=== PATIENT | male | born 1960 | race Caucasian/White ===

== ENCOUNTER → 2017-04-11 | Outpatient (CLI) | payer SELFPAY ==
[2017-04-11 14:06] LABS: CH 33.8; CHCM 32.6; HCT 47.1 % (39.0-53.0); HDW 2.17; HGB 15.4 gm/dL (13.0-17.5); MCHC 32.8 g/dL (31.0-37.0); MCV 103.8 fL (80.0-100.0); Macrocytosis Slight; Mean Platelet Volume 7.3; RBC 4.54 m/uL (4.30-5.90); RDW 12.8 % (11.5-15.5)
[2017-04-11 14:16] LABS: ALT 136 U/L (21-72); AST 116 U/L (17-59); Alkaline Phosphatase 69 U/L (38-126); Anion Gap 10 mmol/L; Blood Urea Nitrogen 18 mg/dL (9-20); Carbon Dioxide 28 mmol/L (22-30); Chloride 103 mmol/L (98-107); Glucose 134 mg/dL (74-99); Non-African American GFR(MDRD) >60 (>60 ml/min/1.73 sqM); Sodium 141 mmol/L (137-145); Total Bilirubin 0.7 mg/dL (0.2-1.3); Total Protein 7.5 g/dL (6.3-8.2)
== END | disposition home or self-care (01) ==
LOC: LABWHC1 13:27
PROVIDERS: ATTEND Internal Medicine Interventional Cardiology
DX: I48.0 Paroxysmal atrial fibrillation (principal)
CPT/HCPCS: 36415; 80053; 84443; 85027

== ENCOUNTER 2019-06-20 14:04 | Inpatient (IN) | payer BC ==
[2019-06-20] MEDS ORDERED: SODIUM CHLORIDE 0.9% 500 ML 500 ML IV STA (14:24)
[2019-06-20] MEDS ORDERED: OSELTAMIVIR 75 MG CAP PO STA (14:25)
[2019-06-20] MEDS ORDERED: DILTIAZEM DRIP BOLUS FROM BAG 1 MG SOLN IV ONE ×2 (14:25→15:14)
[2019-06-20] MEDS ORDERED: IBUPROFEN 600 MG TAB PO STA (14:26)
[2019-06-20] MEDS ORDERED: ACETAMINOPHEN TAB 500 MG TAB PO STA (14:26)
--- NOTE | 2019-06-20 14:41 | ED ---
General Adult HPI - General Chief complaint: Arrhythmia/Palpitations Stated complaint: +FLU, AFIB, High BP Time Seen by Provider: 06/20/19 14:04 Source: patient, RN notes reviewed, old records reviewed Mode of arrival: ambulatory Limitations: no limitations - History of Present Illness Initial comments: This is a 59-year-old male who was just diagnosed with influenza b admitted urgent care. They noted his heart rate to be extremely elevated at about 180 beats a minute and his blood pressure to be systolic over 200 systolic emergency department immediately. Patient states he felt his heart racing last night about 3:00 it is been racing ever since. He didn't feel well he had a fever say went to the urgent care. Patient's fever was 101.7. Patient denies any abdominal pain patient denies any chest pain though he feels the palpitations patient denies any lightheadedness or dizziness. Patient does state he is slightly short of breath when his heart racing this fast. - Related Data Home Medications Medication Instructions Recorded Confirmed Aspirin [Adult Low Dose Aspirin EC] 81 mg PO DAILY 06/20/19 06/20/19 Flecainide Acetate 100 mg PO Q12H 06/20/19 06/20/19 Metoprolol Tartrate [Lopressor] 50 mg PO BID 06/20/19 06/20/19 Allergies Allergy/AdvReac Type Severity Reaction Status Date / Time No Known Allergies Allergy Verified 06/20/19 15:59 Review of Systems ROS Statement: Those systems with pertinent positive or pertinent negative responses have been documented in the HPI. ROS Other: All systems not noted in ROS Statement are negative. Past Medical History Past Medical History: Atrial Fibrillation, COPD, Hypertension History of Any Multi-Drug Resistant Organisms: None Reported Past Surgical History: Orthopedic Surgery Additional Past Surgical History / Comment(s): shoulder Past Psychological History: No Psychological Hx Reported Smoking Status: Current every day smoker Past Alcohol Use History: Occasional Past Drug Use History: None Reported General Exam - General Exam Comments Initial Comments: GENERAL: Patient is well-developed and well-nourished. Patient is nontoxic and well- hydrated and is in moderate distress. ENT: Neck is soft and supple. No significant lymphadenopathy is noted. Oropharynx is clear. Moist mucous membranes. Neck has full range of motion without eliciting any pain. EYES: The sclera were anicteric and conjunctiva were pink and moist. Extraocular movements were intact and pupils were equal round and reactive to light. Eyelids were unremarkable. PULMONARY: Unlabored respirations. Good breath sounds bilaterally. No audible rales rhonchi or wheezing was noted. CARDIOVASCULAR: Patient's heart rate is 20 beats a minute. ABDOMEN: Soft and nontender with normal bowel sounds. No palpable organomegaly was noted. There is no palpable pulsatile mass. SKIN: Skin is clear with no lesions or rashes and otherwise unremarkable. NEUROLOGIC: Patient is alert and oriented x3. Cranial nerves II through XII are grossly intact. Motor and sensory are also intact. Normal speech, volume and content. Symmetrical smile. MUSCULOSKELETAL: Normal extremities with adequate strength and full range of motion. No lower extremity swelling or edema. No calf tenderness. LYMPHATICS: No significant lymphadenopathy is noted PSYCHIATRIC: Normal psychiatric evaluation. Limitations: no limitations Course Vital Signs 06/20/19 06/20/19 06/20/19 14:18 14:20 14:27 Temperature 101.7 F H Pulse Rate 192 H Pulse Rate [ Lacing Presser ] Respiratory 22 Rate Blood Pressure 151/79 O2 Sat by Pulse 90 L 77 L 91 L Oximetry 06/20/19 06/20/19 06/20/19 14:30 14:40 14:50 Temperature Pulse Rate 192 H 168 H 168 H Pulse Rate [ Lacing Presser ] Respiratory 49 H 45 H Rate Blood Pressure 151/79 152/104 151/111 O2 Sat by Pulse 93 L 100 95 Oximetry 06/20/19 06/20/19 06/20/19 15:00 15:03 15:10 Temperature Pulse Rate 154 H 172 H Pulse Rate [ 172 H Lacing Presser ] Respiratory 18 28 H Rate Blood Pressure 135/119 135/119 O2 Sat by Pulse 94 L 96 Oximetry Medical Decision Making - Medical Decision Making EKG shows atrial fibrillation with rapid ventricular response at 191 bpm QRS is 88 QT interval is 224 QTC is 399. I spoke with Dr. Gross agreed to admit the patient admitted the patient wrote admitting orders. I placed the patient on Cardizem drip after given a bolus of 10 mg of Cardizem I didn't repeat 10 mg Cardizem after the first bolus on slowing down to 170. Patient currently isn't 119 beats a minute. Started the patient on heparin. I admitted the patient I consult cardiology. - Lab Data Result diagrams: 06/20/19 14:40 06/20/19 14:40 Lab Results 06/20/19 06/20/19 06/20/19 Range/Units 14:40 14:40 14:40 WBC 14.2 H (3.8-10.6) k/uL RBC 5.18 (4.30-5.90) m/uL Hgb 16.8 (13.0-17.5) gm/dL Hct 49.6 (39.0-53.0) % MCV 95.6 (80.0-100.0) fL MCH 32.3 (25.0-35.0) pg MCHC 33.8 (31.0-37.0) g/dL RDW 12.5 (11.5-15.5) % Plt Count 252 (150-450) k/uL Neutrophils % 92 % Lymphocytes % 3 % Monocytes % 2 % Eosinophils % 1 % Basophils % 1 % Neutrophils # 13.1 H (1.3-7.7) k/uL Lymphocytes # 0.4 L (1.0-4.8) k/uL Monocytes # 0.3 (0-1.0) k/uL Eosinophils # 0.2 (0-0.7) k/uL Basophils # 0.1 (0-0.2) k/uL PT 10.3 (9.0-12.0) sec INR 1.0 (<1.2) APTT 21.6 L (22.0-30.0) sec Sodium 137 (137-145) mmol/L Potassium 4.9 (3.5-5.1) mmol/L Chloride 105 (98-107) mmol/L Carbon Dioxide 23 (22-30) mmol/L Anion Gap 9 mmol/L BUN 21 H (9-20) mg/dL Creatinine 1.08 (0.66-1.25) mg/dL Est GFR (CKD-EPI)AfAm 86 (>60 ml/min/1.73 sqM) Est GFR (CKD-EPI)NonAf 75 (>60 ml/min/1.73 sqM) Glucose 106 H (74-99) mg/dL Calcium 9.6 (8.4-10.2) mg/dL Magnesium 1.7 (1.6-2.3) mg/dL Total Bilirubin 0.9 (0.2-1.3) mg/dL AST 22 (17-59) U/L ALT 23 (4-49) U/L Alkaline Phosphatase 103 (38-126) U/L Troponin I (0.000-0.034) ng/mL Total Protein 8.0 (6.3-8.2) g/dL Albumin 4.7 (3.5-5.0) g/dL 06/20/19 Range/Units 14:40 WBC (3.8-10.6) k/uL RBC (4.30-5.90) m/uL Hgb (13.0-17.5) gm/dL Hct (39.0-53.0) % MCV (80.0-100.0) fL MCH (25.0-35.0) pg MCHC (31.0-37.0) g/dL RDW (11.5-15.5) % Plt Count (150-450) k/uL Neutrophils % % Lymphocytes % % Monocytes % % Eosinophils % % Basophils % % Neutrophils # (1.3-7.7) k/uL Lymphocytes # (1.0-4.8) k/uL Monocytes # (0-1.0) k/uL Eosinophils # (0-0.7) k/uL Basophils # (0-0.2) k/uL PT (9.0-12.0) sec INR (<1.2) APTT (22.0-30.0) sec Sodium (137-145) mmol/L Potassium (3.5-5.1) mmol/L Chloride (98-107) mmol/L Carbon Dioxide (22-30) mmol/L Anion Gap mmol/L BUN (9-20) mg/dL Creatinine (0.66-1.25) mg/dL Est GFR (CKD-EPI)AfAm (>60 ml/min/1.73 sqM) Est GFR (CKD-EPI)NonAf (>60 ml/min/1.73 sqM) Glucose (74-99) mg/dL Calcium (8.4-10.2) mg/dL Magnesium (1.6-2.3) mg/dL Total Bilirubin (0.2-1.3) mg/dL AST (17-59) U/L ALT (4-49) U/L Alkaline Phosphatase (38-126) U/L Troponin I <0.012 (0.000-0.034) ng/mL Total Protein (6.3-8.2) g/dL Albumin (3.5-5.0) g/dL Critical Care Time Critical Care Time: Yes Total Critical Care Time: 35 Disposition Clinical Impression: Atrial fibrillation with rapid ventricular response Disposition: ADMITTED IP TO THIS HOSP Referrals: None,Stated [Primary Care Provider] - 1-2 days Time of Disposition: 17:05
[2019-06-20 14:48] LABS: Basophils # (A) 0.1 k/uL (0-0.2); Basophils % (A) 1 %; Eosinophils # (A) 0.2 k/uL (0-0.7); Eosinophils % (A) 1 %; HCT 49.6 % (39.0-53.0); HGB 16.8 gm/dL (13.0-17.5); Lymphocytes # (A) 0.4 k/uL (1.0-4.8); Lymphocytes % (A) 3 %; MCH 32.3 pg (25.0-35.0); MCHC 33.8 g/dL (31.0-37.0); MCV 95.6 fL (80.0-100.0); Mean Platelet Volume 7.1; Monocytes # (A) 0.3 k/uL (0-1.0); Monocytes % (A) 2 %; Neutrophils # (A) 13.1 k/uL (1.3-7.7); Neutrophils % (A) 92 %; Platelet Count 252 k/uL (150-450); RBC 5.18 m/uL (4.30-5.90); RDW 12.5 % (11.5-15.5); WBC 14.2 k/uL (3.8-10.6)
[2019-06-20] MEDS: DILTIAZEM 125 MG in SODIUM CHLORIDE 0.9% 100 ML IV SCH (14:48)
[2019-06-20 15:08] LABS: Albumin 4.7 g/dL (3.5-5.0); Calcium 9.6 mg/dL (8.4-10.2); Magnesium 1.7 mg/dL (1.6-2.3); Partial Thromboplastin Time 21.6 sec (22.0-30.0); Potassium 4.9 mmol/L (3.5-5.1); Prothrombin Time 10.3 sec (9.0-12.0); Total Bilirubin 0.9 mg/dL (0.2-1.3)
--- NOTE | 2019-06-20 16:35 | XR ---
EXAMINATION TYPE: XR chest 1V portable DATE OF EXAM: 06/20/2019 COMPARISON: Prior chest x-ray 11/04/2011 HISTORY: Chest pain TECHNIQUE: Single frontal view of the chest is obtained. FINDINGS: Findings are similar. Left hemidiaphragm appears elevated. Left heart border is obscured. There are overlying cardiac leads. There is no focal air space opacity, pleural effusion, or pneumoth orax seen. The cardiac silhouette size could be enlarged. The osseous structures are intact, old r ight clavicular fracture is healed. IMPRESSION: Elevated left hemidiaphragm. There are limitations the exam, PA and lateral chest x-ray may be of benefit. Difficult to exclude cardiomegaly.
[2019-06-20] MEDS ORDERED: HEPARIN SODIUM,PORCINE 5,000 UNIT/ML 1 ML VIAL IV ONE (17:00)
[2019-06-20] MEDS ORDERED: NITROGLYCERIN SL TABS 0.4 MG TAB SUBLINGUAL PRN (17:05)
[2019-06-20] MEDS: HEPARIN SOD,PORK IN 0.45% NACL 25,000 UNIT in 0.45% NACL 1 250ML.BAG IV SCH (18:37)
[2019-06-20] MEDS: ACETAMINOPHEN TAB 325 MG TAB PO PRN (21:07)
[2019-06-20] MEDS: OSELTAMIVIR 75 MG CAP PO SCH (21:07)
[2019-06-20] MEDS: guaiFENesin-DM 100-10MG/5ML 10 ML CUP PO PRN (21:30)
[2019-06-21 04:42] LABS: Cholesterol 146 mg/dL (<200); HDL Cholesterol 50 mg/dL (40-60); LDL Cholesterol,Calculated 87 mg/dL (0-99); Triglycerides 46 mg/dL (<150)
[2019-06-21] MEDS: guaiFENesin-DM 100-10MG/5ML 10 ML CUP PO PRN ×3 (06:42→20:28)
[2019-06-21] MEDS: ACETAMINOPHEN TAB 325 MG TAB PO PRN ×2 (08:29→18:39)
[2019-06-21] MEDS: OSELTAMIVIR 75 MG CAP PO SCH ×2 (08:31→20:28)
[2019-06-21] MEDS ORDERED: ASPIRIN 325 MG TAB PO SCH (09:00)
[2019-06-21 12:38] LABS: Basophils # (A) 0.1 k/uL (0-0.2); Basophils % (A) 2 %; Eosinophils % (A) 1 %; HCT 43.2 % (39.0-53.0); HGB 14.3 gm/dL (13.0-17.5); Lymphocytes # (A) 0.1 k/uL (1.0-4.8); Lymphocytes % (A) 2 %; MCH 32.2 pg (25.0-35.0); MCHC 33.1 g/dL (31.0-37.0); MCV 97.4 fL (80.0-100.0); Mean Platelet Volume 7.2; Monocytes # (A) 0.3 k/uL (0-1.0); Monocytes % (A) 7 %; Neutrophils # (A) 4.3 k/uL (1.3-7.7); Neutrophils % (A) 85 %; Platelet Count 172 k/uL (150-450); RBC 4.44 m/uL (4.30-5.90); RDW 12.7 % (11.5-15.5)
[2019-06-21] MEDS: HEPARIN SOD,PORK IN 0.45% NACL 25,000 UNIT in 0.45% NACL 1 250ML.BAG IV SCH (13:08)
[2019-06-21 13:25] LABS: Calcium 8.6 mg/dL (8.4-10.2)
[2019-06-21] MEDS: DILTIAZEM 125 MG in SODIUM CHLORIDE 0.9% 100 ML IV SCH (14:26)
[2019-06-21] MEDS: METOPROLOL TARTRATE 50 MG TAB PO SCH ×2 (14:26→20:28)
[2019-06-21] MEDS: FLECAINIDE 50 MG TAB PO SCH ×2 (14:26→20:28)
[2019-06-21] MEDS: MELATONIN 5 MG TABLET PO SCH (20:28)
[2019-06-22] MEDS: guaiFENesin-DM 100-10MG/5ML 10 ML CUP PO PRN ×3 (03:03→18:35)
[2019-06-22 06:42] LABS: HCT 47.1 % (39.0-53.0); HGB 15.4 gm/dL (13.0-17.5); MCHC 32.7 g/dL (31.0-37.0); MCV 97.7 fL (80.0-100.0); Mean Platelet Volume 7.3; Platelet Count 153 k/uL (150-450); RBC 4.82 m/uL (4.30-5.90); RDW 12.7 % (11.5-15.5); WBC 5.6 k/uL (3.8-10.6)
[2019-06-22 07:16] LABS: Calcium 8.6 mg/dL (8.4-10.2); Potassium 4.1 mmol/L (3.5-5.1)
[2019-06-22] MEDS: ASPIRIN 81 MG PO SCH (09:33)
[2019-06-22] MEDS: METOPROLOL TARTRATE 50 MG TAB PO SCH ×2 (09:33→20:33)
[2019-06-22] MEDS: ACETAMINOPHEN TAB 325 MG TAB PO PRN ×2 (09:33→20:33)
[2019-06-22] MEDS: OSELTAMIVIR 75 MG CAP PO SCH ×2 (09:33→20:34)
[2019-06-22] MEDS: FLECAINIDE 50 MG TAB PO SCH ×2 (09:33→20:34)
--- NOTE | 2019-06-22 10:21 | P.HPIM ---
History of Present Illness H&P Date: 06/21/19 Chief Complaint: Palpitations 59-year-old male who was just diagnosed with influenza b admitted urgent care. They noted his heart rate to be extremely elevated at about 180 beats a minute and his blood pressure to be systolic over 200 systolic emergency department immediately. Patient states he felt his heart racing last night about 3:00 it is been racing ever since. He didn't feel well he had a fever say went to the urgent care. Patient's fever was 101.7. Patient denies any abdominal pain patient denies any chest pain though he feels the palpitations patient denies any lightheadedness or dizziness. Patient does state he is slightly short of breath when his heart racing this fast. Workup in ED within EKG revealed atrial fibrillation with RVR at 191; patient wa s started on Cardizem bolus and infusion and IV heparin and is admitted for further treatment of influenza and cardiology evaluation Review of Systems REVIEW OF SYSTEMS: CONSTITUTIONAL: No fever, no malaise, no fatigue. HEENT: No recent visual problems or hearing problems. Denied any sore throat. CARDIOVASCULAR: Palpitations. PULMONARY: No shortness of breath, no cough, no hemoptysis. GASTROINTESTINAL: No diarrhea, no nausea, no vomiting, no abdominal pain. NEUROLOGICAL: No headaches, no weakness, no numbness. HEMATOLOGICAL: Denies any bleeding or petechiae. GENITOURINARY: Denies any burning micturition, frequency, or urgency. MUSCULOSKELETAL/RHEUMATOLOGICAL: Denies any joint pain, swelling, or any muscle pain. ENDOCRINE: Denies any polyuria or polydipsia. The rest of the 14-point review of systems is negative. Past Medical History Past Medical History: Atrial Fibrillation, COPD, Hypertension History of Any Multi-Drug Resistant Organisms: None Reported Past Surgical History: Orthopedic Surgery Additional Past Surgical History / Comment(s): shoulder Past Psychological History: No Psychological Hx Reported Smoking Status: Current every day smoker Past Alcohol Use History: Occasional Past Drug Use History: None Reported Medications and Allergies Home Medications Medication Instructions Recorded Confirmed Type Aspirin [Adult Low Dose Aspirin EC] 81 mg PO DAILY 06/20/19 06/20/19 History Flecainide Acetate 100 mg PO Q12H 06/20/19 06/20/19 History Metoprolol Tartrate [Lopressor] 50 mg PO BID 06/20/19 06/20/19 History Allergies Allergy/AdvReac Type Severity Reaction Status Date / Time No Known Allergies Allergy Verified 06/20/19 15:59 Physical Exam Vitals: Vital Signs Temp Pulse Pulse Pulse Resp BP BP 06/21/19 11:15 98.5 F 101 H 18 128/76 06/21/19 09:00 18 06/21/19 07:58 98.4 F 113 H 18 141/90 06/21/19 04:31 99.4 F 116 H 18 142/85 06/21/19 00:00 97.9 F 104 H 22 164/84 06/20/19 21:53 98.7 F 111 H 20 139/80 06/20/19 21:00 111 H 20 06/20/19 19:05 99.2 F 112 H 16 108/73 06/20/19 17:05 99.2 F 112 H 16 108/73 06/20/19 15:10 172 H 28 H 135/119 06/20/19 15:03 154 H 18 135/119 06/20/19 15:00 172 H 06/20/19 14:50 168 H 45 H 151/111 06/20/19 14:40 168 H 49 H 152/104 06/20/19 14:30 192 H 151/79 06/20/19 14:27 101.7 F H 192 H 22 151/79 06/20/19 14:20 06/20/19 14:18 Pulse Ox 06/21/19 11:15 91 L 06/21/19 09:00 06/21/19 07:58 93 L 06/21/19 04:31 93 L 06/21/19 00:00 93 L 06/20/19 21:53 93 L 06/20/19 21:00 06/20/19 19:05 98 06/20/19 17:05 98 06/20/19 15:10 96 06/20/19 15:03 94 L 06/20/19 15:00 06/20/19 14:50 95 06/20/19 14:40 100 06/20/19 14:30 93 L 06/20/19 14:27 91 L 06/20/19 14:20 77 L 06/20/19 14:18 90 L Intake and Output 06/20/19 06/21/19 06/21/19 22:59 06:59 14:59 Intake Total 79.333 Output Total 200 325 Balance -120.667 -325 Intake: Intake, IV Titration 79.333 Amount Heparin Sod,Pork in 0.45% 79.333 NaCl 25,000 unit In 0.45 % NaCl 1 250ml.bag @ 10. 113 UNITS/KG/HR 10 mls/hr IV .Q24H [facility] Rx#: [id number] Output: Urine 200 325 Other: # Voids 1 1 Weight 98.883 kg 96.8 kg GENERAL: The patient is alert and oriented x3, not in any acute distress. Well developed, well nourished. HEENT: Pupils are round and equally reacting to light. EOMI. No scleral icterus. No conjunctival pallor. Normocephalic, atraumatic. No pharyngeal erythema. No thyromegaly. CARDIOVASCULAR: Irregularly irregular; S1 and S2 present. . PULMONARY: Chest is clear to auscultation, no wheezing or crackles. ABDOMEN: Soft, nontender, nondistended, normoactive bowel sounds. No palpable organomegaly. MUSCULOSKELETAL: No joint swelling or deformity. EXTREMITIES: No cyanosis, clubbing, or pedal edema. NEUROLOGICAL: Gross neurological examination did not reveal any focal deficits. SKIN: No rashes. Results CBC & Chem 7: 06/22/19 06:11 06/22/19 06:11 Labs: Abnormal Lab Results - Last 24 Hours (Table) 06/20/19 06/20/19 06/20/19 Range/Units 14:40 14:40 14:40 WBC 14.2 H (3.8-10.6) k/uL Neutrophils # 13.1 H (1.3-7.7) k/uL Lymphocytes # 0.4 L (1.0-4.8) k/uL APTT 21.6 L (22.0-30.0) sec BUN 21 H (9-20) mg/dL Glucose 106 H (74-99) mg/dL 06/21/19 06/21/19 Range/Units 00:40 03:53 WBC (3.8-10.6) k/uL Neutrophils # (1.3-7.7) k/uL Lymphocytes # (1.0-4.8) k/uL APTT 39.6 H 50.5 H (22.0-30.0) sec BUN (9-20) mg/dL Glucose (74-99) mg/dL Thrombosis Risk Factor Assmnt - Choose All That Apply Each Factor Represents 1 point: Age 41-60 years Thrombosis Risk Factor Assessment Total Risk Factor Score: 1 Thrombosis Risk Factor Assessment Level: Low Risk Assessment and Plan Assessment: 1. Atrial fibrillation with RVR; patient is started on IV heparin per protocol and remains rate controlled on IV Cardizem; cardiology is consulted and recommendations are pending 2. Influenza B; patient is started on Tamiflu 75 mg every 12 hours; we will continue with supportive care with IV fluids and Robitussin-DM for cough 3. COPD; not in exacerbation; patient does not use any inhaler therapy at home 4. Hypertension; continue with home dose of Lopressor 50 mg every 12 hours DVT prophylaxis; systemic anticoagulation with heparin CODE STATUS; full code
[2019-06-22 11:48] LABS: Band Neutrophils % 4 %; Lymphocytes # (M) 0.62 k/uL (1.0-4.8); Monocytes # (M) 0.34 k/uL (0-1.0); Neutrophils % (M) 79 %; Nucleated Red Blood Cells 0 /100 WBC (0-0); Total Cells Counted 100
--- NOTE | 2019-06-22 12:17 | CONS ---
CONSULTATION CHIEF COMPLAINT: Atrial fibrillation. Gabriel is a 59-year-old gentleman with history of hypertension, paroxysmal atrial fibrillation, who was admitted to the hospital with flu and was found to be in atrial fibrillation with rapid ventricular rate. The patient had symptoms of fever, cough, not feeling well and also had sustained palpitations. His admission EKG showed A-Fib with RVR with heart rates in the 190s. Subsequently, the heart rates are better controlled. I saw the patient yesterday, that is on 06/21, but I could not dictate him, I am dictating it today. At the time of my evaluation, patient was chest pain-free and hemodynamically stable. PAST MEDICAL HISTORY: Significant for paroxysmal atrial fibrillation. MEDICATIONS: Medications include Lopressor 50 b.i.d., flecainide 100 b.i.d. and aspirin. ALLERGIES: There are no known drug allergies. FAMILY HISTORY: Negative for premature coronary artery disease. SOCIAL HISTORY: Negative for current smoking, EtOH abuse, or drug abuse. REVIEW OF SYSTEMS: HEENT is unremarkable. CARDIAC: As described above. RESPIRATORY: As described above. GI: Negative. GENITOURINARY: Negative. ALLERGY/IMMUNOLOGY: Negative. MUSCULOSKELETAL: Negative. ENDOCRINE: Negative. HEMATOLOGICAL: Negative. DERM: Negative. CONSTITUTIONAL: As described above. Rest of the system review is not relevant. PHYSICAL EXAMINATION: On exam, patient is afebrile. Heart rate is 90 beats per minute. Blood pressure is 138/88. Respiratory rate is 18. O2 sat is 92% on room air. There is no jugular venous distention. Carotid upstroke is normal. There is no bruit. Chest exam shows good air entry bilaterally. I do not hear any crackles or rhonchi. Heart exam reveals first and second heart sounds, irregular rhythm. There is no murmur, rub. Abdomen is soft, nontender. Exam of extremities did not reveal any edema. Peripheral pulses are felt. ASSESSMENT: 1. Persistent atrial fibrillation with rapid ventricular rate. 2. Flu. PLAN: I will continue the flecainide, metoprolol, intravenous heparin, obtain a 2D echo and decide on further course of action. MMODL / IJN: [id number] /
--- NOTE | 2019-06-22 16:30 | CT ---
EXAMINATION TYPE: CT brain wo con DATE OF EXAM: 06/22/2019 COMPARISON: None HISTORY: Left sided weakness. CT DLP: 1123.4 mGycm Automated exposure control for dose reduction was used. Multiple axial sections were obtained of the brain without contrast. Ventricles have normal size. There is no mass effect nor midline shift. There is no sign of intracran ial hemorrhage. Calvarium is intact. IMPRESSION: Negative unenhanced head CT scan. Mild ethmoid sinusitis noted.
[2019-06-22] MEDS: HEPARIN SOD,PORK IN 0.45% NACL 25,000 UNIT in 0.45% NACL 1 250ML.BAG IV SCH (17:25)
[2019-06-22] MEDS: MELATONIN 5 MG TABLET PO SCH (20:34)
--- NOTE | 2019-06-22 22:23 | PN ---
PROGRESS NOTE Gabriel is admitted to hospital with acute influenza and developed atrial fibrillation with rapid ventricular rate. This morning, he remains in atrial fibrillation with fairly controlled ventricular rate. Blood pressure is normal. Chest exam reveals good air entry bilaterally. Heart exam reveals first and second heart sounds. No gallop. Exam of extremities did not reveal any edema. He is currently on Tambocor 100 b.i.d., aspirin, intravenous heparin and Lopressor. If he is covered for Xarelto or Eliquis, he will be switched to one of them. ASSESSMENT: 1. Persistent atrial fibrillation with controlled ventricular rate. 2. Flu. PLAN: We will review the echocardiogram. Continue current medications. MMODL / IJN: [id number] /
[2019-06-23] MEDS: guaiFENesin-DM 100-10MG/5ML 10 ML CUP PO PRN (05:32)
[2019-06-23 07:03] LABS: Calcium 8.8 mg/dL (8.4-10.2); Potassium 4.2 mmol/L (3.5-5.1)
[2019-06-23 07:15] LABS: HCT 47.8 % (39.0-53.0); MCH 32.6 pg (25.0-35.0); MCHC 33.6 g/dL (31.0-37.0); MCV 97.1 fL (80.0-100.0); Mean Platelet Volume 8.6; Platelet Count 154 k/uL (150-450); RBC 4.92 m/uL (4.30-5.90); RDW 12.8 % (11.5-15.5); WBC 3.1 k/uL (3.8-10.6)
[2019-06-23] MEDS: METOPROLOL TARTRATE 50 MG TAB PO SCH ×2 (08:51→20:24)
[2019-06-23] MEDS: OSELTAMIVIR 75 MG CAP PO SCH ×2 (08:52→20:24)
[2019-06-23] MEDS: FLECAINIDE 50 MG TAB PO SCH ×2 (08:52→20:24)
[2019-06-23] MEDS: ASPIRIN 81 MG PO SCH (08:52)
[2019-06-23 09:01] LABS: Band Neutrophils % 2 %; Basophils # (M) 0.03 k/uL (0-0.2); Eosinophils # (M) 0.03 k/uL (0-0.7); Monocytes # (M) 0.47 k/uL (0-1.0); Neutrophils % (M) 65 %; Nucleated Red Blood Cells 0 /100 WBC (0-0); Total Cells Counted 100
[2019-06-23 09:02] LABS: Poikilocytosis (M) Present
--- NOTE | 2019-06-23 10:14 | P.PN ---
Subjective Progress Note Date: 06/22/19 Principal diagnosis: atrial fibrillation with RVR Influenza B 59-year-old male who was just diagnosed with influenza b admitted urgent care. They noted his heart rate to be extremely elevated at about 180 beats a minute and his blood pressure to be systolic over 200 systolic emergency department immediately. Patient states he felt his heart racing last night about 3:00 it is been racing ever since. He didn't feel well he had a fever say went to the urgent care. Patient's fever was 101.7. Patient denies any abdominal pain patient denies any chest pain though he feels the palpitations patient denies any lightheadedness or dizziness. Patient does state he is slightly short of breath when his heart racing this fast. Workup in ED within EKG revealed atrial fibrillation with RVR at 191; patient was started on Cardizem bolus and infusion and IV heparin and is admitted for further treatment of influenza and cardiology evaluation 06/22/2019 Patient is seen and evaluated in room at bedside; patient complaint some weakness and left upper extremity and reports inability to hold anything in left arm; denies any chest pain or shortness of breath; no vision or speech changes Vital signs are stable with a temperature of 98.5, pulse 105, blood pressure 145/88 and O2 saturation of 93% Patient does demonstrate used muscle strength in left upper extremity; we will order stat CT of head without contrast and stat consult with neurology cardiology is following for atrial fibrillation which remains under control with Tambocor 100 mg twice a day and Lopressor; patient is anticoagulated with IV heparin with plan to switch to oral anticoagulation therapy once stable Objective - Vital Signs Vital signs: Vital Signs Temp 98.2 F 06/22/19 08:00 Pulse 103 H 06/22/19 08:00 Resp 22 06/22/19 04:06 BP 138/88 06/22/19 08:00 Pulse Ox 92 L 06/22/19 08:00 Intake & Output 06/21/19 06/22/19 06/22/19 18:59 06:59 18:59 Intake Total 136.049 240 670 Output Total 650 250 300 Balance -513.951 -10 370 Weight 95.9 kg Intake: Intake, IV Titration 136.049 250 Amount Heparin Sod,Pork in 0.45% 136.049 250 NaCl 25,000 unit In 0.45 % NaCl 1 250ml.bag @ 10. 113 UNITS/KG/HR 10 mls/hr IV .Q24H [facility] Rx#: [id number] Oral 240 420 Output: Urine 650 250 300 Other: # Voids 2 - Exam GENERAL: The patient is alert and oriented x3, not in any acute distress. Well developed, well nourished. HEENT: Pupils are round and equally reacting to light. EOMI. No scleral icterus. No conjunctival pallor. Normocephalic, atraumatic. No pharyngeal erythema. No thyromegaly. CARDIOVASCULAR: Irregularly irregular; S1 and S2 present. . PULMONARY: Chest is clear to auscultation, no wheezing or crackles. ABDOMEN: Soft, nontender, nondistended, normoactive bowel sounds. No palpable organomegaly. MUSCULOSKELETAL: No joint swelling or deformity. EXTREMITIES: No cyanosis, clubbing, or pedal edema. NEUROLOGICAL: decreased muscle strength left upper extremity. - Labs CBC & Chem 7: 06/23/19 05:47 06/23/19 05:47 Labs: Abnormal Lab Results - Last 24 Hours (Table) 06/22/19 06/22/19 06/22/19 Range/Units 06:11 06:11 06:11 Lymphocytes # (Manual) 0.62 L (1.0-4.8) k/uL APTT 122.2 H* (22.0-30.0) sec Sodium 132 L (137-145) mmol/L Assessment and Plan Assessment: 1. Atrial fibrillation with RVR; patient is started on IV heparin per protocol and remains rate controlled on IV Cardizem; cardiology is consulted and recommendations are pending 2. Influenza B; patient is started on Tamiflu 75 mg every 12 hours; we will continue with supportive care with IV fluids and Robitussin-DM for cough 3. COPD; not in exacerbation; patient does not use any inhaler therapy at home 4. Hypertension; continue with home dose of Lopressor 50 mg every 12 hours DVT prophylaxis; systemic anticoagulation with heparin CODE STATUS; full code
[2019-06-23] MEDS: APIXABAN 5 MG TAB PO SCH ×2 (13:07→20:27)
--- NOTE | 2019-06-23 16:57 | P.PN ---
Subjective Progress Note Date: 06/23/19 Principal diagnosis: atrial fibrillation with RVR Influenza B 59-year-old male who was just diagnosed with influenza b admitted urgent care. They noted his heart rate to be extremely elevated at about 180 beats a minute and his blood pressure to be systolic over 200 systolic emergency department immediately. Patient states he felt his heart racing last night about 3:00 it is been racing ever since. He didn't feel well he had a fever say went to the urgent care. Patient's fever was 101.7. Patient denies any abdominal pain patient denies any chest pain though he feels the palpitations patient denies any lightheadedness or dizziness. Patient does state he is slightly short of breath when his heart racing this fast. Workup in ED within EKG revealed atrial fibrillation with RVR at 191; patient was started on Cardizem bolus and infusion and IV heparin and is admitted for further treatment of influenza and cardiology evaluation 06/22/2019 Patient is seen and evaluated in room at bedside; patient complaint some weakness and left upper extremity and reports inability to hold anything in left arm; denies any chest pain or shortness of breath; no vision or speech changes Vital signs are stable with a temperature of 98.5, pulse 105, blood pressure 145/88 and O2 saturation of 93% Patient does demonstrate used muscle strength in left upper extremity; we will order stat CT of head without contrast and stat consult with neurology cardiology is following for atrial fibrillation which remains under control with Tambocor 100 mg twice a day and Lopressor; patient is anticoagulated with IV heparin with plan to switch to oral anticoagulation therapy once stable 07/03/2019 Patient is seen and evaluated in room at bedside; patient reports marked improvement in arm weakness; neurology consult is pending CT of the head is reviewed and is negative for any acute abnormality; heart rate remains stable on Tambocor 100 mg every 12 hours and metoprolol 50 mg twice a day; IV heparin is discontinued and patient is started on Apixaban 5 mg twice a day; continue with Tamiflu 75 mg every 12 hours; await evaluation and re commendations by neurology service for further planning Objective - Vital Signs Vital signs: Vital Signs Temp 98.0 F 06/23/19 04:00 Pulse 88 06/23/19 04:00 Resp 18 06/23/19 04:00 BP 128/87 02/09/20 04:00 Pulse Ox 96 06/23/19 04:00 Intake & Output 06/22/19 06/23/19 06/23/19 18:59 06:59 18:59 Intake Total 970 120 Output Total 800 850 200 Balance 170 -850 -80 Weight 94.1 kg Intake: Intake, IV Titration 250 Amount Heparin Sod,Pork in 0.45% 250 NaCl 25,000 unit In 0.45 % NaCl 1 250ml.bag @ 10. 113 UNITS/KG/HR 10 mls/hr IV .Q24H [facility] Rx#: [id number] Oral 720 120 Output: Urine 800 850 200 Other: # Voids 1 - Exam GENERAL: The patient is alert and oriented x3, not in any acute distress. Well developed, well nourished. HEENT: Pupils are round and equally reacting to light. EOMI. No scleral icterus. No conjunctival pallor. Normocephalic, atraumatic. No pharyngeal erythema. No thyromegaly. CARDIOVASCULAR: Irregularly irregular; S1 and S2 present. . PULMONARY: Chest is clear to auscultation, no wheezing or crackles. ABDOMEN: Soft, nontender, nondistended, normoactive bowel sounds. No palpable organomegaly. MUSCULOSKELETAL: No joint swelling or deformity. EXTREMITIES: No cyanosis, clubbing, or pedal edema. NEUROLOGICAL: decreased muscle strength left upper extremity. - Labs CBC & Chem 7: 06/23/19 05:47 06/23/19 05:47 Labs: Abnormal Lab Results - Last 24 Hours (Table) 06/22/19 06/22/19 06/23/19 Range/Units 06:11 15:33 05:47 WBC 3.1 L (3.8-10.6) k/uL Lymphocytes # (Manual) 0.62 L 0.50 L (1.0-4.8) k/uL APTT 60.8 H (22.0-30.0) sec Sodium (137-145) mmol/L Glucose (74-99) mg/dL 06/23/19 06/23/19 Range/Units 05:47 05:47 WBC (3.8-10.6) k/uL Lymphocytes # (Manual) (1.0-4.8) k/uL APTT 59.0 H (22.0-30.0) sec Sodium 134 L (137-145) mmol/L Glucose 114 H (74-99) mg/dL Assessment and Plan Assessment: 1. Atrial fibrillation with RVR; patient is started on IV heparin per protocol and remains rate controlled on IV Cardizem; cardiology is consulted and recommendations are pending 2. Influenza B; patient is started on Tamiflu 75 mg every 12 hours; we will continue with supportive care with IV fluids and Robitussin-DM for cough 3. COPD; not in exacerbation; patient does not use any inhaler therapy at home 4. Hypertension; continue with home dose of Lopressor 50 mg every 12 hours DVT prophylaxis; systemic anticoagulation with heparin CODE STATUS; full code
[2019-06-23] MEDS: MELATONIN 5 MG TABLET PO SCH (20:24)
[2019-06-24 05:38] VITALS: RESP 18
[2019-06-24 06:41] LABS: HCT 51.1 % (39.0-53.0); HGB 16.8 gm/dL (13.0-17.5); MCH 31.9 pg (25.0-35.0); MCHC 32.8 g/dL (31.0-37.0); MCV 97.3 fL (80.0-100.0); Platelet Count 133 k/uL (150-450); RBC 5.25 m/uL (4.30-5.90); RDW 12.6 % (11.5-15.5); WBC 3.6 k/uL (3.8-10.6)
[2019-06-24 07:05] LABS: African American GFR (CKD) >90 (>60 ml/min/1.73 sqM); Anion Gap 9 mmol/L; Blood Urea Nitrogen 18 mg/dL (9-20); Carbon Dioxide 25 mmol/L (22-30); Chloride 102 mmol/L (98-107); Glucose 92 mg/dL (74-99); Non-African American GFR(CKD) 78 (>60 ml/min/1.73 sqM); Potassium 4.6 mmol/L (3.5-5.1); Sodium 136 mmol/L (137-145)
[2019-06-24 07:39] LABS: Band Neutrophils % 1 %; Eosinophils # (M) 0.07 k/uL (0-0.7); Lymphocytes # (M) 0.68 k/uL (1.0-4.8); Monocytes # (M) 1.04 k/uL (0-1.0); Neutrophils % (M) 49 %; Nucleated Red Blood Cells 0 /100 WBC (0-0); Total Cells Counted 100
[2019-06-24 08:17] VITALS: BP 125/87; PULSE 66
[2019-06-24] MEDS: FLECAINIDE 50 MG TAB PO SCH (08:21)
[2019-06-24] MEDS: METOPROLOL TARTRATE 50 MG TAB PO SCH (08:21)
[2019-06-24] MEDS: OSELTAMIVIR 75 MG CAP PO SCH (08:22)
[2019-06-24] MEDS: APIXABAN 5 MG TAB PO SCH (08:22)
[2019-06-24] MEDS: ASPIRIN 81 MG PO SCH (08:22)
[2019-06-24 11:55] VITALS: TEMP 98.1
--- NOTE | 2019-06-24 15:46 | P.PN ---
Subjective Progress Note Date: 06/24/19 This is a 59-year-old gentleman with history of hypertension, paroxysmal atrial fibrillation, admitted to the hospital with influenza, was found to be in atrial fibrillation with rapid ventricular response. The patient was seen in consultation by Dr. Sanchez, seen and evaluated today on the cardiac unit, blood pressure 125/80 with a heart rate in the 60s, 96% on room air. White blood cell count 3.6, hemoglobin 16.8, platelet count 133. Sodium 136, potassium 4.6, BUN 18, creatinine 1.0. Objective - Vital Signs Vital signs: Vital Signs Temp 98.1 F 06/24/19 11:53 Pulse 66 06/24/19 11:53 Resp 18 06/24/19 11:53 BP 125/87 06/24/19 11:53 Pulse Ox 93 L 06/24/19 11:53 Intake & Output 06/23/19 06/24/19 06/24/19 18:59 06:59 18:59 Intake Total 463 240 Output Total 626 Balance -163 240 Weight 93.3 kg Intake: Oral 463 240 Output: Urine 625 Stool 1 Other: Voiding Method Toilet Toilet # Voids 1 1 - Exam PHYSICAL EXAMINATION: GENERAL: 59-year-old gentleman in no acute distress at the time of my examination HEENT: Head is atraumatic, normocephalic. Pupils equal, round. Sclera anicteric. Conjunctiva are clear. Mucous membranes of the mouth are moist. Neck is supple. There is no elevated jugular venous pressure. No carotid bruit is heard. HEART EXAMINATION: Heart S1 and S2 irregularly irregular CHEST EXAMINATION: Lungs are clear to auscultation and precussion. No chest wall tenderness is noted on palpation or with deep breathing. ABDOMEN: Soft, nontender. Bowel sounds are heard. No organomegaly noted. EXTREMITIES: 2+ peripheral pulses with no evidence of peripheral edema and no calf tenderness noted. NEUROLOGIC patient is awake, alert and oriented 3 . - Labs CBC & Chem 7: 06/24/19 05:47 06/24/19 05:47 Labs: Abnormal Lab Results - Last 24 Hours (Table) 06/24/19 06/24/19 Range/Units 05:47 05:47 WBC 3.6 L (3.8-10.6) k/uL Plt Count 133 L (150-450) k/uL Lymphocytes # (Manual) 0.68 L (1.0-4.8) k/uL Monocytes # (Manual) 1.04 H (0-1.0) k/uL Sodium 136 L (137-145) mmol/L Assessment and Plan Plan: Assessment and plan #1 persistent atrial fibrillation #2 influenza Plan Patient will be discharged home today on anticoagulation, follow-up appointment will be made in the office post discharge. DNP note has been reviewed, I agree with a documented findings and plan of care. Patient was seen and examined.
--- NOTE | 2019-06-25 07:07 | DS ---
DISCHARGE SUMMARY FINAL DIAGNOSIS: 1. Atrial fibrillation with fast ventricular rate improved. 2. Influenza B,acute. 3. Chronic obstructive pulmonary disease with acute purulent tracheobronchitis. 4. Hypertension. DISCHARGE DISPOSITION: The patient will be discharged in stable condition with guarded prognosis. HISTORY OF PRESENT ILLNESS: This 59-year-old gentleman with a past medical history of multiple medical problems admitted with atrial fibrillation with a fast ventricular rate. Patient also had acute influenza B. The patient also had COPD not in exacerbation, purulent tracheobronchitis suspected. Patient improved, treated symptomatically. Cardiology saw the patient. The patient also had a CT scan of the brain showed negative unenhanced CT scan and the patient improved significantly. Patient will be discharged in stable condition with guarded prognosis. On exam, vitals are stable. CARDIOVASCULAR: S1, S2 muffled. ABDOMEN: Soft. NERVOUS SYSTEM: No focal deficits. DISCHARGE ADVICE AND MEDICATIONS: 1. Diet is cardiac. 2. Activity is limited until followup. 3. Follow up with Dr. Soy Baez in 2 to 3 days. 4. Follow up with Dr. Araujo as recommended. Medications are: 1. Ecotrin 81 mg p.o. daily. 2. Flecainide 100 mg p.o. b.i.d. 3. Lopressor 50 mg p.o. b.i.d. 4. Apixaban 5 mg p.o. b.i.d. 5. Tamiflu 75 mg p.o. b.i.d. for 3 more days. Once again, the patient will be discharged in stable condition with guarded prognosis. MMODL / IJN: [id number] /
== END 2019-06-24 12:50 | disposition home or self-care (01) | DRG 310 ==
LOC: EC 14:04 → 3SCARD 17:06
PROVIDERS: ADMIT Hospitalist; ATTEND Hospitalist
DX: I48.19 Other persistent atrial fibrillation (principal); F17.200 Nicotine dependence, unspecified, uncomplicated; I10 Essential (primary) hypertension; J44.9 Chronic obstructive pulmonary disease, unspecified; J10.1 Influenza due to other identified influenza virus with other respiratory manifestations; R53.1 Weakness; J20.9 Acute bronchitis, unspecified; Z79.82 Long term (current) use of aspirin; Z79.899 Other long term (current) drug therapy
CPT/HCPCS: 36415; 70450; 71045; 80048; 80053; 80061; 83735; 84484; 85025; 85610; 85730; 93306; 96361; 96365; 96366; 96376; 99291

== ENCOUNTER 2019-08-27 07:48 | Day surgery (SDC) | payer BC ==
[2019-08-26 11:36] VITALS: BMI 29.8
[2019-08-27] MEDS ORDERED: NITROGLYCERIN SL TABS 0.4 MG TAB SUBLINGUAL PRN (07:59)
[2019-08-27] MEDS ORDERED: ATORVASTATIN 80 MG TAB PO STA (07:59)
[2019-08-27] MEDS ORDERED: SODIUM CHLORIDE 0.9% 1,000 ML in EMPTY BAG 1 BAG IV ONE (07:59)
[2019-08-27] MEDS ORDERED: ALPRAZolam 0.5 MG TAB PO PRN (07:59)
[2019-08-27] MEDS ORDERED: ALPRAZolam 0.25 MG TAB PO PRN (07:59)
[2019-08-27] MEDS ORDERED: ASPIRIN 325 MG TAB PO STA (07:59)
[2019-08-27] MEDS ORDERED: SODIUM CHLORIDE 0.9% 1,000 ML IV ONE (08:43)
[2019-08-27 08:46] VITALS: RESP 16; TEMP 97.8
[2019-08-27] MEDS ORDERED: VERAPAMIL 2.5 MG/ML 2 ML AMP ONE (08:54)
[2019-08-27] MEDS ORDERED: fentaNYL (PF) 50 MCG/ML 2 ML AMP ONE (08:54)
[2019-08-27] MEDS ORDERED: LIDOCAINE 1% INJ 10MG/ML (20 ML MDV) ONE (08:54)
[2019-08-27] MEDS ORDERED: ASPIRIN 81 MG ONE (09:02)
[2019-08-27] MEDS ORDERED: ASPIRIN 325 MG TAB PO ONE (09:03)
[2019-08-27] MEDS ORDERED: fentaNYL (PF) 50 MCG/ML 2 ML AMP IVP ONE (09:10)
[2019-08-27] MEDS ORDERED: MIDAZOLAM 2 MG/2 ML VIAL IVP ONE (09:20)
[2019-08-27] MEDS ORDERED: LIDOCAINE 1% INJ 10MG/ML (20 ML MDV) SQ ONE (09:22)
[2019-08-27] MEDS ORDERED: VERAPAMIL SYRINGE (5 MG/10 ML) INTRAARTER ONE (09:24)
[2019-08-27] MEDS ORDERED: HEPARIN SODIUM 1,000 UN/ML (10ML VL) IV ONE (09:27)
[2019-08-27] MEDS ORDERED: IOPAMIDOL-370 125ML BTL INJ ONE (09:31)
[2019-08-27] MEDS ORDERED: RX INFO: IV CONTRAST WAS GIVEN 1 EACH MISC MISCELLANE PRN (09:43)
[2019-08-27] MEDS ORDERED: SODIUM CHLORIDE 0.9% 1,000 ML IV SCH (09:45)
--- NOTE | 2019-08-27 10:14 | CC ---
CARDIAC CATHETERIZATION REPORT Mr. Santoro is a 59-year-old male with known history of paroxysmal atrial fibrillation, prior history of smoking and hypertension who has been complaining of episode of chest discomfort and dyspnea. He underwent a myocardial perfusion imaging on the 25 of August where he had an episode of wide-complex tachycardia at peak exercise. In view of that, recommendation was made regarding cardiac catheterization. The procedure as well as the risks and the complications were discussed with the patient who is in full understanding and agreement. PROCEDURE: Patient was brought to the bottle labeler in a fasting state after receiving fentanyl and Benadryl and achieving moderate conscious sedated state. Using Xylocaine anesthesia in the Seldinger technique, a 6-Cypriot sheath was introduced in the right radial artery. Selective right and left coronary angiography performed using 5-Cypriot, 3.5 bend right and left Malika catheter. Multiple views in the coronary artery including hemiaxial views were obtained. Following that, the 5-Cypriot 3.5 bend left Malika was used to cross the aortic valve and pressures were calculated. Following that, catheter and sheath were removed. Hemostasis was obtained with deployment of a TR band. There was no immediate complication. Patient was returned to his room in stable condition. Of note, the patient received 5000 units of intravenous heparin as well as intra-arterial verapamil. FINDINGS: LEFT MAIN: This is a short size vessel, large in caliber, bifurcating in left circumflex, left anterior descending artery. Left main coronary artery has no evidence of high-grade stenosis. LEFT ANTERIOR DESCENDING ARTERY: This is a large-sized vessel reaching to the apex, tapers down distal third. The left anterior descending artery as well as branches have no evidence of obstructive coronary artery disease. LEFT CIRCUMFLEX: This is a large nondominant vessel giving rise to 2 obtuse marginal branches. The second one is large in caliber. The left circumflex as well as branches have no evidence of obstructive coronary artery disease. RIGHT CORONARY ARTERY: This is a moderately-sized dominant vessel bifurcating distally PDA and posterolateral segment and branches. The right coronary artery as well as branches have no evidence of obstructive coronary artery disease. LEFT VENTRICULOGRAM: Left ventriculogram was not performed. HEMODYNAMICS: There was no gradient across the aortic valve. The left ventricular end-diastolic pressure was 14 to 16 mmHg. CONCLUSION: 1. Normal coronary arteries. 2. Normal left ventricular end-diastolic pressure. RECOMMENDATION: In view of finding anatomy, I recommend continue medical therapy with further evaluation of his atrial fibrillation and resuming anticoagulation. Those findings and recommendation were discussed with the patient and he is full understanding and agreement. DURATION OF PROCEDURE: 14 minutes. JOE / CHEPE: [id number] /
[2019-08-27 14:25] VITALS: BP 125/80; PULSE 78
[2019-08-27] MEDS ORDERED: FLECAINIDE 50 MG TAB PO SCH (21:00)
[2019-08-27] MEDS ORDERED: METOPROLOL TARTRATE 50 MG TAB PO SCH (21:00)
== END 2019-08-27 15:01 | disposition home or self-care (01) ==
LOC: CATHCVL 07:48
PROVIDERS: ATTEND Internal Medicine Interventional Cardiology
DX: R07.89 Other chest pain (principal); R06.00 Dyspnea, unspecified; I48.0 Paroxysmal atrial fibrillation; I10 Essential (primary) hypertension; I48.92 Unspecified atrial flutter; J44.9 Chronic obstructive pulmonary disease, unspecified; Z87.891 Personal history of nicotine dependence; Z79.01 Long term (current) use of anticoagulants; Z79.899 Other long term (current) drug therapy
CPT/HCPCS: 93458; 80051; 82565; 84520; 85027; 36415; C1769; C1894; J2250; J2001; J3010; J1644; Q9967

== ENCOUNTER → 2019-08-27 | Outpatient (CLI) | payer BC ==
[2019-08-27 08:34] LABS: HCT 45.8 % (39.0-53.0); MCH 31.3 pg (25.0-35.0); MCHC 32.8 g/dL (31.0-37.0); MCV 95.3 fL (80.0-100.0); Mean Platelet Volume 6.5; RBC 4.81 m/uL (4.30-5.90); RDW 12.6 % (11.5-15.5); WBC 6.5 k/uL (3.8-10.6)
[2019-08-27 08:38] LABS: Platelet Count 284 k/uL (150-450)
[2019-08-27 08:51] LABS: Potassium 4.9 mmol/L (3.5-5.1)
== END | disposition home or self-care (01) ==
LOC: LABPAT 08:00
PROVIDERS: ATTEND Internal Medicine Interventional Cardiology
DX: Z01.818 Encounter for other preprocedural examination (principal); R07.9 Chest pain, unspecified
CPT/HCPCS: 36415; 80051; 82565; 84520; 85027

== ENCOUNTER 2019-09-18 18:29 | Inpatient (IN) | payer BC ==
--- NOTE | 2019-09-18 18:58 | ED ---
Chest Pain HPI - General Chief Complaint: Chest Pain Stated Complaint: Chest pain, Afib Time Seen by Provider: 09/18/19 18:40 Source: patient Mode of arrival: ambulatory Limitations: no limitations - History of Present Illness Initial Comments: The patient is a 59-year-old male with past medical history of A. fib who follows with Dr. Foy. He presents to the emergency department with reported weakness, palpitations and shortness of breath. He states that he had an ablation in [address] Foy however after 5 years he has had return of his A. fib. He states that his symptoms have been getting progressively worse. His medications haven't changed. He is currently on Lopressor 100 mg twice daily as well as Elquis. Denies missing any doses. The patient began having chest pain and followed up with his primary care office today. He had blood work performed as well as an EKG. They were concerned about his rapid ventricular rate and sentiment to the emergency room for evaluation. He is supposed to have another ablation however it has been cancelled because of the pandemic. The patient denies any fevers or chills. No cough or hemoptysis. There are no other alleviating, precipitating or modifying factors - Related Data Home Medications Medication Instructions Recorded Confirmed Omeprazole 20 mg PO DAILY 09/18/19 09/18/19 Tamsulosin [Flomax] 0.4 mg PO DAILY 09/18/19 09/18/19 Previous Rx's Medication Instructions Recorded Apixaban [Eliquis] 5 mg PO BID #60 tab 06/24/19 Metoprolol Tartrate [Lopressor] 50 mg PO BID #0 09/21/19 Sotalol [Betapace] 120 mg PO BID@0600,1800 #270 tab 09/21/19 Allergies Allergy/AdvReac Type Severity Reaction Status Date / Time No Known Allergies Allergy Verified 09/18/19 18:43 Review of Systems ROS Statement: Those systems with pertinent positive or pertinent negative responses have been documented in the HPI. ROS Other: All systems not noted in ROS Statement are negative. EKG Findings - EKG Comments: EKG Findings:: EKG demonstrates atrial fibrillation with a rate of 131. RI interval 0 QRS 86. QTC of 460. Peak T waves in V1 through V3. 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 - History of Any Multi-Drug Resistant Organisms: None Reported Past Surgical History: Cardiac Ablation, Orthopedic Surgery Additional Past Surgical History / Comment(s): rotator cuff left shoulder, Past Anesthesia/Blood Transfusion Reactions: No Reported Reaction Past Psychological History: No Psychological Hx Reported Smoking Status: Former smoker Past Alcohol Use History: None Reported Past Drug Use History: None Reported - Past Family History Mother Family Medical History: Cancer General Exam Limitations: no limitations General appearance: alert, in no apparent distress Head exam: Present: atraumatic, normocephalic, normal inspection Eye exam: Present: normal appearance, PERRL, EOMI. Absent: scleral icterus, conjunctival injection, periorbital swelling ENT exam: Present: normal exam, mucous membranes moist Neck exam: Present: normal inspection. Absent: tenderness, meningismus, lymphadenopathy Respiratory exam: Present: normal lung sounds bilaterally. Absent: respiratory distress, wheezes, rales, rhonchi, stridor Cardiovascular Exam: Present: tachycardia, irregular rhythm, normal heart sounds. Absent: systolic murmur, diastolic murmur, rubs, gallop, clicks GI/Abdominal exam: Present: soft, normal bowel sounds. Absent: distended, tenderness, guarding, rebound, rigid Extremities exam: Present: normal inspection, full ROM, normal capillary refill. Absent: tenderness, pedal edema, joint swelling, calf tenderness Back exam: Present: normal inspection Neurological exam: Present: alert, oriented X3, CN II-XII intact Psychiatric exam: Present: normal affect, normal mood Skin exam: Present: warm, dry, intact, normal color. Absent: rash Course Vital Signs 09/18/19 09/18/19 09/18/19 18:38 18:52 19:00 Temperature 98.3 F Pulse Rate 120 H 114 H Respiratory 18 16 Rate Blood Pressure 162/94 177/134 O2 Sat by Pulse 97 98 97 Oximetry 09/18/19 09/18/19 09/18/19 19:10 19:20 19:30 Temperature Pulse Rate 123 H 118 H 102 H Respiratory 17 22 23 Rate Blood Pressure 154/126 154/126 O2 Sat by Pulse 98 98 Oximetry 09/18/19 09/18/19 09/18/19 19:40 19:50 20:00 Temperature Pulse Rate 107 H 126 H 108 H Respiratory 13 17 19 Rate Blood Pressure 139/123 139/123 O2 Sat by Pulse 98 98 96 Oximetry 09/18/19 09/18/19 09/18/19 20:10 20:20 20:30 Temperature Pulse Rate 110 H 125 H 121 H Respiratory 13 18 20 Rate Blood Pressure 142/90 142/90 142/90 O2 Sat by Pulse 98 98 97 Oximetry 09/18/19 09/18/19 09/18/19 20:31 20:40 20:50 Temperature Pulse Rate 114 H 107 H 116 H Respiratory 15 13 14 Rate Blood Pressure 156/117 156/117 156/117 O2 Sat by Pulse 97 97 Oximetry 09/18/19 09/18/19 09/18/19 21:00 21:10 21:20 Temperature Pulse Rate 93 96 88 Respiratory 16 17 16 Rate Blood Pressure 156/117 149/110 155/114 O2 Sat by Pulse Oximetry Chest Pain MDM - MDM Upon arrival the patient is placed into room 4. A thorough history and physical exam was performed. The patient is noted to be in A. fib with RVR. Peripheral IV was established. Laboratory studies were conducted. Creatinine is 1.3 which is around the patient's baseline. First troponin is negative. Coronavirus is negative. Chest x-ray demonstrates no acute cardiopulmonary process. The patient is placed on a Cardizem drip. He does have improvement in his heart rate. I did recommend hospital admission for which the patient did agree. The patient will be admitted to Dr. ashley with cardiology to consult. The patient remained in stable condition was transported to floor Disposition Clinical Impression: Chest pain, Atrial fibrillation with rapid ventricular response Disposition: ADMITTED IP TO THIS HOSP Condition: Stable Is patient prescribed a controlled substance at d/c from ED?: No Decision to Admit Reason: Admit from EC Decision Date: 09/18/19 Decision Time: 20:34
[2019-09-18 19:20] LABS: INR 0.9 (<1.2); Partial Thromboplastin Time 24.3 sec (22.0-30.0); Prothrombin Time 9.6 sec (9.0-12.0)
[2019-09-18 19:22] LABS: Albumin 4.5 g/dL (3.5-5.0); Calcium 9.9 mg/dL (8.4-10.2); Potassium 4.4 mmol/L (3.5-5.1); Total Bilirubin 0.3 mg/dL (0.2-1.3); Total Protein 8.1 g/dL (6.3-8.2)
--- NOTE | 2019-09-18 19:24 | XR ---
EXAMINATION TYPE: XR chest 2V DATE OF EXAM: 09/18/2019 COMPARISON: Prior chest x-ray 06/20/2019 HISTORY: Chest pain TECHNIQUE: Frontal and lateral views of the chest are obtained. FINDINGS: There is no significant interval change, no focal air space opacity, pleural effusion, or pneumothorax seen. The cardiac silhouette size is within normal limits. The osseous structures are intact. Old right clavicular fracture is healed and shows a stable appearance. Elevation of left hem idiaphragm, eventration of right hemidiaphragm shows a stable appearance. Patient is rotated. IMPRESSION: No acute cardiopulmonary process.
[2019-09-18 19:31] LABS: HCT 44.3 % (39.0-53.0); HGB 15.4 gm/dL (13.0-17.5); MCHC 34.8 g/dL (31.0-37.0); MCV 94.7 fL (80.0-100.0); Mean Platelet Volume 6.5; Platelet Count 306 k/uL (150-450); RBC 4.68 m/uL (4.30-5.90); RDW 12.8 % (11.5-15.5); WBC 7.8 k/uL (3.8-10.6)
[2019-09-18 19:48] LABS: Basophils # (M) 0.08 k/uL (0-0.2); Eosinophils # (M) 0.39 k/uL (0-0.7); Lymphocytes # (M) 2.65 k/uL (1.0-4.8); Monocytes # (M) 0.78 k/uL (0-1.0); Neutrophils % (M) 50 %; Nucleated Red Blood Cells 0 /100 WBC (0-0); Total Cells Counted 100
[2019-09-18 19:50] LABS: Poikilocytosis (M) Present
[2019-09-18] MEDS ORDERED: DILTIAZEM DRIP BOLUS FROM BAG 1 MG SOLN IV ONE (20:31)
[2019-09-18] MEDS ORDERED: NALOXONE 0.4 MG/ML 1 ML VIAL IV PRN (20:32)
[2019-09-18] MEDS ORDERED: DILTIAZEM 125 MG in SODIUM CHLORIDE 0.9% 100 ML IV SCH (20:45)
[2019-09-18] MEDS: APIXABAN 5 MG TAB PO SCH (20:47)
[2019-09-18] MEDS ORDERED: hydrALAZINE HCL 20 MG/ML 1 ML VIAL IVP STA (21:33)
[2019-09-18] MEDS: ACETAMINOPHEN TAB 325 MG TAB PO PRN (22:50)
[2019-09-19] MEDS ORDERED: ACETAMINOPHEN TAB 325 MG TAB ONE (03:37)
[2019-09-19 07:54] LABS: Calcium 9.3 mg/dL (8.4-10.2); Potassium 4.3 mmol/L (3.5-5.1)
[2019-09-19 08:11] LABS: Basophils % (A) 0 %; Eosinophils # (A) 0.3 k/uL (0-0.7); Eosinophils % (A) 4 %; HCT 43.6 % (39.0-53.0); Lymphocytes # (A) 1.3 k/uL (1.0-4.8); Lymphocytes % (A) 20 %; MCHC 32.1 g/dL (31.0-37.0); MCV 96.5 fL (80.0-100.0); Mean Platelet Volume 6.7; Monocytes # (A) 0.5 k/uL (0-1.0); Monocytes % (A) 8 %; Neutrophils % (A) 63 %; Platelet Count 263 k/uL (150-450); RBC 4.51 m/uL (4.30-5.90); RDW 12.7 % (11.5-15.5); WBC 6.3 k/uL (3.8-10.6)
[2019-09-19] MEDS: APIXABAN 5 MG TAB PO SCH ×2 (08:23→19:46)
[2019-09-19] MEDS ORDERED: METOPROLOL TARTRATE 50 MG TAB PO SCH ×2 (09:00→21:00)
[2019-09-19] MEDS: PANTOPRAZOLE 40 MG TABLET PO SCH (10:03)
[2019-09-19] MEDS: ACETAMINOPHEN TAB 325 MG TAB PO PRN (10:04)
[2019-09-19] MEDS: TAMSULOSIN 0.4 MG CAP.ER.24H PO SCH (10:05)
--- NOTE | 2019-09-19 15:08 | P.CRDCN ---
History of Present Illness History of present illness: This is Barb Rees PA-C dictating a consult on this patient The patient was interviewed and examined by me as well as by Dr. Chaves Case discussed with Dr. Chaves and he agrees with the plan of care HPI Patient is a 59-year-old male with a history significant for atrial fibri llation, hypertension, and mild cardiomyopathy who presented with complaints of fatigue and palpitations. He follows with Dr. Araujo in the office. He recently underwent a coronary angiogram in August 2019 which showed normal coronary arteries. The last few weeks he has been having fatigue and is felt his heart racing. He gets short of breath and fatigued with minimal exertion such as completing his activities of daily living. He also complains of intermittent chest discomfort which she describes as a pressure. He has been a little dizzy as well, no syncope. He also complains of headaches and frequent nosebleeds. Denies any trauma or falls. He called his primary care office this past Monday and when in for an office visit this past Monday. An EKG was performed and he was noted to be in atrial fibrillation with RVR so he was sent into the hospital for further evaluation. EKG here again demonstrates atrial fibrillation with RVR, rate 131. Chest x-ray shows no acute process. Troponins were normal 3. TSH within normal limits. He was started on a Cardizem drip. His rates are currently in the 80s to 90s. He continues to feel fatigued when he gets up to use the bathroom. Denies any chest discomfort currently. His palpitations have improved. ROS: No fevers, chills or rigors, no cough, phlegm or expectoration, no nausea, vomiting or diarrhea, no hematuria, dysuria, no musculoskeletal complaints, no strokes or seizures, no skin lesions. EXAMINATION: Temperature 98.1F, pulse in the 80s to 90s, respirations 16, blood pressure 157/93, oxygen saturation 94% on room air Patient seen and examined resting comfortably in bed, in no acute distress Heart is irregular, no audible murmurs Lungs clear to auscultation bilaterally No elevated JVD No lower extremity edema REVIEW OF LABS, ECG & MEDICAL DATA WBC 6.3, hemoglobin 14, platelets 263, potassium 4.3, BUN 21, creatinine 1.2 Echocardiogram in June 2019 showed EF 45-50%, apical septal hypokinesis IMPRESSION / ASSESSMENT: #1 symptomatic atrial fibrillation with RVR, rate currently in the 80s to 90s, anticoagulated with eliquis #2 nonischemic cardiomyopathy, EF 45-50% by echocardiogram in June 2019 #3 hypertension #4 recent coronary angiogram showing normal coronary arteries #5 atrial flutter status post ablation PLAN: Discontinue Cardizem drip and start metoprolol 150 mg twice a day May consider starting sotalol Continue anticoagulation with eliquis If he continues to have recurrent nosebleeds and they are severe, consider ENT consult to consider cauterization Past Medical History Past Medical History: Atrial Fibrillation, Chest Pain / Angina, Heart Failure, COPD, Hypertension, Rheumatoid Arthritis (RA) Additional Past Medical History / Comment(s): migraines, influenza 06/2019, 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 - History of Any Multi-Drug Resistant Organisms: None Reported Past Surgical History: Cardiac Ablation, Orthopedic Surgery Additional Past Surgical History / Comment(s): rotator cuff left shoulder, Past Anesthesia/Blood Transfusion Reactions: No Reported Reaction Past Psychological History: No Psychological Hx Reported Smoking Status: Former smoker Past Alcohol Use History: None Reported Past Drug Use History: None Reported - Past Family History Mother Family Medical History: Cancer Medications and Allergies Home Medications Medication Instructions Recorded Confirmed Type Apixaban [Eliquis] 5 mg PO BID #60 tab 06/24/19 09/18/19 Rx Metoprolol Tartrate [Lopressor] 100 mg PO BID 09/18/19 09/18/19 History Omeprazole 20 mg PO DAILY 09/18/19 09/18/19 History Tamsulosin [Flomax] 0.4 mg PO DAILY 09/18/19 09/18/19 History Allergies Allergy/AdvReac Type Severity Reaction Status Date / Time No Known Allergies Allergy Verified 09/18/19 18:43 Physical Exam Vitals: Vital Signs Temp Pulse Pulse Resp BP BP Pulse Ox 09/19/19 07:55 95 16 157/93 94 L 09/19/19 04:00 98.1 F 99 16 145/94 95 09/18/19 22:21 97.9 F 108 H 18 143/86 96 09/18/19 21:20 88 16 155/114 09/18/19 21:10 96 17 149/110 09/18/19 21:00 93 16 156/117 09/18/19 20:50 116 H 14 156/117 09/18/19 20:40 107 H 13 156/117 97 09/18/19 20:31 114 H 15 156/117 97 09/18/19 20:30 121 H 20 142/90 97 09/18/19 20:20 125 H 18 142/90 98 09/18/19 20:10 110 H 13 142/90 98 09/18/19 20:00 108 H 19 139/123 96 09/18/19 19:50 126 H 17 98 09/18/19 19:40 107 H 13 139/123 98 09/18/19 19:30 102 H 23 154/126 98 09/18/19 19:20 118 H 22 98 09/18/19 19:10 123 H 17 154/126 09/18/19 19:00 114 H 16 177/134 97 09/18/19 18:52 98 09/18/19 18:38 98.3 F 120 H 18 162/94 97 Intake and Output 09/18/19 09/19/19 09/19/19 22:59 06:59 14:59 Intake Total 222 236 Balance 222 236 Intake: Oral 222 236 Other: # Voids 1 Weight 101.605 kg 100.9 kg Results 09/19/19 07:11 09/19/19 07:11 Cardiac Enzymes 09/18/19 09/18/19 09/19/19 Range/Units 18:55 18:55 00:48 AST 23 (17-59) U/L Troponin I <0.012 <0.012 (0.000-0.034) ng/mL 09/19/19 Range/Units 07:11 AST (17-59) U/L Troponin I 0.015 (0.000-0.034) ng/mL Coagulation 09/18/19 Range/Units 18:55 PT 9.6 (9.0-12.0) sec APTT 24.3 (22.0-30.0) sec CBC 09/18/19 09/19/19 Range/Units 18:55 07:11 WBC 7.8 6.3 (3.8-10.6) k/uL RBC 4.68 4.51 (4.30-5.90) m/uL Hgb 15.4 14.0 (13.0-17.5) gm/dL Hct 44.3 43.6 (39.0-53.0) % Plt Count 306 263 (150-450) k/uL Comprehensive Metabolic Panel 09/18/19 09/19/19 Range/Units 18:55 07:11 Sodium 140 137 (137-145) mmol/L Potassium 4.4 4.3 (3.5-5.1) mmol/L Chloride 104 107 (98-107) mmol/L Carbon Dioxide 24 24 (22-30) mmol/L BUN 24 H 21 H (9-20) mg/dL Creatinine 1.37 H 1.20 (0.66-1.25) mg/dL Glucose 89 98 (74-99) mg/dL Calcium 9.9 9.3 (8.4-10.2) mg/dL AST 23 (17-59) U/L ALT 27 (4-49) U/L Alkaline Phosphatase 96 (38-126) U/L Total Protein 8.1 (6.3-8.2) g/dL Albumin 4.5 (3.5-5.0) g/dL Current Medications Generic Name Dose Route Start Last Admin Trade Name Freq PRN Reason Stop Dose Admin Acetaminophen 650 mg 09/18/19 22:42 09/19/19 10:04 Tylenol Tab PO 650 mg Q4HR PRN Administration Fever and/ or Pain Apixaban 5 mg 09/18/19 21:00 09/19/19 08:23 Eliquis PO 5 mg BID INDRA Administration Diltiazem HCl 125 mg/ Sodium 125 mls @ 5 mls/hr 09/18/19 20:45 09/18/19 20:48 Chloride IV 5 mg/hr .Q24H INDRA 5 mls/hr Administration 5 MG/HR Metoprolol Tartrate 100 mg 09/19/19 09:00 09/19/19 10:03 Lopressor PO 100 mg BID INDRA Administration Naloxone HCl 0.2 mg 09/18/19 20:32 Narcan IV Q2M PRN Opioid Reversal Pantoprazole Sodium 40 mg 09/19/19 09:00 09/19/19 10:03 Protonix PO 40 mg AC-BRKFST INDRA Administration Tamsulosin HCl 0.4 mg 09/19/19 09:00 09/19/19 10:05 Flomax PO 0.4 mg DAILY INDRA Administration Intake and Output 09/18/19 09/19/19 09/19/19 22:59 06:59 14:59 Intake Total 222 236 Balance 222 236 Intake: Oral 222 236 Other: # Voids 1 Weight 101.605 kg 100.9 kg 09/19/19 07:11 09/19/19 07:11
[2019-09-19] MEDS: SOTALOL 80 MG TAB PO SCH (17:30)
[2019-09-19] MEDS: MAGNESIUM OXIDE 400 MG TAB PO SCH (17:32)
--- NOTE | 2019-09-19 19:33 | P.HPIM ---
History of Present Illness H&P Date: 09/19/19 Chief Complaint: Tired dizzy History of presenting complaint. This is a very pleasant [address] Baez. Patient also follows with director public Dr. Lloyd. Long-standing history of atrial fibrillation. Patient has had ablation in the past. Also follows with roading engineer Dr. Araujo. For 2 days patient has been feeling rather tired and rundown. Dizzy. Has noticed palpitations laying down. His ablation was done in 2012. He has been on Lopressor. Patient was due for another ablation but because of COVID 19 pandemic this has been postponed. ER found to be in atrial fibrillation with a rapid ventricular rate. Started on a Cardizem drip. Review of systems: GEN.: Tired EYES: None HEENT: None NECK: None RESPIRATORY: None CARDIOVASCULAR: As above] GASTROINTESTINAL: None GENITOURINARY: None MUSCULOSKELETAL: None LYMPHATICS: None HEMATOLOGICAL: None PSYCHIATRY: Slightly anxious NEUROLOGICAL: None Past medical history to include: Atrophic fibrillation, COPD, hypertension, rheumatoid arthritis, migraine rotator cuff injury left shoulder Social history: Lives alone. 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 Smoked a pack a day for 30 years stopped 4 months ago. Did do increase alcohol many years ago. Physical examination: VITAL SIGNS: 98.3, 120, 18, 162/94, 97% on room air GENERAL: BMI 30.2, sitting up, comfortable. EYES: Pupils equal. Conjunctiva normal. HEENT: External appearance of nose and ears normal, oral cavity grossly normal. NECK: JVD not raised; masses not palpable. HEART: Heart shows a regular; no edema. LUNGS: Respiratory rate normal; decreased breath sounds. ABDOMEN: Soft, nontender, liver spleen not palpable, no masses palpable. PSYCH: Alert and oriented x3; mood and affect normal. NEUROLOGICAL: Cranial nerves grossly intact; no facial asymmetry, power and sensation grossly intact. LYMPHATICS: No lymph nodes palpable in the axilla and neck INVESTIGATIONS, reviewed in the clinical context: White count 7.8 hemoglobin 15.4 platelets 306 potassium 4.4 Bun 24 creatinine 1.37 Troponin I 3 negative proBNP 545 COVID-19 PCR-not detected TSH 4.1 EKG tracing personally reviewed by me-atrial fibrillation with a rapid ventricular rate up to 1:30 Chest x-ray film personally reviewed by me-some elevation left diaphragm. Otherwise present. To be clear Assessment: -Persistent atrial fibrillation in a patient had a prior ablation. Now presents with atrial fibrillation with a rapid ventricular rate symptomatic. Started on IV Cardizem drip in the ER. -Obesity BMI 30.2 -BPH Plan: Patient started and IV Cardizem drip in the ER. Home medications resumed. Dr. Marino was consulted. Care was discussed with the patient. Questions were answered. Patient is on eliquis for anticoagulation. 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 - History of Any Multi-Drug Resistant Organisms: None Reported Past Surgical History: Cardiac Ablation, Orthopedic Surgery Additional Past Surgical History / Comment(s): rotator cuff left shoulder, Past Anesthesia/Blood Transfusion Reactions: No Reported Reaction Past Psychological History: No Psychological Hx Reported Smoking Status: Former smoker Past Alcohol Use History: None Reported Past Drug Use History: None Reported - Past Family History Mother Family Medical History: Cancer Medications and Allergies Home Medications Medication Instructions Recorded Confirmed Type Apixaban [Eliquis] 5 mg PO BID #60 tab 06/24/19 09/18/19 Rx Metoprolol Tartrate [Lopressor] 100 mg PO BID 09/18/19 09/18/19 History Omeprazole 20 mg PO DAILY 09/18/19 09/18/19 History Tamsulosin [Flomax] 0.4 mg PO DAILY 09/18/19 09/18/19 History Allergies Allergy/AdvReac Type Severity Reaction Status Date / Time No Known Allergies Allergy Verified 09/18/19 18:43 Physical Exam Vitals: Vital Signs Temp Pulse Pulse Resp BP BP Pulse Ox 09/19/19 07:55 95 16 157/93 94 L 09/19/19 04:00 98.1 F 99 16 145/94 95 09/18/19 22:21 97.9 F 108 H 18 143/86 96 09/18/19 21:20 88 16 155/114 09/18/19 21:10 96 17 149/110 09/18/19 21:00 93 16 156/117 09/18/19 20:50 116 H 14 156/117 09/18/19 20:40 107 H 13 156/117 97 09/18/19 20:31 114 H 15 156/117 97 09/18/19 20:30 121 H 20 142/90 97 09/18/19 20:20 125 H 18 142/90 98 09/18/19 20:10 110 H 13 142/90 98 09/18/19 20:00 108 H 19 139/123 96 09/18/19 19:50 126 H 17 98 09/18/19 19:40 107 H 13 139/123 98 09/18/19 19:30 102 H 23 154/126 98 09/18/19 19:20 118 H 22 98 09/18/19 19:10 123 H 17 154/126 09/18/19 19:00 114 H 16 177/134 97 09/18/19 18:52 98 09/18/19 18:38 98.3 F 120 H 18 162/94 97 Intake and Output 09/18/19 09/19/19 09/19/19 22:59 06:59 14:59 Intake Total 222 236 Balance 222 236 Intake: Oral 222 236 Other: # Voids 1 Weight 101.605 kg 100.9 kg Results CBC & Chem 7: 09/19/19 07:11 09/19/19 07:11 Labs: Abnormal Lab Results - Last 24 Hours (Table) 09/18/19 09/19/19 Range/Units 18:55 07:11 BUN 24 H 21 H (9-20) mg/dL Creatinine 1.37 H (0.66-1.25) mg/dL Thrombosis Risk Factor Assmnt - Choose All That Apply Any of the Below Risk Factors Present?: Yes Each Factor Represents 1 point: Age 41-60 years, Obesity (BMI >25) Thrombosis Risk Factor Assessment Total Risk Factor Score: 2 Thrombosis Risk Factor Assessment Level: Low Risk
[2019-09-19] MEDS: METOPROLOL TARTRATE 50 MG TAB PO SCH (19:46)
[2019-09-19] MEDS: ZOLPIDEM 5 MG TAB PO SCH (21:57)
[2019-09-20] MEDS: SOTALOL 80 MG TAB PO SCH ×2 (05:47→17:46)
[2019-09-20] MEDS: PANTOPRAZOLE 40 MG TABLET PO SCH (05:47)
[2019-09-20] MEDS: APIXABAN 5 MG TAB PO SCH ×2 (08:51→20:30)
[2019-09-20] MEDS: METOPROLOL TARTRATE 50 MG TAB PO SCH ×2 (08:51→20:30)
[2019-09-20] MEDS: TAMSULOSIN 0.4 MG CAP.ER.24H PO SCH (08:51)
[2019-09-20] MEDS: MAGNESIUM OXIDE 400 MG TAB PO SCH (08:52)
--- NOTE | 2019-09-20 12:56 | P.PN ---
Subjective This is Barb Rees PA-C scribing on behalf of Dr. Chaves The patient was interviewed and examined by Dr. Chaves HPI/interval history Patient is a 59-year-old male with a history significant for atrial fibrillation, hypertension, and mild cardiomyopathy who presented with complaints of fatigue and palpitations. He was sent to the emergency department after his primary care doctor for treatment of atrial fibrillation with RVR. He was started on a Cardizem drip. Yesterday we discontinued the Cardizem drip and started him on oral metoprolol and sotalol 80 mg twice a day. He remains in atrial fibrillation with rates in the 80s to 90s. EKG this morning shows atrial fibrillation, absolute QT 360 ms. EXAMINATION Patient is afebrile, pulse in the 90s, respirations 18, blood pressure 126/92, oxygen saturation 95% on room air Patient was seen and examined by Dr. Chaves Heart is irregularly irregular Lungs are clear to auscultation bilaterally No JVD Extremities warm no edema REVIEW OF LABS, ECG WBC 6.3, hemoglobin 14.0, platelets 263, potassium 4.3, BUN 21, creatinine 1.2 TSH within normal limits IMPRESSION / ASSESSMENT: #1 symptomatic atrial fibrillation with RVR, rate currently in the 80s to 90s, anticoagulated with eliquis #2 nonischemic cardiomyopathy, EF 45-50% by echocardiogram in June 2019 #3 hypertension #4 recent coronary angiogram showing normal coronary arteries #5 atrial flutter status post ablation PLAN: Increase sotalol to 120 mg twice a day Continue metoprolol 50 mg twice daily Serial EKGs to monitor QT interval on sotalol Monitor BMP and magnesium if he does not convert to sinus rhythm, consider electrical cardioversion Continue anticoagulation with eliquis Objective - Vital Signs Vital signs: Vital Signs Temp 97.6 F 09/20/19 11:09 Pulse 92 09/20/19 11:09 Resp 18 09/20/19 11:09 BP 126/92 09/20/19 11:09 Pulse Ox 95 09/20/19 11:09 Intake & Output 09/19/19 09/20/19 09/20/19 18:59 06:59 18:59 Intake Total 716 240 Output Total 800 Balance 716 -800 240 Weight 102.2 kg Intake: Oral 716 240 Output: Urine 800 Other: # Voids 1 1 - Labs CBC & Chem 7: 09/19/19 07:11 09/19/19 07:11
[2019-09-20] MEDS ORDERED: SODIUM CHLORIDE 0.9% 1,000 ML IV SCH (13:00)
--- NOTE | 2019-09-20 15:38 | P.PN ---
Progress Note - Text Progress Note Date: 09/20/19 Chief Complaint: Tired dizzy History of presenting complaint. This is a very pleasant [address] Baez. Patient also follows with senior technical project manager Dr. Lloyd. Long-standing history of atrial fibrillation. Patient has had ablation in the past. Also follows with wirer street light Dr. Araujo. For 2 days patient has been feeling rather tired and rundown. Dizzy. Has noticed palpitations laying down. His ablation was done in 2012. He has been on Lopressor. Patient was due for another ablation but because of COVID 19 pandemic this has been postponed. ER found to be in atrial fibrillation with a rapid ventricular rate. Started on a Cardizem drip. admitted with-uncontrolled atrial fibrillation. Was started on a Cardizem drip. Today-slightly better. Heart rate has been anywhere from 80s to 120s. Patient started on sotalol. After Cardizem drip. Also on Lopressor. No chest pain Review of systems: Was done for constitutional, cardiovascular, GI, pulmonary. relevant finding as above Active Medications Acetaminophen (Tylenol Tab) 650 mg PO Q4HR PRN PRN Reason: Fever and/ or Pain Last Admin: 09/19/19 10:04 Dose: 650 mg Documented by: Apixaban (Eliquis) 5 mg PO BID [facility] Last Admin: 09/20/19 08:51 Dose: 5 mg Documented by: Sodium Chloride (Saline 0.9%) 1,000 mls @ 20 mls/hr IV .Q24H [facility] Magnesium Oxide (Mag-Ox) 400 mg PO DAILY [facility] Last Admin: 09/20/19 08:52 Dose: 400 mg Documented by: Metoprolol Tartrate (Lopressor) 50 mg PO BID [facility] Last Admin: 09/20/19 08:51 Dose: 50 mg Documented by: Naloxone HCl (Narcan) 0.2 mg IV Q2M PRN PRN Reason: Opioid Reversal Pantoprazole Sodium (Protonix) 40 mg PO -BRKFST [facility] Last Admin: 09/20/19 05:47 Dose: 40 mg Documented by: Sotalol HCl (Betapace) 120 mg PO BID@0600,1800 [facility] Tamsulosin HCl (Flomax) 0.4 mg PO DAILY [facility] Last Admin: 09/20/19 08:51 Dose: 0.4 mg Documented by: Zolpidem Tartrate (Ambien) 5 mg PO [facility] Last Admin: 09/19/19 21:57 Dose: 5 mg Documented by: Physical examination: VITAL SIGNS: 97.9, 104, 18, 140/89, 95% room air GENERAL: sitting up, comfortable EYES: Pupils equal. Conjunctiva normal. HEENT: External appearance of nose and ears normal, oral cavity grossly normal. NECK: JVD not raised; masses not palpable. HEART: heart sounds irregular; no edema. LUNGS: Respiratory rate normal; decreased breath sounds. ABDOMEN: Soft, nontender, liver spleen not palpable, no masses palpable. PSYCH: Alert and oriented x3; mood and affect normal. NEUROLOGICAL: Cranial nerves grossly intact; no facial asymmetry, power and sensation grossly intact. INVESTIGATIONS, reviewed in the clinical context: White count 6.3 hemoglobin 14 progression 4.3 Previous testing White count 7.8 hemoglobin 15.4 platelets 306 potassium 4.4 Bun 24 creatinine 1.37 Troponin I 3 negative proBNP 545 COVID-19 PCR-not detected TSH 4.1 EKG tracing personally reviewed by me-atrial fibrillation with a rapid ventricular rate up to 1:30 Chest x-ray film personally reviewed by me-some elevation left diaphragm. Other munoz present. To be clear Assessment: -Persistent atrial fibrillation in a patient had a prior ablation. Now presents with atrial fibrillation with a rapid ventricular rate symptomatic. remains un controlled -Obesity BMI 30.2 -BPH Plan: patient does of sotalol increased by cardiology 220 mg twice day. The planning for a DC cardioversion tomorrow. Other medications to continue.
[2019-09-20] MEDS: ZOLPIDEM 5 MG TAB PO SCH (22:24)
[2019-09-20] MEDS: ACETAMINOPHEN TAB 325 MG TAB PO PRN (22:26)
[2019-09-21] MEDS: SOTALOL 80 MG TAB PO SCH (05:28)
[2019-09-21] MEDS: PANTOPRAZOLE 40 MG TABLET PO SCH (05:29)
[2019-09-21 07:20] LABS: Calcium 9.9 mg/dL (8.4-10.2); Magnesium 2.1 mg/dL (1.6-2.3); Potassium 4.8 mmol/L (3.5-5.1)
[2019-09-21] MEDS ORDERED: LACTATED RINGERS 1,000 ML IV ONE (07:22)
[2019-09-21] MEDS ORDERED: PROPOFOL 10 MG/ML 20 ML VIAL IV ONE (07:28)
[2019-09-21] MEDS ORDERED: LIDOCAINE 1% INJ 10MG/ML (20 ML MDV) ONE (07:28)
--- NOTE | 2019-09-21 07:56 | CE ---
CARDIAC ELECTROPHYSIOLOGY REPORT CARDIOVERSION PROCEDURE NOTE: INDICATION: Atrial fibrillation. PROCEDURE DESCRIPTION: After explaining the procedure to the patient, the risks and the complications, his blood pressure, heart rate, O2 saturation was monitored. After obtaining sedated state by the anesthesia department, a synchronized biphasic cardioversion using 200, 250 and subsequently 360 joules was successful in restoring normal sinus rhythm. There was no immediate complication. JOE / THORN: [id number] /
--- NOTE | 2019-09-21 07:56 | PN ---
PROGRESS NOTE Mr. Santoro is a 59-year-old male with known history of paroxysmal atrial fibrillation who was admitted with symptoms of progressive dyspnea and dizziness and evidence of atrial fibrillation with rapid ventricular response. He was loaded with sotalol but continued to have atrial fibrillation. The plan is to proceed with cardioversion today. He denies any chest pain. His breathing has been stable. He feels dizzy and somewhat fatigued when he is active. He denies any syncope. Continued to be on Eliquis 5 mg twice a day, metoprolol tartrate 550 mg twice a day, and Sotalol 120 mg twice a day in addition to Flomax 0.4 mg daily and Protonix 40 mg daily. PHYSICAL EXAMINATION: Blood pressure 133/70 with a heart rate in the 90s. LUNGS: Clear. HEART irregularly irregular, S1, S2. No S3. No rub. ABDOMEN: Soft nontender. EXTREMITIES: No edema. IMPRESSION: Recurrent atrial fibrillation with rapid ventricular response. Under better control at this time. RECOMMENDATION: We will proceed with cardioversion today. If sinus mechanism is restored ,the patient may be able to be discharged home to be followed as an outpatient. MMODL / IJN: [id number] /
[2019-09-21 07:58] VITALS: RESP 18
[2019-09-21] MEDS: MAGNESIUM OXIDE 400 MG TAB PO SCH (08:53)
[2019-09-21] MEDS: TAMSULOSIN 0.4 MG CAP.ER.24H PO SCH (08:53)
[2019-09-21] MEDS: APIXABAN 5 MG TAB PO SCH (08:53)
[2019-09-21] MEDS: METOPROLOL TARTRATE 50 MG TAB PO SCH (08:53)
[2019-09-21 09:46] VITALS: PULSE 57
[2019-09-21 09:49] VITALS: BP 127/83; TEMP 97.7
== END 2019-09-21 14:52 | disposition home or self-care (01) | DRG 310 ==
LOC: EC 18:29 → 3SCARD 20:33
PROVIDERS: ADMIT Hospitalist; ATTEND Hospitalist
PROC: 5A2204Z Restoration of Cardiac Rhythm, Single (ICD-10-PCS; principal; 2019-09-21 07:30)
DX: I48.19 Other persistent atrial fibrillation (principal); I42.8 Other cardiomyopathies; I11.0 Hypertensive heart disease with heart failure; I50.9 Heart failure, unspecified; J44.9 Chronic obstructive pulmonary disease, unspecified; E66.9 Obesity, unspecified; M06.9 Rheumatoid arthritis, unspecified; N40.0 Benign prostatic hyperplasia without lower urinary tract symptoms; G43.909 Migraine, unspecified, not intractable, without status migrainosus; R07.89 Other chest pain; Z68.30 Body mass index [BMI] 30.0-30.9, adult; Z11.59 Encounter for screening for other viral diseases; Z79.01 Long term (current) use of anticoagulants; Z79.899 Other long term (current) drug therapy; Z87.891 Personal history of nicotine dependence; Z80.9 Family history of malignant neoplasm, unspecified
CPT/HCPCS: 36415; 71046; 80048; 80053; 82550; 83735; 83880; 84443; 84484; 85025; 85610; 85730; 87635; 92960; 93005; 96365; 96375; 96376; 99285

== ENCOUNTER 2019-09-28 18:04 | Emergency (ER) | payer BC ==
--- NOTE | 2019-09-28 18:18 | ED ---
Male Urogenital HPI <Matheus Tenorio - Last Filed: 09/28/19 22:04> - General Source: patient Mode of arrival: ambulatory Limitations: no limitations <Juan Diaz - Last Filed: 09/28/19 22:08> - General Chief complaint: Urogenital Stated complaint: Blood in urine Time Seen by Provider: 09/28/19 18:18 - History of Present Illness Initial comments: Patient is a 59-year-old male presenting to the emergency department with chief complaint of blood in the urine. Patient reports about 1.5 months ago he was started on SECONDARY to A. fib. Patient reports no significant issues aside from occasional epistaxis. Patient reports that he was working around the house when he urinated large amounts of blood. Patient does report some diffuse abdominal pain when he woke up which gradually resolved. Denies any nausea vomiting or diarrhea. Denies any penile discharge, testicular swelling or tenderness. Denies previous history of kidney stones. Denies hematochezia or melena. (Juan Diaz) - Related Data Home Medications Medication Instructions Recorded Confirmed Omeprazole 20 mg PO DAILY 09/18/19 09/28/19 Tamsulosin [Flomax] 0.4 mg PO BID 09/18/19 09/28/19 Albuterol Sulfate [Ventolin HFA] 2 puff INHALATION RT-BID PRN 09/28/19 09/28/19 Fluticasone Propion/Salmeterol 1 puff INHALATION RT-BID PRN 09/28/19 09/28/19 [Wixela 250-50 Inhub] Metoprolol Tartrate [Lopressor] 50 mg PO TID 09/28/19 09/28/19 Previous Rx's Medication Instructions Recorded Apixaban [Eliquis] 5 mg PO BID #60 tab 06/24/19 Allergies Allergy/AdvReac Type Severity Reaction Status Date / Time No Known Allergies Allergy Verified 09/28/19 18:44 Review of Systems ROS Other: All systems not noted in ROS Statement are negative. <Matheus Tenorio - Last Filed: 09/28/19 22:04> ROS Other: All systems not noted in ROS Statement are negative. <Juan Diaz - Last Filed: 09/28/19 22:08> ROS Statement: Those systems with pertinent positive or pertinent negative responses have been documented in the HPI. Past Medical History Past Medical History: Atrial Fibrillation, Chest Pain / Angina, Heart Failure, COPD, Hypertension, Rheumatoid Arthritis (RA) Additional Past Medical History / Comment(s): migraines History of Any Multi-Drug Resistant Organisms: None Reported Past Surgical History: Cardiac Ablation, Orthopedic Surgery Additional Past Surgical History / Comment(s): rotator cuff left shoulder, Past Anesthesia/Blood Transfusion Reactions: No Reported Reaction Past Psychological History: No Psychological Hx Reported Smoking Status: Former smoker Past Alcohol Use History: None Reported Past Drug Use History: None Reported - Past Family History Mother Family Medical History: Cancer <Juan Diaz - Last Filed: 09/28/19 22:08> General Exam Limitations: no limitations General appearance: alert, in no apparent distress, obese Head exam: Present: atraumatic, normocephalic, normal inspection Eye exam: Present: normal appearance, PERRL, EOMI Pupils: Present: normal accommodation ENT exam: Present: normal exam Neck exam: Present: normal inspection, full ROM Respiratory exam: Present: normal lung sounds bilaterally Cardiovascular Exam: Present: regular rate, normal rhythm, normal heart sounds GI/Abdominal exam: Present: soft. Absent: distended, tenderness, guarding, rebound exam: Present: normal inspection. Absent: testicular tenderness, urethral discharge, scrotal swelling, vertical testicular lie, circumcision Extremities exam: Present: normal inspection, full ROM Back exam: Present: normal inspection, full ROM, CVA tenderness (R) Neurological exam: Present: alert, oriented X3 Psychiatric exam: Present: normal affect, normal mood Skin exam: Present: warm, dry, intact, normal color <Juan Diaz - Last Filed: 09/28/19 22:08> Course <Matheus Tenorio - Last Filed: 09/28/19 22:04> Vital Signs 09/28/19 09/28/19 18:12 21:00 Temperature 98.2 F Pulse Rate 108 H 18 L Respiratory 18 97 H Rate Blood Pressure 149/85 158/111 O2 Sat by Pulse 95 97 Oximetry - Reevaluation(s) Reevaluation #1: 09/28/19 22:04 PA supervision: I proceeded [id number] evaluation the patient did present with complaints of hematuria due to concern is for kidney stone patient is on L Aquinas patient had a CAT scan done in addition to evidence of a 9 cm mass in the left kidney. I did discuss this with the patient has as well as with Dr. Allen. Patient is hemodynamically stable awake alert oriented 3at this time he will be discharged and he is in agreement with this and follow-up in 2 days with urology. He is return if is any problems. (Matheus Tenorio) Medical Decision Making - Lab Data Result diagrams: 09/28/19 19:01 09/28/19 19: <Matheus Tenorio - Last Filed: 09/28/19 22:04> - Lab Data Result diagrams: 09/28/19 19:01 09/28/19 19: <Juan Diaz - Last Filed: 09/28/19 22:08> - Medical Decision Making Patient is a 59-year-old male presenting to emergency Department with a chief complaint of blood in the urine. Patient has painless hematuria that started earlier today. Patient does not have any abdominal pain but does feel slightly "queasy". On exam she does have very mild left CVA tenderness. CBC is unremarkable. CMP does show decreased renal function although he appears to be at his baseline. UA shows moderate amounts of blood but only [address] of abdomen and pelvis without contrast reveals a 9 cm mass with bilateral hydronephrosis in the left kidney. The case was discussed with who advised the patient be discharged and will follow-up in the office on Monday. Dr. Tenorio also examine the patient and is in agreement with the treatment plan. (Juan Diaz) - Lab Data Lab Results 09/28/19 09/28/19 09/28/19 Range/Units 19:01 19: 19: WBC 7.5 (3.8-10.6) k/uL RBC 4.39 (4.30-5.90) m/uL Hgb 14.0 (13.0-17.5) gm/dL Hct 42.6 (39.0-53.0) % MCV 97.0 (80.0-100.0) fL MCH 31.8 (25.0-35.0) pg MCHC 32.8 (31.0-37.0) g/dL RDW 12.7 (11.5-15.5) % Plt Count 273 (150-450) k/uL Neutrophils % 55 % Lymphocytes % 24 % Monocytes % 11 % Eosinophils % 5 % Basophils % 1 % Neutrophils # 4.1 (1.3-7.7) k/uL Lymphocytes # 1.8 (1.0-4.8) k/uL Monocytes # 0.8 (0-1.0) k/uL Eosinophils # 0.4 (0-0.7) k/uL Basophils # 0.0 (0-0.2) k/uL PT 9.6 (9.0-12.0) sec INR 0.9 (<1.2) APTT 24.5 (22.0-30.0) sec Sodium (137-145) mmol/L Potassium (3.5-5.1) mmol/L Chloride (98-107) mmol/L Carbon Dioxide (22-30) mmol/L Anion Gap mmol/L BUN (9-20) mg/dL Creatinine (0.66-1.25) mg/dL Est GFR (CKD-EPI)AfAm (>60 ml/min/1.73 sqM) Est GFR (CKD-EPI)NonAf (>60 ml/min/1.73 sqM) Glucose (74-99) mg/dL Calcium (8.4-10.2) mg/dL Total Bilirubin (0.2-1.3) mg/dL AST (17-59) U/L ALT (4-49) U/L Alkaline Phosphatase (38-126) U/L Creatine Kinase (55-170) U/L Total Protein (6.3-8.2) g/dL Albumin (3.5-5.0) g/dL Urine Color Yellow Urine Appearance Cloudy (Clear) Urine pH 5.0 (5.0-8.0) Ur Specific [place] 1.011 (1.001-1.035) Urine Protein Trace H (Negative) Urine Glucose (UA) Negative (Negative) Urine Ketones Negative (Negative) Urine Blood Moderate H (Negative) Urine Nitrite Negative (Negative) Urine Bilirubin Negative (Negative) Urine Urobilinogen <2.0 (<2.0) mg/dL Ur Leukocyte Esterase Negative (Negative) Urine RBC 6 H (0-5) /hpf Urine WBC 1 (0-5) /hpf Amorphous Sediment Rare H (None) /hpf Urine Bacteria Occasional H (None) /hpf Urine Mucus Rare H (None) /hpf Stool Occult Blood (Negative) 09/28/19 09/28/19 09/28/19 Range/Units 19:01 19:01 20:56 WBC (3.8-10.6) k/uL RBC (4.30-5.90) m/uL Hgb (13.0-17.5) gm/dL Hct (39.0-53.0) % MCV (80.0-100.0) fL MCH (25.0-35.0) pg MCHC (31.0-37.0) g/dL RDW (11.5-15.5) % Plt Count (150-450) k/uL Neutrophils % % Lymphocytes % % Monocytes % % Eosinophils % % Basophils % % Neutrophils # (1.3-7.7) k/uL Lymphocytes # (1.0-4.8) k/uL Monocytes # (0-1.0) k/uL Eosinophils # (0-0.7) k/uL Basophils # (0-0.2) k/uL PT (9.0-12.0) sec INR (<1.2) APTT (22.0-30.0) sec Sodium 139 (137-145) mmol/L Potassium 4.2 (3.5-5.1) mmol/L Chloride 106 (98-107) mmol/L Carbon Dioxide 22 (22-30) mmol/L Anion Gap 11 mmol/L BUN 28 H (9-20) mg/dL Creatinine 1.35 H (0.66-1.25) mg/dL Est GFR (CKD-EPI)AfAm 66 (>60 ml/min/1.73 sqM) Est GFR (CKD-EPI)NonAf 57 (>60 ml/min/1.73 sqM) Glucose 119 H (74-99) mg/dL Calcium 9.5 (8.4-10.2) mg/dL Total Bilirubin 0.3 (0.2-1.3) mg/dL AST 33 (17-59) U/L ALT 21 (4-49) U/L Alkaline Phosphatase 91 (38-126) U/L Creatine Kinase 108 (55-170) U/L Total Protein 7.7 (6.3-8.2) g/dL Albumin 4.3 (3.5-5.0) g/dL Urine Color Urine Appearance (Clear) Urine pH (5.0-8.0) Ur Specific [place] (1.001-1.035) Urine Protein (Negative) Urine Glucose (UA) (Negative) Urine Ketones (Negative) Urine Blood (Negative) Urine Nitrite (Negative) Urine Bilirubin (Negative) Urine Urobilinogen (<2.0) mg/dL Ur Leukocyte Esterase (Negative) Urine RBC (0-5) /hpf Urine WBC (0-5) /hpf Amorphous Sediment (None) /hpf Urine Bacteria (None) /hpf Urine Mucus (None) /hpf Stool Occult Blood Negative (Negative) Disposition <Matheus Tenorio - Last Filed: 09/28/19 22:04> Is patient prescribed a controlled substance at d/c from ED?: No Time of Disposition: 22:08 <Juan Diaz - Last Filed: 09/28/19 22:08> Clinical Impression: Painless hematuria, Left renal mass, Gross hematuria Disposition: HOME SELF-CARE Condition: Good Instructions (If sedation given, give patient instructions): Renal Cancer (DC) Additional Instructions: Please follow up with a urologist. Return to emergency department if symptoms worsen. Referrals: Soy Baez MD [Primary Care Provider] - 1-2 days Jef Allen MD [STAFF PHYSICIAN] - 1-2 days
[2019-09-28] MEDS ORDERED: SODIUM CHLORIDE 0.9% 1,000 ML IV STA (18:34)
[2019-09-28 19:11] LABS: Basophils % (A) 1 %; Eosinophils # (A) 0.4 k/uL (0-0.7); Eosinophils % (A) 5 %; HCT 42.6 % (39.0-53.0); Lymphocytes # (A) 1.8 k/uL (1.0-4.8); Lymphocytes % (A) 24 %; MCH 31.8 pg (25.0-35.0); MCHC 32.8 g/dL (31.0-37.0); Mean Platelet Volume 6.9; Monocytes # (A) 0.8 k/uL (0-1.0); Monocytes % (A) 11 %; Neutrophils # (A) 4.1 k/uL (1.3-7.7); Neutrophils % (A) 55 %; Platelet Count 273 k/uL (150-450); RBC 4.39 m/uL (4.30-5.90); RDW 12.7 % (11.5-15.5); WBC 7.5 k/uL (3.8-10.6)
[2019-09-28 19:22] LABS: Albumin 4.3 g/dL (3.5-5.0); Calcium 9.5 mg/dL (8.4-10.2); Potassium 4.2 mmol/L (3.5-5.1); Total Bilirubin 0.3 mg/dL (0.2-1.3); Total Protein 7.7 g/dL (6.3-8.2)
[2019-09-28 19:24] LABS: Amorphous Sediment,Urine Rare /hpf; Appearance,Urine Cloudy (Clear); Bacteria,Urine Occasional /hpf; Bilirubin,Urine Negative (Negative); Blood,Urine Moderate (Negative); Color,Urine Yellow; Glucose,Urine (UA) Negative (Negative); Ketones,Urine Negative (Negative); Leukocyte Esterase,Urine Negative (Negative); Mucus,Urine Rare /hpf; Nitrite,Urine Negative (Negative); Protein,Urine Trace (Negative); RBC,Urine 6 /hpf (0-5); Specific Gravity,Urine 1.011 (1.001-1.035); Urobilinogen,Urine <2.0 mg/dL (<2.0); WBC,Urine 1 /hpf (0-5)
[2019-09-28 19:34] LABS: INR 0.9 (<1.2); Partial Thromboplastin Time 24.5 sec (22.0-30.0); Prothrombin Time 9.6 sec (9.0-12.0)
--- NOTE | 2019-09-28 21:34 | CT ---
EXAMINATION TYPE: CT abdomen pelvis wo con DATE OF EXAM: 09/28/2019 COMPARISON: None HISTORY: Hematuria and recent start on blood thinner. CT DLP: 952.5 mGycm Automated exposure control for dose reduction was used. There is minimal linear density at the left lung base consistent with scarring or subsegmental atelec tasis. There is no pleural effusion. There is dense calcification at the posterior aspect of the mitr al valve. There is no pericardial effusion. Liver shows no focal defect. The bile ducts are not dilated. Gallbladder appears normal. Spleen is in tact. There is no evidence of pancreatic mass. Stomach is intact. There is no adrenal mass. There is heterogeneous enlargement of the left kidney involving the upper p ole. There is a 9 cm masslike area upper pole left kidney. There is mild fat stranding around the lef t kidney. There is mild left-sided hydronephrosis. Right kidney has normal size and contour. There is no retroperitoneal adenopathy. Bladder distends sm oothly. There is no inguinal hernia. There is no free fluid in the pelvis. There is no mesenteric edema. There is no ascites or free air. There is no sign of a bowel obstructio n. The appendix appears normal. There is hypertrophic degenerative disc changes in the lumbar spine. There is L5 spondylolysis with first-degree L5-S1 spondylolisthesis. There is no compression fracture . Bony pelvis is intact. IMPRESSION: Large mixed density mass upper pole left kidney. This is most likely related to primary tumor.Inflamm atory mass or acute hemorrhage is possible but thought less likely. Contrast exam would be helpful fo r further evaluation if clinically indicated. There is a mild relative hydronephrosis on the left oksana e without evidence of obstructing calculus or mass.
[2019-09-28 22:37] VITALS: BP 159/104; PULSE 95; RESP 16; TEMP 98.3
== END 2019-09-28 22:37 | disposition home or self-care (01) ==
LOC: EC 18:04
DX: N13.30 Unspecified hydronephrosis (principal); N28.89 Other specified disorders of kidney and ureter; R31.0 Gross hematuria; I11.0 Hypertensive heart disease with heart failure; I48.91 Unspecified atrial fibrillation; I25.2 Old myocardial infarction; J44.9 Chronic obstructive pulmonary disease, unspecified; Z79.899 Other long term (current) drug therapy; Z79.51 Long term (current) use of inhaled steroids; Z87.891 Personal history of nicotine dependence
CPT/HCPCS: 36415; 74176; 80053; 81001; 82272; 82550; 85025; 85610; 85730; 96360; 99284

== ENCOUNTER → 2019-10-02 | Outpatient (CLI) | payer BC ==
--- NOTE | 2019-10-02 16:23 | CT ---
EXAMINATION TYPE: CT chest wo con DATE OF EXAM: 10/02/2019 COMPARISON: Chest x-ray 2 weeks ago and older chest x-ray 2012. HISTORY: SOB, hx of renal ca CT DLP: 565.4 mGycm. Automated Exposure Control for Dose Reduction was Utilized. TECHNIQUE: CT scan of the thorax is performed without IV contrast. FINDINGS: LUNGS: Persistent elevated left hemidiaphragm. Mild left basilar linear scarring with compressive ate lectasis just above the diaphragm. Right lung clear. No suspicious nodules or masses. No suspicious f ocal consolidation. No pleural effusion or pneumothorax. MEDIASTINUM: Lack of IV contrast is noted to limit evaluation for mediastinal and especially hilar ad enopathy. There are no definitive greater than 1 cm hilar or mediastinal lymph nodes. No cardiomega ly or pericardial effusion is seen. Calcific density along the posterior aspect of the mitral valve a xial image 37 of uncertain etiology. Trace coronary artery calcification which is noted marked underl jose coronary artery disease. OTHER: Tiny degree of subareolar gynecomastia bilaterally. There is large partially exophytic heterog eneous left renal mass occupying majority of upper to mid pole level left kidney measuring approximat fide 11 x 10 x 9 cm axial image 61 and coronal image 66. Moderate multilevel spurring and disc space n arrowing lower thoracic and upper lumbar spine with multilevel vacuum disc phenomenon. No definitive suspicious focal lytic or sclerotic osseous lesion. IMPRESSION: Large left upper to mid renal mass or neoplasm. No metastatic disease evident on noncontr ast CT. Chronically elevated left hemidiaphragm with mild left basilar linear scarring and compressiv e atelectasis. No suspicious acute pulmonary process.
== END | disposition home or self-care (01) ==
LOC: RADCTMAIN 15:56
PROVIDERS: ATTEND Urology
DX: J98.11 Atelectasis (principal); R93.41 Abnormal radiologic findings on diagnostic imaging of renal pelvis, ureter, or bladder; D41.02 Neoplasm of uncertain behavior of left kidney
CPT/HCPCS: 71250

== ENCOUNTER 2019-10-09 07:48 | Emergency (ER) | payer BC ==
[2019-10-09 07:56] VITALS: RESP 18; TEMP 98.1
--- NOTE | 2019-10-09 08:10 | ED ---
General Adult HPI - General Chief complaint: Urogenital Stated complaint: catheter issues Time Seen by Provider: 10/09/19 07:57 Source: patient, RN notes reviewed, old records reviewed Mode of arrival: ambulatory Limitations: no limitations - History of Present Illness Initial comments: 59-year-old male presenting for evaluation of hematuria. Patient was recently diagnosed with mass on the left kidney. 2 days prior he developed gross hematuria and was seen at an outside emergency department approximately 24 hours ago. Monsivais catheter was placed and the patient states he's had minimal urine output. He has had some leaking of bloody urine around the outside of the catheter. He reports a lower abdominal fullness and mild pain. He is currently on Eliquis with history of atrial fibrillation. He denies fever. Denies dyspnea or lightheadedness. Patient has an appointment with his urologist at 11 AM today. - Related Data Home Medications Medication Instructions Recorded Confirmed Omeprazole 20 mg PO DAILY 09/18/19 09/28/19 Tamsulosin [Flomax] 0.4 mg PO BID 09/18/19 09/28/19 Albuterol Sulfate [Ventolin HFA] 2 puff INHALATION RT-BID PRN 09/28/19 09/28/19 Fluticasone Propion/Salmeterol 1 puff INHALATION RT-BID PRN 09/28/19 09/28/19 [Wixela 250-50 Inhub] Metoprolol Tartrate [Lopressor] 50 mg PO TID 09/28/19 09/28/19 Previous Rx's Medication Instructions Recorded Apixaban [Eliquis] 5 mg PO BID #60 tab 06/24/19 Allergies Allergy/AdvReac Type Severity Reaction Status Date / Time No Known Allergies Allergy Verified 10/09/19 07:56 Review of Systems ROS Statement: Those systems with pertinent positive or pertinent negative responses have been documented in the HPI. ROS Other: All systems not noted in ROS Statement are negative. Past Medical History Past Medical History: Atrial Fibrillation, Chest Pain / Angina, Heart Failure, COPD, Hypertension, Rheumatoid Arthritis (RA) Additional Past Medical History / Comment(s): migraines, renal tumor History of Any Multi-Drug Resistant Organisms: None Reported Past Surgical History: Cardiac Ablation, Orthopedic Surgery Additional Past Surgical History / Comment(s): rotator cuff left shoulder, Past Anesthesia/Blood Transfusion Reactions: No Reported Reaction Past Psychological History: No Psychological Hx Reported Smoking Status: Former smoker Past Alcohol Use History: None Reported Past Drug Use History: None Reported - Past Family History Mother Family Medical History: Cancer General Exam Limitations: no limitations General appearance: alert, in no apparent distress Head exam: Present: atraumatic, normocephalic Eye exam: Present: normal appearance, PERRL ENT exam: Present: normal exam Neck exam: Present: normal inspection. Absent: tenderness, meningismus Respiratory exam: Present: normal lung sounds bilaterally. Absent: respiratory distress, wheezes Cardiovascular Exam: Present: regular rate, normal rhythm GI/Abdominal exam: Present: soft, distended. Absent: tenderness, guarding, rebound, rigid Extremities exam: Present: normal inspection, normal capillary refill. Absent: pedal edema Neurological exam: Present: alert, oriented X3, CN II-XII intact. Absent: motor sensory deficit Psychiatric exam: Present: normal affect, normal mood Skin exam: Present: warm, dry, intact. Absent: cyanosis, diaphoretic Course Vital Signs 10/09/19 07:53 Temperature 98.1 F Pulse Rate 93 Respiratory 18 Rate Blood Pressure 163/95 O2 Sat by Pulse 100 Oximetry Medical Decision Making - Medical Decision Making 16-Somali Monsivais catheter removed with distal clot. 20-Somali Monsivais catheter is placed with return of blood tinged urine. Patient merely feels better. His hemoglobin is 12.4, normal electrolytes, creatinine 1.36 which is stable. Patient has an appointment with his urologist at 11 AM today. He will maintain this appointment and return with any new or worsening issues. - Lab Data Result diagrams: 10/09/19 08:10 Lab Results 10/09/19 Range/Units 08:10 WBC 8.0 (3.8-10.6) k/uL RBC 3.75 L (4.30-5.90) m/uL Hgb 12.4 L (13.0-17.5) gm/dL Hct 36.1 L (39.0-53.0) % MCV 96.3 (80.0-100.0) fL MCH 33.0 (25.0-35.0) pg MCHC 34.3 (31.0-37.0) g/dL RDW 12.9 (11.5-15.5) % Plt Count 239 (150-450) k/uL Neutrophils % 73 % Lymphocytes % 12 % Monocytes % 9 % Eosinophils % 4 % Basophils % 0 % Neutrophils # 5.8 (1.3-7.7) k/uL Lymphocytes # 1.0 (1.0-4.8) k/uL Monocytes # 0.7 (0-1.0) k/uL Eosinophils # 0.3 (0-0.7) k/uL Basophils # 0.0 (0-0.2) k/uL Disposition Clinical Impression: Left renal mass, Gross hematuria, Obstructed Monsivais catheter Disposition: HOME SELF-CARE Condition: Fair Instructions (If sedation given, give patient instructions): Monsivais Catheter Placement and Care (ED) Additional Instructions: Please follow up with Dr. Allen at 11 AM today. Is patient prescribed a controlled substance at d/c from ED?: No Referrals: Soy Baez MD [Primary Care Provider] - 1-2 days Jef Allen MD [STAFF PHYSICIAN] - 1-2 days Time of Disposition: 08:36
[2019-10-09 08:31] LABS: Basophils % (A) 0 %; Eosinophils # (A) 0.3 k/uL (0-0.7); Eosinophils % (A) 4 %; HCT 36.1 % (39.0-53.0); HGB 12.4 gm/dL (13.0-17.5); Lymphocytes % (A) 12 %; MCHC 34.3 g/dL (31.0-37.0); MCV 96.3 fL (80.0-100.0); Monocytes # (A) 0.7 k/uL (0-1.0); Monocytes % (A) 9 %; Neutrophils # (A) 5.8 k/uL (1.3-7.7); Neutrophils % (A) 73 %; Platelet Count 239 k/uL (150-450); RBC 3.75 m/uL (4.30-5.90); RDW 12.9 % (11.5-15.5)
[2019-10-09 08:39] LABS: Albumin 4.1 g/dL (3.5-5.0); Calcium 8.9 mg/dL (8.4-10.2); Potassium 4.1 mmol/L (3.5-5.1); Total Bilirubin 0.8 mg/dL (0.2-1.3); Total Protein 7.4 g/dL (6.3-8.2)
[2019-10-09 08:55] LABS: Prothrombin Time 10.3 sec (9.0-12.0)
[2019-10-09 09:13] VITALS: BP 143/94; PULSE 73
== END 2019-10-09 09:12 | disposition home or self-care (01) ==
LOC: EC 07:48
DX: T83.098A Other mechanical complication of other urinary catheter, initial encounter (principal); N28.9 Disorder of kidney and ureter, unspecified; R31.0 Gross hematuria; I48.91 Unspecified atrial fibrillation; I11.0 Hypertensive heart disease with heart failure; I50.9 Heart failure, unspecified; J44.9 Chronic obstructive pulmonary disease, unspecified; Z98.890 Other specified postprocedural states; Z87.891 Personal history of nicotine dependence; Z79.51 Long term (current) use of inhaled steroids; Z79.899 Other long term (current) drug therapy
CPT/HCPCS: 36415; 51702; 80053; 85025; 85610; 85730; 99284

== ENCOUNTER 2019-10-10 02:13 | Emergency (ER) | payer BC ==
[2019-10-10 02:19] VITALS: BP 153/104; PULSE 62; RESP 18; TEMP 98.4
[2019-10-10] MEDS ORDERED: HYDROcodone/APAP 10-325MG 1 EACH TAB PO ONE (03:33)
--- NOTE | 2019-10-10 03:41 | ED ---
Male Urogenital HPI - General Chief complaint: Urogenital Stated complaint: Catheter issues Time Seen by Provider: 10/10/19 02:41 Source: patient Mode of arrival: ambulatory Limitations: no limitations - History of Present Illness Initial comments: This patient is a 59-year-old man who presents because his Monsivais catheter has stopped draining. Patient relates that he had the catheter placed 2 days ago due to urinary retention. Patient was told that he was having a kidney tumor which was causing hematuria resulting in clotting that was obstructing urine outflow. This evening the catheter stopped draining and they were not able to flush it at home. He denies other symptoms Complaint: other (Hematuria and Monsivais catheter obstruction) -: hour(s) Location: abdomen Radiation: none Severity: moderate Quality: dull Consistency: constant Improves with: none Worsens with: none Reports: urinary retention, blood in urine - Related Data Home Medications Medication Instructions Recorded Confirmed Omeprazole 20 mg PO DAILY 09/18/19 09/28/19 Tamsulosin [Flomax] 0.4 mg PO BID 09/18/19 09/28/19 Albuterol Sulfate [Ventolin HFA] 2 puff INHALATION RT-BID PRN 09/28/19 09/28/19 Fluticasone Propion/Salmeterol 1 puff INHALATION RT-BID PRN 09/28/19 09/28/19 [Wixela 250-50 Inhub] Metoprolol Tartrate [Lopressor] 50 mg PO TID 09/28/19 09/28/19 Previous Rx's Medication Instructions Recorded Apixaban [Eliquis] 5 mg PO BID #60 tab 06/24/19 HYDROcodone/APAP 10-325MG [[place] 1 tab PO Q6HR PRN 3 Days #12 tab 10/10/19 10-325] Allergies Allergy/AdvReac Type Severity Reaction Status Date / Time No Known Allergies Allergy Verified 10/10/19 02:19 Review of Systems ROS Statement: Those systems with pertinent positive or pertinent negative responses have been documented in the HPI. ROS Other: All systems not noted in ROS Statement are negative. Constitutional: Denies: fever, chills Respiratory: Denies: cough, dyspnea Cardiovascular: Denies: chest pain, palpitations, edema Gastrointestinal: Reports: as per HPI, abdominal pain. Denies: nausea, vomiting, diarrhea, constipation Genitourinary: Reports: hematuria. Denies: dysuria, frequency, testicular pain, testicular mass Musculoskeletal: Denies: back pain Skin: Denies: rash Neurological: Denies: headache Past Medical History Past Medical History: Atrial Fibrillation, Chest Pain / Angina, Heart Failure, COPD, Hypertension, Rheumatoid Arthritis (RA) Additional Past Medical History / Comment(s): migraines, renal tumor History of Any Multi-Drug Resistant Organisms: None Reported Past Surgical History: Cardiac Ablation, Orthopedic Surgery Additional Past Surgical History / Comment(s): rotator cuff left shoulder, Past Anesthesia/Blood Transfusion Reactions: No Reported Reaction Past Psychological History: No Psychological Hx Reported Smoking Status: Former smoker Past Alcohol Use History: None Reported Past Drug Use History: None Reported - Past Family History Mother Family Medical History: Cancer General Exam Limitations: no limitations General appearance: alert, in no apparent distress Head exam: Present: atraumatic, normocephalic Eye exam: Present: normal appearance. Absent: scleral icterus, conjunctival injection Respiratory exam: Present: normal lung sounds bilaterally. Absent: respiratory distress, wheezes, rales, rhonchi, stridor Cardiovascular Exam: Present: regular rate, normal rhythm, normal heart sounds. Absent: systolic murmur, diastolic murmur, rubs, gallop GI/Abdominal exam: Present: soft, tenderness (There is mild tenderness and fullness consistent with bladder), normal bowel sounds. Absent: distended, guarding, rebound, rigid, mass, pulsatile mass, hernia Extremities exam: Present: normal inspection, normal capillary refill. Absent: pedal edema, calf tenderness Back exam: Absent: CVA tenderness (R), CVA tenderness (L) Neurological exam: Present: alert Skin exam: Present: warm, dry, intact, normal color. Absent: rash Course Vital Signs 10/10/19 02:14 Temperature 98.4 F Pulse Rate 62 Respiratory 18 Rate Blood Pressure 153/104 O2 Sat by Pulse 96 Oximetry Disposition Clinical Impression: Obstructed Monsivais catheter, Gross hematuria Disposition: HOME SELF-CARE Condition: Good Instructions (If sedation given, give patient instructions): Urinary Retention in Men (ED), Hematuria (ED) Prescriptions: HYDROcodone/APAP 10-325MG [[place] 10-325] 1 tab PO Q6HR PRN 3 Days #12 tab PRN Reason: Pain Is patient prescribed a controlled substance at d/c from ED?: Yes When asked, does pt state using other controlled substances?: No If prescribed controlled substance>3 days was MAPS reviewed?: Prescribed <3 Days If opioid is for acute pain is fill amount 7 days or less?: Yes If Rx opioid, was Start Talking consent form obtained?: Yes Referrals: Soy Baez MD [Primary Care Provider] - 1-2 days Guicho Bagley MD [STAFF PHYSICIAN] - 1-2 days
== END 2019-10-10 04:15 | disposition home or self-care (01) ==
LOC: EC 02:13
DX: T83.091A Other mechanical complication of indwelling urethral catheter, initial encounter (principal); R31.0 Gross hematuria; I48.91 Unspecified atrial fibrillation; I11.0 Hypertensive heart disease with heart failure; I50.9 Heart failure, unspecified; J44.9 Chronic obstructive pulmonary disease, unspecified; Z79.51 Long term (current) use of inhaled steroids; Z79.899 Other long term (current) drug therapy; Z87.891 Personal history of nicotine dependence; Z98.890 Other specified postprocedural states
CPT/HCPCS: 51702; 51798; 99283

== ENCOUNTER → 2019-10-11 | Outpatient (CLI) | payer BC ==
[2019-10-11 11:30] LABS: Basophils % (A) 0 %; Eosinophils # (A) 0.5 k/uL (0-0.7); Eosinophils % (A) 5 %; HCT 40.5 % (39.0-53.0); HGB 13.2 gm/dL (13.0-17.5); Lymphocytes # (A) 1.5 k/uL (1.0-4.8); Lymphocytes % (A) 15 %; MCH 31.8 pg (25.0-35.0); MCHC 32.7 g/dL (31.0-37.0); MCV 97.4 fL (80.0-100.0); Monocytes # (A) 0.8 k/uL (0-1.0); Monocytes % (A) 8 %; Neutrophils # (A) 6.7 k/uL (1.3-7.7); Neutrophils % (A) 69 %; Platelet Count 296 k/uL (150-450); RBC 4.16 m/uL (4.30-5.90); RDW 12.9 % (11.5-15.5); WBC 9.8 k/uL (3.8-10.6)
[2019-10-11 11:55] LABS: Calcium 9.6 mg/dL (8.4-10.2); Potassium 4.5 mmol/L (3.5-5.1)
== END | disposition home or self-care (01) ==
LOC: LABPAT 10:03
PROVIDERS: ATTEND Urology
DX: Z01.818 Encounter for other preprocedural examination (principal); N28.89 Other specified disorders of kidney and ureter; R31.0 Gross hematuria
CPT/HCPCS: 80048; 85025; 36415; U0003

== ENCOUNTER 2019-10-12 06:59 | Inpatient (IN) | payer BC ==
--- NOTE | 2019-10-12 07:51 | ED ---
General Adult HPI <Matheus Tenorio - Last Filed: 10/12/19 10:50> - General Source: patient, RN notes reviewed, old records reviewed Mode of arrival: wheelchair Limitations: no limitations <Mykel Maguire - Last Filed: 10/12/19 12:52> - General Chief complaint: Urogenital Stated complaint: catheter issue Time Seen by Provider: 10/12/19 07:19 - History of Present Illness Initial comments: 59-year-old male patient past history atrial fibrillation and greater than L Boucher, COPD, hypertension, renal cell carcinoma planned for nephrectomy on Monday presents ED for chief complaint of catheter complaints. Patient reports that he has been having some swelling to his glands and weakness of blood around the catheter insertion site starting yesterday. Patient wishes to have catheter removed to see if he can spontaneously urinate. Denies any other complaints. (Mykel Maguire) - Related Data Home Medications Medication Instructions Recorded Confirmed Omeprazole 20 mg PO DAILY 09/18/19 10/11/19 Tamsulosin [Flomax] 0.4 mg PO BID 09/18/19 10/11/19 Albuterol Sulfate [Ventolin HFA] 2 puff INHALATION RT-BID PRN 09/28/19 10/11/19 Fluticasone Propion/Salmeterol 1 puff INHALATION RT-BID PRN 09/28/19 10/11/19 [Wixela 250-50 Inhub] Metoprolol Tartrate [Lopressor] 50 mg PO TID 09/28/19 10/11/19 Previous Rx's Medication Instructions Recorded Apixaban [Eliquis] 5 mg PO BID #60 tab 06/24/19 HYDROcodone/APAP 10-325MG [[place] 1 tab PO Q6HR PRN 3 Days #12 tab 10/10/19 10-325] Allergies Allergy/AdvReac Type Severity Reaction Status Date / Time No Known Allergies Allergy Verified 10/12/19 07:09 Review of Systems ROS Other: All systems not noted in ROS Statement are negative. <JonaMatheus - Last Filed: 10/12/19 10:50> ROS Other: All systems not noted in ROS Statement are negative. <Mykel Maguire - Last Filed: 10/12/19 12:52> ROS Statement: Those systems with pertinent positive or pertinent negative responses have been documented in the HPI. Past Medical History Past Medical History: Atrial Fibrillation, Chest Pain / Angina, Heart Failure, COPD, Hypertension, Rheumatoid Arthritis (RA) Additional Past Medical History / Comment(s): migraines, renal tumor History of Any Multi-Drug Resistant Organisms: None Reported Past Surgical History: Cardiac Ablation, Orthopedic Surgery Additional Past Surgical History / Comment(s): rotator cuff left shoulder, Past Anesthesia/Blood Transfusion Reactions: No Reported Reaction Past Psychological History: No Psychological Hx Reported Smoking Status: Never smoker Past Alcohol Use History: Occasional Past Drug Use History: None Reported - Past Family History Mother Family Medical History: Cancer <Mykel Maguire - Last Filed: 10/12/19 12:52> General Exam Limitations: no limitations <Mykel Maguire - Last Filed: 10/12/19 12:52> - General Exam Comments Initial Comments: Constitutional: NAD, AOX3, Pt has pleasant affect. HEENT: NC/AT, trachea midline, neck supple, no lymphadenopathy. External ears appear normal, without discharge. Mucous membranes moist. Eyes PERRLA, EOM intact. There is no scleral icterus. No pallor noted. Cardiopulmonary: RRR, no murmurs, rubs or gallops, no JVD noted. Lungs CTAB in anterior and posterior campbell. No peripheral edema. Abdominal exam: Abdomen soft and non-distended. Abdomen non-tender to palpation in all 4 quadrants. Bowel sounds active in LLQ. No hepatosplenomegaly. No e cchymosis Neuro: CN II-XII grossly intact. No nuchal rigidity. No raccon eyes, no syed sign, no hemotympanum. No cervical spinal tenderness. MSK: No posterior calf tenderness bilaterally, homans sign negative bilaterally. ' : No scrotal tenderness, no masses. Mild amount of tenderness to glands region. Mild amount of edema to this region. No skin changes are noted. No purulent drainage. (Mykel Maguire) Course <Matheus Tenorio - Last Filed: 10/12/19 10:50> Vital Signs 10/12/19 10/12/19 10/12/19 07:06 09:24 10:28 Temperature 98.2 F Pulse Rate 107 H 94 111 H Respiratory 18 16 18 Rate Blood Pressure 156/101 145/114 138/96 O2 Sat by Pulse 96 97 96 Oximetry - Reevaluation(s) Reevaluation #1: 10/12/19 10:50 PA supervision: I personally evaluate the patient patient does present with recurrent complaints of blood in his urinary catheter with penile pain he is scheduled for a nephrectomy for renal cell carcinoma in 2 days. The case was discussed with Dr. Bagley. Patient will be admitted for IV fluids and evaluation. The catheter was removed in the emergency department at the patient's request and he was unable to urinate. (Matheus Tenorio) Medical Decision Making - Lab Data Result diagrams: 10/12/19 10:49 10/12/19 10:49 <Mykel Maguire - Last Filed: 10/12/19 12:52> - Medical Decision Making 36-year-old male patient presents to ED for chief complaint of pain or onset of catheter insertion. Patient does have renal mass and is planned for nephrectomy on Monday. Patient also stable, afebrile. Physical exam displayed mild tenderness to glands. Catheter was removed there is found be a large clot in there. Patient had previous issues with clotting his catheter secondary to gross hematuria from renal mass. Patient will be admitted to hospital for continuous irrigation. Case discussed with Dr. Hadley who is in agreement. Case also discussed with Dr. Tenorio (Mykel Maguire) - Lab Data Lab Results 10/12/19 10/12/19 10/12/19 Range/Units 10:49 10:49 12:03 WBC 8.7 (3.8-10.6) k/uL RBC 3.89 L (4.30-5.90) m/uL Hgb 12.3 L (13.0-17.5) gm/dL Hct 37.4 L (39.0-53.0) % MCV 96.2 (80.0-100.0) fL MCH 31.7 (25.0-35.0) pg MCHC 32.9 (31.0-37.0) g/dL RDW 12.8 (11.5-15.5) % Plt Count 319 (150-450) k/uL Neutrophils % 69 % Lymphocytes % 14 % Monocytes % 8 % Eosinophils % 5 % Basophils % 0 % Neutrophils # 6.0 (1.3-7.7) k/uL Lymphocytes # 1.2 (1.0-4.8) k/uL Monocytes # 0.7 (0-1.0) k/uL Eosinophils # 0.4 (0-0.7) k/uL Basophils # 0.0 (0-0.2) k/uL Sodium 137 (137-145) mmol/L Potassium 5.7 H (3.5-5.1) mmol/L Chloride 103 (98-107) mmol/L Carbon Dioxide 21 L (22-30) mmol/L Anion Gap 13 mmol/L BUN 22 H (9-20) mg/dL Creatinine 1.22 (0.66-1.25) mg/dL Est GFR (CKD-EPI)AfAm 75 (>60 ml/min/1.73 sqM) Est GFR (CKD-EPI)NonAf 65 (>60 ml/min/1.73 sqM) Glucose 105 H (74-99) mg/dL Calcium 9.2 (8.4-10.2) mg/dL Total Bilirubin 0.7 (0.2-1.3) mg/dL AST 23 (17-59) U/L ALT 17 (4-49) U/L Alkaline Phosphatase 67 (38-126) U/L Total Protein 7.5 (6.3-8.2) g/dL Albumin 4.0 (3.5-5.0) g/dL Urine Color Dark Red Urine Appearance Turbid (Clear) Urine pH 6.0 (5.0-8.0) Ur Specific [place] 1.019 (1.001-1.035) Urine Protein 2+ H (Negative) Urine Glucose (UA) Negative (Negative) Urine Ketones Negative (Negative) Urine Blood Large H (Negative) Urine Nitrite Negative (Negative) Urine Bilirubin Negative (Negative) Urine Urobilinogen <2.0 (<2.0) mg/dL Ur Leukocyte Esterase Moderate H (Negative) Urine RBC >182 H (0-5) /hpf Urine Bacteria Few H (None) /hpf Urine Yeast (Budding) Many H (None) /hpf Disposition <Matheus Tenorio - Last Filed: 10/12/19 10:50> <Mykel Maguire - Last Filed: 10/12/19 12:52> Clinical Impression: Hematuria Disposition: ADMITTED IP TO THIS [facility] Condition: Fair Referrals: Soy Baez MD [Primary Care Provider] - 1-2 days
[2019-10-12 11:02] LABS: Basophils % (A) 0 %; Eosinophils # (A) 0.4 k/uL (0-0.7); Eosinophils % (A) 5 %; HCT 37.4 % (39.0-53.0); HGB 12.3 gm/dL (13.0-17.5); Lymphocytes # (A) 1.2 k/uL (1.0-4.8); Lymphocytes % (A) 14 %; MCH 31.7 pg (25.0-35.0); MCHC 32.9 g/dL (31.0-37.0); MCV 96.2 fL (80.0-100.0); Mean Platelet Volume 6.9; Monocytes # (A) 0.7 k/uL (0-1.0); Monocytes % (A) 8 %; Neutrophils % (A) 69 %; Platelet Count 319 k/uL (150-450); RBC 3.89 m/uL (4.30-5.90); RDW 12.8 % (11.5-15.5); WBC 8.7 k/uL (3.8-10.6)
[2019-10-12] MEDS: DEXTROSE 5%-0.45% NACL 1,000 ML IV ONE ×2 (11:05→23:36)
[2019-10-12] MEDS ORDERED: LIDOCAINE URO-JET JELLY 2% 5 ML KIT URETHRAL ONE (11:07)
[2019-10-12 11:20] LABS: Calcium 9.2 mg/dL (8.4-10.2); Total Bilirubin 0.7 mg/dL (0.2-1.3); Total Protein 7.5 g/dL (6.3-8.2)
[2019-10-12 11:23] LABS: Potassium 5.7 mmol/L (3.5-5.1)
[2019-10-12] MEDS ORDERED: MORPHINE SULFATE 4 MG/ML SYRINGE IV STA (12:08)
[2019-10-12 12:21] LABS: Appearance,Urine Turbid (Clear); Bacteria,Urine Few /hpf; Bilirubin,Urine Negative (Negative); Blood,Urine Large (Negative); Budding Yeast,Urine Many /hpf; Color,Urine Dark Red; Glucose,Urine (UA) Negative (Negative); Ketones,Urine Negative (Negative); Leukocyte Esterase,Urine Moderate (Negative); Nitrite,Urine Negative (Negative); Protein,Urine 2+ (Negative); RBC,Urine >182 /hpf (0-5); Specific Gravity,Urine 1.019 (1.001-1.035); Urobilinogen,Urine <2.0 mg/dL (<2.0)
--- NOTE | 2019-10-12 12:43 | P.GSHP ---
History of Present Illness H&P Date: 10/12/19 This is a pleasant 59-year-old gentleman known to our office recently because of gross hematuria and a new diagnosis of a left renal mass by . The patient is scheduled for a left radical nephrectomy on 10/14/2019. The patient has had gross hematuria and clot retention intermittently now for the last several days. He has been in and out of the office a couple of times for catheter irrigation. He presented to the emergency room in clot urinary retention. The catheter had to be changed and irrigated. I was consult by the emergency room doctors. We have elected to admit him to the hospital for IV hydration periodic irrigation and pain control. I felt it necessary to control this problem before his major surgery on Monday. Patient does have a history of atrial fibrillation. And has been on Eliquis - Constitutional Constitutional: Denies chills, Denies fever - EENT Eyes: denies blurred vision, denies pain Ears, nose, mouth and throat: Denies headache, Denies sore throat - Cardiovascular Cardiovascular: Denies chest pain, Denies shortness of breath - Respiratory Respiratory: Denies cough, Denies 7 - Gastrointestinal Gastrointestinal: Denies abdominal pain, Denies diarrhea, Denies nausea, Denies vomiting - Genitourinary (Female) Genitourinary: Denies dysuria, Denies hematuria - Genitourinary (Male) Genitourinary: Denies dysuria, Denies hematuria - Musculoskeletal Musculoskeletal: Denies myalgias - Integumentary Integumentary: Denies pruritus, Denies rash - Neurological Neurological: Denies numbness, Denies weakness - Psychiatric Psychiatric: Denies anxiety, Denies depression - Endocrine Endocrine: Denies fatigue, Denies weight change Past Medical History Past Medical History: Atrial Fibrillation, Chest Pain / Angina, Heart Failure, COPD, Hypertension, Rheumatoid Arthritis (RA) Additional Past Medical History / Comment(s): migraines, renal tumor History of Any Multi-Drug Resistant Organisms: None Reported Past Surgical History: Cardiac Ablation, Orthopedic Surgery Additional Past Surgical History / Comment(s): rotator cuff left shoulder, Past Anesthesia/Blood Transfusion Reactions: No Reported Reaction Past Psychological History: No Psychological Hx Reported Smoking Status: Never smoker Past Alcohol Use History: Occasional Past Drug Use History: None Reported - Past Family History Mother Family Medical History: Cancer Medications and Allergies Home Medications Medication Instructions Recorded Confirmed Type Apixaban [Eliquis] 5 mg PO BID #60 tab 06/24/19 10/11/19 Rx Omeprazole 20 mg PO DAILY 09/18/19 10/11/19 History Tamsulosin [Flomax] 0.4 mg PO BID 09/18/19 10/11/19 History Albuterol Sulfate [Ventolin HFA] 2 puff INHALATION RT-BID PRN 09/28/19 10/11/19 History Fluticasone Propion/Salmeterol 1 puff INHALATION RT-BID PRN 09/28/19 10/11/19 History [Wixela 250-50 Inhub] Metoprolol Tartrate [Lopressor] 50 mg PO TID 09/28/19 10/11/19 History HYDROcodone/APAP 10-325MG [[place] 1 tab PO Q6HR PRN 3 Days #12 tab 10/10/19 10/11/19 Rx 10-325] Allergies Allergy/AdvReac Type Severity Reaction Status Date / Time No Known Allergies Allergy Verified 10/12/19 07:09 Surgical - Exam Vital Signs Temp Pulse Resp BP Pulse Ox 98.2 F 107 H 18 156/101 96 10/12/19 07:06 10/12/19 07:06 10/12/19 07:06 10/12/19 07:06 10/12/19 07:06 - General well developed, well nourished, moderate distress - Eyes PERRL - ENT no hearing loss - Neck no masses - Respiratory normal expansion, normal respiratory effort - Cardiovascular Rhythm: irregularly irregular - Abdomen Abdomen: soft, tender - Genitourinary Indwelling catheter with pink urine and some clots normal penis with no external lesions, testicles present - Integumentary no rash, no growths - Neurologic normal coordination, normal sensation - Musculoskeletal normal posture - Psychiatric oriented to time, oriented to person, oriented to place, speech is normal, memory intact Results - Labs 10/12/19 10:49 10/12/19 10:49 Abnormal Lab Results - Last 24 Hours (Table) 10/12/19 10/12/19 10/12/19 Range/Units 10:49 10:49 12:03 RBC 3.89 L (4.30-5.90) m/uL Hgb 12.3 L (13.0-17.5) gm/dL Hct 37.4 L (39.0-53.0) % Potassium 5.7 H (3.5-5.1) mmol/L Carbon Dioxide 21 L (22-30) mmol/L BUN 22 H (9-20) mg/dL Glucose 105 H (74-99) mg/dL Urine Protein 2+ H (Negative) Urine Blood Large H (Negative) Ur Leukocyte Esterase Moderate H (Negative) Urine RBC >182 H (0-5) /hpf Urine Bacteria Few H (None) /hpf Urine Yeast (Budding) Many H (None) /hpf Diabetes panel 10/12/19 Range/Units 10:49 Sodium 137 (137-145) mmol/L Potassium 5.7 H (3.5-5.1) mmol/L Chloride 103 (98-107) mmol/L Carbon Dioxide 21 L (22-30) mmol/L BUN 22 H (9-20) mg/dL Creatinine 1.22 (0.66-1.25) mg/dL Glucose 105 H (74-99) mg/dL Calcium 9.2 (8.4-10.2) mg/dL AST 23 (17-59) U/L ALT 17 (4-49) U/L Alkaline Phosphatase 67 (38-126) U/L Total Protein 7.5 (6.3-8.2) g/dL Albumin 4.0 (3.5-5.0) g/dL Calcium panel 10/12/19 Range/Units 10:49 Calcium 9.2 (8.4-10.2) mg/dL Albumin 4.0 (3.5-5.0) g/dL Pituitary panel 10/12/19 Range/Units 10:49 Sodium 137 (137-145) mmol/L Potassium 5.7 H (3.5-5.1) mmol/L Chloride 103 (98-107) mmol/L Carbon Dioxide 21 L (22-30) mmol/L BUN 22 H (9-20) mg/dL Creatinine 1.22 (0.66-1.25) mg/dL Glucose 105 H (74-99) mg/dL Calcium 9.2 (8.4-10.2) mg/dL Adrenal panel 10/12/19 Range/Units 10:49 Sodium 137 (137-145) mmol/L Potassium 5.7 H (3.5-5.1) mmol/L Chloride 103 (98-107) mmol/L Carbon Dioxide 21 L (22-30) mmol/L BUN 22 H (9-20) mg/dL Creatinine 1.22 (0.66-1.25) mg/dL Glucose 105 H (74-99) mg/dL Calcium 9.2 (8.4-10.2) mg/dL Total Bilirubin 0.7 (0.2-1.3) mg/dL AST 23 (17-59) U/L ALT 17 (4-49) U/L Alkaline Phosphatase 67 (38-126) U/L Total Protein 7.5 (6.3-8.2) g/dL Albumin 4.0 (3.5-5.0) g/dL - Imaging CT scan - abdomen: report reviewed, image reviewed CT scan - pelvis: report reviewed, image reviewed Assessment and Plan Assessment: Impression: This patient has a renal mass, probable renal cell carcinoma causing recurring bleeding. He has clot retention secondary to this. He has been to the emergency room and our office several times requiring irrigation. He thus w ill be admitted for further irrigation and observation. He has a history of atrial fibrillation COPD rheumatoid arthritis. Recommendations: The patient will be observed closely in the hospital. He underwent IV fluid. We'll monitor his hemoglobin. He is set up for surgery on Monday by
[2019-10-12] MEDS ORDERED: NALOXONE 0.4 MG/ML 1 ML VIAL IV PRN (12:51)
[2019-10-12] MEDS ORDERED: LORazepam 2 MG/ML INJ IV STA (15:34)
[2019-10-12] MEDS ORDERED: METOPROLOL TARTRATE 50 MG TAB PO STA (15:35)
[2019-10-12] MEDS: MORPHINE SULFATE 4 MG/ML SYRINGE IVP PRN ×3 (15:41→23:36)
[2019-10-13] MEDS: MORPHINE SULFATE 4 MG/ML SYRINGE IVP PRN (06:21)
[2019-10-13 08:42] LABS: HCT 37.2 % (39.0-53.0); HGB 12.1 gm/dL (13.0-17.5); MCH 31.6 pg (25.0-35.0); MCHC 32.5 g/dL (31.0-37.0); MCV 97.1 fL (80.0-100.0); Mean Platelet Volume 6.9; Platelet Count 317 k/uL (150-450); RBC 3.84 m/uL (4.30-5.90); RDW 12.7 % (11.5-15.5); WBC 7.7 k/uL (3.8-10.6)
[2019-10-13] MEDS: METOPROLOL TARTRATE 50 MG TAB PO SCH ×3 (10:16→21:39)
[2019-10-13] MEDS: SOTALOL 120 MG TAB PO SCH ×2 (10:16→10:19)
[2019-10-13] MEDS: HYDROcodone/APAP 10-325MG 1 EACH TAB PO PRN ×3 (10:46→22:55)
--- NOTE | 2019-10-13 12:14 | P.PN ---
Subjective Progress Note Date: 10/13/19 The patient is in the hospital with clot urinary retention flank pain from his left renal mass. He is to have a left radical nephrectomy tomorrow by . The urine has finally cleared and he is feeling better. I answered several questions about his procedure and perioperative care. I will keep him in the hospital in preparation for his nephrectomy tomorrow. Objective - Vital Signs Vital signs: Vital Signs Temp 97.9 F 10/13/19 11:49 Pulse 100 10/13/19 11:49 Resp 17 10/13/19 11:49 BP 139/90 10/13/19 11:49 Pulse Ox 95 10/13/19 11:49 Intake & Output 10/12/19 10/13/19 10/13/19 18:59 06:59 18:59 Intake Total 1760 Output Total 160 1400 1000 Balance -160 360 -1000 Weight 103.419 kg Intake: Intake, IV Titration 450 Amount Dextrose 5%-0.45% NaCl 1, 450 000 ml @ 75 mls/hr IV . [id number] ONE Rx#:[id number] Oral 1310 Output: Urine 160 1400 1000 Other: Voiding Method Indwelling Catheter Indwelling Catheter Indwelling Catheter - Labs CBC & Chem 7: 10/13/19 08:20 10/12/19 10:49 Labs: Abnormal Lab Results - Last 24 Hours (Table) 10/12/19 10/13/19 Range/Units 12:03 08:20 RBC 3.84 L (4.30-5.90) m/uL Hgb 12.1 L (13.0-17.5) gm/dL Hct 37.2 L (39.0-53.0) % Urine Protein 2+ H (Negative) Urine Blood Large H (Negative) Ur Leukocyte Esterase Moderate H (Negative) Urine RBC >182 H (0-5) /hpf Urine Bacteria Few H (None) /hpf Urine Yeast (Budding) Many H (None) /hpf Microbiology - Last 24 Hours (Table) 10/12/19 12:03 Urine Culture - Preliminary Urine,Catheterized
[2019-10-14] MEDS: METOPROLOL TARTRATE 50 MG TAB PO SCH ×3 (08:01→21:36)
[2019-10-14] MEDS: HYDROcodone/APAP 10-325MG 1 EACH TAB PO PRN ×2 (08:01→21:37)
[2019-10-14] MEDS: SYMBICORT 80-4.5 MCG INHALER INHALATION PRN ×2 (11:44→20:09)
[2019-10-14] MEDS ORDERED: LACTATED RINGERS 1,000 ML IV ONE ×4 (12:16→16:04)
[2019-10-14] MEDS ORDERED: HEPARIN SODIUM,PORCINE 5,000 UNIT/ML 1 ML VIAL SQ STA (12:33)
[2019-10-14] MEDS ORDERED: METOPROLOL TARTRATE 50 MG TAB PO STA (13:09)
[2019-10-14] MEDS ORDERED: METOPROLOL TARTRATE 5 MG/5 ML VIAL IVP PRN (13:17)
[2019-10-14] MEDS ORDERED: NALOXONE 0.4 MG/ML 1 ML VIAL ONE (13:21)
[2019-10-14] MEDS ORDERED: MIDAZOLAM 2 MG/2 ML VIAL ONE (13:21)
[2019-10-14] MEDS ORDERED: NEOSTIGMINE 1 MG/ML 10 ML VIAL ONE (13:21)
[2019-10-14] MEDS ORDERED: fentaNYL (PF) 50 MCG/ML 2 ML AMP ONE (13:21)
[2019-10-14] MEDS ORDERED: LIDOCAINE 1% INJ 10MG/ML (20 ML MDV) ONE (13:21)
[2019-10-14] MEDS ORDERED: ROCURONIUM BROMIDE 10 MG/ML 5 ML VIAL IV ONE (13:21)
[2019-10-14] MEDS ORDERED: SUCCINYLCHOLINE CHLORIDE VIAL 200 MG/10 ML VIAL IV ONE (13:21)
[2019-10-14] MEDS ORDERED: GLYCOPYRROLATE 0.2 MG/ML 2 ML VIAL ONE (13:21)
[2019-10-14] MEDS ORDERED: PROPOFOL 10 MG/ML 20 ML VIAL IV ONE (13:21)
[2019-10-14] MEDS ORDERED: HYDROmorphone (PF) 1 MG/ML ONE (13:21)
[2019-10-14] MEDS ORDERED: SODIUM CHLORIDE 0.9% 50 ML with ceFAZolin 2,000 MG IV ONE ×2 (13:30)
--- NOTE | 2019-10-14 14:23 | P.CRDCN ---
History of Present Illness History of present illness: HISTORY OF PRESENTING ILLNESS This is a pleasant 59-year-old male past medical history significant for paroxysmal atrial fibrillation on long-term anticoagulation, hypertension, COPD and renal mass. He follows in the office with Dr. Araujo and Dr. Chaves. We have been asked to see in consultation for atrial fibrillation with rapid ventricular rates. He presented to the hospital October 11 with symptoms of gross hematuria. He had previously been scheduled for nephrectomy today as an outpatient. He was in the preoperative area getting ready to go into the OR when campus monitor was applied revealing atrial fibrillation with heart rates between 110 and 140. He is seen and examined sitting up on the cart in no acute distress. He denies symptoms of chest pain, shortness of breath, dizziness or palpitations. He states earlier this morning he did have area of heaviness in the midsternal region however it subsided on its own after about 10 minutes. He recently underwent cardiac catheterization August 26 revealing normal coronary arteries. He underwent cardioversion 09/21/19. Sotalol was also attempted however he had breakthrough a-fib. No EKG obtained on this admission. Laboratory data reviewed, WBC 7.7, hgb 12.1, plt 317, sodium 137, potassium 5.7, creatinine 1.22. Most recent echocardiogram obtained 06/2019 revealed mildly impaired LV systolic function with EF 45-50%, apical septal wall motion hypokinesia, mild MR, mild TR. Currently maintained on lopressor 50 mg TID and eliquis 5 mg BID. REVIEW OF SYSTEMS At the time of my exam: CONSTITUTIONAL: Denies fever or chills. CARDIOVASCULAR: Denies chest pain, shortness of breath, orthopnea, PND or palpitations. RESPIRATORY: Denies cough. GASTROINTESTINAL: Denies abdominal pain, diarrhea, constipation, nausea or vomiting. MUSCULOSKELETAL: Denies myalgias. NEUROLOGIC: Denies numbness, tingling or weakness. ENDOCRINE: Denies fatigue, weight change, polydipsia or polyurina. GENITOURINARY: Denies burning, hematuria or urgency with micturation. HEMATOLOGIC: Denies history of anemia or bleeding. PHYSICAL EXAMINATION Blood pressure 139/99 heart rate 117 afebrile and maintaining oxygen saturation on room air. CONSTITUTIONAL: No apparent distress. HEENT: Head is normocephalic. Pupils are equal, round. Sclerae anicteric. Mucous membranes of the mouth are moist. No JVD. No carotid bruit. CHEST EXAMINATION: Lungs are clear to auscultation. No chest wall tenderness is noted on palpation or with deep breathing. HEART EXAMINATION: Irregular rate and rhythm. S1, S2 heard. No murmurs, gallops or rub. ABDOMEN: Soft, nontender. Positive bowel sounds. EXTREMITIES: 2+ peripheral pulses, no lower extremity edema and no calf tenderness. NEUROLOGIC EXAMINATION: Patient is awake, alert and oriented x3. ASSESSMENT Paroxysmal atrial fibrillation with rapid ventricular rates Hyperkalemia Hematuria Left renal mass COPD Hypertension PLAN Give scheduled afternoon dose of lopressor 50 mg and additional dose of 50 mg PO now for a total of 100. Can also given 5 mg IV as need if rates remain elevated. Check TSH Repeat BMP in the morning. Will require telemetry monitoring post-operatively. Thank you kindly for this consultation. Nurse Practitioner note has been reviewed, I agree with a documented findings and plan of care. Patient was seen and examined. Past Medical History Past Medical History: Atrial Fibrillation, Chest Pain / Angina, Heart Failure, COPD, Hypertension, Rheumatoid Arthritis (RA) Additional Past Medical History / Comment(s): migraines, renal tumor History of Any Multi-Drug Resistant Organisms: None Reported Past Surgical History: Cardiac Ablation, Orthopedic Surgery Additional Past Surgical History / Comment(s): rotator cuff left shoulder, Past Anesthesia/Blood Transfusion Reactions: No Reported Reaction Past Psychological History: No Psychological Hx Reported Smoking Status: Former smoker Past Alcohol Use History: Occasional Additional Past Alcohol Use History / Comment(s): quit smoking May 2019, smoked for 30 yrs, 1 PPD Past Drug Use History: None Reported - Past Family History Mother Family Medical History: Cancer Medications and Allergies Home Medications Medication Instructions Recorded Confirmed Type Apixaban [Eliquis] 5 mg PO BID #60 tab 06/24/19 10/12/19 Rx Fluticasone Propion/Salmeterol 1 puff INHALATION RT-BID PRN 09/28/19 10/12/19 History [Wixela 250-50 Inhub] Metoprolol Tartrate [Lopressor] 50 mg PO TID 09/28/19 10/12/19 History HYDROcodone/APAP 10-325MG [[place] 1 tab PO Q6HR PRN 3 Days #12 tab 10/10/19 10/12/19 Rx 10-325] Ergocalciferol [Vitamin D2] 50,000 unit PO Q7D 10/12/19 10/12/19 History Sotalol [Betapace] 120 mg PO BID 10/12/19 10/12/19 History Allergies Allergy/AdvReac Type Severity Reaction Status Date / Time No Known Allergies Allergy Verified 10/12/19 13:19 Physical Exam Vitals: Vital Signs Temp Pulse Resp BP BP Pulse Ox 10/14/19 12:19 97.8 F 117 H 139/99 97 10/14/19 04:21 97.7 F 108 H 18 151/103 95 10/14/19 00:05 16 10/13/19 22:08 98.0 F 99 16 155/99 97 Intake and Output 10/13/19 10/14/19 10/14/19 22:59 06:59 14:59 Intake Total 700 Output Total 1815 600 220 Balance -1815 -600 480 Intake: IV 700 Output: Urine 1815 600 220 Uretheral (Monsivais) 100 300 20 Other: Voiding Method Indwelling Catheter Indwelling Catheter Results 10/13/19 08:20 10/12/19 10:49 Current Medications Generic Name Dose Route Start Last Admin Trade Name Freq PRN Reason Stop Dose Admin Hydrocodone Bitart/Acetaminophen 1 each 10/13/19 09:38 10/14/19 08:01 [place] 10 PO 1 each Q6HR PRN Administration Pain Budesonide/Formoterol Fumarate 2 puff 10/13/19 09:38 10/14/19 11:44 Symbicort 80-4.5 Mcg Inhaler INHALATION 2 puff RT-BID PRN Administration Shortness Of Breath Ergocalciferol 50,000 unit 10/18/19 09:45 Vitamin D2 PO Q7D INDRA Metoprolol Tartrate 50 mg 10/13/19 09:45 10/14/19 13:09 Lopressor PO 50 mg TID INDRA Administration Metoprolol Tartrate 5 mg 10/14/19 13:17 Lopressor IVP 10/14/19 15:00 Q5M PRN Heart Rate - HIGH Morphine Sulfate 4 mg 10/12/19 15:30 10/13/19 06:21 Morphine Sulfate (Inj) IVP 4 mg Q4HR PRN Administration Pain Naloxone HCl 0.2 mg 10/12/19 12:51 Narcan IV Q2M PRN Opioid Reversal Intake and Output 10/13/19 10/14/19 10/14/19 22:59 06:59 14:59 Intake Total 700 Output Total 1815 600 220 Balance -1815 -600 480 Intake: IV 700 Output: Urine 1815 600 220 Uretheral (Monsivais) 100 300 20 Other: Voiding Method Indwelling Catheter Indwelling Catheter 10/13/19 08:20 10/12/19 10:49
[2019-10-14] MEDS ORDERED: BUPIVACAINE (PF) 0.25% 30 ML VIAL SQ ONE (16:08)
--- NOTE | 2019-10-14 16:37 | P.OP ---
Date of Procedure: 10/14/19 Preoperative Diagnosis: Left renal mass, gross hematuria Postoperative Diagnosis: Same Procedure(s) Performed: Left radical nephrectomy Anesthesia: SHY Surgeon: Jef Allen Material Engineer #1: Yosef Castaneda Estimated Blood Loss (ml): 1,000 IV fluids (ml): 2,400 Pathology: other (Left kidney and adrenal gland) Condition: stable Disposition: PACU Indications for Procedure: The patient is a 59-year-old white male who has experienced intermittent gross hematuria since 09/28/2019. A computed tomography scan showed a 9 cm left upper pole renal mass, suspicious for renal cell carcinoma. His metastatic evaluation was negative. He was admitted on October 11 for urinary clot retention and now comes for a left radical nephrectomy. Operative Findings: Large left upper pole renal mass. Description of Procedure: The patient was taken to the operating room and placed in the supine position. After being given general anesthesia, the abdomen was prepped and draped sterilely. A left sided chevron incision was made using the scalpel. The Bovie electrocautery was used to incise the subcutaneous tissues and muscular layers of the abdominal wall down to the peritoneum. The peritoneum was then carefully entered, and opened the full length of the incision. The abdomen was examined, and no abnormalities were noted other than the renal mass. Specifically, there was no evidence of malignancy elsewhere within the abdomen. The Bookwalter retractor was used for exposure. The peritoneum was incised at the line of Toldt, allowing the left hemicolon to be mobilized medially off of Gerota's fascia. This was done until the aorta was exposed anteriorly. The left renal vein was identified at this time. Next, the tissue within the left renal hilum was clipped and divided immediately alongside the lateral aspect of the aorta. There was no evidence of adenopathy, though the hilar tissues were somewhat indurated. The adrenal vein and gonadal vein were isolated, ligated, and divided as they inserted into the left renal vein. The left renal vein was then likewise ligated twice proximally and distally. A suture ligature was placed through the proximal aspect of the vein prior to dividing it. A single left renal artery was then identified. This was ligated twice proximally and distally prior to dividing it. The remaining hilar tissues were clipped and divided at this time. Once the hilar dissection had been completed, the inferior aspect of the dissection was performed. The tail of Gerota's fascia was isolated, and both the ureter and gonadal veins were identified. The ureter was clipped, the gonadal vein was ligated, and both were divided. Blunt dissection was then performed to dissect the kidney off of the posterior abdominal wall. Superiorly, the thick perinephric fat was thinned out above the upper pole of the kidney. Once thinned, these superior attachments were clipped and divided, allowing removal of the left adrenal gland along with the kidney. Once all attachments were divided, the specimen was removed. The surgical field was examined for hemostasis, which was very good. The renal bed was irrigated with warm sterile water. The Bookwalter retractor was removed. The abdominal contents were allowed to return to their normal location. Each individual muscle layer of the anterior abdominal wall was closed using #1 Vicryl suture in a running fashion. Hemostasis within the subcutaneous tissues was excellent. The skin was closed using ez. A sterile gauze dressing was applied over the incision. All sponge and needle counts were correct. The Monsivais catheter was irrigated using a piston syringe. Several small clots were removed, one of which was initially obstructing the calculus. Following catheter irrigation, the catheter drained well and the irrigant was clear. The patient was successfully extubated, but was breathing inadequately and was thus reintubated. He was taken to the recovery room in stable condition.
[2019-10-14] MEDS ORDERED: HYDROmorphone 1 MG/ML 1 ML SYRINGE IVP ONE ×2 (17:45→18:48)
[2019-10-14] MEDS: HYDROmorphone 1 MG/ML 1 ML SYRINGE IVP ONE ×3 (18:00→18:30)
[2019-10-14] MEDS: MORPHINE SULFATE 4 MG/ML SYRINGE IVP PRN (19:57)
[2019-10-14] MEDS: HEPARIN SODIUM,PORCINE 5,000 UNIT/ML 1 ML VIAL SQ SCH (21:37)
[2019-10-14] MEDS ORDERED: MORPHINE SULFATE 4 MG/ML SYRINGE IVP PRN (22:49)
[2019-10-15] MEDS: MORPHINE SULFATE 4 MG/ML SYRINGE IVP PRN ×8 (01:40→23:52)
[2019-10-15 07:53] LABS: HCT 32.1 % (39.0-53.0); HGB 10.1 gm/dL (13.0-17.5); MCH 30.7 pg (25.0-35.0); MCHC 31.3 g/dL (31.0-37.0); MCV 97.9 fL (80.0-100.0); Mean Platelet Volume 6.9; Platelet Count 274 k/uL (150-450); RBC 3.28 m/uL (4.30-5.90); RDW 12.6 % (11.5-15.5)
[2019-10-15 07:59] LABS: Calcium 8.5 mg/dL (8.4-10.2); Potassium 4.8 mmol/L (3.5-5.1)
[2019-10-15] MEDS: SYMBICORT 80-4.5 MCG INHALER INHALATION PRN ×2 (08:12→20:06)
[2019-10-15] MEDS: METOPROLOL TARTRATE 50 MG TAB PO SCH ×2 (08:19→23:46)
[2019-10-15] MEDS: HEPARIN SODIUM,PORCINE 5,000 UNIT/ML 1 ML VIAL SQ SCH ×2 (08:19→19:39)
--- NOTE | 2019-10-15 09:01 | P.PN ---
Subjective Progress Note Date: 10/15/19 Principal diagnosis: POD #1, s/p left radical nephrectomy. The patient reports incisional pain. He denies chest pain and dyspnea. The Monsivais catheter is draining clear yellow urine. Objective - Vital Signs Vital signs: Vital Signs Temp 98.8 F 10/15/19 01:25 Pulse 65 10/15/19 01:25 Resp 20 10/15/19 01:25 BP 156/81 10/15/19 01:25 Pulse Ox 97 10/15/19 01:25 Intake & Output 10/14/19 10/15/19 10/15/19 18:59 06:59 18:59 Intake Total 3950 150 Output Total 1520 700 Balance 2430 -550 Weight 102 kg Intake: IV 3950 Oral 150 Output: Urine 520 700 Uretheral (Monsivais) 20 500 Estimated Blood Loss 1000 Other: Voiding Method Indwelling Catheter - Constitutional General appearance: Present: average body habitus, cooperative, no acute distress - Gastrointestinal Gastrointestinal Comment(s): Soft, non-distended. Dressing dry and intact. - Psychiatric Psychiatric: Present: A&O x's 3, appropriate affect, intact judgment & insight - Labs CBC & Chem 7: 10/15/19 06:19 10/15/19 06:19 Assessment and Plan (1) Left renal mass Current Visit: No Status: Acute Code(s): N28.89 - OTHER SPECIFIED DISORDERS OF KIDNEY AND URETER SNOMED Code(s): 687565593 Plan: D/C Monsivais catheter. Ambulate. The need for pulmonary toilet was stressed. Begin clear liquid diet. Anticipate resumption of Eliquis tomorrow.
--- NOTE | 2019-10-15 13:07 | P.PN ---
Subjective HISTORY OF PRESENTING ILLNESS This is a pleasant 59-year-old male past medical history significant for paroxysmal atrial fibrillation on long-term anticoagulation, hypertension, COPD and renal mass. He follows in the office with Dr. Araujo and Dr. Chaves. He is status post left radical nephrectomy. He is seen and examined sitting up in the chair in no acute distress. He has converted to sinus mechanism. He has no symptoms of chest pain, shortness of breath, dizziness or palpitations. Blood pressure 95/61 heart rate 64 afebrile maintaining oxygen saturation on room air. Laboratory data reviewed, WBC 8, hemoglobin 10.1, platelets 274, sodium 136, potassium 4.8, creatinine 1.47 and TSH 2.91. PHYSICAL EXAMINATION CONSTITUTIONAL: No apparent distress. HEENT: Head is normocephalic. Pupils are equal, round. Sclerae anicteric. Mucous membranes of the mouth are moist. No JVD. No carotid bruit. CHEST EXAMINATION: Lungs are clear to auscultation. No chest wall tenderness is noted on palpation or with deep breathing. HEART EXAMINATION: Regular rate and rhythm. S1, S2 heard. No murmurs, gallops or rub. EXTREMITIES: 2+ peripheral pulses, no lower extremity edema and no calf tenderness. ASSESSMENT Paroxysmal atrial fibrillation with rapid ventricular rates Hyperkalemia Hematuria Left renal mass COPD Hypertension PLAN Decrease metoprolol to 100 mg twice a day. Continue post-surgical management. Nurse Practitioner note has been reviewed, I agree with a documented findings and plan of care. Patient was seen and examined. Objective - Vital Signs Vital signs: Vital Signs Temp 98.8 F 10/15/19 01:25 Pulse 77 10/15/19 05:00 Resp 18 10/15/19 05:00 BP 130/80 10/15/19 05:00 Pulse Ox 97 10/15/19 01:25 Intake & Output 10/14/19 10/15/19 10/15/19 18:59 06:59 18:59 Intake Total 3950 150 Output Total 1520 700 Balance 2430 -550 Weight 102 kg Intake: IV 3950 Oral 150 Output: Urine 520 700 Uretheral (Monsivais) 20 500 Estimated Blood Loss 1000 Other: Voiding Method Indwelling Catheter Indwelling Catheter - Labs CBC & Chem 7: 10/15/19 06:19 10/15/19 06:19 Labs: Abnormal Lab Results - Last 24 Hours (Table) 10/15/19 10/15/19 Range/Units 06:19 06:19 RBC 3.28 L (4.30-5.90) m/uL Hgb 10.1 L (13.0-17.5) gm/dL Hct 32.1 L (39.0-53.0) % Sodium 136 L (137-145) mmol/L BUN 24 H (9-20) mg/dL Creatinine 1.47 H (0.66-1.25) mg/dL Glucose 100 H (74-99) mg/dL
[2019-10-15] MEDS ORDERED: METOPROLOL TARTRATE 50 MG TAB PO SCH (21:00)
[2019-10-16 07:23] LABS: HCT 34.1 % (39.0-53.0); HGB 10.8 gm/dL (13.0-17.5); MCH 31.6 pg (25.0-35.0); MCHC 31.7 g/dL (31.0-37.0); MCV 99.7 fL (80.0-100.0); Mean Platelet Volume 6.8; Platelet Count 292 k/uL (150-450); RBC 3.42 m/uL (4.30-5.90); RDW 12.7 % (11.5-15.5); WBC 8.6 k/uL (3.8-10.6)
[2019-10-16] MEDS: METOPROLOL TARTRATE 50 MG TAB PO SCH ×3 (07:40→21:03)
[2019-10-16] MEDS: HEPARIN SODIUM,PORCINE 5,000 UNIT/ML 1 ML VIAL SQ SCH (07:40)
[2019-10-16] MEDS: SYMBICORT 80-4.5 MCG INHALER INHALATION PRN ×2 (08:49→18:52)
[2019-10-16] MEDS: MORPHINE SULFATE 4 MG/ML SYRINGE IVP PRN ×2 (09:04→12:07)
--- NOTE | 2019-10-16 10:02 | P.PN ---
Subjective HISTORY OF PRESENTING ILLNESS This is a pleasant 59-year-old male past medical history significant for paroxysmal atrial fibrillation on long-term anticoagulation, hypertension, COPD and renal mass. He follows in the office with Dr. Araujo and Dr. Chaves. He is status post left radical nephrectomy. He is seen and examined sitting up in the chair in no acute distress. He is feeling surgical site pain on the left flank region. Last night he went back into atrial fibrillation with rapid ventricular rate. He also had an 11-beat run of mono-morphic wide complex ventricular tachycardia around 2029. He does recall feeling dizzy last night. No chest pain, shortness of breath or palpitations. Blood pressure 147/91 heart rate 91 afebrile and maintaining oxygen saturation on nasal cannula. Laboratory data reviewed, WBC 8.6, hgb 10.8, plt 292. Currently maintained on lopressor 100 mg BID. PHYSICAL EXAMINATION CONSTITUTIONAL: No apparent distress. HEENT: Head is normocephalic. Pupils are equal, round. Sclerae anicteric. Mucous membranes of the mouth are moist. No JVD. No carotid bruit. CHEST EXAMINATION: Lungs are clear to auscultation. No chest wall tenderness is noted on palpation or with deep breathing. HEART EXAMINATION: Irregular rate and rhythm. S1, S2 heard. No murmurs, gallops or rub. EXTREMITIES: 2+ peripheral pulses, no lower extremity edema and no calf tenderness. ASSESSMENT Paroxysmal atrial fibrillation with rapid ventricular rates Non-sustained mono-morphic ventricular tachycardia Hyperkalemia Hematuria Left renal mass COPD Hypertension PLAN Increase lopressor back to 100 mg TID. Resume eliquis when appropriate per urology. Nurse Practitioner note has been reviewed, I agree with a documented findings and plan of care. Patient was seen and examined. Objective - Vital Signs Vital signs: Vital Signs Temp 98.2 F 10/16/19 04:25 Pulse 91 10/16/19 04:25 Resp 12 10/16/19 04:25 BP 147/91 10/16/19 04:25 Pulse Ox 94 L 10/16/19 04:25 Intake & Output 10/15/19 10/16/19 10/16/19 18:59 06:59 18:59 Intake Total 750 400 Output Total 350 500 Balance 400 -100 Weight 97 kg Intake: Oral 750 400 Output: Urine 350 500 Other: Voiding Method Indwelling Catheter Urinal # Voids 5 - Labs CBC & Chem 7: 10/16/19 06:40 10/15/19 06:19 Labs: Abnormal Lab Results - Last 24 Hours (Table) 10/16/19 Range/Units 06:40 RBC 3.42 L (4.30-5.90) m/uL Hgb 10.8 L (13.0-17.5) gm/dL Hct 34.1 L (39.0-53.0) %
[2019-10-16] MEDS: DILTIAZEM ORAL 60 MG TAB PO SCH ×2 (13:46→21:04)
--- NOTE | 2019-10-16 18:44 | P.PN ---
Subjective Progress Note Date: 10/16/19 Principal diagnosis: POD #2, s/p left radical nephrectomy. The patient reports incisional pain. This tolerating full liquid diet. He denies nausea and vomiting. He is passing flatus but has not had a bowel movement. He is voiding without difficulty. The urine is clear. He reports mild dyspnea when he awakens after dosing off. His oxygen saturation levels of inadequate. Objective - Vital Signs Vital signs: Vital Signs Temp 97.9 F 10/16/19 11:20 Pulse 101 H 10/16/19 16:00 Resp 14 10/16/19 16:00 BP 136/87 10/16/19 11:20 Pulse Ox 94 L 10/16/19 11:20 Intake & Output 10/15/19 10/16/19 10/16/19 18:59 06:59 18:59 Intake Total 750 400 240 Output Total 350 500 26 Balance 400 -100 214 Weight 97 kg Intake: Oral 750 400 240 Output: Urine 350 500 Post Void Residual 26 Other: Voiding Method Indwelling Catheter Urinal Urinal # Voids 5 4 - Constitutional General appearance: Present: average body habitus, cooperative, no acute distress - Gastrointestinal Gastrointestinal Comment(s): Soft, non-distended. Incision clean, dry, and intact. - Psychiatric Psychiatric: Present: A&O x's 3, appropriate affect, intact judgment & insight - Labs CBC & Chem 7: 10/16/19 06:40 10/15/19 06:19 Labs: Abnormal Lab Results - Last 24 Hours (Table) 10/16/19 Range/Units 06:40 RBC 3.42 L (4.30-5.90) m/uL Hgb 10.8 L (13.0-17.5) gm/dL Hct 34.1 L (39.0-53.0) % Assessment and Plan (1) Left renal mass Current Visit: No Status: Acute Code(s): N28.89 - OTHER SPECIFIED DISORDERS OF KIDNEY AND URETER SNOMED Code(s): 462751917 Plan: The patient has rhonchi, likely due to early atelectasis. The need to cough and deep breathe was stressed. Ambulation was again encouraged. Diet will continue to be advanced as tolerated. I have resumed Eliquis.
[2019-10-16] MEDS: APIXABAN 5 MG TAB PO SCH (21:03)
[2019-10-16] MEDS: HYDROcodone/APAP 10-325MG 1 EACH TAB PO PRN (21:43)
[2019-10-17] MEDS: SYMBICORT 80-4.5 MCG INHALER INHALATION PRN ×2 (07:26→19:19)
[2019-10-17] MEDS: DILTIAZEM ORAL 60 MG TAB PO SCH ×3 (08:40→21:33)
[2019-10-17] MEDS: APIXABAN 5 MG TAB PO SCH ×2 (08:40→21:32)
[2019-10-17] MEDS: METOPROLOL TARTRATE 50 MG TAB PO SCH ×3 (08:40→21:32)
[2019-10-17] MEDS: MORPHINE SULFATE 4 MG/ML SYRINGE IVP PRN (09:59)
--- NOTE | 2019-10-17 10:16 | P.PN ---
Progress Note - Text Progress Note Date: 10/17/19 The patient is afebrile. He began a regular diet this morning. He says that he was able to ambulate only a small amount over the last 24 hours but thinks that he can do more today. He has no shortness of breath or chest pain. He continues to have moderate incisional pain but this may be controllable with oral analgesics. His incision appears to be healing well. He has no abdominal distention and is passing gas. If he is able to ambulate and eat well today he may be able to be discharged either later today or tomorrow morning.
--- NOTE | 2019-10-17 12:10 | P.PN ---
Subjective HISTORY OF PRESENTING ILLNESS This is a pleasant 59-year-old male past medical history significant for paroxysmal atrial fibrillation on long-term anticoagulation, hypertension, COPD and renal mass. He follows in the office with Dr. Araujo and Dr. Chaves. He is status post left radical nephrectomy. He is seen and examined sitting up in the chair in no acute distress. His heart rates continue to be uncontrolled. Cardizem PO was added yesterday afternoon. He is tolerating this well until this morning when his rates went high while he was up having a bowel movement. This occurred before he was given his PO medications. Blood pressure 126/85 heart rate now controlled at 71 afebrile and maintaining oxygen saturation on nasal cannula. He has no chest pain, shortness of breath, dizziness or palpitations. He continues to have incisional discomfort on the left flank region. PHYSICAL EXAMINATION CONSTITUTIONAL: No apparent distress. HEENT: Head is normocephalic. Pupils are equal, round. Sclerae anicteric. Mucous membranes of the mouth are moist. No JVD. No carotid bruit. CHEST EXAMINATION: Lungs are clear to auscultation. No chest wall tenderness is noted on palpation or with deep breathing. HEART EXAMINATION: Irregular rate and rhythm. S1, S2 heard. No murmurs, gallops or rub. EXTREMITIES: 2+ peripheral pulses, no lower extremity edema and no calf tenderness. ASSESSMENT Paroxysmal atrial fibrillation with rapid ventricular rates Non-sustained mono-morphic ventricular tachycardia Hyperkalemia Hematuria Left renal mass COPD Hypertension PLAN Continue lopressor 100 mg TID along with cardizem 60 mg TID for rate control. Stable for discharge on current regimen. long-term anti-coagulation has been resumed per urology. Follow up in the office with Dr. Araujo in 1 week. Further ablations will take place in 4-[address] Chaves. Nurse Practitioner note has been reviewed, I agree with a documented findings and plan of care. Patient was seen and examined. Objective - Vital Signs Vital signs: Vital Signs Temp 97.8 F 10/17/19 05:00 Pulse 71 10/17/19 08:00 Resp 20 10/17/19 08:00 BP 126/85 10/17/19 05:00 Pulse Ox 98 10/17/19 05:00 Intake & Output 10/16/19 10/17/19 10/17/19 18:59 06:59 18:59 Intake Total 240 360 Output Total 26 800 Balance 214 -440 Weight 96 kg Intake: Oral 240 360 Output: Urine 800 Post Void Residual 26 Other: Voiding Method Urinal Urinal Urinal # Voids 4 2 # Bowel Movements 1 - Labs CBC & Chem 7: 10/16/19 06:40 10/15/19 06:19
[2019-10-17 15:20] VITALS: RESP 18
[2019-10-17] MEDS: HYDROcodone/APAP 10-325MG 1 EACH TAB PO PRN ×2 (16:08→22:09)
[2019-10-17 22:39] VITALS: TEMP 97.6
[2019-10-18 05:51] VITALS: BP 112/72; PULSE 90
[2019-10-18] MEDS: DILTIAZEM ORAL 60 MG TAB PO SCH (08:03)
[2019-10-18] MEDS: APIXABAN 5 MG TAB PO SCH (08:03)
[2019-10-18] MEDS: METOPROLOL TARTRATE 50 MG TAB PO SCH (08:03)
[2019-10-18] MEDS: HYDROcodone/APAP 10-325MG 1 EACH TAB PO PRN (08:04)
[2019-10-18] MEDS: SYMBICORT 80-4.5 MCG INHALER INHALATION PRN (09:12)
[2019-10-18] MEDS ORDERED: ERGOCALCIFEROL 50,000 UNIT CAP PO SCH (09:45)
[2019-10-18 10:24] VITALS: BMI 28.4
--- NOTE | 2019-10-18 11:25 | P.DS ---
Providers Date of admission: 10/13/19 14:49 Expected date of discharge: 10/18/19 Attending physician: Guicho Bagley Consults: 10/14/19 12:38 Consult Physician Stat Consulting Provider: Sascha Chaves Consult Reason/Comments: UNCONTROLLED A FIB, PT KNOWN TO GROUP Do you want consulting provider notified?: Already Contacted Primary care physician: [facility] Course: The patient is a 59-year-old male with a history of recurrent episodes of gross hematuria. He was discovered to have a large left upper pole renal mass on computed tomography scan. He had been scheduled to undergo left radical nephrectomy on 10/13 was admitted on 10/11 due to recurrent gross hematuria with clot urinary retention. Hemoglobin at that time was 12.1. He underwent left radical nephrectomy on 10/13. His hematuria resolved following the procedure. Hemoglobin was 10.8 on 10/14. The BUN/creatinine were 24/1.47. Patient was discharged on the fourth day postop at which time he was afebrile, fully ambulatory and tolerating a regular diet. His abdominal incision was uninflamed and appeared to be healing well. He did have episodes of tachycardia related to paroxysmal atrial fibrillation. He was seen by cardiology and placed on Lopressor and Cardizem to control his heart rate. Patient's pathology report was pending at the time of discharge. Procedures: left radical nephrectomy 10/14/2019 Patient Condition at Discharge: Good Plan - Discharge Summary Discharge Rx Participant: No New Discharge Prescriptions: New Diltiazem Oral [Cardizem*] 60 mg PO TID #90 tab Metoprolol Tartrate [Lopressor] 100 mg PO TID tab Discontinued Metoprolol Tartrate [Lopressor] 50 mg PO TID Sotalol [Betapace] 120 mg PO BID No Action Apixaban [Eliquis] 5 mg PO BID #60 tab Fluticasone Propion/Salmeterol [[place]ixela 250-50 Inhub] 1 puff INHALATION RT-BID PRN PRN Reason: Shortness Of Breath HYDROcodone/APAP 10-325MG [[place] 10-325] 1 tab PO Q6HR PRN 3 Days #12 tab PRN Reason: Pain Ergocalciferol [Vitamin D2] 50,000 unit PO Q7D Discharge Medication List Apixaban [Eliquis] 5 mg PO BID #60 tab 06/24/19 [Rx] Fluticasone Propion/Salmeterol [[place]ela 250-50 Inhub] 1 puff INHALATION RT-BID PRN 09/28/19 [History] HYDROcodone/APAP 10-325MG [[place] 10-325] 1 tab PO Q6HR PRN 3 Days #12 tab 10/10/19 [Rx] Ergocalciferol [Vitamin D2] 50,000 unit PO Q7D 10/12/19 [History] Diltiazem Oral [Cardizem*] 60 mg PO TID #90 tab 10/17/19 [Rx] Metoprolol Tartrate [Lopressor] 100 mg PO TID tab 10/17/19 [Rx] Follow up Appointment(s)/Referral(s): Gerald Araujo MD [STAFF PHYSICIAN] - 10/29/19 3:30 pm (You will be seeing [facility].) Jef Allen MD [STAFF PHYSICIAN] - 10/25/19 9:40 am Soy Baez MD [Primary Care Provider] - 10/21/19 1:30 pm Patient Instructions/Handouts: Diltiazem (By mouth), Hydrocodone/Acetaminophen (By mouth), A-fib (Atrial Fibrillation) (DC), Nephrectomy (DC) Pending Studies Pending Results: pathology report
--- NOTE | 2019-10-20 06:55 | CDI ---
Documentation Clarification Form Date: 10/20/19 From: Deepa Chavarria Phone: If you have a question about this query, please contact Carolina Grant, [place] at [phone] between 8am and 5pm. Admit Date: 10/13/19 Discharge Date: 10/18/19 Patient Name: NAVARRO HOOPER Visit Number: [id number] ATTENTION: The Clinical Documentation Specialists (CDI) and [facility] Coding Staff appreciate your assistance in clarifying documentation. Please respond to the clarification below the line at the bottom and electronically sign. The CDI & [facility] Coding staff will review the response and follow-up if needed. Please note: Queries are made part of the Legal Health Record. If you have any questions, please contact the author of this message via ITS. Dear Dr. Guicho Bagley, The final diagnosis of the pathology report states: Clear cell renal cell carcinoma (G4), invading renal sinus fat. Resection margins negative. One perinephric lymph node positive for metastatic clear cell carcinoma.Benign adrenal gland. Documentation states: Left renal mass, gross hematuria Patient history/risk factors: HTN w heart failue, PAF, RA, COPD Treatment: Left radical nephrectomy In your professional opinion, do you agree with the pathology report specifying clear cell renal carcinoma w metastic disease to one perinephric lymph node? Yes No Other (please specify) Unable to determine yes MTDD
== END 2019-10-18 11:40 | disposition home or self-care (01) | DRG 657 ==
LOC: EC 06:59 → 5NMEDONC 12:58 → OBSVTOIN 10-13 14:49
PROVIDERS: ADMIT Urology; ATTEND Urology
PROC: 0GT20ZZ Resection of Left Adrenal Gland, Open Approach (ICD-10-PCS; 2019-10-14)
PROC: 07BC0ZX Excision of Pelvis Lymphatic, Open Approach, Diagnostic (ICD-10-PCS; 2019-10-14)
PROC: 0TT10ZZ Resection of Left Kidney, Open Approach (ICD-10-PCS; principal; 2019-10-14 13:00)
DX: C64.2 Malignant neoplasm of left kidney, except renal pelvis (principal); I47.2 Ventricular tachycardia; C77.5 Secondary and unspecified malignant neoplasm of intrapelvic lymph nodes; J98.11 Atelectasis; I11.0 Hypertensive heart disease with heart failure; I50.9 Heart failure, unspecified; I48.0 Paroxysmal atrial fibrillation; M06.9 Rheumatoid arthritis, unspecified; J44.9 Chronic obstructive pulmonary disease, unspecified; T83.098A Other mechanical complication of other urinary catheter, initial encounter; I08.1 Rheumatic disorders of both mitral and tricuspid valves; E87.5 Hyperkalemia; R33.9 Retention of urine, unspecified; R31.0 Gross hematuria; Z79.01 Long term (current) use of anticoagulants; Z79.51 Long term (current) use of inhaled steroids; Z79.899 Other long term (current) drug therapy; Z87.891 Personal history of nicotine dependence; Z86.69 Personal history of other diseases of the nervous system and sense organs; Z98.890 Other specified postprocedural states; Y84.6 Urinary catheterization as the cause of abnormal reaction of the patient, or of later complication, without mention of misadventure at the time of the procedure; Z80.9 Family history of malignant neoplasm, unspecified
CPT/HCPCS: 36415; 51702; 80048; 80053; 81001; 84132; 84443; 85025; 85027; 86850; 86900; 86901; 87086; 88305; 88307; 93005; 94640; 96374; 96375; 96376; 99285

== ENCOUNTER → 2020-01-13 | Outpatient (CLI) | payer BC ==
--- NOTE | 2020-01-13 15:45 | XR ---
Lumbosacral spine HISTORY: Chronic pain 5 views of lumbosacral spine, correlation CT scan 09/28/2019 There is a mild dextroscoliosis centered at L3. Vacuum phenomenon is present at the intervertebral le vels L1-2, L2-3, L4-5, L5-S1 with associated loss of disc height. There is multilevel spondylosis. Molly mbar vertebral bodies show preserved height and bone mineralization. Surgical clips are present in th e left paraspinal location. Anterolisthesis grade 1 L5-S1, there is bilateral spondylolysis at L5. Sc lerosis present in the posterior elements of the lower lumbar spine. IMPRESSION: Degenerative disc disease, facet arthropathy, spondylolysis and spondylolisthesis, postop changes.
--- NOTE | 2020-01-13 15:49 | XR ---
Thoracic spine HISTORY: Chronic pain 3 views of the thoracic spine There is multilevel thoracic spondylosis. Thoracic vertebral bodies show preserved height, alignment, and bone mineralization. Old right clavicular fracture is healed. Left hemidiaphragm is elevated. Ma rgical clips present in left paraspinal location. Loss of disc height present at intervertebral level s of the lower thoracic spine. Degenerative disc changes are also present in the lower cervical spine . IMPRESSION: Degenerative disc disease. Postop changes. Elevated left hemidiaphragm.
== END | disposition home or self-care (01) ==
LOC: RADXRMAIN 11:05
PROVIDERS: ATTEND Pediatrics
DX: M43.17 Spondylolisthesis, lumbosacral region (principal); M47.817 Spondylosis without myelopathy or radiculopathy, lumbosacral region; M51.34 Other intervertebral disc degeneration, thoracic region; M51.37 Other intervertebral disc degeneration, lumbosacral region; Z98.890 Other specified postprocedural states
CPT/HCPCS: 72070; 72110

== ENCOUNTER → 2020-02-24 | Outpatient (CLI) | payer BC ==
--- NOTE | 2020-02-24 14:03 | CT ---
EXAMINATION TYPE: CT ChestAbdPelvis wo con DATE OF EXAM: 02/24/2020 COMPARISON: 10/02/2019, 09/28/2019 HISTORY: Renal cancer CT DLP: 1691.8 mGycm. Automated Exposure Control for Dose Reduction was Utilized. TECHNIQUE: CT scan of the thorax, abdomen and pelvis is performed without IV contrast. FINDINGS: Lack of contrast limits the exam. LUNGS: Persistent elevation of the left hemidiaphragm. There is a 2 mm nodule along the lateral grayson n of the left lower lobe axial image 42 which is to severe to characterize but likely present on the prior exam. No pleural effusion, no pneumothorax, no evidence of consolidative pneumonia.. MEDIASTINUM: Calcification along the posterior margin of the heart may be related to the mitral valve or annulus. There is coronary artery calcification and cardiomegaly with no sizable pericardial effu vignesh.. OTHER: No additional significant abnormality is seen. LIVER/GB: No significant abnormality is appreciated. PANCREAS: No significant abnormality is seen. SPLEEN: No significant abnormality is seen. ADRENALS: No significant abnormality is seen. Left adrenal gland not seen with certainty. KIDNEYS: Left nephrectomy noted. No evidence of residual or recurrent mass.. BOWEL: No significant abnormality is seen. LYMPH NODES: No greater than 1cm abdominal or pelvic lymph nodes are appreciated. OSSEOUS STRUCTURES: Hypertrophic and degenerative change of the spine. Bilateral spondylolysis L5. Gr valentin 1 anterolisthesis. Tiny sclerotic densities involving the proximal femur bilaterally are too smal l to characterize but likely benign. OTHER: No significant additional abnormality is seen. IMPRESSION: 1. Post left nephrectomy with no evidence of recurrent mass or pathologic adenopathy. 2. A small nodule in the lateral segment of the left lower lobe on axial image 42 measuring 2 mm whic h is retrospectively stable from the prior exam and too small to characterize. [place] to be most likely benign. Short-term follow-up however recommended.
== END | disposition home or self-care (01) ==
LOC: RADCTMAIN 11:33
PROVIDERS: ATTEND Internal Medicine Hematology & Oncology
DX: R91.1 Solitary pulmonary nodule (principal); C64.2 Malignant neoplasm of left kidney, except renal pelvis; Z90.5 Acquired absence of kidney
CPT/HCPCS: 71250; 74176

== ENCOUNTER → 2020-03-26 | Outpatient (CLI) | payer BC ==
--- NOTE | 2020-03-26 18:10 | CONS ---
CONSULTATION DATE OF SERVICE: 03/26/2020 60-year-old gentleman has been evaluated in the sleep center for possible obstructive sleep apnea-hypopnea syndrome. HISTORY OF PRESENT ILLNESS SLEEP WAKE EVALUATION: SLEEP SCHEDULE: The patient's usual sleep schedule from 10 a.m. until 5:30/6 am on weekdays and from 11 or 12 until 7:30/8 am on weekends. FALLING ASLEEP: No problems with falling asleep for more than 60 minutes. He has TV set in bedroom. DURING SLEEP: He sleeps on the side position. He snores and wakes up from sleep with the episodes of gasping for air. He was told about the possible episodes of stopped breathing during sleep. Positive history of dry mouth and sweating during the sleep time. He wakes up from sleep with nocturia 4 times. Positive history of cramping feet. No history of hypnagogic hallucinations, sleep paralysis or cataplexy. DURING THE DAY/SLEEP WAKE EVALUATION: In the morning, patient wakes up tired, has difficulties paying attention, has problems with memory and concentration. [place] Sleepiness Scale increased to 14. He drinks 2 caffeinated beverages in the morning, usually does not take naps. PAST MEDICAL HISTORY: Hypertension, history of atrial fibrillation, headaches, history of COPD. PAST SURGICAL HISTORY: Left nephrectomy for cancer in October of 2019. MEDICATIONS: Metoprolol 100 mg twice a day. Omeprazole 20 mg once a day, Eliquis 5 mg twice a day, albuterol, ipratropium bromide. SOCIAL HISTORY: Positive for smoking for about 30 pack years, quit in June of 2018. Alcohol consumption: Occasional. FAMILY HISTORY: Hypertension, heart problems, cancer, lung problems, acid reflux. REVIEW OF SYSTEMS: Multiple awakenings from sleep, sleepiness during the day, snoring. PHYSICAL EXAM: 60 -year-old male without distress. BP 150/95, HR 94, RR 16. Height 5 feet 10 inches, weight 244, BMI 35, temperature 97.5, oxygen saturation on room air 96%. HEENT: Oropharynx low position of soft palate, Mallampati 3. NECK: Wide neck, 18.5 Inches in circumference. LUNGS: Few wheezes in the lungs. HEART: S1, S2 regular. No murmurs, gallops, or rubs. ABDOMEN: Soft and nontender. Bowel sounds are present. No organomegaly appreciated. EXTREMITIES: No clubbing or cyanosis. GROUP CHIEF OPERATOR: Awake, alert, and oriented X3. Cranial nerves 2 to 7 intact. There is no fasciculation or atrophy. noted. No focal deficits observed. IMPRESSION: 1. Snoring, multiple awakenings from sleep with nocturia and episodes of gasping for air. Low position of soft palate, wide neck, sleepiness. Obstructive sleep apnea- hypopnea syndrome. 2. History of atrial fibrillation. 3. Hypertension. 4. History of chronic obstructive pulmonary disease. 5. Headaches. 6. Status post left nephrectomy for cancer. 7. Restless leg symptoms. 8. Cramps of the feet, possibly periodic limb movements. PLAN: 1. Home sleep apnea test for evaluation of patient breathing during sleep. 2. CPAP/BiPAP titration if sleep study confirms obstructive sleep apnea-hypopnea syndrome. 3. Preferable position during sleep on the side. 4. No driving if patient feels any sleepiness. 5. I will see patient for follow up visit to explain results of testing and following plan. Thank you very much for referring this patient for consultation. Sincerely, Vasquez Otero MD, PhD, FAASM Diplomat of [place] [employer] [place] [employer] Senior Pharmacy Technician of [facility] MMODL / IJN: [id number] /
== END | disposition home or self-care (01) ==
LOC: SLEEP 14:39
PROVIDERS: ATTEND Internal Medicine
DX: G47.33 Obstructive sleep apnea (adult) (pediatric) (principal); G47.69 Other sleep related movement disorders; G47.62 Sleep related leg cramps; I10 Essential (primary) hypertension; R51.9 Headache, unspecified; R35.1 Nocturia; Z90.5 Acquired absence of kidney; Z79.899 Other long term (current) drug therapy; Z79.01 Long term (current) use of anticoagulants; Z87.09 Personal history of other diseases of the respiratory system; Z86.79 Personal history of other diseases of the circulatory system
CPT/HCPCS: 99211

== ENCOUNTER → 2020-07-23 | Outpatient (CLI) | payer BC ==
--- NOTE | 2020-07-23 13:49 | XR ---
EXAMINATION TYPE: XR chest 2V DATE OF EXAM: 07/23/2020 COMPARISON: Prior chest x-ray 09/18/2019 HISTORY: Shortness of breath TECHNIQUE: Frontal and lateral views of the chest are obtained. FINDINGS: Lung volumes are low. Left hemidiaphragm is elevated. Cardiac mediastinal silhouette shows possible cardiac enlargement. No evident pneumothorax or pleural effusion. Patchy bibasilar density is noted. IMPRESSION: Expiratory exam, there may be basilar atelectasis, correlate for pneumonia, difficult to exclude cardiac enlargement
== END ==
LOC: RADXRMAIN 13:06
PROVIDERS: ATTEND Pediatrics
DX: R06.02 Shortness of breath (principal)
CPT/HCPCS: 71046

== ENCOUNTER → 2020-09-11 | Outpatient (CLI) | payer BC ==
[2020-09-12 02:22] LABS: African American GFR (CKD) 43.4 (60.0-200.0); Albumin 4.7 g/dL (3.80-4.90); Albumin/Globulin Ratio 1.52 (1.60-3.17); Anion Gap 11.8 mmol/L (4.00-12.00); BUN/Creat Ratio 12.63 Ratio (12.00-20.00); Calcium 9.9 mg/dL (8.7-10.3); Carbon Dioxide 25.2 mmol/L (21.6-31.8); Globulin 3.1 g/dL (1.6-3.3); Non-African American GFR(CKD) 37.5 (60.0-200.0); Potassium 4.2 mmol/L (3.5-5.5); Total Bilirubin 0.7 mg/dL (0.3-1.2); Total Protein 7.8 g/dL (6.2-8.2)
== END | disposition home or self-care (01) ==
LOC: LABWHC1 13:49
PROVIDERS: ATTEND Internal Medicine Interventional Cardiology
DX: R06.00 Dyspnea, unspecified (principal)
CPT/HCPCS: 36415; 80053; 83880

== ENCOUNTER → 2021-09-23 | Outpatient (CLI) | payer OTHER ==
--- NOTE | 2021-09-23 12:19 | XR ---
EXAMINATION TYPE: XR chest 2V DATE OF EXAM: 09/23/2021 COMPARISON: 07/23/2020 TECHNIQUE: PA and lateral views submitted. HISTORY: Cough FINDINGS: Heart size normal. There is a left-sided subsegmental infiltrate and tiny effusion. No overt failure or pneumothorax. Chronic deformity of the right clavicle. Hypertrophic and degenerative changes spine . No overt failure. Hyperinflation suggests COPD. Nodular densities overlying the lower lobes most li lolly in the basis of nipple shadows. IMPRESSION: 1. COPD with left lower lobe infiltrate. 2. Nodular densities overlying both lower lung campbell may be related to nipple shadows. Repeat fronta l view with nipple markers recommended.
== END | disposition home or self-care (01) ==
LOC: RADXRMAIN 10:37
PROVIDERS: ATTEND Nurse Practitioner Adult Health
DX: C64.2 Malignant neoplasm of left kidney, except renal pelvis (principal); I48.91 Unspecified atrial fibrillation; J44.9 Chronic obstructive pulmonary disease, unspecified; Z71.3 Dietary counseling and surveillance
CPT/HCPCS: 71046

== ENCOUNTER → 2021-09-28 | Outpatient (CLI) | payer OTHER ==
--- NOTE | 2021-09-28 10:34 | MR ---
EXAMINATION TYPE: MR brain wo/w con DATE OF EXAM: 09/28/2021 COMPARISON: None HISTORY: Renal cell cancer TECHNIQUE: Multiplanar, multisequence images of the brain and brainstem is performed without and with IV contras t, utilizing 11 mL intravenous Gadavist . FINDINGS: Diffusion weighted images demonstrate no evidence of a recent infarct or other diffusion ab normality. There is mild generalized degenerative change. Scattered areas of abnormal signal are see n in the white matter bilaterally with more localized area in the left parietal cortex compatible wit h remote ischemia. Tiny focal areas of abnormal signal the harish too small to characterize but likely in the basis of tiny areas of remote Midline structures demonstrate normal morphology. The craniocervical junction appears within normal limits. Post contrast images demonstrate no abnormal enhancement. The dural venous sinuses appear pa tent. Changes of chronic sinusitis. Orbits are symmetric. Nasal septal deviation. IMPRESSION: 1. No evidence of metastases. 2. Degenerative and remote ischemic change. No acute ischemia. 3. Chronic sinusitis.
== END | disposition home or self-care (01) ==
LOC: RADMRIMAIN 09:13
PROVIDERS: ATTEND Internal Medicine Hematology & Oncology
DX: C64.2 Malignant neoplasm of left kidney, except renal pelvis (principal)
CPT/HCPCS: 70553; A9585

== ENCOUNTER → 2021-11-16 | Outpatient (CLI) | payer OTHER ==
--- NOTE | 2021-11-16 10:10 | CT ---
EXAMINATION TYPE: CT chest wo con DATE OF EXAM: 11/16/2021 COMPARISON: 02/24/2020 HISTORY: Renal Cancer CT DLP: 627.[address] of the chest was performed with lung and mediastinal window settings submitted. The la ck of contrast limits evaluation of the vascular, mediastinal and parenchymal structures including th e upper abdomen. LUNGS: The lungs are clear and free of infiltrate. No atelectasis. No pulmonary nodule or mass is de tected. No pleural effusion. No CT evidence of interstitial lung disease. MEDIASTINUM/TIM: Thoracic aorta is of normal caliber with limited evaluation given lack of contrast . The heart is not enlarged. No evidence for mediastinal mass. No lymph nodes greater than 1cm. UPPER ABDOMEN: Left-sided nephrectomy changes seen. OTHER: There is a destructive soft tissue mass involving left rib #10 with soft tissue component tiffanie uring 6.1 x 4.5 cm. There is a subtle lesion involving anterior left rib #6. IMPRESSION: 1. Destructive soft tissue mass involving posterior left rib #10 as well as a more subtle smaller le vignesh involving anterior left rib 6. 2. No evidence for pulmonary nodule or mass.
== END | disposition home or self-care (01) ==
LOC: RADCTMAIN 09:17
PROVIDERS: ATTEND Internal Medicine Hematology & Oncology
DX: C64.2 Malignant neoplasm of left kidney, except renal pelvis (principal)
CPT/HCPCS: 71250

== ENCOUNTER → 2022-01-25 | Outpatient (CLI) | payer OTHER ==
--- NOTE | 2022-01-25 14:37 | CT ---
EXAMINATION TYPE: CT ChestAbdPelvis wo con DATE OF EXAM: 01/25/2022 COMPARISON: Prior CT report February 24, 2020. Prior chest CT November 16, 2021 HISTORY: Renal Cell CA CT DLP: 1664 mGycm. Automated Exposure Control for Dose Reduction was Utilized. TECHNIQUE: CT scan of the thorax, abdomen and pelvis is performed without oral but without IV contrast. IV contr ast could not be given due to diminished renal function. FINDINGS: LUNGS: Elevated left hemidiaphragm redemonstrated. Mild left basilar linear scarring again seen. No s uspicious new greater than 5 mm pulmonary nodules or masses. No pleural effusion or pneumothorax seen bilaterally. MEDIASTINUM: There are no greater than 1 cm hilar or mediastinal lymph nodes. No cardiomegaly or pe ricardial effusion is seen. Prominent density or calcification along the posterior aspect of the juan ral valve is redemonstrated and unchanged from most recent CT. LIVER/GB: No significant abnormality is appreciated. PANCREAS: No significant abnormality is seen. SPLEEN: No significant abnormality is seen. ADRENALS: No significant abnormality is seen. KIDNEYS: Left kidney surgically absent. No right-sided renal calculi or hydronephrosis. BOWEL: Oral contrast only reaches mid jejunal loops in the left abdomen. No suspicious small or large bowel dilatation. GENITAL ORGANS: No gross abnormality seen. LYMPH NODES: No greater than 1cm abdominal or pelvic lymph nodes are appreciated. OSSEOUS STRUCTURES: Metallic hardware from left hip arthroplasty causes streak artifact limiting eval uation of pelvic structures. Stable expansile destructive soft tissue mass destroying posterior 10th rib measuring 6.4 x 3.5 cm ax ial image 52 versus most recent prior chest CT. Smaller lytic lesion anterior left sixth rib axial im age 34 grossly stable from most recent CT at 1.5 x 1.1 cm. No definitive new focal osseous lesions. OTHER: Small fat-containing right inguinal hernia. 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 No obvious new mass or valentin nopathy to suggest neoplastic progression.
--- NOTE | 2022-01-26 09:18 | NM ---
EXAMINATION TYPE: NM bone scan whole body DATE OF EXAM: 01/25/2022 COMPARISON: 01/25/2022 HISTORY: Renal cancer Delayed whole-body scanning was performed following the injection of 22.7 mCi Tc 99m MDP. Images acq uired 3 hours post injection. FINDINGS: There is intense abnormal uptake involving the sternum and anterior mid left rib cage extending poste riorly. Abnormal uptake involving the maxilla likely related to periodontal disease. Abnormal uptake involving the knees and shoulders likely post arthritic. Abnormal uptake involving the left hip and femur likely in the basis of previous surgery. IMPRESSION: 1. Abnormal uptake involving the mid and lower left rib cage is concordant with CT abnormality destru ctive metastatic bone lesions. 2. Abnormal uptake involving the sternum also suspicious for metastases and concordant with lytic CT lesion. 3. Abnormal uptake vertebral canal most typical degenerative change with the exception of L4 and conc ordant with metastatic CT lesion.
== END | disposition home or self-care (01) ==
LOC: RADNMMAIN 11:01
PROVIDERS: ATTEND Internal Medicine Hematology & Oncology
DX: Z03.89 Encounter for observation for other suspected diseases and conditions ruled out (principal); C64.2 Malignant neoplasm of left kidney, except renal pelvis
CPT/HCPCS: 82565; 84520; 71250; 74176; 36415; 78306; A9503; Q9967

== ENCOUNTER → 2022-05-03 | Outpatient (CLI) | payer MEDICARE, OTHER ==
--- NOTE | 2022-05-03 12:43 | CT ---
EXAMINATION TYPE: CT ChestAbdPelvis w con DATE OF EXAM: 05/03/2022 COMPARISON: 01/25/2022 HISTORY: renal ca CT DLP: 2591.6 mGycm CONTRAST: CT scan of the chest, abdomen and pelvis is performed with Oral Contrast and with IV Contrast, patien t injected with 70 mL of Isovue 300. CT Chest: LUNGS: 12 pulmonary nodules seen scattered throughout the right lung the largest measures 7.2 mm. The re are a couple of small nodules seen previously however they had increased in number and size in the interval. 5 pulmonary nodules seen within the left lung measuring up to 6 mm. Chronic elevation left hemidiaphragm. MEDIASTINUM: Thoracic aorta is of normal caliber. The heart is not enlarged. No evidence for media stinal mass or adenopathy. HILAR STRUCTURES: No evidence for mass. No hilar adenopathy is appreciated. OTHER: Stable chest wall mass measures 6.4 x 3.5 cm with destruction of left rib 10. CONTRAST CT ABDOMEN AND PELVIS FINDINGS: LIVER/GB: Hepatic steatosis noted. No calcified gallstones. No space occupying hepatic lesion. Kris iary tree is of normal caliber. PANCREAS: No inflammation. No distinct mass. SPLEEN: No splenic enlargement. No lesion seen. ADRENALS: No nodule. No thickening. KIDNEYS/BLADDER: Left-sided nephrectomy change. No evidence for recurrent mass. No hydronephrosis. No nephrolithiasis. No distinct renal mass. BOWEL: Normal appendix. Normal bowel caliber. No inflammation. GENITAL ORGANS: No gross abnormality. LYMPH NODES: No greater than 1cm abdominal or pelvic lymph nodes are appreciated. AORTA: No significant abnormality. OSSEOUS STRUCTURES: No significant abnormality is seen. OTHER: No significant additional abnormality is seen. IMPRESSION: 1. Multiple bilateral pulmonary nodules have increased in size and overall number. 2. Left-sided chest wall mass is stable.
--- NOTE | 2022-05-03 14:42 | NM ---
EXAMINATION TYPE: NM bone scan whole body DATE OF EXAM: 05/03/2022 COMPARISON: 01/25/2022 HISTORY: Renal cancer Delayed whole-body scanning was performed following the injection of 22.8 mCi Tc 99m MDP. Images acq uired 3 hours post injection. FINDINGS: There is intense abnormal uptake involving the sternum and anterior mid left rib cage extending poste riorly. Abnormal uptake involving the maxilla likely related to periodontal disease. Abnormal uptake involving the knees and shoulders likely post arthritic. Abnormal uptake involving the left hip and femur likely in the basis of previous surgery. Mild faint increased uptake involving the right clavicle and cord CT findings prior fracture. There is a lytic lesion on CT scan L4 which demonstrates only faint uptake by bone scan. IMPRESSION: 1. Abnormal uptake involving the mid and lower left rib cage is concordant with CT abnormality destru ctive metastatic bone lesions. Rib cage lesions appear stable. 2. Abnormal uptake involving the sternum also suspicious for metastases and concordant with lytic CT lesion. There is mild progression of the amount of uptake with regard to the sternum relative to the prior exam. 3. Abnormal uptake vertebral canal most typical degenerative change with the exception of L4 and conc ordant with metastatic CT lesion. 4. Suspicious area of reduced bone scan uptake L4 for the CT finding of lytic destructive lesion.
== END | disposition home or self-care (01) ==
LOC: RADNMMAIN 09:52
PROVIDERS: ATTEND Internal Medicine Hematology & Oncology
DX: C64.2 Malignant neoplasm of left kidney, except renal pelvis (principal); C79.51 Secondary malignant neoplasm of bone; R91.8 Other nonspecific abnormal finding of lung field
CPT/HCPCS: 82565; 84520; 71260; 74177; 36415; 78306; A9503; Q9967

== ENCOUNTER → 2022-12-20 | Outpatient (CLI) | payer MEDICARE, OTHER ==
[2022-12-20 09:50] LABS: African American GFR (CKD) 64 (>60 ml/min/1.73 sqM); Blood Urea Nitrogen 25 mg/dL (9-20); Non-African American GFR(CKD) 55 (>60 ml/min/1.73 sqM)
[2022-12-20 10:36] LABS: ALT 52 U/L (4-49); AST 50 U/L (17-59); African American GFR (CKD) 58 (>60 ml/min/1.73 sqM); Albumin 4.5 g/dL (3.5-5.0); Albumin/Globulin Ratio 1.2; Alkaline Phosphatase 97 U/L (38-126); Anion Gap 9 mmol/L; Blood Urea Nitrogen 25 mg/dL (9-20); Calcium 9.3 mg/dL (8.4-10.2); Carbon Dioxide 26 mmol/L (22-30); Chloride 103 mmol/L (98-107); Globulin 3.8 g/dL; Glucose 122 mg/dL (74-99); Magnesium 2.2 mg/dL (1.6-2.3); Non-African American GFR(CKD) 50 (>60 ml/min/1.73 sqM); Potassium 5.3 mmol/L (3.5-5.1); Sodium 138 mmol/L (137-145); Total Bilirubin 0.7 mg/dL (0.2-1.3); Total Protein 8.3 g/dL (6.3-8.2)
--- NOTE | 2022-12-20 12:02 | CT ---
EXAMINATION TYPE: CT ChestAbdPelvis w con CT DLP: 2606.7 mGycm, Automated exposure control for dose reduction was used. DATE OF EXAM: 12/20/2022 11:14 AM COMPARISON: None. CLINICAL INDICATION:Male, 62 years old with history of C64.2 MALIGNANT NEOPLASM OF LEFT KIDNEY,; PHH, Left sided kidney cancer. Technique: Multiple axial images of the chest, abdomen, and pelvis were obtained. Two-dimensional cor onal and sagittal reconstructions were obtained. Contrast used:80ml mL of Isovue 300 with IV Contrast, Oral contrast used: with Oral Contrast Findings: CHEST: LUNGS/ PLEURA: Previous left lower lung 6 mm pulmonary nodule is no longer visualized., Left upper va ng pulmonary nodule appears smaller in size now within the irregular morphology measuring up to 3 mm. Left lung apex pulmonary nodule is no longer visualized. AIRWAY: Patent and unremarkable. HEART: The heart is mildly enlarged for size. MEDIASTINUM: No gross evidence of adenopathy. VASCULATURE: No aortic aneurysm. MUSCULOSKELETAL: Interval decrease in size in left 10th rib lesion measuring 7.7 x 3.9 cm, previously 8.5 x 4.8 cm. Similar sclerosis within the sternum with additional lucent area present not significa ntly changed from prior. Decrease in size of left rib 6 lesion with decreased soft tissue. SOFT TISSUES/LYMPH NODES: Unremarkable. LOWER NECK: No significant findings. ABDOMEN: ABDOMEN LIVER: Unremarkable GALLBLADDER AND BILE DUCTS: Unremarkable. PANCREAS: Unremarkable. SPLEEN: Unremarkable. ADRENAL GLANDS: Unremarkable. KIDNEYS AND URETERS: The left kidney surgically absent. No abnormal soft tissue in the surgical bed. The right kidney is without hydronephrosis. PELVIS BLADDER: Unremarkable REPRODUCTIVE: Unremarkable. ABDOMEN & PELVIS STOMACH AND BOWEL: No evidence of bowel obstruction. PERITONEUM: No evidence of pneumoperitoneum or free fluid. VASCULATURE: No evidence of aortic aneurysm. MUSCULOSKELETAL: No acute osseous abnormalities, multilevel degeneration changes of the hips with lef t hip arthroplasty changes hardware appears intact. Stable lucent/lytic lesion in the L4 vertebral body. LYMPH NODES: No gross evidence for lymphadenopathy. SOFT TISSUE/ABDOMINAL WALL: Unremarkable IMPRESSION: 1. Positive response to therapy with decrease in left 10th and 6th rib lesions as well as stable betty earance of the sternum and L4 vertebral body lesions. Scattered pulmonary nodules have decreased in s ize or resolved from prior. 2. Left nephrectomy with no evidence for recurrence in the surgical bed.
--- NOTE | 2022-12-20 14:35 | NM ---
EXAMINATION TYPE: NM bone scan whole body DATE OF EXAM: 12/20/2022 COMPARISON: 09/16/2022 CLINICAL INDICATION: Male, 62 years old with history of C64.2 MALIGNANT NEOPLASM OF LEFT KIDNEY,; Delayed whole-body scanning was performed following the injection of 22.4 mCi Tc 99m MDP. Images acq uired 4 hours post injection. FINDINGS: Stable abnormal increased uptake: Sternum, left sixth rib, left 10th rib, left ischium and small focal left intertrochanteric area of i ncreased uptake. Improved areas of increased uptake: None Progressive areas of increased uptake: There appears to be increased uptake at the level of the L4 vertebral segment. New areas of increased uptake: None Degenerative uptake is stable at the bilateral shoulders, sternoclavicular joints and knees. Surgical prosthesis left hip. IMPRESSION: Overall stable examination although there may be mild increased uptake noted at the L4 vertebral segm ent since the prior examination.
[2022-12-20 16:11] LABS: Chol/HDL Ratio 4.04 Ratio; LDL Cholesterol,Calculated 66.8 mg/dL (0.0-131.0)
== END | disposition home or self-care (01) ==
LOC: RADCTMAIN 08:15
PROVIDERS: ATTEND Internal Medicine Hematology & Oncology
DX: C64.2 Malignant neoplasm of left kidney, except renal pelvis (principal); R91.1 Solitary pulmonary nodule; G89.3 Neoplasm related pain (acute) (chronic); G47.00 Insomnia, unspecified; R91.8 Other nonspecific abnormal finding of lung field; Z90.5 Acquired absence of kidney
CPT/HCPCS: 84153; 80061; 80053; 84443; 82565; 83735; 84520; 82043; 82570; 83036; 71260; 74177; 36415; 78306; 93005; A9503; Q9967

== ENCOUNTER → 2023-03-24 | Outpatient (CLI) | payer MEDICARE, OTHER ==
--- NOTE | 2023-03-24 13:45 | US ---
EXAMINATION TYPE: US kidneys/renal and bladder DATE OF EXAM: 03/24/2023 COMPARISON: CT chest abdomen pelvis 12/20/2022 CLINICAL INDICATION: Male, 63 years old with history of N18.31 CHRONIC KIDNEY DISEASE, STAGE 3A; CKD. Left nephrectomy 2020 EXAM MEASUREMENTS: Right Kidney: 12.1 x 5.1 x 5.7 cm Left Kidney: Surgically absent Right Kidney: lobulated contour Left Kidney: Surgically absent Bladder: wnl, not fully distended Bilateral Jets seen: no There is no evidence for hydronephrosis at this point in time. No nephrolithiasis is seen. No shirin s are identified. Lobulated contour to the right kidney. Left kidney is surgically absent. No suspici ous soft tissue within the nephrectomy bed. The urinary bladder is anechoic and underdistended. Bila teral ureteral jets are not seen. Increased echogenicity of the visualized liver. IMPRESSION: 1. Postsurgical changes from left nephrectomy without suspicious soft tissue within the nephrectomy b ed. 2. No hydronephrosis or nephrolithiasis. 3. Hepatic steatosis.
== END | disposition home or self-care (01) ==
LOC: RADUSWWP 13:07
PROVIDERS: ATTEND Internal Medicine Nephrology
DX: N18.31 Chronic kidney disease, stage 3a (principal); K76.0 Fatty (change of) liver, not elsewhere classified; Z90.5 Acquired absence of kidney
CPT/HCPCS: 76770

== ENCOUNTER → 2023-03-31 | Outpatient (CLI) | payer MEDICARE, OTHER ==
[2023-03-31 13:05] LABS: Appearance,Urine Clear (Clear); Bilirubin,Urine Negative (Negative); Blood,Urine Negative (Negative); Color,Urine Yellow; Glucose,Urine (UA) Negative (Negative); Ketones,Urine Negative (Negative); Leukocyte Esterase,Urine Small (Negative); Mucus,Urine Rare /hpf; Nitrite,Urine Negative (Negative); PH, Urine 5.5 (5.0-8.0); Protein,Urine Trace (Negative); RBC,Urine 1 /hpf (0-5); Squamous Epithelial Cell,Urine 1 /hpf (0-4); Urobilinogen,Urine <2.0 mg/dL (<2.0); WBC,Urine 9 /hpf (0-5)
[2023-03-31 15:43] LABS: Basophils # (A) 0.06 X 10*3/uL (0.00-0.10); Eosinophils % (A) 6.6 %; HCT 46.5 % (39.6-50.0); HGB 15.2 g/dL (13.0-17.0); Lymphocytes # (A) 1.27 X 10*3/uL (0.90-5.00); MCH 29.7 pg (27.0-32.0); MCHC 32.7 g/dL (32.0-37.0); Mean Platelet Volume 9.2 FL (9.5-12.2); Monocytes # (A) 0.81 X 10*3/uL (0.20-1.00); Monocytes % (A) 13.4 %; NRBC Per 100 WBC 0 X 10*3/uL (0.00-0.01); Neutrophils # (A) 3.49 X 10*3/uL (1.80-7.70); Neutrophils % (A) 57.5 %; Platelet Count 265 X 10*3/uL (140-440); RBC 5.11 X 10*6/uL (4.40-5.60); WBC 6.06 X 10*3/uL (4.50-10.00)
[2023-03-31 16:07] LABS: % Iron Saturation 31.03 (15.00-50.00); BUN/Creat Ratio 18.79 Ratio (12.00-20.00); Blood Urea Nitrogen 26.3 mg/dL (9.0-27.0); Chloride 106 mmol/L (96-109); Glucose 112 mg/dL (70-110); Iron 126 UG/DL (65-175); Magnesium 1.9 mg/dL (1.5-2.4); Phosphorus 3.4 mg/dL (2.4-5.1); Potassium 4.9 mmol/L (3.5-5.5); Sodium 139 mmol/L (135-145); Total Iron Binding Capacity 406 UG/DL (228-460); Uric Acid 6.9 mg/dL (3.7-8.7)
[2023-03-31 16:08] LABS: ALT 42 U/L (10-49); AST 34 U/L (14-35); Albumin 4.2 g/dL (3.8-4.9); Albumin/Globulin Ratio 1.35 Ratio (1.60-3.17); Alkaline Phosphatase 96 U/L (41-126); Calcium 9.9 mg/dL (8.7-10.3); Carbon Dioxide 21.7 mmol/L (21.6-31.8); Globulin 3.1 g/dL (1.6-3.3); Total Bilirubin 0.4 mg/dL (0.3-1.2); Total Protein 7.3 g/dL (6.2-8.2)
== END | disposition home or self-care (01) ==
LOC: LABWHC1 10:59
PROVIDERS: ATTEND Internal Medicine Nephrology
DX: E55.9 Vitamin D deficiency, unspecified (principal); N25.81 Secondary hyperparathyroidism of renal origin; M10.9 Gout, unspecified; N39.0 Urinary tract infection, site not specified; D63.1 Anemia in chronic kidney disease; N18.31 Chronic kidney disease, stage 3a; R80.9 Proteinuria, unspecified
CPT/HCPCS: 36415; 80053; 81001; 82043; 82306; 82570; 83540; 83550; 83735; 83970; 84100; 84550; 85025; 86334; 86335

== ENCOUNTER → 2023-04-27 | Outpatient (CLI) | payer MEDICARE, OTHER ==
--- NOTE | 2023-04-27 09:14 | CT ---
EXAMINATION TYPE: CT ChestAbdPelvis wo con CT DLP: 1681.90 mGycm, Automated exposure control for dose reduction was used. DATE OF EXAM: 04/27/2023 8:55 AM COMPARISON: 12/20/2022. CLINICAL INDICATION:Male, 63 years old with history of C64.2 renal ca; PHH, Hx renal ca Technique: CT ChestAbdPelvis wo con; Multiple axial images were obtained. Two-dimensional coronal and sagittal reconstructions were obtained. Contrast used: None Oral contrast used: without Oral Contrast Findings: CHEST: LUNGS/ PLEURA: No new or enlarging pulmonary nodules. Intrafissural lymph node series 4 image 26. AIRWAY: Patent and unremarkable. HEART: The heart is mildly enlarged for size. MEDIASTINUM: No gross evidence of adenopathy. VASCULATURE: No aortic aneurysm. MUSCULOSKELETAL: Interval decrease in size in left 10th rib lesion measuring 6.4 x 2.6 cm on today's exam, previously 7.7 x 3.9 cm, and 8.5 x 4.8 cm. Increasing density with sclerosis throughout the natalya rnum which has increased from prior. Continued healing changes of left rib 6 anteriorly. There is mild expansion of the site of prior frac ture. T9 vertebral body sclerotic area is not significantly changed measuring approximately 11 x 14 mm. SOFT TISSUES/LYMPH NODES: Unremarkable. LOWER NECK: No significant findings. ABDOMEN: ABDOMEN LIVER: Unremarkable GALLBLADDER AND BILE DUCTS: Unremarkable. PANCREAS: Unremarkable. SPLEEN: Unremarkable. ADRENAL GLANDS: Unremarkable. KIDNEYS AND URETERS: The left kidney is surgically absent. No abnormal soft tissue in the surgical be d. The right kidney is without hydronephrosis. No right renal calculi. PELVIS BLADDER: Unremarkable REPRODUCTIVE: Unremarkable. ABDOMEN & PELVIS STOMACH AND BOWEL: No evidence of bowel obstruction. PERITONEUM: No evidence of pneumoperitoneum or free fluid. VASCULATURE: No evidence of aortic aneurysm. MUSCULOSKELETAL: No acute osseous abnormalities, multilevel degeneration changes of the hips with lef t hip arthroplasty changes hardware appears intact. Stable lucent/lytic lesion in the L4 vertebral body. LYMPH NODES: No gross evidence for lymphadenopathy. SOFT TISSUE/ABDOMINAL WALL: Unremarkable IMPRESSION: 1. Continued positive response to therapy with decrease in left 10th lesion and continued bony remod eling within the left 6th rib possibly secondary to underlying fracture seen on prior. There is incre ased sclerosis within the sternum and L4 vertebral body lesions which could be due to posttreatment c hange/healing. No new or enlarging pulmonary nodules identified. 2. Left nephrectomy with no evidence for recurrence in the surgical bed.
--- NOTE | 2023-04-27 13:14 | NM ---
EXAMINATION TYPE: NM bone scan whole body DATE OF EXAM: 04/27/2023 COMPARISON: 12/21/1999 CLINICAL INDICATION: Male, 63 years old with history of C64.2 renal ca; Delayed whole-body scanning was performed following the injection of 24.0 mCi Tc 99m MDP. Images acq uired 4 hours post injection. FINDINGS: Abnormal uptake involving the left rib cage and sternum are stable. Mild intensity uptake thoracic and lumbar spine likely degenerative. More focal intense uptake involving the lower thoracic spine, upper and mid lumbar spine stable Bilateral knee uptake greater on the left compatible post arthritic changes. There is a photopenic defect involving the left hip with increasing abnormal uptake femoral component . IMPRESSION: 1. Stable abnormal uptake involving the sternum and left rib cage compatible with metastases. 2. Abnormal uptake focally within the lower thoracic and upper lumbar spine stable and suggestive of metastases. 3. Increasing abnormal uptake proximal left femur recommend x-ray correlation.
== END | disposition home or self-care (01) ==
LOC: RADNMMAIN 07:35
PROVIDERS: ATTEND Internal Medicine Hematology & Oncology
DX: C64.2 Malignant neoplasm of left kidney, except renal pelvis (principal); G89.3 Neoplasm related pain (acute) (chronic); G47.00 Insomnia, unspecified; R91.1 Solitary pulmonary nodule; Z90.5 Acquired absence of kidney
CPT/HCPCS: 71250; 74176; 78306; A9503

== ENCOUNTER → 2023-05-19 | Outpatient (CLI) | payer MEDICARE, OTHER | END | disposition home or self-care (01) | LOC: LABWHC1 09:46 | PROVIDERS: ATTEND Internal Medicine Interventional Cardiology | DX: R06.02 Shortness of breath (principal) | CPT/HCPCS: 36415; 83880 ==

== ENCOUNTER → 2023-07-11 | Outpatient (CLI) | payer MEDICARE, OTHER ==
--- NOTE | 2023-07-11 18:13 | XR ---
EXAMINATION TYPE: XR lumbosacral spine min 4V DATE OF EXAM: 07/11/2023 5:07 PM CLINICAL INDICATION:Male, 63 years old with history of M79.602 PAIN IN LEFT ARM M79.605 PAIN IN LEFT LEG; COMPARISON: None TECHNIQUE: XR lumbosacral spine min 4V - Frontal, lateral , bilateral oblique and coned in L5-S1 late ral views of the spine. FINDINGS: No evidence of any acute osseous pathology. No evidence of loss of vertebral body height i s seen. There is grade 1 anterolisthesis of L5 on S1 alignment of the lumbar vertebral bodies. Scatte red disc space narrowing. Multilevel marginal osteophyte formation throughout the visualized spine. T here is facet joint arthropathy throughout the spine. Scattered at least moderate to severe neural fo raminal stenosis. IMPRESSION: 1. No acute fracture. 2. Severe multilevel disc degeneration. Consider further evaluation with MRI.
--- NOTE | 2023-07-11 18:14 | XR ---
EXAMINATION TYPE: XR Hip Complete LT DATE OF EXAM: 07/11/2023 5:07 PM CLINICAL INDICATION:Male, 63 years old with history of M79.602 PAIN IN LEFT ARM M79.605 PAIN IN LEFT LEG; PHH COMPARISON: None. TECHNIQUE: XR Hip Complete LT; hip was examined in the frontal and lateral projections and a AP pelvi s. FINDINGS: Post arthroplasty changes, hardware is intact, alignment is appropriate. No evidence of fra cture. No evidence of any acute osseous pathology or joint dislocation. IMPRESSION: Hip arthroplasty with hardware intact and in appropriate alignment. No acute fracture.
--- NOTE | 2023-07-11 18:16 | XR ---
EXAMINATION TYPE: XR shoulder complete LT, XR humerus LT DATE OF EXAM: 07/11/2023 5:07 PM CLINICAL INDICATION:Male, 63 years old with history of M79.602 PAIN IN LEFT ARM M79.605 PAIN IN LEFT LEG; PHH COMPARISON: None TECHNIQUE: XR shoulder complete LT, XR humerus LT; examined in AP, internally rotated and scapular Y projections. The humerus was evaluated in frontal and lateral views FINDINGS: There is a lucent lesion measuring up to 15 mm in the diaphysis of the proximal left humerus. There i s mild degeneration changes of the left shoulder joint. No evidence of fracture. Soft tissues are grossly unremarkable. IMPRESSION: Lucent lesion within the left mid humerus measuring up to 15 mm. Correlate with history of malignancy .
--- NOTE | 2023-07-11 18:55 | XR ---
EXAMINATION TYPE: XR femur LT, XR tibia fibula LT DATE OF EXAM: 07/11/2023 5:07 PM CLINICAL INDICATION:Male, 63 years old with history of M79.602 PAIN IN LEFT ARM M79.605 PAIN IN LEFT LEG; COMPARISON: 07/11/2023 TECHNIQUE: XR femur LT, XR tibia fibula LT examined in Frontal and lateral projections. FINDINGS: Post left hip arthroplasty. Hardware appears intact. Severe degeneration changes of the le ft knee knee with joint space narrowing worse in the medial aspect. The femur and tibia and fibula as well as the remainder of the bones do not demonstrate any suspicious lesions. IMPRESSION: 1. Total left hip arthroplasty with revision changes. Hardware appears intact. 2. Severe degeneration changes of the left knee. 3. No suspicious osseous lesions. 4. No evidence of fracture.
--- NOTE | 2023-07-11 18:57 | XR ---
EXAMINATION TYPE: XR cervical spine comp DATE OF EXAM: 07/11/2023 5:07 PM CLINICAL INDICATION:Male, 63 years old with history of M79.602 PAIN IN LEFT ARM M79.605 PAIN IN LEFT LEG; PHH COMPARISON: None TECHNIQUE: The cervical spine was imaged in frontal, lateral, odontoid and bilateral oblique. FINDINGS: The osseous structures show normal alignment without evidence of an acute fracture. There are osteoph ytes noted throughout the cervical spine on the anterior and lateral aspects of the vertebral bodies. The intervertebral disk spaces are narrowed at multiple levels. Pedicles are intact. Soft tissues a re within normal limits. The odontoid appears intact. IMPRESSION: 1. No fracture or dislocation. 2. Mild degenerative disc disease changes of the cervical spine.
== END | disposition home or self-care (01) ==
LOC: RADXRMAIN 15:37
PROVIDERS: ATTEND Physician Assistant
DX: M51.36 Other intervertebral disc degeneration, lumbar region (principal); M50.30 Other cervical disc degeneration, unspecified cervical region; M17.12 Unilateral primary osteoarthritis, left knee; M75.92 Shoulder lesion, unspecified, left shoulder; M79.602 Pain in left arm; M79.605 Pain in left leg; Z96.642 Presence of left artificial hip joint
CPT/HCPCS: 72050; 72110; 73502

== ENCOUNTER → 2023-07-11 | Outpatient (CLI) | payer MEDICARE, OTHER ==
[2023-07-11 18:09] LABS: Creatinine,Urine Random 78.2 mg/dL; Protein/Creatinine Ratio,Urine 0.077
[2023-07-12 03:34] LABS: % Iron Saturation 31.03 (15.00-50.00); ALT 32 U/L (10-49); AST 21 U/L (14-35); Albumin 4.6 g/dL (3.8-4.9); Albumin/Globulin Ratio 1.44 Ratio (1.60-3.17); Alkaline Phosphatase 110 U/L (41-126); BUN/Creat Ratio 15.29 Ratio (12.00-20.00); Calcium 10.3 mg/dL (8.7-10.3); Carbon Dioxide 25.9 mmol/L (21.6-31.8); Chloride 100 mmol/L (96-109); Ferritin 80.7 ng/mL (22.0-322.0); Globulin 3.2 g/dL (1.6-3.3); Glucose 90 mg/dL (70-110); Iron 135 UG/DL (65-175); Phosphorus 4.2 mg/dL (2.4-5.1); Potassium 4.6 mmol/L (3.5-5.5); Sodium 139 mmol/L (135-145); Total Bilirubin 0.5 mg/dL (0.3-1.2); Total Iron Binding Capacity 435 UG/DL (228-460); Total Protein 7.8 g/dL (6.2-8.2)
[2023-07-12 04:22] LABS: Appearance,Urine Clear (Clear); Bilirubin,Urine Negative (Negative); Blood,Urine Negative (Negative); Color,Urine Yellow (Yellow); Ketones,Urine Negative (Negative); Nitrite,Urine Negative (Negative); PH, Urine 5.5; Specific Gravity,Urine 1.015 (1.001-1.030); Urobilinogen,Urine 0.2 E.U./DL
[2023-07-12 04:35] LABS: Bacteria,Urine None Seen (None Seen)
[2023-07-12 04:49] LABS: Basophils # (A) 0.06 X 10*3/uL (0.00-0.10); Basophils % (A) 0.9 %; Eosinophils # (A) 0.36 X 10*3/uL (0.04-0.35); Eosinophils % (A) 5.4 %; HCT 47.7 % (39.6-50.0); HGB 15.5 g/dL (13.0-17.0); Lymphocytes # (A) 1.39 X 10*3/uL (0.90-5.00); Lymphocytes % (A) 20.9 %; MCH 30.2 pg (27.0-32.0); MCHC 32.5 g/dL (32.0-37.0); MCV 92.8 FL (80.0-97.0); Mean Platelet Volume 9.5 FL (9.5-12.2); Monocytes # (A) 0.97 X 10*3/uL (0.20-1.00); Monocytes % (A) 14.6 %; NRBC Per 100 WBC 0 X 10*3/uL (0.00-0.01); Neutrophils # (A) 3.84 X 10*3/uL (1.80-7.70); Neutrophils % (A) 57.7 %; Platelet Count 279 X 10*3/uL (140-440); RBC 5.14 X 10*6/uL (4.40-5.60); RDW 13.3 % (11.5-14.5); WBC 6.65 X 10*3/uL (4.50-10.00)
[2023-07-12 06:14] LABS: DNA Double-Stranded Negative (Negative)
[2023-07-12 06:28] LABS: Microalbumin Creatinine Ratio <14 mg/g Cr (0-30); Urine Creatinine 83.2 mg/dL (39.0-259.0)
[2023-07-12 13:16] LABS: C-ANCA <1:20 Titer (<1:20)
== END | disposition home or self-care (01) ==
LOC: LABWHC1 15:04
PROVIDERS: ATTEND Internal Medicine Nephrology
DX: N18.31 Chronic kidney disease, stage 3a (principal); I48.21 Permanent atrial fibrillation; N39.0 Urinary tract infection, site not specified; E55.9 Vitamin D deficiency, unspecified; N25.81 Secondary hyperparathyroidism of renal origin; M10.9 Gout, unspecified; D63.1 Anemia in chronic kidney disease; R80.9 Proteinuria, unspecified
CPT/HCPCS: 36415; 80053; 81001; 82043; 82306; 82570; 82728; 83516; 83540; 83550; 83735; 83970; 84100; 84156; 84550; 85025; 86038; 86160; 86162; 86225; 86255

== ENCOUNTER → 2023-07-20 | Outpatient (CLI) | payer MEDICARE, OTHER ==
--- NOTE | 2023-07-21 16:44 | MR ---
EXAMINATION TYPE: MR humerus LT wo/w con DATE OF EXAM: 07/20/2023 COMPARISON: Radiograph 07/14/2023 HISTORY: 63-year-old male C64.2, xray on synapse, pain limited motion, 2-3 weeks, history of renal ce ll CA TECHNIQUE: Multiplanar, multisequence images of the left humerus were obtained before and after admin istration of 11 mL intravenous Gadavist gadolinium contrast. FINDINGS: There is a 5.5 x 2.4 cm focal, avidly enhancing soft tissue lesion involving the intramedullary space of the proximal third humeral shaft causing endosteal scalloping at the site of lytic lucency on rad iographs. However, there has been the interval development of a pathologic transverse fracture through this are a with lateral and anterior apex angulation and slight 6 mm lateral displacement and 7 mm anterior di splacement. Prominent associated surrounding soft tissue swelling and edema. Incidental malignancy or the anterior to mid supraspinatus tendon measuring 1.8 cm AP and 2.5 cm long . IMPRESSION: 1. 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 As compared to radiograph of 07/14/2023, there has been the interval development of a p athologic transverse fracture through the replaced bone with anterior and lateral apex angulation and slight 7 mm of displacement. 2. Incidental full-thickness tear of the anterior to mid supraspinatus tendon (2.5 cm long and 1.8 cm AP).
== END | disposition home or self-care (01) ==
LOC: RADMRIMAIN 11:18
PROVIDERS: ATTEND Internal Medicine Hematology & Oncology
DX: C64.2 Malignant neoplasm of left kidney, except renal pelvis (principal); C79.51 Secondary malignant neoplasm of bone
CPT/HCPCS: 73220; A9585

== ENCOUNTER → 2023-08-04 | Outpatient (CLI) | payer MEDICARE ==
--- NOTE | 2023-08-04 11:48 | XR ---
EXAMINATION TYPE: XR chest 2V DATE OF EXAM: 08/04/2023 11:09 AM CLINICAL INDICATION:Male, 63 years old with history of R07.9 Chest pain; COMPARISON: Chest radiographs from 09/23/2021 TECHNIQUE: XR chest 2V Frontal and lateral views of the chest. FINDINGS: Lungs/Pleura: Blunting of left costophrenic angle. There is no evidence of right pleural effusion, fo judson consolidation, or pneumothorax. Pulmonary vascularity: Unremarkable. Heart/mediastinum: Cardiomediastinal silhouette is unremarkable. Musculoskeletal: No acute osseous pathology. Left fixation camilla in the humerus. Surgical clips present . IMPRESSION: Small left pleural effusion.
== END | disposition home or self-care (01) ==
LOC: RADXRMAIN 10:49
PROVIDERS: ATTEND Pediatrics
DX: J90 Pleural effusion, not elsewhere classified (principal)
CPT/HCPCS: 71046

== ENCOUNTER → 2023-10-04 | Outpatient (CLI) | payer MEDICARE ==
[2023-10-04 18:35] LABS: Basophils # (A) 0.03 X 10*3/uL (0.00-0.10); Basophils % (A) 0.5 %; Eosinophils # (A) 0.04 X 10*3/uL (0.04-0.35); Eosinophils % (A) 0.7 %; HGB 14.3 g/dL (13.0-17.0); Lymphocytes # (A) 0.48 X 10*3/uL (0.90-5.00); Lymphocytes % (A) 8.2 %; MCH 28.8 pg (27.0-32.0); MCHC 32.5 g/dL (32.0-37.0); MCV 88.5 FL (80.0-97.0); Mean Platelet Volume 9.2 FL (9.5-12.2); Monocytes # (A) 0.21 X 10*3/uL (0.20-1.00); Monocytes % (A) 3.6 %; NRBC Per 100 WBC 0 X 10*3/uL (0.00-0.01); Neutrophils # (A) 5.01 X 10*3/uL (1.80-7.70); Platelet Count 316 X 10*3/uL (140-440); RBC 4.97 X 10*6/uL (4.40-5.60); RDW 16.8 % (11.5-14.5); WBC 5.83 X 10*3/uL (4.50-10.00)
[2023-10-04 19:42] LABS: Appearance,Urine Clear (Clear); Bilirubin,Urine Small (Negative); Blood,Urine Negative (Negative); Color,Urine Dark Yellow (Yellow); Ketones,Urine Trace (Negative); Nitrite,Urine Negative (Negative); PH, Urine 5.5; Specific Gravity,Urine 1.028 (1.001-1.030)
[2023-10-04 19:47] LABS: Bacteria,Urine None Seen (None Seen)
[2023-10-04 20:55] LABS: % Iron Saturation 15.66 (15.00-50.00); BUN/Creat Ratio 10.42 Ratio (12.00-20.00); Blood Urea Nitrogen 12.5 mg/dL (9.0-27.0); Calcium 9.1 mg/dL (8.7-10.3); Carbon Dioxide 22.4 mmol/L (21.6-31.8); Chloride 103 mmol/L (96-109); Glucose 103 mg/dL (70-110); Iron 44 UG/DL (65-175); Magnesium 1.8 mg/dL (1.5-2.4); Phosphorus 2.1 mg/dL (2.4-5.1); Potassium 4.8 mmol/L (3.5-5.5); Sodium 139 mmol/L (135-145); Total Iron Binding Capacity 281 UG/DL (228-460); Uric Acid 5.1 mg/dL (3.7-8.7)
== END | disposition home or self-care (01) ==
LOC: LABWHC1 12:45
PROVIDERS: ATTEND Internal Medicine Nephrology
DX: N25.81 Secondary hyperparathyroidism of renal origin (principal); N18.31 Chronic kidney disease, stage 3a; D63.1 Anemia in chronic kidney disease; E55.9 Vitamin D deficiency, unspecified; N39.0 Urinary tract infection, site not specified; M10.9 Gout, unspecified
CPT/HCPCS: 36415; 80048; 81001; 82043; 82306; 82570; 82728; 83540; 83550; 83735; 83970; 84100; 84550; 85025

== ENCOUNTER → 2024-01-29 | Outpatient (CLI) | payer MEDICARE ==
[2024-01-29 20:46] LABS: Appearance,Urine Clear (Clear); Bilirubin,Urine Negative (Negative); Blood,Urine Negative (Negative); Color,Urine Yellow (Yellow); Ketones,Urine Negative (Negative); Nitrite,Urine Negative (Negative); PH, Urine 6.5; Specific Gravity,Urine 1.023 (1.001-1.030)
[2024-01-29 20:53] LABS: Bacteria,Urine None Seen (None Seen)
[2024-01-29 22:12] LABS: % Iron Saturation 49.51 (15.00-50.00); Magnesium 1.9 mg/dL (1.5-2.4); Uric Acid 6.6 mg/dL (3.7-8.7)
== END ==
LOC: LABWHC1 14:03
PROVIDERS: ATTEND Internal Medicine Nephrology
DX: N18.31 Chronic kidney disease, stage 3a (principal)
CPT/HCPCS: 36415; 81001; 82043; 82306; 82570; 82728; 83540; 83550; 83735; 83970; 84100; 84550

== ENCOUNTER → 2024-02-22 | Outpatient (CLI) | payer MEDICARE ==
--- NOTE | 2024-02-22 14:36 | MR ---
EXAMINATION TYPE: MR brain wo/w con DATE OF EXAM: 02/22/2024 2:20 PM COMPARISON: NONE HISTORY: Headaches, malignant neoplasm of left kidney. CONTRAST: Patient received 11 mL intravenous Gadavist gadolinium contrast. Multiplanar and multispin-echo imaging of the brain was performed . Pre and post contrast enhanced i mages are obtained. The ventricles, basal cisterns and sulci overlying the cerebral convexities are mildly enlarged. There is evidence of mild periventricular white matter ischemic demyelination. Remote deep white matter insults are also noted. No acute edema is seen on diffusion weighted imaging. There is no evidence for midline shift or mass effect. Acute intracranial hemorrhage or extra-axial collection is not evident. No enhancing lesions are seen. The mastoid air cells are well-aerated. Mild chronic sinusitis changes. IMPRESSION: Age-related atrophic and chronic small vessel ischemic change. No acute intracranial process at this time. No enhancing lesions are seen. [facility], , 02/22/2024 2:34 PM
== END | disposition home or self-care (01) ==
LOC: RADMRIMAIN 13:29
PROVIDERS: ATTEND Internal Medicine Hematology & Oncology
DX: C64.2 Malignant neoplasm of left kidney, except renal pelvis
CPT/HCPCS: 70553

== ENCOUNTER → 2024-04-23 | Outpatient (CLI) | payer MEDICARE ==
[2024-04-23 14:07] LABS: Appearance,Urine Turbid (Clear); Bilirubin,Urine Negative (Negative); Blood,Urine Negative (Negative); Color,Urine Light Yellow; Glucose,Urine (UA) Negative (Negative); Ketones,Urine Negative (Negative); Leukocyte Esterase,Urine Small (Negative); Mucus,Urine Rare /hpf; Nitrite,Urine Negative (Negative); Protein,Urine Negative (Negative); RBC,Urine <1 /hpf (0-5); Specific Gravity,Urine 1.021 (1.001-1.035); Squamous Epithelial Cell,Urine 1 /hpf (0-4); Urobilinogen,Urine <2.0 mg/dL (<2.0); WBC,Urine 11 /hpf (0-5)
[2024-04-23 19:28] LABS: Basophils # (A) 0.03 X 10*3/uL (0.00-0.10); Basophils % (A) 0.4 %; Eosinophils # (A) 0.25 X 10*3/uL (0.04-0.35); Eosinophils % (A) 3.6 %; HCT 36.1 % (39.6-50.0); HGB 11.3 g/dL (13.0-17.0); Lymphocytes # (A) 0.81 X 10*3/uL (0.90-5.00); Lymphocytes % (A) 11.6 %; MCH 30.4 pg (27.0-32.0); MCHC 31.3 g/dL (32.0-37.0); Mean Platelet Volume 8.9 FL (9.5-12.2); Monocytes # (A) 1.13 X 10*3/uL (0.20-1.00); Monocytes % (A) 16.2 %; NRBC Per 100 WBC 0 X 10*3/uL (0.00-0.01); Neutrophils # (A) 4.73 X 10*3/uL (1.80-7.70); Neutrophils % (A) 67.9 %; Platelet Count 368 X 10*3/uL (140-440); RBC 3.72 X 10*6/uL (4.40-5.60); RDW 14.6 % (11.5-14.5); WBC 6.97 X 10*3/uL (4.50-10.00)
[2024-04-23 22:50] LABS: % Iron Saturation 16.67 (15.00-50.00); BUN/Creat Ratio 15.46 Ratio (12.00-20.00); Blood Urea Nitrogen 20.1 mg/dL (9.0-27.0); Carbon Dioxide 22.2 mmol/L (21.6-31.8); Chloride 104 mmol/L (96-109); Glucose 90 mg/dL (70-110); Iron 66 UG/DL (65-175); Phosphorus 3.4 mg/dL (2.4-5.1); Potassium 4.9 mmol/L (3.5-5.5); Sodium 138 mmol/L (135-145); Total Iron Binding Capacity 396 UG/DL (228-460); Uric Acid 6.7 mg/dL (3.7-8.7)
== END | disposition home or self-care (01) ==
LOC: LABWHC1 12:35
PROVIDERS: ATTEND Internal Medicine Nephrology
DX: N18.31 Chronic kidney disease, stage 3a (principal)
CPT/HCPCS: 36415; 80048; 81001; 82043; 82306; 82570; 82728; 83540; 83550; 83735; 83970; 84100; 84550; 85025

== ENCOUNTER → 2024-09-06 | Outpatient (CLI) | payer MEDICARE | END | disposition home or self-care (01) | LOC: RADPETMAIN 12:17 | PROVIDERS: ATTEND Internal Medicine Critical Care Medicine | DX: Z53.9 Procedure and treatment not carried out, unspecified reason (principal) ==

== ENCOUNTER → 2024-09-12 | Outpatient (CLI) | payer MEDICARE, OTHER ==
--- NOTE | 2024-09-14 12:37 | PE ---
EXAMINATION TYPE: PET CT fusion skull to thigh DATE OF EXAM: 09/12/2024 CLINICAL INDICATION:Male, 64 years old with history of C64.2 KIDNEY CANCER; left renal carcinoma. TECHNIQUE: Following the intravenous administration of 9.08 mCi of F-18 FDG, whole body images are performed from the skull base to the Mid thigh. Images are reviewed on the computer in the coronal, axial, and sagittal planes. Reconstructed rotating images are created on independent workstation and reviewed on the computer. A non-contrast CT is performed in conjunction with the PET scan. Glucose level 111 mg/dL CT DLP: 1836 mGycm, Automated exposure control for dose reduction was used. COMPARISON: CT 04/27/2023, PET/CT None, MRI: None FINDINGS: Mediastinal SUV mean is 2.8. Hepatic parenchyma SUV mean is 2.3. SKULL BASE AND NECK: No suspicious radiotracer activity. CHEST, MEDIASTINUM, AND HILAR REGION: Nodular changes in the right lung base laterally max SUV 2.0 multiple grouped nodules present measuri ng up to 6 mm ABDOMEN AND PELVIS: No suspicious radiotracer activity. MUSCULOSKELETAL STRUCTURES: * Uptake within left proximal humerus with fixation hardware with more inferiorly there is a soft ti ssue mass with cortical breakthrough around the stem measuring at least 6.0 x 4.1 cm. * There is soft tissue mass effect in this sternum max SUV 8.8 measuring 2.4 * Expansile bony destructive changes with soft tissue component which is larger on today's exam invo lving the left 10th rib measuring 71 x 38 mm previously 64 x 26 mm. The soft tissue component is incr eased in size on today's exam. Max SUV 6.7. * T1 vertebral body lesion max SUV 7.1. * T6 vertebral body lesion extending into the posterior elements on the left series 4 image 142 max SUV 10.6. * Posterior endplates of L5 and S1 SUV 11.2 which is suspicious for additional sites of metastatic d isease. * Expansile mass medial to the left acetabulum posteriorly max SUV 10.[address]: The left kidney is surgically absent. Multiple surgical clips present. No evidence for hydr onephrosis or right renal mass. Scattered colonic diverticula present. Fat-containing hernias right g reater left. Scattered colonic diverticula. Mild atherosclerosis of the arterial vasculature. Mitral valve annular calcifications. Mild gynecomastia changes. IMPRESSION: Progression of disease with: * New from 2022 soft tissue mass within the sternum with cortical breakthrough concerning for progre ssion of disease. * Progression of metastatic disease at the left 10th rib. Enlarging soft tissue component now presen t. * Enlarging soft tissue mass around the stem of the left proximal humerus fixation hardware. Finding s concerning for impending pathologic fracture * New Soft tissue mass around the posterior left acetabulum concerning for impending fracture. * T1 and T6 vertebral body metastatic lesions. * No abnormal uptake within the left nephrectomy bed. * New grouped nodules in the right lower lung with mild uptake. Attention on follow-up imaging metas tatic disease not excluded here. [facility], , 09/14/2024 12:35 PM
== END | disposition home or self-care (01) ==
LOC: RADPETMAIN 08:43
PROVIDERS: ATTEND Radiology Radiation Oncology
DX: C79.51 Secondary malignant neoplasm of bone (principal); C64.2 Malignant neoplasm of left kidney, except renal pelvis; C77.2 Secondary and unspecified malignant neoplasm of intra-abdominal lymph nodes; R91.8 Other nonspecific abnormal finding of lung field
CPT/HCPCS: 78815; A9552

== ENCOUNTER → 2024-09-17 | Outpatient (CLI) | payer MEDICARE ==
--- NOTE | 2024-09-17 13:53 | XR ---
EXAMINATION TYPE: XR shoulder complete 3 views LT, XR humerus 2 views LT DATE OF EXAM: 09/17/2024 1:34 PM COMPARISON: Radiograph 07/14/2023 CLINICAL INDICATION: Male, 64 years old with history of G89.3 Neoplasm related pain; PHH, pain, histo ry of renal cell carcinoma FINDINGS: Left shoulder: AC joint appears congruent and intact. Subacromial space is preserved. The shoulder itself shows no a cute fracture, subluxation, dislocation. Left humerus: Antegrade intramedullary nail with 2 proximal interlocking screws and a distal interlocking screw acr oss the patient's known osseous lesion of the proximal third humeral shaft. There is increased degree of lytic destruction with essential complete cortical loss laterally and posteriorly and some cortic al expansion medially. Possible 4.2 cm fragment of bone graft material interposed at the site of lyti c destruction. A subtle pathologic fracture may be present. IMPRESSION (left shoulder and left humerus): Previous prophylactic nailing of the left humerus across the patient's known proximal third humeral s haft metastatic lesion. There is increased lytic destruction with complete cortical loss posteriorly and laterally. Unable to exclude subtle nondisplaced pathologic fracture given the degree of bone earnestine truction. A 4 cm sclerotic fragment of bone within the area of destruction may correspond to bone gra ft material. Clinically correlate. [facility], , 09/17/2024 1:51 PM
--- NOTE | 2024-09-17 14:41 | US ---
EXAMINATION TYPE: US venous doppler duplex UE LT DATE OF EXAM: 09/17/2024 COMPARISON: NONE CLINICAL INDICATION: Male, 64 years old with history of R22.32 MASS SWELL LUMP LUE C64.2 KIDNEY CANCE R; Edema/lump left lateral upper arm/shoulder. Patient on blood thinner TECHNIQUE: Grayscale, color Doppler and spectral Doppler imaging of the upper extremity. SIDE PERFORMED: left VESSELS IMAGED: IJV Subclavian Vein Axilla Vein Brachial Vein(s) Radial Paired Veins Ulnar Paired Veins Cephalic Vein* Basilic Vein* (*superficial vessels) FINDINGS: Left Arm: No evidence of DVT. Soft tissue mass-like area left lateral upper arm/shoulder within area of concern = 7.3 x 3.9 x 5.4cm. On the provided images, this corresponds to the lateral soft tissue c omponent extending into the adjacent soft tissues extending down to the metal camilla. There is complete cortical break for a length of at least 5 cm. Grayscale, color doppler, spectral doppler imaging performed of the deep veins of the upper extremiti es. IMPRESSION: No evidence for DVT within the left upper extremity. Known destructive soft tissue lesion along the p roximal humeral shaft. There is extraosseous extension with complete cortical destruction for a span of 5 cm. The mass measures up to 7.3 cm [facility], , 09/17/2024 2:38 PM
== END | disposition home or self-care (01) ==
LOC: RADUSWWP 12:52
PROVIDERS: ATTEND Internal Medicine Hematology & Oncology
DX: C64.2 Malignant neoplasm of left kidney, except renal pelvis (principal); R22.32 Localized swelling, mass and lump, left upper limb; R09.02 Hypoxemia; G89.3 Neoplasm related pain (acute) (chronic); G47.00 Insomnia, unspecified

== ENCOUNTER 2024-10-03 09:47 | Inpatient (IN) | payer MEDICARE ==
--- NOTE | 2024-10-03 10:09 | ED ---
General Adult HPI - General Chief complaint: Chest Pain Stated complaint: chest pain Time Seen by Provider: 10/03/24 09:58 Source: patient, RN notes reviewed, old records reviewed Mode of arrival: ambulatory Limitations: no limitations - History of Present Illness Initial comments: 64-year-old male presenting for evaluation of central chest pain. Pain began yesterday evening. Patient has a history of atrial fibrillation and metastatic cancer which is in his bone. He is currently on oral chemo. He does have history of atrial fibrillation and is on Eliquis. No fever. No vomiting. No dyspnea. - Related Data Home Medications Medication Instructions Recorded Confirmed Fluticasone Propion/Salmeterol 1 puff INHALATION RT-BID PRN 09/28/19 08/02/21 [Wixela 250-50 Inhub] Amoxic-Pot Clav 875-125Mg 1 tab PO Q12HR 08/02/21 08/02/21 [Augmentin 875-125] Previous Rx's Medication Instructions Recorded Apixaban [Eliquis] 5 mg PO BID #60 tab 06/24/19 Diltiazem Oral [Cardizem*] 60 mg PO TID #90 tab 10/17/19 Metoprolol Tartrate [Lopressor] 100 mg PO TID tab 10/17/19 Allergies Allergy/AdvReac Type Severity Reaction Status Date / Time No Known Allergies Allergy Verified 10/03/24 09:52 Review of Systems ROS Statement: Those systems with pertinent positive or pertinent negative responses have been documented in the HPI. ROS Other: All systems not noted in ROS Statement are negative. Past Medical History Past Medical History: Atrial Fibrillation, Chest Pain / Angina, Heart Failure, COPD, Hypertension, Rheumatoid Arthritis (RA) Additional Past Medical History / Comment(s): migraines, renal tumor History of Any Multi-Drug Resistant Organisms: None Reported Past Surgical History: Cardiac Ablation, Orthopedic Surgery Additional Past Surgical History / Comment(s): rotator cuff left shoulder, Past Anesthesia/Blood Transfusion Reactions: No Reported Reaction Past Psychological History: No Psychological Hx Reported Smoking Status: Never smoker Past Alcohol Use History: Occasional Past Drug Use History: None Reported - Past Family History Mother Family Medical History: Cancer General Exam Limitations: no limitations General appearance: alert, in no apparent distress Head exam: Present: atraumatic, normocephalic Eye exam: Present: normal appearance, PERRL ENT exam: Present: mucous membranes dry Neck exam: Present: normal inspection. Absent: tenderness, meningismus Respiratory exam: Present: normal lung sounds bilaterally. Absent: respiratory distress, wheezes Cardiovascular Exam: Present: tachycardia, irregular rhythm GI/Abdominal exam: Present: soft. Absent: distended, tenderness, guarding Extremities exam: Present: normal inspection, normal capillary refill. Absent: calf tenderness Neurological exam: Present: alert, oriented X3, CN II-XII intact. Absent: motor sensory deficit Psychiatric exam: Present: normal affect, normal mood Skin exam: Present: warm, dry, intact, normal color Course Vital Signs 10/03/24 10/03/24 10/03/24 09:48 10:04 10:49 Temperature 97.7 F Pulse Rate 68 106 H Pulse Rate [ 172 H Youth Nutritional Monitor ] Respiratory 18 18 Rate Blood Pressure 130/107 147/100 O2 Sat by Pulse 94 L 97 Oximetry Medical Decision Making - Medical Decision Making Was pt. sent in by a medical professional or institution (, PA, APPEALS SPECIALIST, urgent care, hospital, or fpc...) When possible be specific @ -No Did you speak to anyone other than the patient for history (EMS, parent, family, police, friend...)? What history was obtained from this source @ -No Did you review nursing and triage notes (agree or disagree)? Why? @ -I reviewed and agree with nursing and triage notes Were old charts reviewed (outside hosp., previous admission, EMS record, old EKG, old radiological studies, urgent care reports/EKG's, fpc records)? Report findings @ -No old charts were reviewed Differential Chest Pain: Stable Angina, Unstable Angina, STEMI, NSTEMI Aortic Dissection, Pneumothorax, Musculoskeletal, Esophageal Spasm GERD, Cholecystitis, Pancreatitis, Zoster, this is not meant to be an all-inclusive list. EKG interpreted by me (3pts min.). @Atrial fibrillation with RVR, right bundle branch block, rate of 156, QRS du ration 136, QTc 385 X-rays interpreted by me (1pt min.). @Chest x-ray negative for acute cardiopulmonary disease CT interpreted by me (1pt min.). @ -None done U/S interpreted by me (1pt. min.). @ -None done What testing was considered but not performed or refused? (CT, X-rays, U/S, labs)? Why? @ -None What meds were considered but not given or refused? Why? @ -None Did you discuss the management of the patient with other professionals (professionals i.e. , PA, APPEALS SPECIALIST, lab, RT, psych nurse, social media specialist, sports lawyer, teacher, protective services officer, case management assistant)? Give summary @ -EMH Was smoking cessation discussed for >3mins.? @ -No Was critical care preformed (if so, how long)? @ -No Were there social determinants of health that impacted care today? How? (Homelessness, low income, unemployed, alcoholism, drug addiction, transportation, low edu. Level, literacy, decrease access to med. care, care home, rehab)? @ -No Was there de-escalation of care discussed even if they declined (Discuss DNR or withdrawal of care, Hospice)? DNR status @ -No What co-morbidities impacted this encounter? (DM, HTN, Smoking, COPD, CAD, Cancer, CVA, ARF, Chemo, Hep., AIDS, mental health diagnosis, sleep apnea, mo rbid obesity)? @ -64-year-old male history of A-fib history of metastatic cancer presenting with chest pain, palpitation. Patient is in a rapid A-fib rate around 170. He started on Cardizem in the emergency department with improved rate. Laboratory testing is unremarkable. Chest x-ray is clear. Patient will be observed for continued rate control, cardiology consultation. Was patient admitted / discharged? Hospital course, mention meds given and route, prescriptions, significant lab abnormalities, going to OR and other pertinent info. @ -Hospital course Undiagnosed new problem with uncertain prognosis? @ -No Drug Therapy requiring intensive monitoring for toxicity (Heparin, Nitro, Ins ulin, Cardizem)? @ -No Were any procedures done? @ -No Diagnosis/symptom? @ -[Atrial fibrillation with RVR Acute, or Chronic, or Acute on Chronic? @Acute Uncomplicated (without systemic symptoms) or Complicated (systemic symptoms)? @ -Default Side effects of treatment? @ -No Exacerbation, Progression, or Severe Exacerbation? @ -No Poses a threat to life or bodily function? How? (Chest pain, [place], [place], pneumonia, PE, COPD, DKA, ARF, appy, cholecystitis, CVA, Diverticulitis, Homicidal, Suicidal, threat to staff... and all critical care pts) @ -[Yes, arrhythmia, ACS - Lab Data Result diagrams: 10/03/24 10:06 10/03/24 10:06 Lab Results 10/03/24 10/03/24 10/03/24 Range/Units 10:06 10:06 10:06 WBC 7.93 (4.50-10.00) 10*3/uL RBC 6.03 H (4.40-5.60) 10*6/uL Hgb 16.7 (13.0-17.0) g/dL Hct 50.9 H (39.6-50.0) % MCV 84.4 (80.0-97.0) fL MCH 27.7 (27.0-32.0) pg MCHC 32.8 (32.0-37.0) g/dL Plt Count 218 (140-440) 10*3/uL MPV 9.1 L (9.5-12.2) fL Immature Gran % (Auto) 1.0 % Neutrophils % 78.3 % Lymphocytes % 10.5 % Monocytes % 8.1 % Eosinophils % 1.8 % Basophils % 0.3 % Immature Gran # 0.08 H (0.00-0.04) 10*3/uL Neutrophils # 6.22 (1.80-7.70) 10*3/uL Lymphocytes # 0.83 L (0.90-5.00) 10*3/uL Monocytes # 0.64 (0.20-1.00) 10*3/uL Eosinophils # 0.14 (0.04-0.35) 10*3/uL Basophils # 0.02 (0.00-0.10) 10*3/uL PT 11.7 (10.0-12.5) sec INR 1.1 (<1.2) APTT 24.7 (22.0-30.0) sec Sodium 136 L (137-145) mmol/L Potassium 5.0 (3.5-5.1) mmol/L Chloride 100 (98-107) mmol/L Carbon Dioxide 26 (22-30) mmol/L Anion Gap 10 mmol/L BUN 27 H (9-20) mg/dL Creatinine 1.08 (0.66-1.25) mg/dL Est GFR (CKD-EPI)AfAm 83 (>60 ml/min/1.73 sqM) Est GFR (CKD-EPI)NonAf 72 (>60 ml/min/1.73 sqM) Glucose 135 H (74-99) mg/dL Calcium 10.0 (8.4-10.2) mg/dL Magnesium 1.9 (1.6-2.3) mg/dL Total Bilirubin 2.0 H (0.2-1.3) mg/dL AST 26 (17-59) U/L ALT 31 (4-49) U/L Alkaline Phosphatase 150 H (38-126) U/L Troponin I (0.000-0.034) ng/mL Total Protein 6.8 (6.3-8.2) g/dL Albumin 3.8 (3.5-5.0) g/dL Lipase 59 (23-300) U/L / Range/Units 10:06 WBC (4.50-10.00) 10*3/uL RBC (4.40-5.60) 10*6/uL Hgb (13.0-17.0) g/dL Hct (39.6-50.0) % MCV (80.0-97.0) fL MCH (27.0-32.0) pg MCHC (32.0-37.0) g/dL Plt Count (140-440) 10*3/uL MPV (9.5-12.2) fL Immature Gran % (Auto) % Neutrophils % % Lymphocytes % % Monocytes % % Eosinophils % % Basophils % % Immature Gran # (0.00-0.04) 10*3/uL Neutrophils # (1.80-7.70) 10*3/uL Lymphocytes # (0.90-5.00) 10*3/uL Monocytes # (0.20-1.00) 10*3/uL Eosinophils # (0.04-0.35) 10*3/uL Basophils # (0.00-0.10) 10*3/uL PT (10.0-12.5) sec INR (<1.2) APTT (22.0-30.0) sec Sodium (137-145) mmol/L Potassium (3.5-5.1) mmol/L Chloride (98-107) mmol/L Carbon Dioxide (22-30) mmol/L Anion Gap mmol/L BUN (9-20) mg/dL Creatinine (0.66-1.25) mg/dL Est GFR (CKD-EPI)AfAm (>60 ml/min/1.73 sqM) Est GFR (CKD-EPI)NonAf (>60 ml/min/1.73 sqM) Glucose (74-99) mg/dL Calcium (8.4-10.2) mg/dL Magnesium (1.6-2.3) mg/dL Total Bilirubin (0.2-1.3) mg/dL AST (17-59) U/L ALT (4-49) U/L Alkaline Phosphatase (38-126) U/L Troponin I 0.018 (0.000-0.034) ng/mL Total Protein (6.3-8.2) g/dL Albumin (3.5-5.0) g/dL Lipase (23-300) U/L Disposition Clinical Impression: Atrial fibrillation with rapid ventricular response, Chest pain Disposition: ADMITTED IP TO THIS HOSP Condition: Stable Is patient prescribed a controlled substance at d/c from ED?: No Referrals: Soy Baez MD [Primary Care Provider] - 1-2 days Time of Disposition: 11:05
[2024-10-03] MEDS: SODIUM CHLORIDE 0.9% 500 ML 500 ML IV STA (10:17)
[2024-10-03 10:18] LABS: Basophils # (A) 0.02 10*3/uL (0.00-0.10); Basophils % (A) 0.3 %; Eosinophils # (A) 0.14 10*3/uL (0.04-0.35); Eosinophils % (A) 1.8 %; HCT 50.9 % (39.6-50.0); HGB 16.7 g/dL (13.0-17.0); Lymphocytes # (A) 0.83 10*3/uL (0.90-5.00); Lymphocytes % (A) 10.5 %; MCH 27.7 pg (27.0-32.0); MCHC 32.8 g/dL (32.0-37.0); MCV 84.4 fL (80.0-97.0); Mean Platelet Volume 9.1 fL (9.5-12.2); Monocytes # (A) 0.64 10*3/uL (0.20-1.00); Monocytes % (A) 8.1 %; Neutrophils # (A) 6.22 10*3/uL (1.80-7.70); Neutrophils % (A) 78.3 %; Platelet Count 218 10*3/uL (140-440); RBC 6.03 10*6/uL (4.40-5.60); RDW 20.7 % (11.5-14.5); WBC 7.93 10*3/uL (4.50-10.00)
[2024-10-03] MEDS: DILTIAZEM 125 MG in DEXTROSE 5% IN WATER 100 ML IV SCH (10:18)
[2024-10-03] MEDS: DILTIAZEM 5 MG/ML 5 ML VIAL IVP STA (10:24)
[2024-10-03 10:27] LABS: INR 1.1 (<1.2); Partial Thromboplastin Time 24.7 sec (22.0-30.0); Prothrombin Time 11.7 sec (10.0-12.5)
[2024-10-03 10:29] LABS: ALT 31 U/L (4-49); AST 26 U/L (17-59); African American GFR (CKD) 83 (>60 ml/min/1.73 sqM); Albumin 3.8 g/dL (3.5-5.0); Alkaline Phosphatase 150 U/L (38-126); Anion Gap 10 mmol/L; Blood Urea Nitrogen 27 mg/dL (9-20); Carbon Dioxide 26 mmol/L (22-30); Chloride 100 mmol/L (98-107); Glucose 135 mg/dL (74-99); Lipase 59 U/L (23-300); Magnesium 1.9 mg/dL (1.6-2.3); Non-African American GFR(CKD) 72 (>60 ml/min/1.73 sqM); Sodium 136 mmol/L (137-145); Total Protein 6.8 g/dL (6.3-8.2)
--- NOTE | 2024-10-03 10:44 | XR ---
EXAMINATION TYPE: XR chest 2V DATE OF EXAM: 10/03/2024 10:40 AM COMPARISON: 08/04/2023 CLINICAL INDICATION: Male, 64 years old with history of Chest Pain, , TECHNIQUE: AP and lateral views FINDINGS: Heart borderline to mildly enlarged. A PE exam further limited by large patient body habitus. No gwendolyn k consolidation or pleural effusion. IMPRESSION: Borderline to mild cardiomegaly. No definite acute process. [facility], Workstation: [id number], 10/03/2024 10:42 AM
[2024-10-03] MEDS ORDERED: MORPHINE SULFATE 4 MG/ML SYRINGE IV PRN (10:53)
[2024-10-03] MEDS ORDERED: NALOXONE 0.4 MG/ML 1 ML VIAL IV PRN (10:53)
[2024-10-03] MEDS: CLOTRIMAZOLE 1% CREAM 30 GM TUBE TOPICAL SCH (12:02)
[2024-10-03] MEDS ORDERED: HYDROcodone/APAP 5-325MG 1 EACH TAB PO PRN (13:47)
[2024-10-03] MEDS: HYDROmorphone 0.5 MG/0.5 ML SYRINGE IVP PRN (14:06)
[2024-10-03 19:52] LABS: Appearance,Urine Clear (Clear); Bilirubin,Urine Negative (Negative); Blood,Urine Negative (Negative); Color,Urine Yellow; Glucose,Urine (UA) Negative (Negative); Ketones,Urine Negative (Negative); Leukocyte Esterase,Urine Moderate (Negative); Mucus,Urine Rare /hpf; Nitrite,Urine Negative (Negative); PH, Urine 6.5 (5.0-8.0); Protein,Urine Trace (Negative); RBC,Urine 2 /hpf (0-5); Specific Gravity,Urine 1.028 (1.001-1.035); Squamous Epithelial Cell,Urine <1 /hpf (0-4); WBC,Urine 30 /hpf (0-5)
[2024-10-03] MEDS: HYDROcodone/APAP 5-325MG 1 EACH TAB PO PRN (20:18)
[2024-10-03] MEDS: APIXABAN 5 MG TAB PO SCH (20:18)
--- NOTE | 2024-10-03 21:12 | HP ---
HISTORY AND PHYSICAL CHIEF COMPLAINT: Chest pain. HISTORY OF PRESENT ILLNESS: This is a 64-year-old gentleman with a past medical history of multiple medical problems including renal cancer with mets, is complaining of chest pain, which felt in the anterior part of chest. The patient had multiple mets in the ribs and also left humerus, also which is small for radiation therapy at this time. The patient had a history of atrial fibrillation, on Eliquis. Multiple consultants are following the patient closely. There is no history of fever, rigors, or chills at this time. PAST MEDICAL HISTORY: Renal cancer with mass, atrial fibrillation, COPD, CHF, hypertension, rheumatoid arthritis. Rest of history and chart is also reviewed. HOME MEDICATIONS: Reviewed include Eliquis. Dose and rest of medications noted. ALLERGIES: None. FAMILY HISTORY: History of cancer in the family. SOCIAL HISTORY: Occasional alcohol intake. REVIEW OF SYSTEMS: 14-point review of systems is negative, except as mentioned in history of present illness. PHYSICAL EXAMINATION: VITAL SIGNS: Pulse is 160, regular, blood pressure 147/100, respirations 18. HEENT: Conjunctivae normal. NECK: No jugular venous distention CARDIAC: S1 and S2, muffled RESPIRATORY: Breath sounds diminished at the base. Scattered rhonchi. ABDOMEN: Soft, nontender. NERVOUS SYSTEM: No focal deficit. LABORATORY DATA: At this time shows WBC 7.9, hemoglobin 16.7. ASSESSMENT: 1. Chest pain for evaluation, possibly musculoskeletal or from the multiple mets. 2. Atrial fibrillation, fast ventricular rate. 3. Renal cancer with mets. 4. Left humerus lesion for radiation therapy. 5. History of chronic obstructive pulmonary disease. 6. History of congestive heart failure. 7. History of atrial fibrillation. 8. Hypertension. 9. History of rheumatoid arthritis. 10.Multiple complex medical issues. 11.Full code. RECOMMENDATIONS: This 64-year-old gentleman presented with multiple medical issues. At this time, I would recommend continue the current symptomatic treatment. Otherwise, we will initiate Cardizem to control the heart rate. Cardiology consultation. Pain management. Resume home medications once they are confirmed. Discussed with the patient's family. Further recommendations to follow. I would also recommend Radiation Therapy consult also. MMODL / IJN: [id number] /
[2024-10-03] MEDS: SYMBICORT 80-4.5 MCG INHALER INHALATION PRN (21:50)
[2024-10-04] MEDS: PANTOPRAZOLE 40 MG TABLET PO SCH (06:16)
[2024-10-04 07:50] LABS: Basophils # (A) 0.02 10*3/uL (0.00-0.10); Basophils % (A) 0.4 %; Eosinophils # (A) 0.16 10*3/uL (0.04-0.35); Eosinophils % (A) 3.1 %; HCT 47.3 % (39.6-50.0); HGB 14.9 g/dL (13.0-17.0); Lymphocytes # (A) 0.71 10*3/uL (0.90-5.00); Lymphocytes % (A) 13.5 %; MCH 27.1 pg (27.0-32.0); MCHC 31.5 g/dL (32.0-37.0); Mean Platelet Volume 8.9 fL (9.5-12.2); Monocytes % (A) 7.6 %; Neutrophils % (A) 74.4 %; Platelet Count 200 10*3/uL (140-440); RDW 21.2 % (11.5-14.5); WBC 5.24 10*3/uL (4.50-10.00)
[2024-10-04 08:00] LABS: ALT 24 U/L (4-49); AST 21 U/L (17-59); African American GFR (CKD) 79 (>60 ml/min/1.73 sqM); Albumin 3.3 g/dL (3.5-5.0); Alkaline Phosphatase 123 U/L (38-126); Anion Gap 7 mmol/L; Blood Urea Nitrogen 24 mg/dL (9-20); Calcium 9.3 mg/dL (8.4-10.2); Carbon Dioxide 30 mmol/L (22-30); Chloride 98 mmol/L (98-107); Glucose 120 mg/dL (74-99); Non-African American GFR(CKD) 69 (>60 ml/min/1.73 sqM); Potassium 4.1 mmol/L (3.5-5.1); Sodium 135 mmol/L (137-145); Total Bilirubin 1.6 mg/dL (0.2-1.3); Total Protein 6.1 g/dL (6.3-8.2)
[2024-10-04] MEDS: ATORVASTATIN 10 MG TAB PO SCH (08:32)
[2024-10-04] MEDS: FUROSEMIDE 40 MG TAB PO SCH (08:32)
[2024-10-04] MEDS: METOPROLOL TARTRATE 50 MG TAB PO SCH (08:32)
[2024-10-04] MEDS ORDERED: NON FORMULARY DRUG (Metoprolol Tartrate [Lopressor] 100 MG Tablet) PO SCH (09:00)
--- NOTE | 2024-10-04 11:35 | P.CRDCN ---
History of Present Illness Consult date: 10/04/24 Consult reason: atrial fibrillation (WITH rvr) History of present illness: This is a 64-year-old male patient of Dr. Araujo with past medical history of permanent atrial fibrillation, dyspnea on exertion, hyperlipidemia, diabetes mellitus type 2, remote history of tobacco use and dependence, chronic kidney disease, history of renal cell cancer 3 years ago status postchemotherapy and follows with Dr. Davies. We have been asked to evaluate the patient for A-fib with RVR. Patient states that he woke up Monday evening with his heart "going nuts." Patient gives history that he was recently taken off his oral chemotherapy due to plan for tooth extraction which was scheduled for today. In general he has been feeling okay but he does not feel his mind is functioning well because of the cancer. He states he has good and bad days. He complains of shortness of breath with heart racing. He has been started on Cardizem drip currently at 10 mg/h and heart rate is controlled. He does state that he is feeling better now. He states he has been taking all of his medications at home. He feels he is comfortable at rest but concerned that he would have shortness of breath and heart racing if he moved. Heart rate 106, blood pressure 128/83, pulse ox 96% on room air. -EKG: Atrial fibrillation at 156 bpm. -Chest x-ray: Borderline to mild cardiomegaly. No definite acute process. -Laboratory studies: WBC 5.2, hemoglobin 14.9, sodium 135, potassium 4.1, BUN 24 and creatinine 1.13. Troponin negative x 3. Magnesium 1.9. Urinalysis mo derate leukoesterase. -Home cardiac medications: Eliquis 5 mg twice daily, atorvastatin 10 mg daily, Lasix 40 mg daily, Lopressor 100 mg twice daily. -Lexiscan Cardiolite stress test performed in the office on 06/22/2023 revealed nondiagnostic electrocardiographic stress testing. Normal myocardial perfusion imaging with normal gated SPECT images. No evidence of stress-induced ischemia. -Event monitor 06/14 - 06/15/2023 revealed A-fib with controlled ventricular rate. -Echocardiogram performed in the office on 05/23/2023 revealed EF 55 to 60%. Mild LVH. Mild mitral regurgitation, mild tricuspid regurgitation. PASP 24 mmHg. Review Of Systems: At the time of my exam: CONSTITUTIONAL: Denies fever or chills. HEENT: Denies blurred vision, vision changes, or eye pain. Denies hemoptysis CARDIOVASCULAR: Denies chest pain. Denies orthopnea. Denies PND. Denies palpitations RESPIRATORY: Denies shortness of breath. GASTROINTESTINAL: Denies abdominal pain. Denies nausea or vomiting. HEMATOLOGIC: Denies bleeding disorders. GENITOURINARY: Denies any blood in urine. SKIN: Denies puritis. Denies rash. Physical examination: Gen: This is 64-year-old male in no acute distress VS: reviewed HEENT: Head is atraumatic, normocephalic. Pupils equal, round. Sclerae is anicteric. NECK: Supple. No JVD. LUNGS: Clear to auscultation. No wheezes or rhonchi. No intercostal retractions. HEART: Irregular rate and rhythm. No murmur. ABDOMEN: Soft No tenderness. EXTREMITIES: No pedal edema. No calf tenderness. NEUROLOGICAL: Patient is awake, alert and oriented x3. Assessment: Permanent atrial fibrillation with RVR, currently rate controlled Chronic dyspnea on exertion Hyperlipidemia Diabetes mellitus type 2 Remote history of tobacco use and dependence Chronic kidney disease History of renal cell cancer 3 years ago status post chemotherapy and surgery follows with Dr. Davies Plan: Resume patient's home cardiac medications with the following changes: Increase metoprolol tartrate to 150 mg twice daily and wean patient off Cardizem drip Obtain 2-D echocardiogram and Doppler study to assess cardiac structure and function If heart rate is controlled this afternoon, patient is cleared for discharge from a cardiology perspective and may follow-up in the office with Dr. Araujo in 1 week. Thank you kindly for this consultation. Nurse practitioner note has been reviewed, I agree with documented findings and plan of care. Patient was seen and examined. Past Medical History Past Medical History: Atrial Fibrillation, Chest Pain / Angina, Heart Failure, COPD, Hypertension, Rheumatoid Arthritis (RA) Additional Past Medical History / Comment(s): migraines, renal tumor bone mets History of Any Multi-Drug Resistant Organisms: None Reported Past Surgical History: Cardiac Ablation, Orthopedic Surgery Additional Past Surgical History / Comment(s): rotator cuff left shoulder, Past Anesthesia/Blood Transfusion Reactions: No Reported Reaction Past Psychological History: No Psychological Hx Reported Smoking Status: Never smoker Past Alcohol Use History: Occasional Additional Past Alcohol Use History / Comment(s): quit smoking May 2019, smoked for 30 yrs, 1 PPD Past Drug Use History: None Reported - Past Family History Mother Family Medical History: Cancer Medications and Allergies Home Medications Medication Instructions Recorded Confirmed Type Apixaban [Eliquis] 5 mg PO BID #60 tab 06/24/19 10/03/24 Rx Atorvastatin [Lipitor] 10 mg PO DAILY 10/03/24 10/03/24 History Fluticasone Propion/Salmeterol 1 inhalation PO RT-BID 10/03/24 10/03/24 History [Wixela 500-50 Inhub] Furosemide [Lasix] 40 mg PO DAILY 10/03/24 10/03/24 History Gabapentin [Neurontin] 300 mg PO TID PRN 10/03/24 10/03/24 History HYDROcodone/APAP 10-325MG [[place] 1 - 2 tab PO Q4HR PRN 10/03/24 10/03/24 History 10-325] Ipratropium-Albuterol Nebulize 3 ml INHALATION RT-Q6H PRN 10/03/24 10/03/24 History [Duoneb 0.5 mg-3 mg/3 ml Soln] Metoprolol Tartrate [Lopressor] 100 mg PO BID 10/03/24 10/03/24 History OLANZapine [ZyPREXA] 2.5 mg PO HS 10/03/24 10/03/24 History Omeprazole [PriLOSEC] 40 mg PO DAILY 10/03/24 10/03/24 History Tamsulosin HCl [Flomax] 0.4 mg PO DAILY 10/03/24 10/03/24 History Tivozanib HCl [Fotivda] 1.34 mg PO DIRECTED 10/03/24 10/03/24 History metFORMIN HCL 500 mg PO BID 10/03/24 10/03/24 History Allergies Allergy/AdvReac Type Severity Reaction Status Date / Time No Known Allergies Allergy Verified 10/03/24 13:59 Physical Exam Vitals: Vital Signs Temp Pulse Pulse Resp BP BP Pulse Ox 10/04/24 03:40 98.3 F 89 18 125/76 96 10/04/24 00:00 92 18 117/76 94 L 10/03/24 17:44 98.2 F 90 18 147/89 98 10/03/24 16:31 97.4 F L 99 20 126/79 96 10/03/24 13:33 121 H 18 135/88 97 10/03/24 11:37 116 H 10/03/24 10:49 106 H 18 147/100 97 10/03/24 10:04 172 H 10/03/24 09:48 97.7 F 68 18 130/107 94 L Intake and Output 10/03/24 10/04/24 10/04/24 22:59 06:59 14:59 Intake Total 189 540 Balance 189 540 Intake: Intake, IV Titration 71 Amount Diltiazem 125 mg In 71 Dextrose 5% in Water 100 ml @ 5 MG/HR 5 mls/hr IV .Q24H [facility] Rx#:[id number] Oral 118 540 Other: # Voids 1 2 Weight 104.326 kg 106.3 kg Results 10/04/24 05:51 10/04/24 05:51 Cardiac Enzymes 10/03/24 10/03/24 10/03/24 Range/Units 10:06 10:06 12:45 AST 26 (17-59) U/L Troponin I 0.018 0.018 (0.000-0.034) ng/mL 10/03/24 10/04/24 Range/Units 16:40 05:51 AST 21 (17-59) U/L Troponin I 0.018 (0.000-0.034) ng/mL Coagulation 10/03/24 Range/Units 10:06 PT 11.7 (10.0-12.5) sec APTT 24.7 (22.0-30.0) sec CBC 10/03/24 10/04/24 Range/Units 10:06 05:51 WBC 7.93 5.24 (4.50-10.00) 10*3/uL RBC 6.03 H 5.50 (4.40-5.60) 10*6/uL Hgb 16.7 14.9 (13.0-17.0) g/dL Hct 50.9 H 47.3 (39.6-50.0) % Plt Count 218 200 (140-440) 10*3/uL Comprehensive Metabolic Panel 10/03/24 10/04/24 Range/Units 10:06 05:51 Sodium 136 L 135 L (137-145) mmol/L Potassium 5.0 4.1 (3.5-5.1) mmol/L Chloride 100 98 (98-107) mmol/L Carbon Dioxide 26 30 (22-30) mmol/L BUN 27 H 24 H (9-20) mg/dL Creatinine 1.08 1.13 (0.66-1.25) mg/dL Glucose 135 H 120 H (74-99) mg/dL Calcium 10.0 9.3 (8.4-10.2) mg/dL AST 26 21 (17-59) U/L ALT 31 24 (4-49) U/L Alkaline Phosphatase 150 H 123 (38-126) U/L Total Protein 6.8 6.1 L (6.3-8.2) g/dL Albumin 3.8 3.3 L (3.5-5.0) g/dL Current Medications Generic Name Dose Route Start Last Admin Trade Name Freq PRN Reason Stop Dose Admin Hydrocodone Bitart/Acetaminophen 1 each 10/03/24 13:33 10/03/24 20:18 Hydrocodone/Apap 5-325mg 1 Each Tab PO 1 each Q6HR PRN Administration Pain 1-6 Apixaban 5 mg 10/03/24 21:00 10/03/24 20:18 Apixaban 5 Mg Tab PO 5 mg BID [facility] Administration Protocol Budesonide/Formoterol Fumarate 2 puff 10/03/24 13:42 10/03/24 21:50 Symbicort 80-4.5 Mcg Inhaler INHALATION 2 puff RT-BID PRN Administration Shortness Of Breath Clotrimazole 1 applic 10/03/24 11:45 10/03/24 20:18 Clotrimazole 1% Cream 30 Gm Tube TOPICAL 1 applic BID [facility] Administration Protocol Hydromorphone HCl 0.5 mg 10/03/24 13:33 10/04/24 06:15 Hydromorphone 0.5 Mg/0.5 Ml Syringe IVP 0.5 mg Q3HR PRN Administration Severe Pain (Scale 7 to 10) Diltiazem HCl 125 mg/ Dextrose 125 mls @ 5 mls/hr 10/03/24 10:15 10/03/24 20:18 /Water IV 10 mg/hr .Q24H INDRA 10 mls/hr Administration Protocol 5 MG/HR Naloxone HCl 0.2 mg 10/03/24 10:53 Naloxone 0.4 Mg/Ml 1 Ml Vial IV Q2M PRN Opioid Reversal Pantoprazole Sodium 40 mg 10/04/24 07:30 10/04/24 06:16 Pantoprazole 40 Mg Tablet PO 40 mg [id number] INDRA Administration Intake and Output 10/03/24 10/04/24 10/04/24 22:59 06:59 14:59 Intake Total 189 540 Balance 189 540 Intake: Intake, IV Titration 71 Amount Diltiazem 125 mg In 71 Dextrose 5% in Water 100 ml @ 5 MG/HR 5 mls/hr IV .Q24H [facility] Rx#:[id number] Oral 118 540 Other: # Voids 1 2 Weight 104.326 kg 106.3 kg 10/04/24 05:51 10/04/24 05:51
--- NOTE | 2024-10-04 12:11 | P.CONS ---
History of Present Illness - Reason for Consult Consult date: 10/04/24 RCC, on treatment Requesting physician: Mariama Garcia - Chief Complaint chest pain - History of Present Illness Mr. Santoro is a 64-year-old male patient of Dr. Davies with a history of renal cell carcinoma, diagnosed September 2019. He presented with gross hematuria, imaging revealed a 9 cm left kidney mass, no metastatic disease at that time. 10/14/2019 he had a left radical nephrectomy, pathology for clear-cell carcinoma, grade 4, invading renal sinus fat, tumor size 10 cm, 1 perinephric node was positive, positive for lymphovascular invasion, negative margins. He did well until July 2021, presented with a left pathological femur fracture. He had proximal femur repair at [facility], path positive for metastatic clear-cell carcinoma of the kidney. CT CAP revealed 10th rib soft tissue mass, left femur lytic lesion, ill-defined lung nodules. He recovered from his orthopedic surgery, palliative radiation to the rib, started dual immunotherapy with rank ligand inhibitor, completed his 4 cycles then continued on single agent immunotherapy. Patient did well, he did have some stereo tactic radiation to a bone lesion. In July 2023 he developed disease progression, new pathological fracture of the left arm, status post surgical repair. CT CAP showing new lytic lesions in the spine, destructive lesion in the left acetabulum. He had some palliative radiation. He was started on cabometyx at the end of July. He had intolerable nausea and diarrhea, did have multiple dose reductions, ultimately needed to be discontinued. CT CAP in November showed new lung nodules. He was started on Welireg in January 2024, required dose reduction for side effects. In March he had a stable CT. He did well until August 2024, treatment follow-up imaging showed progression of bone lesions. He was started on Fotivda 09/11. The medication is a VEGF inhibitor so it was held sometime in the last week as the patient has plans for oral surgery. Patient is currently admitted with complaints of chest pain, lasted overnight, did not improve on its own, he denied that the pain radiated, he was positive for diaphoresis and shortness of breath. Patient denied any fevers, nausea or vomiting, abdominal pain, acute changes in bowel or bladder habits, swelling in the legs. On admission he was found to be in atrial fibrillation with RVR. He was started on Cardizem drip. He states that he is feeling much better today. He has been evaluated by cardiology. Review of Systems 10 point ROS is neg except as stated in HPI Past Medical History Past Medical History: Atrial Fibrillation, Cancer, Chest Pain / Angina, Heart Failure, COPD, Hypertension, Rheumatoid Arthritis (RA) Additional Past Medical History / Comment(s): migraines, renal tumor bone mets History of Any Multi-Drug Resistant Organisms: None Reported Past Surgical History: Cardiac Ablation, Orthopedic Surgery Additional Past Surgical History / Comment(s): rotator cuff left shoulder, Past Anesthesia/Blood Transfusion Reactions: No Reported Reaction Past Psychological History: No Psychological Hx Reported Smoking Status: Never smoker Past Alcohol Use History: Occasional Additional Past Alcohol Use History / Comment(s): quit smoking May 2019, smoked for 30 yrs, 1 PPD Past Drug Use History: None Reported - Past Family History Mother Family Medical History: Cancer Medications and Allergies Home Medications Medication Instructions Recorded Confirmed Type Apixaban [Eliquis] 5 mg PO BID #60 tab 06/24/19 10/03/24 Rx Atorvastatin [Lipitor] 10 mg PO DAILY 10/03/24 10/03/24 History Fluticasone Propion/Salmeterol 1 inhalation PO RT-BID 10/03/24 10/03/24 History [Wixela 500-50 Inhub] Furosemide [Lasix] 40 mg PO DAILY 10/03/24 10/03/24 History Gabapentin [Neurontin] 300 mg PO TID PRN 10/03/24 10/03/24 History HYDROcodone/APAP 10-325MG [[place] 1 - 2 tab PO Q4HR PRN 10/03/24 10/03/24 History 10-325] Ipratropium-Albuterol Nebulize 3 ml INHALATION RT-Q6H PRN 10/03/24 10/03/24 History [Duoneb 0.5 mg-3 mg/3 ml Soln] Metoprolol Tartrate [Lopressor] 100 mg PO BID 10/03/24 10/03/24 History OLANZapine [ZyPREXA] 2.5 mg PO HS 10/03/24 10/03/24 History Omeprazole [PriLOSEC] 40 mg PO DAILY 10/03/24 10/03/24 History Tamsulosin HCl [Flomax] 0.4 mg PO DAILY 10/03/24 10/03/24 History Tivozanib HCl [Fotivda] 1.34 mg PO DIRECTED 10/03/24 10/03/24 History metFORMIN HCL 500 mg PO BID 10/03/24 10/03/24 History Allergies Allergy/AdvReac Type Severity Reaction Status Date / Time No Known Allergies Allergy Verified 10/03/24 13:59 Physical Exam Vitals: Vital Signs Temp Pulse Pulse Resp BP BP Pulse Ox 10/04/24 08:31 98.0 F 106 H 20 128/83 96 10/04/24 03:40 98.3 F 89 18 125/76 96 10/04/24 00:00 92 18 117/76 94 L 10/03/24 17:44 98.2 F 90 18 147/89 98 10/03/24 16:31 97.4 F L 99 20 126/79 96 10/03/24 13:33 121 H 18 135/88 97 10/03/24 11:37 116 H 10/03/24 10:49 106 H 18 147/100 97 Intake and Output 10/03/24 10/04/24 10/04/24 22:59 06:59 14:59 Intake Total 189 540 Balance 189 540 Intake: Intake, IV Titration 71 Amount Diltiazem 125 mg In 71 Dextrose 5% in Water 100 ml @ 5 MG/HR 5 mls/hr IV .Q24H [facility] Rx#:[id number] Oral 118 540 Other: # Voids 1 2 Weight 104.326 kg 106.3 kg - Constitutional General appearance: average body habitus, cooperative, no acute distress - EENT Eyes: anicteric sclerae, EOMI, poor dentition ENT: hearing grossly normal, normal oropharynx - Neck Neck: no lymphadenopathy - Respiratory Respiratory: bilateral: CTA - Cardiovascular Rhythm: regular Heart sounds: normal: S1, S2 Abnormal Heart Sounds: no systolic murmur, no diastolic murmur, no rub, no S3 Gallop, no S4 Gallop, no click, no other leg Peripheral Edema: bilateral: None - Gastrointestinal General gastrointestinal: no absent bowel sounds, no decreased bowel sounds, no distended, no hepatomegaly, no hyperactive bowel sounds, normal bowel sounds, no organomegaly, no rigid, no scaphoid, soft, no splenomegaly, no tenderness, no umbilical hernia, no ventral hernia - Integumentary Integumentary: normal - Neurologic Neurologic: CNII-XII intact - Musculoskeletal Musculoskeletal: strength equal bilaterally - Psychiatric Psychiatric: A&O x's 3 Results CBC & Chem 7: 10/04/24 05:51 10/04/24 05:51 Labs: Abnormal Lab Results - Last 24 Hours (Table) 10/03/24 10/04/24 10/04/24 Range/Units 19:32 05:51 05:51 MCHC 31.5 L (32.0-37.0) g/dL MPV 8.9 L (9.5-12.2) fL Immature Gran # 0.05 H (0.00-0.04) 10*3/uL Lymphocytes # 0.71 L (0.90-5.00) 10*3/uL Sodium 135 L (137-145) mmol/L BUN 24 H (9-20) mg/dL Glucose 120 H (74-99) mg/dL Total Bilirubin 1.6 H (0.2-1.3) mg/dL Total Protein 6.1 L (6.3-8.2) g/dL Albumin 3.3 L (3.5-5.0) g/dL Urine Protein Trace H (Negative) Ur Leukocyte Esterase Moderate H (Negative) Urine WBC 30 H (0-5) /hpf Urine Mucus Rare H (None) /hpf Assessment and Plan (1) Atrial fibrillation with rapid ventricular response Current Visit: Yes Status: Acute Priority: High Code(s): I48.91 - UNSPECIFIED ATRIAL FIBRILLATION SNOMED Code(s): 404083461436249 (2) Renal cell carcinoma Current Visit: Yes Status: Chronic Priority: High Code(s): C64.9 - MALIGNANT NEOPLASM OF UNSP KIDNEY, EXCEPT RENAL PELVIS SNOMED Code(s): 815100993 Plan: A-fib with RVR acute on chronic -Patient has been seen by cardiology, medications have been adjusted, echo pending Metastatic RCC on oral Fotivda - Diagnosis and treatment as described in HPI - Patient most recently had evidence of disease progression in August, he was started on fotivda 09/11/2024. Patient discontinued Fotivda sometime over this last week-he is not sure what day he stopped-because there are plans for oral surgery. - VEGF inhibitors do have cardiac side effects including heart failure, cardiac ischemia and thromboembolism. Pending Cardiology workup, findings and and recommendations - Patient will continue to hold Fotivda until after he is had oral surgery and been reevaluated by Medical Oncology.
[2024-10-04 12:56] VITALS: BMI 32.6
--- NOTE | 2024-10-04 12:59 | CA ---
Transthoracic Echo Report Name: Gabriel Santoro Age: 64 Gender: M : 1960 Exam Date: 10/04/2024 10:29 Exam Location: [facility] Ht (in): 71 Wt (lb): 234 Ordering Physician: Brandee Jimenez Attending/Referring Phys: [id number], Tony Freight Receiver China Mendoza, DOV Procedure CPT: Indications: afib rvr Cardiac Hx: Technical Quality: Technically difficult study Contrast 1: Definity Total Dose (mL): 2 Contrast 2: Total Dose (mL): MEASUREMENTS (Male / Female) Normal Values 2D ECHO LV Diastolic Diameter PLAX 5.2 cm 4.2 - 5.9 / 3.9 - 5.3 cm LV Systolic Diameter PLAX 3.4 cm IVS Diastolic Thickness 1.1 cm 0.6 - 1.0 / 0.6 - 0.9 cm LVPW Diastolic Thickness 1.1 cm 0.6 - 1.0 / 0.6 - 0.9 cm LV Relative Wall Thickness 0.4 LVOT Diameter 2.0 cm LA Systolic Diameter LX 3.7 cm 3.0 - 4.0 / 2.7 - 3.8 cm LV Diastolic Volume MOD 4C 77.8 cm??? LV Systolic Volume MOD 4C 33.5 cm??? LV Ejection Fraction MOD 4C 56.9 % LV Diastolic Length 4C 7.9 cm LV Systolic Length 4C 7.6 cm LA Volume 59.4 cm??? 18 - 58 / 22 - 52 cm??? LA Volume Index 25.4 cm???/m??? 16 - 28 cm???/m??? Aorta at Sinotubular Diameter 3.7 cm DOPPLER MV Deceleration Time 203.2 ms TR Peak Velocity 212.9 cm/s TR Peak Gradient 18.1 mmHg FINDINGS Left Ventricle Left ventricular ejection fraction is estimated at 45%. Normal left ventricular systolic function with no obvious regional wall motion abnormalities. Left ventricular cavity size normal. Mild concentric left ventricular hypertrophy. Right Ventricle Normal right ventricular size and function. Right ventricular systolic pressure within normal limits. Right Atrium Normal right atrial size. Left Atrium Mildly increased left atrial volume. Mitral Valve Echogenic mass on posterior mitral valve leaflet. No mitral stenosis. No mitral regurgitation. Aortic Valve Trileaflet aortic valve. No aortic valve stenosis or regurgitation. Tricuspid Valve Structurally normal tricuspid valve. No tricuspid stenosis. Trace to mild tricuspid regurgitation. Pulmonic Valve Pulmonic valve not well visualized. No pulmonic stenosis. Trace pulmonic regurgitation. Pericardium No pleural effusion. No pericardial effusion. Aorta Aortic annulus normal. CONCLUSIONS Reason for echo: Atrial fibrillation with RVR Reduced LV systolic function ejection fraction of about 45-50 % RV enlargement Echogenic mass in the mitral annulus, likely mitral annular calcification Previewed by: Dr. Sascha Chaves MD (Electronically Signed) Final Date: 04 Oct 2024 12:58
--- NOTE | 2024-10-04 14:21 | PN ---
PROGRESS NOTE DATE OF SERVICE: 10/04/2024 SUBJECTIVE: This is a 64-year-old gentleman with a past medical history of multiple problems including renal cell cancer with mets. He was also getting radiation therapy. The patient admitted with chest pain as well as atrial fibrillation. Cardiology is following the patient closely. Also, a 2D echo with Doppler showed ejection fraction of 45% to 50% and echogenic mass in the mitral anulus, possibly mitral annular calcification suspected. The patient is being closely monitored. PAST MEDICAL HISTORY: Reviewed. REVIEW OF SYSTEMS: A 14-point review of systems negative except as mentioned earlier. CURRENT MEDICATIONS: Reviewed. PHYSICAL EXAMINATION: VITAL SIGNS: Pulse 106, blood pressure 110/80, and respirations 20. HEENT: Conjunctivae normal. NECK: No jugular venous distention. CARDIOVASCULAR: S1, S2. RESPIRATION: Breath sounds diminished at the bases. ABDOMEN: Soft, nontender. NERVOUS SYSTEM: No focal deficit. LABORATORY DATA: Reviewed. ASSESSMENT: 1. Chest pain for evaluation, mostly musculoskeletal for multiple mets. 2. Atrial fibrillation with fast ventricular rate. 3. Renal cancer with mets. 4. Left humerus lesion with radiation therapy. 5. History of chronic obstructive pulmonary disease. 6. History of congestive heart failure. 7. History of atrial fibrillation. 8. Hypertension. 9. History of rheumatoid arthritis. 10.Multiple complex medical issues. 11.FULL CODE. RECOMMENDATIONS: Recommend to continue current management and symptomatic treatment. Otherwise, closely follow with multiple consultants. Repeat labs. UA shows some abnormality. I would recommend the urine culture before starting any antibiotics. Further recommendations to follow. MMODL / IJN: [id number] /
--- NOTE | 2024-10-05 06:55 | CONS ---
CONSULTATION REASON FOR CONSULTATION: Metastatic kidney cancer with bone metastasis. HISTORY OF PRESENT ILLNESS: Gabriel Santoro is a 64-year-old male with history of metastatic kidney cancer. He has been undergoing palliative radiation treatment for multiple bony lesions. The patient was admitted to the hospital. He has worsening pain. The patient is undergoing evaluation with Oncology. PAST MEDICAL HISTORY: 1. Atrial fibrillation. 2. Kidney cancer . 3. Heart disease. 4. Hypercholesterolemia. 5. Hypertension. 6. COPD. 7. History of left hip surgery. 8. Nephrectomy 2020. 9. Shoulder surgery. SOCIAL HISTORY: The patient has a history of smoking one pack of cigarettes per day for 29 years. He quit many years ago. He lives in his own home. He has a history of chronic pain. ALLERGIES: NKDA. MEDICATIONS: Albuterol, dexamethasone, diltiazem, Eliquis, hydrocodone, omeprazole, Ondansetron, vitamin D, Lopressor, Lasix. REVIEW OF SYSTEMS: A 14-point review of systems was reviewed and informed to the patient. This is contributory for reduced overall energy level, nocturia 1-2 times each night, intermittent slow urinary flow. Recent imaging studies were reviewed with the patient today. PHYSICAL EXAMINATION: GENERAL: The patient is an elderly male, appearing his stated age. He appears to be in no acute distress. VITAL SIGNS: Blood pressure 138/82, pulse 78, respirations 18. He is afebrile. HEAD: Atraumatic, normocephalic. EYES: PERRLA, EOMI. NECK: No palpable cervical or supraclavicular lymphadenopathy. LUNGS: Clear to auscultation and percussion. HEART: Normal heart sounds. ABDOMEN: Benign with no palpable masses or organomegaly. EXTREMITIES: Full range of motion. No cyanosis, clubbing, or edema detected. NEUROLOGIC: The patient reveals cranial nerves II through XII intact. Strength and sensation intact. Deep tendon reflexes intact. Plantar reflexes downgoing. SKIN/INTEGUMENTARY: No lesions. PSYCHIATRIC: No mood disorders. 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 Otherwise, additional problems includin. Pain of malignancy. 2. Hypertension. 3. Gastroesophageal reflux disease. 4. Vitamin D deficiency. 5. Type 2 diabetes. 6. Hypercholesterolemia. PAIN SCALE EVALUATION: 06/24. PAIN CONTROL: [place] 5/325 approximately 3 to 4 tablets per day. PERFORMANCE STATUS: One. DURATION OF THE INPATIENT EVALUATION: Approximately 20 minutes. SMOKING CESSATION/SMOKING HISTORY: The patient is nonsmoker. Does not require smoking cessation classes or counseling. PLAN: The patient will be scheduled for palliative radiation therapy beginning the week of October 07, 2024. Thank you for allowing me to participate in the care of Gabriel Santoro. MMODL / IJN: [id number] /
[2024-10-05 06:57] LABS: Basophils # (A) 0.04 10*3/uL (0.00-0.10); Basophils % (A) 0.8 %; Eosinophils # (A) 0.18 10*3/uL (0.04-0.35); Eosinophils % (A) 3.5 %; HCT 46.7 % (39.6-50.0); HGB 14.9 g/dL (13.0-17.0); Lymphocytes % (A) 15.6 %; MCHC 31.9 g/dL (32.0-37.0); MCV 84.8 fL (80.0-97.0); Mean Platelet Volume 9.4 fL (9.5-12.2); Monocytes # (A) 0.65 10*3/uL (0.20-1.00); Monocytes % (A) 12.7 %; Neutrophils % (A) 66.4 %; Platelet Count 217 10*3/uL (140-440); RBC 5.51 10*6/uL (4.40-5.60); RDW 20.4 % (11.5-14.5); WBC 5.12 10*3/uL (4.50-10.00)
[2024-10-05 07:20] LABS: African American GFR (CKD) >90 (>60 ml/min/1.73 sqM); Anion Gap 9 mmol/L; Blood Urea Nitrogen 23 mg/dL (9-20); Calcium 9.6 mg/dL (8.4-10.2); Carbon Dioxide 27 mmol/L (22-30); Chloride 95 mmol/L (98-107); Glucose 102 mg/dL (74-99); Non-African American GFR(CKD) 78 (>60 ml/min/1.73 sqM); Potassium 4.1 mmol/L (3.5-5.1); Sodium 131 mmol/L (137-145)
[2024-10-05] MEDS: METOPROLOL TARTRATE 50 MG TAB PO STA (09:45)
--- NOTE | 2024-10-05 10:03 | P.PN ---
Subjective This is a pleasant 64 years old male with past medical history of multiple medical problems including renal cell carcinoma with metastatic disease on chemotherapy pills and status post radiotherapy. Presents initially because of chest pain found to have A-fib and RVR being followed closely by cardiology team Cardizem drip was stopped and his metoprolol dose increased today 150 up to 200 mg twice daily. Heart rate in this morning was 110-115. No significant dyspnea Is also complaining from some dysuria, urinalysis on admission was slightly abnormal. No suprapubic pain or flank pain or tenderness. No change in frequency or urgency Going to check urine analysis again if his abdominal we will start ceftriaxone and urine culture check bladder scan discussed with staff Review of systems CONSTITUTIONAL: No fever, no malaise, no fatigue. PULMONARY: No shortness of breath, no cough, no hemoptysis. GASTROINTESTINAL: No diarrhea, no nausea, no vomiting, no abdominal pain. Normoactive bowel sounds. NEUROLOGICAL: No headaches, no weakness, no numbness. HEMATOLOGICAL: Denies any bleeding or petechiae. MUSCULOSKELETAL/RHEUMATOLOGICAL: Denies any joint pain, swelling, or any muscle pain. ENDOCRINE: Denies any polyuria or polydipsia. Active Medications Generic Name Dose Route Start Last Admin Trade Name Freq PRN Reason Stop Dose Admin Hydrocodone Bitart/Acetaminophen 1 each 10/05/24 09:33 Hydrocodone/Apap 10-325mg 1 Each Tab PO Q6HR PRN Pain Apixaban 5 mg 10/03/24 21:00 10/05/24 08:23 Apixaban 5 Mg Tab PO 5 mg BID INDRA Administration Protocol Atorvastatin Calcium 10 mg 10/04/24 09:00 10/05/24 08:23 Atorvastatin 10 Mg Tab PO 10 mg DAILY INDRA Administration Budesonide/Formoterol Fumarate 2 puff 10/03/24 13:42 10/05/24 08:28 Symbicort 80-4.5 Mcg Inhaler INHALATION 2 puff RT-BID PRN Administration Shortness Of Breath Clotrimazole 1 applic 10/03/24 11:45 10/05/24 08:24 Clotrimazole 1% Cream 30 Gm Tube TOPICAL 1 applic BID INDRA Administration Protocol Furosemide 40 mg 10/04/24 09:00 10/05/24 08:23 Furosemide 40 Mg Tab PO 40 mg DAILY INDRA Administration Hydromorphone HCl 0.5 mg 10/03/24 13:33 10/05/24 08:53 Hydromorphone 0.5 Mg/0.5 Ml Syringe IVP 0.5 mg Q3HR PRN Administration Severe Pain (Scale 7 to 10) Metoprolol Tartrate 200 mg 10/05/24 21:00 Metoprolol Tartrate 50 Mg Tab PO BID INDRA Naloxone HCl 0.2 mg 10/03/24 10:53 Naloxone 0.4 Mg/Ml 1 Ml Vial IV Q2M PRN Opioid Reversal Pantoprazole Sodium 40 mg 10/04/24 07:30 10/05/24 05:24 Pantoprazole 40 Mg Tablet PO 40 mg [id number] INDRA Administration Objective - Vital Signs Vital signs: Vital Signs Temp 97.4 F L 10/05/24 08:21 Pulse 115 H 10/05/24 08:21 Resp 16 10/05/24 08:21 BP 139/90 10/05/24 08:21 Pulse Ox 96 10/05/24 08:21 FiO2 Intake & Output 10/04/24 10/05/24 10/05/24 18:59 06:59 18:59 Intake Total 240 Output Total 600 Balance -600 240 Weight 106.3 kg 124.738 kg Intake: Oral 240 Output: Urine 600 Other: Voiding Method Toilet - Exam GENERAL: The patient is alert and oriented x3, not in any acute distress. Well developed, well nourished. HEENT: Pupils are round and equally reacting to light. EOMI. No scleral icterus. No conjunctival pallor. Normocephalic, atraumatic. No pharyngeal erythema. No thyromegaly. CARDIOVASCULAR: S1 and S2 present. No murmurs, rubs, or gallops. PULMONARY: Chest is clear to auscultation, no wheezing , no crackles. ABDOMEN: Soft, nontender, nondistended, normoactive bowel sounds. No palpable organomegaly. MUSCULOSKELETAL: No joint swelling or deformity. EXTREMITIES: No cyanosis, clubbing, or pedal edema. NEUROLOGICAL: Gross neurological examination did not reveal any focal deficits. SKIN: No rashes. no petechiae. - Labs CBC & Chem 7: 10/05/24 05:36 10/05/24 05:36 Labs: Abnormal Lab Results - Last 24 Hours (Table) 05/24/25 05/24/25 Range/Units 05:36 05:36 MCHC 31.9 L (32.0-37.0) g/dL MPV 9.4 L (9.5-12.2) fL Immature Gran # 0.05 H (0.00-0.04) 10*3/uL Lymphocytes # 0.80 L (0.90-5.00) 10*3/uL Sodium 131 L (137-145) mmol/L Chloride 95 L (98-107) mmol/L BUN 23 H (9-20) mg/dL Glucose 102 H (74-99) mg/dL Assessment and Plan Assessment: A-fib and RVR present on admission Dysuria, rule out UTI Renal cell carcinoma metastatic disease status post radiotherapy on chemotherapy Chronic exertional dyspnea Hypertension Hyperlipidemia Diabetes mellitus Chronic kidney disease stage II Plan: Continue with Eliquis Continue with metoprolol, dose increased per composing room supervisor Continue with oral Lasix Cardiology team following closely Check urine analysis and bladder scan Labs and medication were reviewed.. Continue same treatment. Continue with symptomatic treatment. Resume home medication. Monitor labs and vitals. DVT and GI prophylaxis. Further recommendations as per clinical course of the patient DVT prophylaxis: on Eliquis GI Prophylaxis: Ppi PT/OT: Pending Prognosis is guarded
[2024-10-05 10:43] LABS: Appearance,Urine Cloudy (Clear); Bacteria,Urine Occasional /hpf; Bilirubin,Urine Negative (Negative); Blood,Urine Negative (Negative); Budding Yeast,Urine Occasional /hpf; Color,Urine Yellow; Glucose,Urine (UA) Negative (Negative); Ketones,Urine Negative (Negative); Leukocyte Esterase,Urine Large (Negative); Mucus,Urine Rare /hpf; Nitrite,Urine Negative (Negative); PH, Urine 5.5 (5.0-8.0); Protein,Urine Negative (Negative); RBC,Urine 2 /hpf (0-5); Specific Gravity,Urine 1.022 (1.001-1.035); Squamous Epithelial Cell,Urine <1 /hpf (0-4); WBC,Urine 61 /hpf (0-5)
--- NOTE | 2024-10-05 11:11 | P.PN ---
Subjective Progress Note Date: 10/05/24 This is Jaciel Cardenas NP, I'm dictating on behalf of Dr. Chaves's H&P and A&P. Patient was interviewed and examined. Patient is a pleasant 64-year-old male who presented to the hospital with rapid heart rate and was found to be in A-fib with RVR. Patient reports that he is doing okay today. He is still noted to have elevated heart rates with ambulation. He denies chest pain and shortness of breath today. GENERAL: Well-appearing, well-nourished and in no acute distress. NECK: Supple without JVD or thyromegaly. LUNGS: Breath sounds clear to auscultation bilaterally. Respiration equal and unlabored. No wheezes, rales or rhonchi. HEART: Regular rate and rhythm without murmurs, rubs or gallops. S1 and S2 heard. EXTREMITIES: Normal range of motion, no edema. No clubbing or cyanosis. Peripheral pulses intact and strong. VITALS: Temp 97.4, pulse 115, respirations 16, blood pressure 139/90, O2 saturation 96% on room air TELEMETRY: Atrial fibrillation with rapid ventricular response LABS: White count 5.1, hemoglobin 14.9, platelets 217, sodium 131, potassium 4.1, chloride 95, BUN 23, creatinine 1.01, calcium 9.6 IMPRESSION: 1. Atrial fibrillation with rapid ventricular response 2. Chronic dyspnea on exertion 3. Hyperlipidemia 4. Diabetes mellitus type 2 5. Remote history of tobacco use and dependence 6. Chronic kidney disease 7. History of renal cell cancer 3 years ago status post chemo and surgery PLAN: Patient is still having heart rate elevations during ambulation. Increase metoprolol to 200 mg twice daily. Given extra 50 mg this morning. Continue to monitor heart rate. Further recommendations based on patient's clinical course. Objective - Vital Signs Vital signs: Vital Signs Temp 97.4 F L 10/05/24 08:21 Pulse 115 H 10/05/24 08:21 Resp 16 10/05/24 08:21 BP 139/90 10/05/24 08:21 Pulse Ox 96 10/05/24 08:21 FiO2 Intake & Output 10/04/24 10/05/24 10/05/24 18:59 06:59 18:59 Intake Total 240 Output Total 600 Balance -600 240 Weight 106.3 kg 124.738 kg Intake: Oral 240 Output: Urine 600 Other: Voiding Method Toilet - Labs CBC & Chem 7: 10/05/24 05:36 10/05/24 05:36 Labs: Abnormal Lab Results - Last 24 Hours (Table) 10/05/24 10/05/24 Range/Units 05:36 05:36 MCHC 31.9 L (32.0-37.0) g/dL MPV 9.4 L (9.5-12.2) fL Immature Gran # 0.05 H (0.00-0.04) 10*3/uL Lymphocytes # 0.80 L (0.90-5.00) 10*3/uL Sodium 131 L (137-145) mmol/L Chloride 95 L (98-107) mmol/L BUN 23 H (9-20) mg/dL Glucose 102 H (74-99) mg/dL
[2024-10-05] MEDS: HYDROcodone/APAP 10-325MG 1 EACH TAB PO PRN (15:13)
[2024-10-05] MEDS: METOPROLOL TARTRATE 50 MG TAB PO SCH (19:47)
--- NOTE | 2024-10-06 08:49 | P.PN ---
Subjective Progress Note Date: 10/06/24 This is Jaciel Cardenas NP, I'm dictating on behalf of Dr. Chaves's H&P and A&P. Patient was interviewed and examined. Patient is a pleasant 64-year-old male who presented to the hospital with rapid heart rate and was found to be in A-fib with RVR. Patient reports that he is feeling okay today. Unfortunately he continues to have accelerated heart rates, especially with ambulation, with nursing reporting the patient's heart rate is getting up into the 130 range with ambulation. He denies any chest pain or shortness of breath. GENERAL: Well-appearing, well-nourished and in no acute distress. NECK: Supple without JVD or thyromegaly. LUNGS: Breath sounds clear to auscultation bilaterally. Respiration equal and unlabored. No wheezes, rales or rhonchi. HEART: Irregular rate and rhythm without murmurs, rubs or gallops. S1 and S2 heard. EXTREMITIES: Normal range of motion, no edema. No clubbing or cyanosis. Peripheral pulses intact and strong. VITALS: Temp 98.1, pulse 116, respirations 17, blood pressure 108/58, O2 saturation 95% on room air TELEMETRY: A-fib with RVR LABS: No new labs since 10/05/2024 IMPRESSION: 1. Atrial fibrillation with rapid ventricular response 2. Chronic dyspnea on exertion 3. Hyperlipidemia 4. Diabetes mellitus type 2 5. Remote history of tobacco use and dependence 6. Chronic kidney disease 7. History of renal cell cancer 3 years ago status post chemo and surgery PLAN: Start digoxin 0.25 mg daily. Continue metoprolol 200 mg twice daily. Further recommendations based on patient's clinical course. Objective - Vital Signs Vital signs: Vital Signs Temp 98.1 F 10/06/24 08:21 Pulse 116 H 10/06/24 08:24 Resp 17 10/06/24 08:21 BP 108/58 10/06/24 08:21 Pulse Ox 95 10/06/24 08:21 FiO2 Intake & Output 10/05/24 10/06/24 10/06/24 18:59 06:59 18:59 Intake Total 240 Output Total 43 Balance 197 Weight 106.1 kg Intake: Oral 240 Output: Post Void Residual 43 Other: Voiding Method Toilet Toilet Toilet # Voids 2 2 - Labs CBC & Chem 7: 10/05/24 05:36 10/05/24 05:36 Labs: Abnormal Lab Results - Last 24 Hours (Table) 10/05/24 Range/Units 10:13 Ur Leukocyte Esterase Large H (Negative) Urine WBC 61 H (0-5) /hpf Urine Bacteria Occasional H (None) /hpf Urine Mucus Rare H (None) /hpf Urine Yeast (Budding) Occasional H (None) /hpf Microbiology - Last 24 Hours (Table) 10/03/24 19:32 Urine Culture - Preliminary Urine,Voided
[2024-10-06] MEDS: DIGOXIN 250 MCG TAB PO SCH (09:49)
--- NOTE | 2024-10-06 10:45 | P.PN ---
Subjective This is a pleasant 64 years old male with past medical history of multiple medical problems including renal cell carcinoma with metastatic disease on chemotherapy pills and status post radiotherapy. Presents initially because of chest pain found to have A-fib and RVR being followed closely by cardiology team Cardizem drip was stopped and his metoprolol dose increased today 150 up to 200 mg twice daily. Heart rate in this morning was 110-115. No significant dyspnea Is also complaining from some dysuria, urinalysis on admission was slightly abnormal. No suprapubic pain or flank pain or tenderness. No change in frequency or urgency Going to check urine analysis again if his abdominal we will start ceftriaxone and urine culture check bladder scan discussed with staff 10/06 Patient feels heavy today No chest pain or dyspnea No dysuria which was little yesterday and improved now He is metoprolol increased yesterday 150 up to 200 twice daily, today digoxin was added by pan devulcanizer because heart rate still 115 Patient started on Rocephin yesterday, urine culture growing gram-negative bacilli Review of systems GASTROINTESTINAL: No diarrhea, no nausea, no vomiting, no abdominal pain. Normoactive bowel sounds. NEUROLOGICAL: No headaches, no weakness, no numbness. HEMATOLOGICAL: Denies any bleeding or petechiae. GENITOURINARY: Denies any burning micturition, frequency, or urgency. MUSCULOSKELETAL/RHEUMATOLOGICAL: Denies any joint pain, swelling, or any muscle pain. ENDOCRINE: Denies any polyuria or polydipsia. Active Medications Generic Name Dose Route Start Last Admin Trade Name Freq PRN Reason Stop Dose Admin Hydrocodone Bitart/Acetaminophen 1 each 10/05/24 09:33 10/06/24 09:10 Hydrocodone/Apap 10-325mg 1 Each Tab PO 1 each Q6HR PRN Administration Pain Apixaban 5 mg 10/03/24 21:00 10/06/24 08:17 Apixaban 5 Mg Tab PO 5 mg BID INDRA Administration Protocol Atorvastatin Calcium 10 mg 10/04/24 09:00 10/06/24 08:17 Atorvastatin 10 Mg Tab PO 10 mg DAILY INDRA Administration Budesonide/Formoterol Fumarate 2 puff 10/03/24 13:42 10/05/24 08:28 Symbicort 80-4.5 Mcg Inhaler INHALATION 2 puff RT-BID PRN Administration Shortness Of Breath Clotrimazole 1 applic 10/03/24 11:45 10/06/24 08:20 Clotrimazole 1% Cream 30 Gm Tube TOPICAL 1 applic BID INDRA Administration Protocol Digoxin 250 mcg 10/06/24 09:00 10/06/24 09:49 Digoxin 250 Mcg Tab PO 250 mcg DAILY INDRA Administration Furosemide 40 mg 10/04/24 09:00 10/06/24 08:18 Furosemide 40 Mg Tab PO 40 mg DAILY INDRA Administration Hydromorphone HCl 0.5 mg 10/03/24 13:33 10/06/24 06:26 Hydromorphone 0.5 Mg/0.5 Ml Syringe IVP 0.5 mg Q3HR PRN Administration Severe Pain (Scale 7 to 10) Ceftriaxone Sodium 1 gm/ 50 mls @ 100 mls/hr 10/05/24 10:45 10/06/24 08:18 Sodium Chloride IVPB 100 mls/hr Q24HR INDRA Administration Protocol Metoprolol Tartrate 200 mg 10/05/24 21:00 10/06/24 08:17 Metoprolol Tartrate 50 Mg Tab PO 200 mg BID INDRA Administration Naloxone HCl 0.2 mg 10/03/24 10:53 Naloxone 0.4 Mg/Ml 1 Ml Vial IV Q2M PRN Opioid Reversal Pantoprazole Sodium 40 mg 10/04/24 07:30 10/06/24 06:26 Pantoprazole 40 Mg Tablet PO 40 mg [id number] INDRA Administration Objective - Vital Signs Vital signs: Vital Signs Temp 98.1 F 10/06/24 08:21 Pulse 114 H 10/06/24 09:46 Resp 17 10/06/24 08:21 BP 108/58 10/06/24 08:21 Pulse Ox 95 10/06/24 08:21 FiO2 Intake & Output 10/05/24 10/06/24 10/06/24 18:59 06:59 18:59 Intake Total 240 Output Total 43 Balance 197 Weight 106.1 kg Intake: Oral 240 Output: Post Void Residual 43 Other: Voiding Method Toilet Toilet Toilet # Voids 2 2 - Exam GENERAL: The patient is alert and oriented x3, not in any acute distress. Well developed, well nourished. HEENT: Pupils are round and equally reacting to light. EOMI. No scleral icterus. No conjunctival pallor. Normocephalic, atraumatic. No pharyngeal erythema. No thyromegaly. CARDIOVASCULAR: S1 and S2 present. No murmurs, rubs, or gallops. PULMONARY: Chest is clear to auscultation, no wheezing , no crackles. ABDOMEN: Soft, nontender, nondistended, normoactive bowel sounds. No palpable organomegaly. MUSCULOSKELETAL: No joint swelling or deformity. EXTREMITIES: No cyanosis, clubbing, or pedal edema. NEUROLOGICAL: Gross neurological examination did not reveal any focal deficits. SKIN: No rashes. no petechiae. - Labs CBC & Chem 7: 10/05/24 05:36 10/05/24 05:36 Labs: Abnormal Lab Results - Last 24 Hours (Table) 10/05/24 Range/Units 10:13 Ur Leukocyte Esterase Large H (Negative) Urine WBC 61 H (0-5) /hpf Urine Bacteria Occasional H (None) /hpf Urine Mucus Rare H (None) /hpf Urine Yeast (Budding) Occasional H (None) /hpf Microbiology - Last 24 Hours (Table) 10/03/24 19:32 Urine Culture - Preliminary Urine,Voided Gram Neg Bacilli Assessment and Plan Assessment: A-fib and RVR present on admission Dysuria, secondary to acute urinary tract infection with culture growing gram- negative bacilli Renal cell carcinoma metastatic disease status post radiotherapy on chemotherapy Chronic exertional dyspnea Hypertension Hyperlipidemia Diabetes mellitus Chronic kidney disease stage II Plan: Continue with Eliquis Continue with metoprolol, dose increased per pan devulcanizer Digoxin added by pan devulcanizer Continue with oral Lasix Cardiology team following closely C continue ceftriaxone and follow-up urine culture Labs and medication were reviewed.. Continue same treatment. Continue with symptomatic treatment. Resume home medication. Monitor labs and vitals. DVT and GI prophylaxis. Further recommendations as per clinical course of the patient DVT prophylaxis: on Eliquis GI Prophylaxis: Ppi PT/OT: Pending Prognosis is guarded
[2024-10-07 08:13] LABS: African American GFR (CKD) 77 (>60 ml/min/1.73 sqM); Anion Gap 9 mmol/L; Blood Urea Nitrogen 23 mg/dL (9-20); Calcium 9.6 mg/dL (8.4-10.2); Carbon Dioxide 30 mmol/L (22-30); Chloride 98 mmol/L (98-107); Glucose 110 mg/dL (74-99); Magnesium 1.9 mg/dL (1.6-2.3); Non-African American GFR(CKD) 67 (>60 ml/min/1.73 sqM); Sodium 137 mmol/L (137-145)
--- NOTE | 2024-10-07 08:33 | P.PN ---
Subjective This is a pleasant 64 years old male with past medical history of multiple medical problems including renal cell carcinoma with metastatic disease on chemotherapy pills and status post radiotherapy. Presents initially because of chest pain found to have A-fib and RVR being followed closely by cardiology team Cardizem drip was stopped and his metoprolol dose increased today 150 up to 200 mg twice daily. Heart rate in this morning was 110-115. No significant dyspnea Is also complaining from some dysuria, urinalysis on admission was slightly abnormal. No suprapubic pain or flank pain or tenderness. No change in frequency or urgency Going to check urine analysis again if his abdominal we will start ceftriaxone and urine culture check bladder scan discussed with staff 10/06 Patient feels heavy today No chest pain or dyspnea No dysuria which was little yesterday and improved now He is metoprolol increased yesterday 150 up to 200 twice daily, today digoxin was added by cow washer because heart rate still 115 Patient started on Rocephin yesterday, urine culture growing gram-negative bacilli 10/07 No chest pain no dyspnea Heart rate still 100-123 No dysuria urine culture growing gram-negative bacilli but not final yet Patient remains on ceftriaxone Cardiology still following for A-fib with RVR, not completely controlled yet Objective - Vital Signs Vital signs: Vital Signs Temp 97.5 F L 10/07/24 07:54 Pulse 123 H 10/07/24 07:54 Resp 17 10/07/24 07:54 BP 134/89 10/07/24 07:54 Pulse Ox 94 L 10/07/24 07:54 FiO2 Intake & Output 10/06/24 10/07/24 10/07/24 18:59 06:59 18:59 Intake Total 360 Balance 360 Weight 106.2 kg Intake: Oral 360 Other: Voiding Method Toilet Toilet Toilet # Voids 2 1 - Exam GENERAL: The patient is alert and oriented x3, not in any acute distress. Well developed, well nourished. HEENT: Pupils are round and equally reacting to light. EOMI. No scleral icterus. No conjunctival pallor. Normocephalic, atraumatic. No pharyngeal erythema. No thyromegaly. CARDIOVASCULAR: S1 and S2 present. No murmurs, rubs, or gallops. PULMONARY: Chest is clear to auscultation, no wheezing , no crackles. ABDOMEN: Soft, nontender, nondistended, normoactive bowel sounds. No palpable organomegaly. MUSCULOSKELETAL: No joint swelling or deformity. EXTREMITIES: No cyanosis, clubbing, or pedal edema. NEUROLOGICAL: Gross neurological examination did not reveal any focal deficits. SKIN: No rashes. no petechiae. - Labs CBC & Chem 7: 10/05/24 05:36 10/07/24 06:07 Labs: Abnormal Lab Results - Last 24 Hours (Table) 10/07/24 Range/Units 06:07 BUN 23 H (9-20) mg/dL Glucose 110 H (74-99) mg/dL Microbiology - Last 24 Hours (Table) 10/05/24 10:00 Urine Culture - Preliminary Urine,Voided 10/03/24 19:32 Urine Culture - Preliminary Urine,Voided Gram Neg Bacilli Assessment and Plan Assessment: A-fib and RVR present on admission Dysuria, secondary to acute urinary tract infection with culture growing gram- negative bacilli Renal cell carcinoma metastatic disease status post radiotherapy on chemotherapy Chronic exertional dyspnea Hypertension Hyperlipidemia Diabetes mellitus Chronic kidney disease stage II Plan: Continue with Eliquis Continue with metoprolol, dose increased per cow washer Digoxin added by cow washer Continue with oral Lasix Cardiology team following closely C continue ceftriaxone and follow-up urine culture Labs and medication were reviewed.. Continue same treatment. Continue with symptomatic treatment. Resume home medication. Monitor labs and vitals. DVT and GI prophylaxis. Further recommendations as per clinical course of the patient DVT prophylaxis: on Eliquis GI Prophylaxis: Ppi PT/OT: Pending Prognosis is guarded
--- NOTE | 2024-10-07 09:10 | P.PN ---
Subjective Progress Note Date: 10/07/24 This is Jaciel Cardenas NP, I'm dictating on behalf of Dr. Chaves's H&P and A&P. Patient was interviewed and examined. Patient is a pleasant 64-year-old male who presented to hospital with rapid heart rate was found to be in A-fib with RVR. Patient is still experiencing atrial fibrillation with rapid ventricular response despite the addition of digoxin yesterday. He is not complaining of any major issues, including chest pain or heart palpitations. He also denies shortness of breath. GENERAL: Well-appearing, well-nourished and in no acute distress. NECK: Supple without JVD or thyromegaly. LUNGS: Breath sounds clear to auscultation bilaterally. Respiration equal and unlabored. No wheezes, rales or rhonchi. HEART: Regular rate and rhythm without murmurs, rubs or gallops. S1 and S2 heard. EXTREMITIES: Normal range of motion, no edema. No clubbing or cyanosis. Peripheral pulses intact and strong. VITALS: Temp 97.5, pulse 123, respirations 17, blood pressure 134/89, O2 saturation 94% on room air TELEMETRY: Atrial fibrillation with rapid ventricular response LABS: Sodium 137, potassium 4, chloride 98, BUN 23, creatinine 1.16, calcium 9.6, magnesium 1.9 IMPRESSION: 1. Atrial fibrillation with rapid ventricular response 2. Chronic dyspnea on exertion 3. Hyperlipidemia 4. Diabetes mellitus type 2 5. Remote history of tobacco use and dependence 6. Chronic kidney disease 7. History of renal cell cancer 3 years ago status post chemo and surgery PLAN: Discontinue digoxin. Start amiodarone infusion per protocol. N.p.o. at midnight, scheduled for cardioversion tomorrow. Further recommendations based on patient's clinical course. Objective - Vital Signs Vital signs: Vital Signs Temp 97.5 F L 10/07/24 07:54 Pulse 123 H 10/07/24 07:54 Resp 17 10/07/24 07:54 BP 134/89 10/07/24 07:54 Pulse Ox 94 L 10/07/24 07:54 FiO2 Intake & Output 10/06/24 10/07/24 10/07/24 18:59 06:59 18:59 Intake Total 360 Balance 360 Weight 106.2 kg Intake: Oral 360 Other: Voiding Method Toilet Toilet Toilet # Voids 2 1 - Labs CBC & Chem 7: 10/05/24 05:36 10/07/24 06:07 Labs: Abnormal Lab Results - Last 24 Hours (Table) 10/07/24 Range/Units 06:07 BUN 23 H (9-20) mg/dL Glucose 110 H (74-99) mg/dL Microbiology - Last 24 Hours (Table) 10/05/24 10:00 Urine Culture - Preliminary Urine,Voided 10/03/24 19:32 Urine Culture - Preliminary Urine,Voided Gram Neg Bacilli
[2024-10-07] MEDS: DEXTROSE 5% IN WATER 100 ML with AMIODARONE 150 MG IV ONE (09:47)
[2024-10-07] MEDS: AMIODARONE 360 MG in DEXTROSE 5% IN WATER 200 ML IV ONE (10:03)
[2024-10-07] MEDS: AMIODARONE 450 MG in DEXTROSE 5% IN WATER 250 ML IV SCH (16:02)
--- NOTE | 2024-10-08 07:18 | P.PN ---
Subjective This is a pleasant 64 years old male with past medical history of multiple medical problems including renal cell carcinoma with metastatic disease on chemotherapy pills and status post radiotherapy. Presents initially because of chest pain found to have A-fib and RVR being followed closely by cardiology team Cardizem drip was stopped and his metoprolol dose increased today 150 up to 200 mg twice daily. Heart rate in this morning was 110-115. No significant dyspnea Is also complaining from some dysuria, urinalysis on admission was slightly abnormal. No suprapubic pain or flank pain or tenderness. No change in frequency or urgency Going to check urine analysis again if his abdominal we will start ceftriaxone and urine culture check bladder scan discussed with staff 10/06 Patient feels heavy today No chest pain or dyspnea No dysuria which was little yesterday and improved now He is metoprolol increased yesterday 150 up to 200 twice daily, today digoxin was added by personal financial planner because heart rate still 115 Patient started on Rocephin yesterday, urine culture growing gram-negative bacilli 10/07 No chest pain no dyspnea Heart rate still 100-123 No dysuria urine culture growing gram-negative bacilli but not final yet Patient remains on ceftriaxone Cardiology still following for A-fib with RVR, not completely controlled yet 10/08 Yesterday patient was still tachycardic despite being on digoxin. Cardiology switched him to amiodarone drip and stop the digoxin currently heart rate is controlled Cardiology plan for cardioversion today His UTI is also improving, urine culture is growing Klebsiella and E. coli both sensitive to ceftriaxone which she has been taking for 4 days now. Will continue monitoring Patient denies any other new complaints Objective - Vital Signs Vital signs: Vital Signs Temp 98.3 F 10/08/24 03:55 Pulse 64 10/08/24 03:55 Resp 18 10/08/24 03:55 BP 114/77 10/08/24 03:55 Pulse Ox 97 10/08/24 03:55 FiO2 Intake & Output 10/07/24 10/08/24 10/08/24 18:59 06:59 18:59 Intake Total 488.061 Balance 488.061 Weight 106.3 kg Intake: Intake, IV Titration 248.061 Amount Amiodarone 450 mg In 248.061 Dextrose 5% in Water 250 ml @ 0.5 MG/MIN 16.667 mls/hr IV .Q15H [facility] Rx#: [id number] Oral 240 Other: Voiding Method Toilet Toilet # Voids 1 1 - Exam GENERAL: The patient is alert and oriented x3, not in any acute distress. Well developed, well nourished. HEENT: Pupils are round and equally reacting to light. EOMI. No scleral icterus. No conjunctival pallor. Normocephalic, atraumatic. No pharyngeal erythema. No thyromegaly. CARDIOVASCULAR: S1 and S2 present. No murmurs, rubs, or gallops. PULMONARY: Chest is clear to auscultation, no wheezing , no crackles. ABDOMEN: Soft, nontender, nondistended, normoactive bowel sounds. No palpable organomegaly. MUSCULOSKELETAL: No joint swelling or deformity. EXTREMITIES: No cyanosis, clubbing, or pedal edema. NEUROLOGICAL: Gross neurological examination did not reveal any focal deficits. SKIN: No rashes. no petechiae. - Labs CBC & Chem 7: 10/05/24 05:36 10/07/24 06:07 Labs: Abnormal Lab Results - Last 24 Hours (Table) 10/07/24 Range/Units 06:07 BUN 23 H (9-20) mg/dL Glucose 110 H (74-99) mg/dL Microbiology - Last 24 Hours (Table) 10/05/24 10:00 Urine Culture - Final Urine,Voided Klebsiella pneumoniae Escherichia coli 10/03/24 19:32 Urine Culture - Preliminary Urine,Voided Gram Neg Bacilli Assessment and Plan Assessment: A-fib and RVR present on admission Acute urinary tract infection secondary to E. coli and Klebsiella Renal cell carcinoma metastatic disease status post radiotherapy on chemotherapy Chronic exertional dyspnea Hypertension Hyperlipidemia Diabetes mellitus Chronic kidney disease stage II Plan: Continue with Eliquis Continue with metoprolol, dose increased per personal financial planner Digoxin stopped with plan for cardioversion Continue with oral Lasix Cardiology team following closely C continue ceftriaxone and follow-up urine culture Labs and medication were reviewed.. Continue same treatment. Continue with symptomatic treatment. Resume home medication. Monitor labs and vitals. DVT a nd GI prophylaxis. Further recommendations as per clinical course of the patient DVT prophylaxis: on Eliquis GI Prophylaxis: Ppi PT/OT: Pending Prognosis is guarded
--- NOTE | 2024-10-08 10:36 | P.PN ---
Subjective HISTORY OF PRESENT ILLNESS: This is a 64-year-old male patient of Dr. Araujo with past medical history of atrial fibrillation, dyspnea on exertion, hyperlipidemia, diabetes mellitus type 2, remote history of tobacco use and dependence, chronic kidney disease, history of renal cell cancer 3 years ago status postchemotherapy and follows with Dr. Davies. We have been asked to evaluate the patient for A-fib with RVR. Patient states that he woke up Monday evening with his heart "going nuts." Patient gives history that he was recently taken off his oral chemotherapy due to plan for tooth extraction which was scheduled for today. In general he has been feeling okay but he does not feel his mind is functioning well because of the cancer. He states he has good and bad days. He complains of shortness of breath with heart racing. He has been started on Cardizem drip currently at 10 mg/h and heart rate is controlled. He does state that he is feeling better now. He states he has been taking all of his medications at home. He feels he is comfortable at rest but concerned that he would have shortness of breath and heart racing if he moved. Heart rate 106, blood pressure 128/83, pulse ox 96% on room air. -EKG: Atrial fibrillation at 156 bpm. -Chest x-ray: Borderline to mild cardiomegaly. No definite acute process. -Laboratory studies: WBC 5.2, hemoglobin 14.9, sodium 135, potassium 4.1, BUN 24 and creatinine 1.13. Troponin negative x 3. Magnesium 1.9. Urinalysis moderate leukoesterase. -Home cardiac medications: Eliquis 5 mg twice daily, atorvastatin 10 mg daily, Lasix 40 mg daily, Lopressor 100 mg twice daily. -Lexiscan Cardiolite stress test performed in the office on 06/22/2023 revealed nondiagnostic electrocardiographic stress testing. Normal myocardial perfusion imaging with normal gated SPECT images. No evidence of stress-induced ischemia. -Event monitor 06/14 - 06/15/2023 revealed A-fib with controlled ventricular rate. -Echocardiogram performed in the office on 05/23/2023 revealed EF 55 to 60%. Mild LVH. Mild mitral regurgitation, mild tricuspid regurgitation. PASP 24 mmHg. 10/08/2024 Patient examined this morning at bedside. Patient without complaints of chest pain or shortness of breath. He remains in atrial fibrillation with controlled ventricular rate. PHYSICAL EXAM: VITAL SIGNS: Reviewed. GENERAL: Well-developed in no acute distress. NECK: Supple. No JVD or thyromegaly LUNGS: Respirations even and unlabored. Lungs essentially clear to auscultation bilaterally. HEART: Irregular rate and rhythm. S1 and S2 heard. EXTREMITIES: Normal range of motion. No clubbing or cyanosis. Peripheral pulses intact. No lower extremity edema ASSESSMENT: Permanent atrial fibrillation with RVR, currently rate controlled Chronic dyspnea on exertion Hyperlipidemia Diabetes mellitus type 2 Remote history of tobacco use and dependence Chronic kidney disease History of renal cell cancer 3 years ago status post chemotherapy and surgery follows with Dr. Davies PLAN: Continue anticoagulation with Eliquis Continue metoprolol tartrate 200 mg twice daily Patient to undergo cardioversion today with Dr. Chaves Further recommendations pending patient course Nurse practitioner note has been reviewed by physician. Signing provider agrees with the documented findings, assessment, and plan of care documented by VP DIRECTOR OF CREATIVE STRATEGY as a scribe. Objective - Vital Signs Vital signs: Vital Signs Temp 97.6 F 10/08/24 09:35 Pulse 86 10/08/24 09:35 Resp 18 10/08/24 09:35 BP 133/92 10/08/24 09:35 Pulse Ox 97 10/08/24 09:35 FiO2 Intake & Output 10/07/24 10/08/24 10/08/24 18:59 06:59 18:59 Intake Total 488.061 Balance 488.061 Weight 106.3 kg Intake: Intake, IV Titration 248.061 Amount Amiodarone 450 mg In 248.061 Dextrose 5% in Water 250 ml @ 0.5 MG/MIN 16.667 mls/hr IV .Q15H PENDING S[facility] TO [facility] Rx#: [id number] Oral 240 Other: Voiding Method Toilet Toilet Toilet # Voids 1 1 - Labs CBC & Chem 7: 10/05/24 05:36 10/07/24 06:07 Labs: Microbiology - Last 24 Hours (Table) 10/05/24 10:00 Urine Culture - Final Urine,Voided Klebsiella pneumoniae Escherichia coli 10/03/24 19:32 Urine Culture - Preliminary Urine,Voided Gram Neg Bacilli
[2024-10-08] MEDS: IV FLUID CONTINUATION 1,000 ML IV ONE (10:47)
[2024-10-08] MEDS ORDERED: PROPOFOL 10 MG/ML 20 ML VIAL IV ONE (10:57)
--- NOTE | 2024-10-08 11:19 | P.EPPROC ---
- EP Procedure Note Electrophysiology Procedure Note: Diagnosis: Persistent atrial fibrillation with RVR despite beta-blockers and digoxin and IV amiodarone Final diagnosis Failed electrical cardioversion on IV amiodarone for 24 hours, despite a 200 J shock followed by a synchronized 400 J shock Patient failed to convert to sinus rhythm Plan Continue metoprolol 100 mg twice daily Stop digoxin Switch to amiodarone 200 mg twice daily Continue oral amiodarone for 1 month and reattempt electrical cardioversion thereafter Continue anticoagulation
[2024-10-08] MEDS: AMIODARONE 200 MG TAB PO SCH (12:33)
[2024-10-08] MEDS: SODIUM CHLORIDE 0.9% 1,000 ML IV SCH (14:31)
[2024-10-09] MEDS: HYDROCORTISONE 1% OINT 28.35 GM TUBE TOPICAL PRN (03:54)
[2024-10-09 10:38] VITALS: PULSE 87; RESP 16; TEMP 97.6
--- NOTE | 2024-10-09 11:04 | P.PN ---
Subjective HISTORY OF PRESENT ILLNESS: This is a 64-year-old male patient of Dr. Araujo with past medical history of atrial fibrillation, dyspnea on exertion, hyperlipidemia, diabetes mellitus type 2, remote history of tobacco use and dependence, chronic kidney disease, history of renal cell cancer 3 years ago status postchemotherapy and follows with Dr. Davies. We have been asked to evaluate the patient for A-fib with RVR. Patient states that he woke up Monday evening with his heart "going nuts." Patient gives history that he was recently taken off his oral chemotherapy due to plan for tooth extraction which was scheduled for today. In general he has been feeling okay but he does not feel his mind is functioning well because of the cancer. He states he has good and bad days. He complains of shortness of breath with heart racing. He has been started on Cardizem drip currently at 10 mg/h and heart rate is controlled. He does state that he is feeling better now. He states he has been taking all of his medications at home. He feels he is comfortable at rest but concerned that he would have shortness of breath and heart racing if he moved. Heart rate 106, blood pressure 128/83, pulse ox 96% on room air. -EKG: Atrial fibrillation at 156 bpm. -Chest x-ray: Borderline to mild cardiomegaly. No definite acute process. -Laboratory studies: WBC 5.2, hemoglobin 14.9, sodium 135, potassium 4.1, BUN 24 and creatinine 1.13. Troponin negative x 3. Magnesium 1.9. Urinalysis moderate leukoesterase. -Home cardiac medications: Eliquis 5 mg twice daily, atorvastatin 10 mg daily, Lasix 40 mg daily, Lopressor 100 mg twice daily. -Lexiscan Cardiolite stress test performed in the office on 06/22/2023 revealed nondiagnostic electrocardiographic stress testing. Normal myocardial perfusion imaging with normal gated SPECT images. No evidence of stress-induced ischemia. -Event monitor 06/14 - 06/15/2023 revealed A-fib with controlled ventricular rate. -Echocardiogram performed in the office on 05/23/2023 revealed EF 55 to 60%. Mild LVH. Mild mitral regurgitation, mild tricuspid regurgitation. PASP 24 mmHg. 10/08/2024 Patient examined this morning at bedside. Patient without complaints of chest pain or shortness of breath. He remains in atrial fibrillation with controlled ventricular rate. 10/09/2024 Patient is status post attempted cardioversion yesterday. Patient was shocked with 200 J and then again by 400 J and felt to convert to sinus mechanism. Patient remains in A-fib this morning with controlled ventricular rate. He denies chest pain or pressure. Denies shortness of breath. Blood pressure stable. PHYSICAL EXAM: VITAL SIGNS: Reviewed. GENERAL: Well-developed in no acute distress. NECK: Supple. No JVD or thyromegaly LUNGS: Respirations even and unlabored. Lungs essentially clear to auscultation bilaterally. HEART: Irregular rate and rhythm. S1 and S2 heard. EXTREMITIES: Normal range of motion. No clubbing or cyanosis. Peripheral pulses intact. No lower extremity edema ASSESSMENT: Permanent atrial fibrillation with RVR, currently rate controlled Chronic dyspnea on exertion Hyperlipidemia Diabetes mellitus type 2 Remote history of tobacco use and dependence Chronic kidney disease History of renal cell cancer 3 years ago status post chemotherapy and surgery follows with Dr. Davies PLAN: Continue amiodarone 200 mg twice daily, Eliquis, Lipitor, Lasix, and metoprolol 200 mg twice daily Patient may be discharged home today from a cardiac standpoint Possible reattempt at cardioversion in [address] Araujo Nurse practitioner note has been reviewed by physician. Signing provider agrees with the documented findings, assessment, and plan of care documented by RESPIRATORY CARE PRACTITIONER as a scribe. Objective - Vital Signs Vital signs: Vital Signs Temp 97.6 F 10/09/24 08:00 Pulse 87 10/09/24 08:00 Resp 16 10/09/24 08:00 BP 130/87 10/09/24 08:00 Pulse Ox 94 L 10/09/24 08:00 FiO2 Intake & Output 10/08/24 10/09/24 10/09/24 18:59 06:59 18:59 Intake Total 680 240 240 Balance 680 240 240 Weight 106.4 kg Intake: IV 200 Oral 480 240 240 Other: Voiding Method Toilet Toilet Toilet # Voids 1 - Labs CBC & Chem 7: 10/05/24 05:36 10/07/24 06:07 Labs: Microbiology - Last 24 Hours (Table) 10/03/24 19:32 Urine Culture - Final Urine,Voided Escherichia coli
[2024-10-09 12:22] VITALS: BP 120/81
--- NOTE | 2024-10-09 14:34 | P.DS ---
Providers Date of admission: 10/03/24 10:53 Expected date of discharge: 10/09/24 Attending physician: Freddie Rojo Consults: 10/03/24 10:53 Consult Physician Routine Consulting Provider: Mat Watson Consult Reason/Comments: A-fib with RVR Do you want consulting provider notified?: Yes 10/03/24 13:20 Consult Physician Routine Consulting Provider: Charlie Amanda Consult Reason/Comments: malignancy/ receiving radiation, known to Dr. Vázquez Do you want consulting provider notified?: Yes Consult Physician Urgent Consulting Provider: Sebastian Cyr Consult Reason/Comments: rad onc tx to left leg and left upper extremity Do you want consulting provider notified?: Yes 10/03/24 13:33 Consult Physician Routine Consulting Provider: Charlie Amanda Consult Reason/Comments: malignancy Do you want consulting provider notified?: Yes Primary care physician: [facility] Course: This is a pleasant 64 years old male with past medical history of multiple medical problems including renal cell carcinoma with metastatic disease on chemotherapy pills and status post radiotherapy. Presents initially because of chest pain found to have A-fib and RVR being followed closely by cardiology team Cardizem drip was stopped and his metoprolol dose increased today 150 up to 200 mg twice daily. Heart rate in this morning was 110-115. No significant dyspnea Is also complaining from some dysuria, urinalysis on admission was slightly abnormal. No suprapubic pain or flank pain or tenderness. No change in frequency or urgency Going to check urine analysis again if his abdominal we will start ceftriaxone and urine culture check bladder scan discussed with staff 10/06 Patient feels heavy today No chest pain or dyspnea No dysuria which was little yesterday and improved now He is metoprolol increased yesterday 150 up to 200 twice daily, today digoxin was added by care management coordinator because heart rate still 115 Patient started on Rocephin yesterday, urine culture growing gram-negative bacilli 10/07 No chest pain no dyspnea Heart rate still 100-123 No dysuria urine culture growing gram-negative bacilli but not final yet Patient remains on ceftriaxone Cardiology still following for A-fib with RVR, not completely controlled yet 10/08 Yesterday patient was still tachycardic despite being on digoxin. Cardiology switched him to amiodarone drip and stop the digoxin currently heart rate is controlled Cardiology plan for cardioversion today His UTI is also improving, urine culture is growing Klebsiella and E. coli both sensitive to ceftriaxone which she has been taking for 4 days now. Will continue monitoring Patient denies any other new complaints October 09: Patient underwent radiation treatment to the left arm. For his metastatic disease. A-fib is controlled. On amiodarone. Eliquis. Patient will follow-up with his oncologist Dr. Vázquez. And his care management coordinator. Breathing stable. Tolerating diet. Attempted cardioversion was not successful. Patient is to follow-up with Dr. Araujo. Discussion and discharge planning more than 35 minutes Examination: 97.6, 87, 16, 120 x 81, 96% room air Sitting up in chair, comfortable Cardiovascular: Heart sounds irregular. No edema Respiratory effort normal, lungs fair air entry Psychiatry: AO x 3, mood affect normal INVESTIGATIONS, reviewed in the clinical context: October 07, 2024: Potassium 4 BUN 23 creatinine 1.16 October 05: White count 5.1 hemoglobin 14.9 platelets 217 UA: Positive for leukoesterase, Urine culture: Positive for Klebsiella pneumoniae and E. coli 2D echo: EF 45%. Echogenic mass on mitral annulus. Likely mitral annular calcification-per Dr. Sascha Chaves Discharge diagnosis: -A-fib and RVR present on admission, now heart rate controlled Unsuccessful attempted cardioversion Amiodarone. Eliquis. Lopressor. Follow-up with Dr. Araujo cardiology outpatient - Echogenic mass on the mitral annulus. Likely mitral annular calcification Emerson Dr. Sascha Chaves - Chronic systolic dysfunction with a EF of 45%. Possibly secondary to atrial fibrillation Lasix -Acute urinary tract infection/cystitis secondary to E. coli and Klebsiella Received ceftriaxone. 7 more days of Keflex -Renal cell carcinoma metastatic disease-radiotherapy on chemotherapy Being followed by Dr. Vázquez oncologist. Received radiation to the left arm in the hospital -Essential hypertension Lopressor -Hyperlipidemia Lipitor Chronic kidney disease stage II - Full code Disposition: Home Plan - Discharge Summary Discharge Rx Participant: No New Discharge Prescriptions: New Amiodarone [Cordarone] 200 mg PO BID #60 tab Cephalexin [Keflex] 250 mg PO Q6HR #28 cap Continue Apixaban [Eliquis] 5 mg PO BID #60 tab OLANZapine [ZyPREXA] 2.5 mg PO HS Tamsulosin HCl [Flomax] 0.4 mg PO DAILY Metoprolol Tartrate [Lopressor] 100 mg PO BID Ipratropium-Albuterol Nebulize [Duoneb 0.5 mg-3 mg/3 ml Soln] 3 ml INHALATION RT-Q6H PRN PRN Reason: Shortness Of Breath Atorvastatin [Lipitor] 10 mg PO DAILY metFORMIN HCL 500 mg PO BID HYDROcodone/APAP 10-325MG [Oto 10-325] 1 - 2 tab PO Q4HR PRN PRN Reason: Pain Tivozanib HCl [Fotivda] 1.34 mg PO DIRECTED Fluticasone Propion/Salmeterol [Wixela 500-50 Inhub] 1 inhalation PO RT-BID Omeprazole [PriLOSEC] 40 mg PO DAILY Furosemide [Lasix] 40 mg PO DAILY Gabapentin [Neurontin] 300 mg PO TID PRN PRN Reason: Pain Discharge Medication List Apixaban [Eliquis] 5 mg PO BID #60 tab 06/24/19 [Rx] Atorvastatin [Lipitor] 10 mg PO DAILY 10/03/24 [History] Fluticasone Propion/Salmeterol [Wixela 500-50 Inhub] 1 inhalation PO RT-BID 10/03/24 [History] Furosemide [Lasix] 40 mg PO DAILY 10/03/24 [History] Gabapentin [Neurontin] 300 mg PO TID PRN 10/03/24 [History] HYDROcodone/APAP 10-325MG [Oto 10-325] 1 - 2 tab PO Q4HR PRN 10/03/24 [History] Ipratropium-Albuterol Nebulize [Duoneb 0.5 mg-3 mg/3 ml Soln] 3 ml INHALATION RT-Q6H PRN 10/03/24 [History] Metoprolol Tartrate [Lopressor] 100 mg PO BID 10/03/24 [History] OLANZapine [ZyPREXA] 2.5 mg PO HS 10/03/24 [History] Omeprazole [PriLOSEC] 40 mg PO DAILY 10/03/24 [History] Tamsulosin HCl [Flomax] 0.4 mg PO DAILY 10/03/24 [History] Tivozanib HCl [Fotivda] 1.34 mg PO DIRECTED 10/03/24 [History] metFORMIN HCL 500 mg PO BID 10/03/24 [History] Amiodarone [Cordarone] 200 mg PO BID #60 tab 10/09/24 [Rx] Cephalexin [Keflex] 250 mg PO Q6HR #28 cap 10/09/24 [Rx] Follow up Appointment(s)/Referral(s): Gerald Araujo MD [STAFF PHYSICIAN] - 10/16/24 8:30 am Soy Baez MD [Primary Care Provider] - 1-2 days Debbie Vázquez MD [STAFF PHYSICIAN] - 10/09/24 9:30 am Patient Instructions/Handouts: A-fib (Atrial Fibrillation) (DC) Activity/Diet/Wound Care/Special Instructions: HOLD FOTIVDA (CANCER PILL) UNTIL SEEN BY DR. VÁZQUEZ ON 10/09
--- NOTE | 2024-10-09 18:40 | P.PN ---
Subjective Progress Note Date: 10/09/24 No acute events overnight. Reporting feeling much improved. Plan to start RT to LUE today Objective - Vital Signs Vital signs: Vital Signs Temp 97.6 F 10/09/24 08:00 Pulse 87 10/09/24 12:00 Resp 16 10/09/24 12:00 BP 120/81 10/09/24 12:00 Pulse Ox 96 10/09/24 12:00 FiO2 Intake & Output 10/08/24 10/09/24 10/09/24 18:59 06:59 18:59 Intake Total 680 240 240 Balance 680 240 240 Weight 106.4 kg Intake: IV 200 Oral 480 240 240 Other: Voiding Method Toilet Toilet Toilet # Voids 1 1 - Constitutional General appearance: Present: average body habitus, no acute distress - EENT Eyes: Present: anicteric sclerae, EOMI ENT: Present: hearing grossly normal - Respiratory Details: breathing is even and unlabored - Cardiovascular Details: well perfused - Integumentary Integumentary: Absent: cyanotic - Neurologic Neurologic: Present: CNII-XII intact - Psychiatric Psychiatric: Present: A&O x's 3 - Labs CBC & Chem 7: 10/05/24 05:36 10/07/24 06:07 Assessment and Plan (1) Atrial fibrillation with rapid ventricular response Status: Acute Priority: High Code(s): I48.91 - UNSPECIFIED ATRIAL FIBRILLATION SNOMED Code(s): 921839508576234 (2) Renal cell carcinoma Status: Chronic Priority: High Code(s): C64.9 - MALIGNANT NEOPLASM OF UNSP KIDNEY, EXCEPT RENAL PELVIS SNOMED Code(s): 241412250 Plan: A-fib with RVR acute on chronic -Patient has been seen by cardiology, medications have been adjusted Metastatic RCC on oral Fotivda - Diagnosis and treatment as described in HPI - Patient most recently had evidence of disease progression in August, he was started on fotivda 09/11/2024. Patient discontinued Fotivda sometime over this last week-he is not sure what day he stopped-because there are plans for oral surgery. He will need to reschdule f/u with oral surgeon for tooth extraction and debridement - VEGF inhibitors do have cardiac side effects including heart failure, cardiac ischemia and thromboembolism. - Patient will continue to hold Fotivda until after he is had oral surgery and been reevaluated by Medical Oncology.
== END 2024-10-09 14:50 | disposition home or self-care (01) | DRG 309 ==
LOC: EC 09:47 → 3SCARD 10:53
PROVIDERS: ADMIT Hospitalist; ATTEND Hospitalist
PROC: 3E033RZ Introduction of Antiarrhythmic into Peripheral Vein, Percutaneous Approach (ICD-10-PCS; 2024-10-06)
PROC: 5A2204Z Restoration of Cardiac Rhythm, Single (ICD-10-PCS; principal; 2024-10-08 14:10)
PROC: DP0 Radiation Therapy, Musculoskeletal System, Beam Radiation (ICD-10-PCS; 2024-10-09)
DX: I48.21 Permanent atrial fibrillation (principal); C64.9 Malignant neoplasm of unspecified kidney, except renal pelvis; C79.51 Secondary malignant neoplasm of bone; Z51.5 Encounter for palliative care; B96.1 Klebsiella pneumoniae [K. pneumoniae] as the cause of diseases classified elsewhere; E11.22 Type 2 diabetes mellitus with diabetic chronic kidney disease; B96.20 Unspecified Escherichia coli [E. coli] as the cause of diseases classified elsewhere; I13.0 Hypertensive heart and chronic kidney disease with heart failure and stage 1 through stage 4 chronic kidney disease, or unspecified chronic kidney disease; M06.9 Rheumatoid arthritis, unspecified; J44.9 Chronic obstructive pulmonary disease, unspecified; I34.81 Nonrheumatic mitral (valve) annulus calcification; I50.9 Heart failure, unspecified; G89.29 Other chronic pain; G43.909 Migraine, unspecified, not intractable, without status migrainosus; N30.90 Cystitis, unspecified without hematuria; N18.2 Chronic kidney disease, stage 2 (mild); K21.9 Gastro-esophageal reflux disease without esophagitis; E55.9 Vitamin D deficiency, unspecified; E78.00 Pure hypercholesterolemia, unspecified; Z79.01 Long term (current) use of anticoagulants; Z79.84 Long term (current) use of oral hypoglycemic drugs; Z79.899 Other long term (current) drug therapy; Z87.891 Personal history of nicotine dependence; Z90.5 Acquired absence of kidney; Z92.21 Personal history of antineoplastic chemotherapy; Z92.3 Personal history of irradiation; Z71.3 Dietary counseling and surveillance
CPT/HCPCS: 36415; 71046; 77280; 77412; 80048; 80053; 81001; 83690; 83735; 84484; 85025; 85610; 85730; 87077; 87086; 87186; 92960; 93005; 93306; 94640; 96365; 96366; 99285

== ENCOUNTER → 2024-11-27 | Outpatient (CLI) | payer MEDICARE ==
--- NOTE | 2024-11-27 08:51 | XR ---
EXAMINATION TYPE: XR knee complete LT, XR tibia fibula LT DATE OF EXAM: 11/27/2024 8:35 AM COMPARISON: None CLINICAL INDICATION: Male, 64 years old with history of C79.51 malignant neoplasm bone; PHH, pain TECHNIQUE: XR knee complete LT, XR tibia fibula LT 3 views submitted. Frontal and lateral views of the tibia. FINDINGS: No evidence of any acute osseous pathology or soft tissue swelling. Tricompartmental oste ophyte formation involving the femoral condyles, tibial plateau and patella. Moderate to severe media l joint space narrowing. IMPRESSION: 1. No acute osseous pathology. 2. Moderate to severe tricompartmental osteoarthritic changes. [facility], , 11/27/2024 8:48 AM
== END | disposition home or self-care (01) ==
LOC: RADXRMAIN 08:06
PROVIDERS: ATTEND Radiology Radiation Oncology
DX: C79.51 Secondary malignant neoplasm of bone (principal); C77.2 Secondary and unspecified malignant neoplasm of intra-abdominal lymph nodes; C64.2 Malignant neoplasm of left kidney, except renal pelvis; M17.12 Unilateral primary osteoarthritis, left knee

== ENCOUNTER 2024-12-01 09:31 | Inpatient (IN) | payer MEDICARE ==
[2024-12-01] MEDS: SODIUM CHLORIDE 0.9% 500 ML 500 ML IV ONE (10:23)
[2024-12-01] MEDS: MORPHINE SULFATE 4 MG/ML SYRINGE IVP STA (10:24)
[2024-12-01 10:25] LABS: Basophils # (A) 0.06 10*3/uL (0.00-0.10); Basophils % (A) 0.7 %; Eosinophils # (A) 0.24 10*3/uL (0.04-0.35); Eosinophils % (A) 2.8 %; HCT 47.1 % (39.6-50.0); HGB 15.6 g/dL (13.0-17.0); Lymphocytes # (A) 0.71 10*3/uL (0.90-5.00); Lymphocytes % (A) 8.4 %; MCH 28.9 pg (27.0-32.0); MCHC 33.1 g/dL (32.0-37.0); MCV 87.4 fL (80.0-97.0); Monocytes # (A) 1.04 10*3/uL (0.20-1.00); Monocytes % (A) 12.2 %; Neutrophils # (A) 6.40 10*3/uL (1.80-7.70); Neutrophils % (A) 75.3 %; Platelet Count 402 10*3/uL (140-440); RBC 5.39 10*6/uL (4.40-5.60); RDW 17.0 % (11.5-14.5); WBC 8.50 10*3/uL (4.50-10.00)
[2024-12-01] MEDS: METOPROLOL TARTRATE 5 MG/5 ML VIAL IVP STA (10:28)
[2024-12-01 10:31] LABS: ALT 16 U/L (4-49); African American GFR (CKD) >90 (>60 ml/min/1.73 sqM); Albumin 3.9 g/dL (3.5-5.0); Anion Gap 12 mmol/L; Blood Urea Nitrogen 21 mg/dL (9-20); Calcium 9.7 mg/dL (8.4-10.2); Carbon Dioxide 21 mmol/L (22-30); Chloride 103 mmol/L (98-107); Glucose 110 mg/dL (74-99); Non-African American GFR(CKD) 85 (>60 ml/min/1.73 sqM); Sodium 136 mmol/L (137-145); Total Protein 7.6 g/dL (6.3-8.2)
[2024-12-01 10:33] LABS: Magnesium 1.8 mg/dL (1.6-2.3); Potassium 5.4 mmol/L (3.5-5.1)
[2024-12-01 10:34] LABS: AST 30 U/L (17-59); Alkaline Phosphatase 152 U/L (38-126)
[2024-12-01 10:37] LABS: INR 1.0 (<1.2); Partial Thromboplastin Time 28.1 sec (22.0-30.0); Prothrombin Time 11.3 sec (10.0-12.5)
[2024-12-01 10:41] LABS: NT-Pro-B-Type Natriuretic Pept 411 pg/mL
[2024-12-01] MEDS: IPRATROPIUM-ALBUTEROL 3 ML NEB INHALATION STA (10:43)
--- NOTE | 2024-12-01 11:06 | XR ---
EXAMINATION TYPE: XR chest 2V DATE OF EXAM: 12/01/2024 10:56 AM COMPARISON: Chest radiographs from 10/03/2024 TECHNIQUE: XR chest 2V Frontal and lateral views of the chest. CLINICAL INDICATION:Male, 64 years old with history of difficulty breathing; FINDINGS: Patient is rotated which limits evaluation. Lungs/Pleura: There is no evidence of pleural effusion, focal consolidation, or pneumothorax. Chroni c elevation of the left hemidiaphragm. Pulmonary vascularity: Unremarkable. Heart/mediastinum: Cardiomediastinal silhouette is enlarged and stable. Musculoskeletal: No acute osseous pathology. Destructive expansile posterior left 10th rib and sterna l lesions are better appreciated on PET/CT. Fixation hardware involving the visualized left proximal humerus. Remote healed fracture deformity of the right mid clavicle. IMPRESSION: 1. No acute cardiopulmonary disease/process. 2. Destructive expansile posterior left 10th rib and sternal lesions are better appreciated on PET/C T. [facility], , 12/01/2024 11:03 AM
[2024-12-01 11:16] LABS: RSV Not Detected (Not Detectd)
[2024-12-01] MEDS ORDERED: NALOXONE 0.4 MG/ML 1 ML VIAL IV PRN (12:55)
--- NOTE | 2024-12-01 12:57 | ED ---
General Adult HPI - General Chief complaint: Shortness of Breath Stated complaint: PADDY/Left Leg Pain Time Seen by Provider: 12/01/24 10:03 Source: patient, RN notes reviewed, old records reviewed Mode of arrival: wheelchair Limitations: no limitations - History of Present Illness Initial comments: 64-year-old male who presents emergency department complaining of chronic dyspnea as well as chronic left lower extremity pain. Patient states he intermittently will get dyspnea and seems to have it more frequently over the last few weeks. States he gets palpitations when it is present as well. He has has a history of A-fib, bone cancer with chronic left lower extremity pain, is on blood thinners. Has a history of COPD, heart failure, hypertension. Denies any chest pain. Denies any other acute complaints at this time. - Related Data Home Medications Medication Instructions Recorded Confirmed Atorvastatin [Lipitor] 10 mg PO DAILY 10/03/24 10/03/24 Fluticasone Propion/Salmeterol 1 inhalation PO RT-BID 10/03/24 10/03/24 [Wixela 500-50 Inhub] Furosemide [Lasix] 40 mg PO DAILY 10/03/24 10/03/24 Gabapentin [Neurontin] 300 mg PO TID PRN 10/03/24 10/03/24 HYDROcodone/APAP 10-325MG [Mcclelland 1 - 2 tab PO Q4HR PRN 10/03/24 10/03/24 10-325] Ipratropium-Albuterol Nebulize 3 ml INHALATION RT-Q6H PRN 10/03/24 10/03/24 [Duoneb 0.5 mg-3 mg/3 ml Soln] Metoprolol Tartrate [Lopressor] 100 mg PO BID 10/03/24 10/03/24 OLANZapine [ZyPREXA] 2.5 mg PO HS 10/03/24 10/03/24 Omeprazole [PriLOSEC] 40 mg PO DAILY 10/03/24 10/03/24 Tamsulosin HCl [Flomax] 0.4 mg PO DAILY 10/03/24 10/03/24 Tivozanib HCl [Fotivda] 1.34 mg PO DIRECTED 10/03/24 10/03/24 metFORMIN HCL 500 mg PO BID 10/03/24 10/03/24 Previous Rx's Medication Instructions Recorded Apixaban [Eliquis] 5 mg PO BID #60 tab 06/24/19 Amiodarone [Cordarone] 200 mg PO BID #60 tab 10/09/24 Cephalexin [Keflex] 250 mg PO Q6HR #28 cap 10/09/24 Allergies Allergy/AdvReac Type Severity Reaction Status Date / Time No Known Allergies Allergy Verified 12/01/24 09:33 Review of Systems ROS Statement: Those systems with pertinent positive or pertinent negative responses have been documented in the HPI. Review of Systems: CONST: Denies fever EYES: Denies blurry vision ENT: Denies nasal congestion C/V: Denies Chest pain RESP: Endorses intermittent dyspnea. Currently none. GI: Denies abdominal pain : Denies dysuria SKIN: Denies rash. MSK: Denies joint pain. NEURO: Denies headache ROS Other: All systems not noted in ROS Statement are negative. Past Medical History Past Medical History: Atrial Fibrillation, Cancer, Chest Pain / Angina, Heart Failure, COPD, Hypertension, Rheumatoid Arthritis (RA) Additional Past Medical History / Comment(s): migraines, renal tumor bone mets History of Any Multi-Drug Resistant Organisms: None Reported Past Surgical History: Cardiac Ablation, Orthopedic Surgery Additional Past Surgical History / Comment(s): rotator cuff left shoulder, Past Anesthesia/Blood Transfusion Reactions: No Reported Reaction Past Psychological History: No Psychological Hx Reported Smoking Status: Never smoker Past Alcohol Use History: Occasional Past Drug Use History: None Reported - Past Family History Mother Family Medical History: Cancer General Exam - General Exam Comments Initial Comments: General: Appears in no acute distress. HEAD: Normal with no signs of head trauma. EYES: EOMI ENT: Hearing grossly intact, normal oropharynx. RESPIRATORY: Clear breath sounds bilaterally. No wheezes, rales, or rhonchi. C/V: Irregular rate and rhythm. S1 and S2 auscultated, no edema, peripheral pulses 2+ and intact throughout ABD: Abd is soft, nontender, nondistended EXT: Normal range of motion, no obvious deformity SKIN: No rashes or lesions observed on exposed skin. NEURO: Alert and oriented x 4. Limitations: no limitations Course Vital Signs 12/01/24 12/01/24 12/01/24 09:33 09:59 10:27 Temperature 97.5 F L Pulse Rate 65 125 H 131 H Respiratory 20 20 19 Rate Blood Pressure 158/124 146/121 150/129 O2 Sat by Pulse 97 97 95 Oximetry 12/01/24 12/01/24 12/01/24 10:34 10:39 12:04 Temperature Pulse Rate 117 H 112 H Respiratory 21 19 Rate Blood Pressure 138/85 122/92 O2 Sat by Pulse 97 Oximetry Medical Decision Making - Medical Decision Making Was pt. sent in by a medical professional or institution (, PA, EVALUATION ENGINEER, urgent care, hospital, or [facility]...) When possible be specific @ -No Did you speak to anyone other than the patient for history (EMS, parent, family, police, friend...)? What history was obtained from this source @ -No Did you review nursing and triage notes (agree or disagree)? Why? @ -I reviewed and agree with nursing and triage notes Were old charts reviewed (outside hosp., previous admission, EMS record, old EKG, old radiological studies, urgent care reports/EKG's, [facility] records)? Report findings @ -Old charts reviewed including previous EKG from September 2024, which also displayed A-fib with RVR. Differential Diagnosis (chest pain, altered mental status, abdominal pain women, abdominal pain men, vaginal bleeding, weakness, fever, dyspnea, syncope, headache, dizziness, GI bleed, back pain, seizure, CVA, palpatations, mental health, musculoskeletal)? @ -COPD, CHF, A-fib with RVR, chronic pain. This list is not all-inclusive. EKG interpreted by me (3pts min.). @ -As above X-rays interpreted by me (1pt min.). @ -Chest x-ray shows destructive left 10th rib and sternal lesions that are better appreciated on PET and CT scan. These are old. No obvious acute pro cess. CT interpreted by me (1pt min.). @ -None done U/S interpreted by me (1pt. min.). @ -None done What testing was considered but not performed or refused? (CT, X-rays, U/S, labs)? Why? @ -None What meds were considered but not given or refused? Why? @ -None Did you discuss the management of the patient with other professionals (professionals i.e. , FRANKIE, EVALUATION ENGINEER, lab, RT, psych nurse, social director, retail team leader, teacher, chief program officer, corrections caseworker)? Give summary @ -Discussed with admitting provider, Dr. Rojo who accepted the admission. Was smoking cessation discussed for >3mins.? @ -No Was critical care preformed (if so, how long)? @ -No Were there social determinants of health that impacted care today? How? (Homelessness, low income, unemployed, alcoholism, drug addiction, transport ation, low edu. Level, literacy, decrease access to med. care, nursing home, rehab)? @ -No Was there de-escalation of care discussed even if they declined (Discuss DNR or withdrawal of care, Hospice)? DNR status @ -No What co-morbidities impacted this encounter? (DM, HTN, Smoking, COPD, CAD, Cancer, CVA, ARF, Chemo, Hep., AIDS, mental health diagnosis, sleep apnea, morbid obesity)? @ -History of atrial fibrillation, history of chronic pain Was patient admitted / discharged? Hospital course, mention meds given and route, prescriptions, significant lab abnormalities, going to OR and other pertinent info. @ -Presents to the emergency department with intermittent dyspnea for weeks to months as well as palpitations as well as chronic left lower extremity pain. He has a history of A-fib with RVR. Vitals remarkable for being in A-fib with RVR. Remainder the labs unremarkable. Obtain general workup. He was in agreement this plan. EKG shows A-fib with RVR. The RVR did improve with a dose of IV metoprolol 2.5 mg within acceptable rate of 80 to 110 bpm. Patient's labs are remarkable for a mild lactic acidosis of 3.0 and was given a small fluid bolus. Troponin undetectable. BNP within normal limits. Remainder the labs unremarkable. Chest x-ray shows chronic destructive findings of her rib but otherwise no obvious acute cardiopulmonary process. On reevaluation, patient is feeling proved. I discussed with the patient and we both agreed to admit the patient observation for his intermittent palpitations with shortness of breath. I am concerned that he may be experiencing shortness of breath secondary to spells of atrial fibrillation. He has remained within an acceptable rate since the single dose of IV metoprolol. However we will admit for observation with cardiology consult. He was in agreement this plan. I spoke with the admitting provider, Dr. Rojo who accepted the admission. Undiagnosed new problem with uncertain prognosis? @ -No Drug Therapy requiring intensive monitoring for toxicity (Heparin, Nitro, Insulin, Cardizem)? @ -No Were any procedures done? @ -No Diagnosis/symptom? @ -Atrial fibrillation with RVR, chronic pain, dyspnea Acute, or Chronic, or Acute on Chronic? @ -Acute on chronic Uncomplicated (without systemic symptoms) or Complicated (systemic symptoms)? @ -Complicated Side effects of treatment? @ -No Exacerbation, Progression, or Severe Exacerbation? @ -No Poses a threat to life or bodily function? How? (Chest pain, USA, ID, pneumonia, PE, COPD, DKA, ARF, appy, cholecystitis, CVA, Diverticulitis, Homicidal, Suicidal, threat to staff... and all critical care pts) @ -Unlikely at this time - Lab Data Result diagrams: 12/01/24 10:18 12/01/24 10:18 Lab Results 12/01/24 12/01/24 12/01/24 Range/Units 10:18 10:18 10:18 WBC 8.50 (4.50-10.00) 10*3/uL RBC 5.39 (4.40-5.60) 10*6/uL Hgb 15.6 (13.0-17.0) g/dL Hct 47.1 (39.6-50.0) % MCV 87.4 (80.0-97.0) fL MCH 28.9 (27.0-32.0) pg MCHC 33.1 (32.0-37.0) g/dL Plt Count 402 (140-440) 10*3/uL MPV 8.9 L (9.5-12.2) fL Immature Gran % (Auto) 0.6 % Neutrophils % 75.3 % Lymphocytes % 8.4 % Monocytes % 12.2 % Eosinophils % 2.8 % Basophils % 0.7 % Immature Gran # 0.05 H (0.00-0.04) 10*3/uL Neutrophils # 6.40 (1.80-7.70) 10*3/uL Lymphocytes # 0.71 L (0.90-5.00) 10*3/uL Monocytes # 1.04 H (0.20-1.00) 10*3/uL Eosinophils # 0.24 (0.04-0.35) 10*3/uL Basophils # 0.06 (0.00-0.10) 10*3/uL PT 11.3 (10.0-12.5) sec INR 1.0 (<1.2) APTT 28.1 (22.0-30.0) sec Sodium 136 L (137-145) mmol/L Potassium 5.4 H (3.5-5.1) mmol/L Chloride 103 (98-107) mmol/L Carbon Dioxide 21 L (22-30) mmol/L Anion Gap 12 mmol/L BUN 21 H (9-20) mg/dL Creatinine 0.95 (0.66-1.25) mg/dL Est GFR (CKD-EPI)AfAm >90 (>60 ml/min/1.73 sqM) Est GFR (CKD-EPI)NonAf 85 (>60 ml/min/1.73 sqM) Glucose 110 H (74-99) mg/dL Lactic Ac Sepsis Rflx Plasma Lactic Acid Kirk (0.7-2.0) mmol/L Calcium 9.7 (8.4-10.2) mg/dL Magnesium 1.8 (1.6-2.3) mg/dL Total Bilirubin 1.2 (0.2-1.3) mg/dL AST 30 (17-59) U/L ALT 16 (4-49) U/L Alkaline Phosphatase 152 H (38-126) U/L Troponin I (0.000-0.034) ng/mL NT-Pro-B Natriuret Pep 411 pg/mL Total Protein 7.6 (6.3-8.2) g/dL Albumin 3.9 (3.5-5.0) g/dL Influenza Type A (PCR) (Not Detectd) Influenza Type B (PCR) (Not Detectd) RSV (PCR) (Not Detectd) SARS-CoV-2 (PCR) (Not Detectd) 12/01/24 12/01/24 12/01/24 Range/Units 10:18 10:18 10:18 WBC (4.50-10.00) 10*3/uL RBC (4.40-5.60) 10*6/uL Hgb (13.0-17.0) g/dL Hct (39.6-50.0) % MCV (80.0-97.0) fL MCH (27.0-32.0) pg MCHC (32.0-37.0) g/dL Plt Count (140-440) 10*3/uL MPV (9.5-12.2) fL Immature Gran % (Auto) % Neutrophils % % Lymphocytes % % Monocytes % % Eosinophils % % Basophils % % Immature Gran # (0.00-0.04) 10*3/uL Neutrophils # (1.80-7.70) 10*3/uL Lymphocytes # (0.90-5.00) 10*3/uL Monocytes # (0.20-1.00) 10*3/uL Eosinophils # (0.04-0.35) 10*3/uL Basophils # (0.00-0.10) 10*3/uL PT (10.0-12.5) sec INR (<1.2) APTT (22.0-30.0) sec Sodium (137-145) mmol/L Potassium (3.5-5.1) mmol/L Chloride (98-107) mmol/L Carbon Dioxide (22-30) mmol/L Anion Gap mmol/L BUN (9-20) mg/dL Creatinine (0.66-1.25) mg/dL Est GFR (CKD-EPI)AfAm (>60 ml/min/1.73 sqM) Est GFR (CKD-EPI)NonAf (>60 ml/min/1.73 sqM) Glucose (74-99) mg/dL Lactic Ac Sepsis Rflx Plasma Lactic Acid Kirk 3.0 H* (0.7-2.0) mmol/L Calcium (8.4-10.2) mg/dL Magnesium (1.6-2.3) mg/dL Total Bilirubin (0.2-1.3) mg/dL AST (17-59) U/L ALT (4-49) U/L Alkaline Phosphatase (38-126) U/L Troponin I <0.012 (0.000-0.034) ng/mL NT-Pro-B Natriuret Pep pg/mL Total Protein (6.3-8.2) g/dL Albumin (3.5-5.0) g/dL Influenza Type A (PCR) Not Detected (Not Detectd) Influenza Type B (PCR) Not Detected (Not Detectd) RSV (PCR) Not Detected (Not Detectd) SARS-CoV-2 (PCR) Not Detected (Not Detectd) 12/01/24 Range/Units 10:41 WBC (4.50-10.00) 10*3/uL RBC (4.40-5.60) 10*6/uL Hgb (13.0-17.0) g/dL Hct (39.6-50.0) % MCV (80.0-97.0) fL MCH (27.0-32.0) pg MCHC (32.0-37.0) g/dL Plt Count (140-440) 10*3/uL MPV (9.5-12.2) fL Immature Gran % (Auto) % Neutrophils % % Lymphocytes % % Monocytes % % Eosinophils % % Basophils % % Immature Gran # (0.00-0.04) 10*3/uL Neutrophils # (1.80-7.70) 10*3/uL Lymphocytes # (0.90-5.00) 10*3/uL Monocytes # (0.20-1.00) 10*3/uL Eosinophils # (0.04-0.35) 10*3/uL Basophils # (0.00-0.10) 10*3/uL PT (10.0-12.5) sec INR (<1.2) APTT (22.0-30.0) sec Sodium (137-145) mmol/L Potassium (3.5-5.1) mmol/L Chloride (98-107) mmol/L Carbon Dioxide (22-30) mmol/L Anion Gap mmol/L BUN (9-20) mg/dL Creatinine (0.66-1.25) mg/dL Est GFR (CKD-EPI)AfAm (>60 ml/min/1.73 sqM) Est GFR (CKD-EPI)NonAf (>60 ml/min/1.73 sqM) Glucose (74-99) mg/dL Lactic Ac Sepsis Rflx Y Plasma Lactic Acid Kirk (0.7-2.0) mmol/L Calcium (8.4-10.2) mg/dL Magnesium (1.6-2.3) mg/dL Total Bilirubin (0.2-1.3) mg/dL AST (17-59) U/L ALT (4-49) U/L Alkaline Phosphatase (38-126) U/L Troponin I (0.000-0.034) ng/mL NT-Pro-B Natriuret Pep pg/mL Total Protein (6.3-8.2) g/dL Albumin (3.5-5.0) g/dL Influenza Type A (PCR) (Not Detectd) Influenza Type B (PCR) (Not Detectd) RSV (PCR) (Not Detectd) SARS-CoV-2 (PCR) (Not Detectd) - EKG Data -: EKG Interpreted by Me EKG Comments: 12-lead Electrocardiogram Interpretation Note EKG was reviewed and interpreted by myself. 12-lead ECG performed at 0956 is interpreted by me as revealing atrial fibrillation with RVR at a rate of 149 beats per minute. Right bundle branch block pathology. QRS durations 160 ms, QTc is 409 ms.. There were no ST or T wave abnormalities to suggest myocardial ischemia or injury. R wave progression across the precordium was satisfactory. By my interpretation this EKG is non-diagnostic for acute ischemia. Disposition Clinical Impression: Atrial fibrillation with RVR, Chronic pain, Dyspnea Disposition: ADMITTED IP TO THIS HOSP Condition: Stable Time of Disposition: 12:25
[2024-12-01] MEDS: IPRATROPIUM-ALBUTEROL 3 ML NEB INHALATION PRN (15:00)
[2024-12-01] MEDS: FOTIVDA PO SCH (15:45)
[2024-12-01] MEDS: METOPROLOL SUCCINATE (ER) 100 MG TAB.ER.24H PO STA (16:15)
[2024-12-01] MEDS: MORPHINE SULFATE 4 MG/ML SYRINGE IV PRN (17:44)
[2024-12-01 18:05] LABS: Bacteria,Urine Moderate /hpf; Bilirubin,Urine Negative (Negative); Blood,Urine Small (Negative); Color,Urine Yellow; Glucose,Urine (UA) Negative (Negative); Ketones,Urine Negative (Negative); Leukocyte Esterase,Urine Large (Negative); Mucus,Urine Rare /hpf; Nitrite,Urine Negative (Negative); PH, Urine 5.5 (5.0-8.0); Protein,Urine Trace (Negative); RBC,Urine 26 /hpf (0-5); Specific Gravity,Urine 1.023 (1.001-1.035); Squamous Epithelial Cell,Urine 1 /hpf (0-4); Urobilinogen,Urine 3.0 mg/dL (<2.0); WBC,Urine >182 /hpf (0-5)
[2024-12-01] MEDS: SYMBICORT 160-4.5 MCG INHALER INHALATION SCH (19:58)
[2024-12-01 20:18] LABS: Glucose,Whole Blood 154 mg/dL (70-110)
[2024-12-01] MEDS ORDERED: AMIODARONE 200 MG TAB PO SCH (21:00)
[2024-12-01] MEDS: GABAPENTIN 300 MG CAP PO SCH (21:40)
[2024-12-01] MEDS: PANTOPRAZOLE 40 MG TABLET PO SCH (21:40)
[2024-12-01] MEDS: metFORMIN 500 MG TAB PO SCH (21:40)
[2024-12-01] MEDS: APIXABAN 5 MG TAB PO SCH (21:40)
[2024-12-01] MEDS: TAMSULOSIN 0.4 MG CAP.ER.24H PO SCH (21:40)
[2024-12-01] MEDS: OLANZapine 2.5 MG TAB PO SCH (21:41)
[2024-12-01] MEDS: METOPROLOL TARTRATE 50 MG TAB PO SCH (21:43)
--- NOTE | 2024-12-01 23:23 | P.HPIM ---
History of Present Illness H&P Date: 12/01/24 Chief Complaint: Short of breath This is a pleasant 64 years old male with past medical history of multiple medical problems including renal cell carcinoma with metastatic disease on chemotherapy pills and status post radiotherapy. Patient has received radiation treatment to his left arm and the leg. For pain. Follows with oncologist Dr. Davies. Last night patient started getting short of breath. No cough. Mild edema in the left leg. Also felt slight chest pressure. Has orthopnea. He decided to come in. Denies any fever and chills.Was found to be in A-fib with rapid ventricular rate in the ER. Was given IV metoprolol 2.5 mg x 1. Review of systems: GEN.: Tired EYES: None HEENT: None NECK: None RESPIRATORY: As above CARDIOVASCULAR: None GASTROINTESTINAL: None GENITOURINARY: None MUSCULOSKELETAL: [Some pain in the left arm left leg LYMPHATICS: None HEMATOLOGICAL: None PSYCHIATRY: Anxious NEUROLOGICAL: None Social history: Smoked a pack a day for about 30 years stopped in 2019. Lives with his friend don Physical examination: VITAL SIGNS: 97.5, 125, 20, 146 x 121, 95% room air upon presentation GENERAL: BMI 31.8, up in a chair a bit tired a bit short of breath. EYES: Pupils equal. Conjunctiva lyla l. HEENT: External appearance of nose and ears normal, oral cavity grossly normal. NECK: JVD not raised; masses not palpable. HEART: Heart sounds irregular; some edema especially in the left leg. LUNGS: Respiratory rate increased decreased breath sounds. ABDOMEN: Soft, nontender, liver spleen not palpable, no masses palpable. PSYCH: [Alert and oriented x3; mood and affect excess MUSCULOSKELETAL:No Clubbing/cyanosis;muscles-grossly intact NEUROLOGICAL: Cranial nerves grossly intact; no facial asymmetry, power and sensation grossly intact. LYMPHATICS: No lymph nodes palpable in the axilla and neck INVESTIGATIONS, reviewed in the clinical context: December 01, 2024: White count 8.5 hemoglobin 15.6 platelets 402 sodium 136 potassium 5.4 BUN 21 creatinine 0.95 Lactic acid 3.02.43.0 Troponin I less than 0.012 x 2 proBNP 411 Influenza type A, type B, RSV, SARS-CoV-2: Not detected EKG tracing personally reviewed by me-atrial fibrillation rate 149 Chest x-ray film personally reviewed by me-some cardiomegaly Previous 2D echo: EF 45%. Echogenic mass on mitral annulus. Likely mitral annular calci fication-per Dr. Sascha Chaves Assessment and plan s: -Persistent A-fib and RVR present on admission, causing short of breath Previous unsuccessful attempted cardioversion Lopressor 100 mg twice daily r. Eliquis Telemetry. Cardiology consulted - Echogenic mass on the mitral annulus. Likely mitral annular calcification-Dr. Sascha Chaves - Chronic systolic dysfunction with a EF of 45%. Possibly secondary to atrial fibrillation -Renal cell carcinoma metastatic disease-radiotherapy and chemotherapy Being followed by Dr. Davies oncologist. Received radiation to the left arm and left leg -Essential hypertension Lopressor -Hyperlipidemia Lipitor -BPH Flomax 0.4 mg twice daily - GERD Prilosec - COPD in a previous smoker DuoNeb as needed. Symbicort - Full code Care was discussed with the patient Past Medical History Past Medical History: Atrial Fibrillation, Cancer, Chest Pain / Angina, Heart Failure, COPD, Hypertension, Rheumatoid Arthritis (RA) Additional Past Medical History / Comment(s): migraines, renal tumor bone mets History of Any Multi-Drug Resistant Organisms: None Reported Past Surgical History: Cardiac Ablation, Orthopedic Surgery Additional Past Surgical History / Comment(s): rotator cuff left shoulder, Past Anesthesia/Blood Transfusion Reactions: No Reported Reaction Past Psychological History: No Psychological Hx Reported Smoking Status: Never smoker Past Alcohol Use History: Occasional Additional Past Alcohol Use History / Comment(s): quit smoking May 2019, smoked for 30 yrs, 1 PPD Past Drug Use History: None Reported - Past Family History Mother Family Medical History: Cancer Medications and Allergies Home Medications Medication Instructions Recorded Confirmed Type Apixaban [Eliquis] 5 mg PO BID #60 tab 06/24/19 12/01/24 Rx Atorvastatin [Lipitor] 10 mg PO DAILY 10/03/24 12/01/24 History Fluticasone Propion/Salmeterol 1 puff INHALATION RT-BID 10/03/24 12/01/24 History [Wixela 500-50 Inhub] Gabapentin [Neurontin] 300 mg PO HS 10/03/24 12/01/24 History Ipratropium-Albuterol Nebulize 3 ml INHALATION RT-Q6H PRN 10/03/24 12/01/24 History [Duoneb 0.5 mg-3 mg/3 ml Soln] Metoprolol Tartrate [Lopressor] 100 mg PO BID 10/03/24 12/01/24 History OLANZapine [ZyPREXA] 2.5 mg PO HS 10/03/24 12/01/24 History Omeprazole [PriLOSEC] 40 mg PO BID 10/03/24 12/01/24 History Tamsulosin HCl [Flomax] 0.4 mg PO BID 10/03/24 12/01/24 History Tivozanib HCl [Fotivda] 1.34 mg PO DIRECTED 10/03/24 12/01/24 History metFORMIN HCL 500 mg PO BID 10/03/24 12/01/24 History Ciprofloxacin HCl [Cipro] 500 mg PO BID 12/01/24 12/01/24 History Ondansetron Odt [Zofran Odt] 4 - 8 mg PO Q8H PRN 12/01/24 12/01/24 History SILVER sulfADIAZINE Cream 1 applic TOPICAL DIRECTED PRN 12/01/24 12/01/24 History [Silvadene 1% Cream] oxyCODONE HCL [oxyCODONE HCL (IR)] 10 - 20 mg PO Q4H PRN 12/01/24 12/01/24 History Allergies Allergy/AdvReac Type Severity Reaction Status Date / Time No Known Allergies Allergy Verified 12/01/24 09:33 Physical Exam Vitals: Vital Signs Temp Pulse Pulse Resp BP BP Pulse Ox 12/01/24 20:00 97.5 F L 95 24 122/82 95 12/01/24 18:59 122 H 12/01/24 18:04 16 12/01/24 17:40 125 H 18 140/102 96 12/01/24 17:09 135 H 18 108/96 96 12/01/24 15:45 146 H 19 142/76 97 12/01/24 15:02 126 H 16 95 12/01/24 12:04 112 H 19 122/92 97 12/01/24 10:39 21 12/01/24 10:34 117 H 138/85 12/01/24 10:27 131 H 19 150/129 95 12/01/24 09:59 125 H 20 146/121 97 12/01/24 09:33 97.5 F L 65 20 158/124 97 Intake and Output 12/01/24 12/01/24 12/02/24 14:59 22:59 06:59 Other: Voiding Method Urinal Weight 103.555 kg 103.555 kg Results CBC & Chem 7: 12/01/24 10:18 12/01/24 10:18 Labs: Abnormal Lab Results - Last 24 Hours (Table) 12/01/24 12/01/24 12/01/24 Range/Units 10:18 10:18 10:18 MPV 8.9 L (9.5-12.2) fL Immature Gran # 0.05 H (0.00-0.04) 10*3/uL Lymphocytes # 0.71 L (0.90-5.00) 10*3/uL Monocytes # 1.04 H (0.20-1.00) 10*3/uL Sodium 136 L (137-145) mmol/L Potassium 5.4 H (3.5-5.1) mmol/L Carbon Dioxide 21 L (22-30) mmol/L BUN 21 H (9-20) mg/dL Glucose 110 H (74-99) mg/dL POC Glucose (mg/dL) (70-110) mg/dL Plasma Lactic Acid Kirk 3.0 H* (0.7-2.0) mmol/L Alkaline Phosphatase 152 H (38-126) U/L Urine Protein (Negative) Urine Blood (Negative) Ur Leukocyte Esterase (Negative) Urine RBC (0-5) /hpf Urine WBC (0-5) /hpf Urine Bacteria (None) /hpf Urine Mucus (None) /hpf 12/01/24 12/01/24 12/01/24 Range/Units 12:59 15:34 17:46 MPV (9.5-12.2) fL Immature Gran # (0.00-0.04) 10*3/uL Lymphocytes # (0.90-5.00) 10*3/uL Monocytes # (0.20-1.00) 10*3/uL Sodium (137-145) mmol/L Potassium (3.5-5.1) mmol/L Carbon Dioxide (22-30) mmol/L BUN (9-20) mg/dL Glucose (74-99) mg/dL POC Glucose (mg/dL) (70-110) mg/dL Plasma Lactic Acid Kirk 2.4 H* 3.0 H* (0.7-2.0) mmol/L Alkaline Phosphatase (38-126) U/L Urine Protein Trace H (Negative) Urine Blood Small H (Negative) Ur Leukocyte Esterase Large H (Negative) Urine RBC 26 H (0-5) /hpf Urine WBC >182 H (0-5) /hpf Urine Bacteria Moderate H (None) /hpf Urine Mucus Rare H (None) /hpf 12/01/24 12/01/24 Range/Units 19:26 20:17 MPV (9.5-12.2) fL Immature Gran # (0.00-0.04) 10*3/uL Lymphocytes # (0.90-5.00) 10*3/uL Monocytes # (0.20-1.00) 10*3/uL Sodium (137-145) mmol/L Potassium (3.5-5.1) mmol/L Carbon Dioxide (22-30) mmol/L BUN (9-20) mg/dL Glucose (74-99) mg/dL POC Glucose (mg/dL) 154 H (70-110) mg/dL Plasma Lactic Acid Kirk 2.3 H* (0.7-2.0) mmol/L Alkaline Phosphatase (38-126) U/L Urine Protein (Negative) Urine Blood (Negative) Ur Leukocyte Esterase (Negative) Urine RBC (0-5) /hpf Urine WBC (0-5) /hpf Urine Bacteria (None) /hpf Urine Mucus (None) /hpf Thrombosis Risk Factor Assmnt - Choose All That Apply Each Factor Represents 1 point: Abnormal pulmonary function (COPD), Obesity (BMI >25) Each Risk Factor Represents 2 Points: Age 61-74 years, Malignancy Thrombosis Risk Factor Assessment Total Risk Factor Score: 6 Thrombosis Risk Factor Assessment Level: High Risk
[2024-12-02 06:09] LABS: Glucose,Whole Blood 98 mg/dL (70-110)
[2024-12-02 06:26] LABS: Basophils # (A) 0.07 10*3/uL (0.00-0.10); Basophils % (A) 1.1 %; Eosinophils # (A) 0.35 10*3/uL (0.04-0.35); Eosinophils % (A) 5.6 %; HCT 45.3 % (39.6-50.0); HGB 15.2 g/dL (13.0-17.0); Lymphocytes # (A) 0.76 10*3/uL (0.90-5.00); Lymphocytes % (A) 12.2 %; MCH 30.0 pg (27.0-32.0); MCHC 33.6 g/dL (32.0-37.0); MCV 89.3 fL (80.0-97.0); Monocytes # (A) 0.79 10*3/uL (0.20-1.00); Monocytes % (A) 12.7 %; Neutrophils # (A) 4.23 10*3/uL (1.80-7.70); Neutrophils % (A) 68.1 %; Platelet Count 402 10*3/uL (140-440); RBC 5.07 10*6/uL (4.40-5.60); RDW 16.8 % (11.5-14.5); WBC 6.22 10*3/uL (4.50-10.00)
[2024-12-02 07:03] LABS: ALT 15 U/L (4-49); AST 24 U/L (17-59); African American GFR (CKD) 90 (>60 ml/min/1.73 sqM); Albumin 3.6 g/dL (3.5-5.0); Alkaline Phosphatase 165 U/L (38-126); Anion Gap 9 mmol/L; Blood Urea Nitrogen 21 mg/dL (9-20); Calcium 9.8 mg/dL (8.4-10.2); Carbon Dioxide 26 mmol/L (22-30); Chloride 101 mmol/L (98-107); Glucose 95 mg/dL (74-99); Non-African American GFR(CKD) 78 (>60 ml/min/1.73 sqM); Sodium 136 mmol/L (137-145); Total Protein 6.9 g/dL (6.3-8.2)
[2024-12-02 07:04] LABS: Potassium 4.6 mmol/L (3.5-5.1)
[2024-12-02] MEDS: FUROSEMIDE 40 MG TAB PO SCH (08:22)
[2024-12-02] MEDS: ATORVASTATIN 10 MG TAB PO SCH (08:22)
--- NOTE | 2024-12-02 09:33 | P.CRDCN ---
History of Present Illness History of present illness: This is a 64-year-old male patient of Dr. Araujo with past medical history of persistentt atrial fibrillation, dyspnea on exertion, hyperlipidemia, diabetes mellitus type 2, remote history of tobacco use and dependence, chronic kidney disease, history of renal cell cancer 3 years ago status postchemotherapy and follows with Dr. Davies, mild CMP EF 45-50%. We have been asked to evaluate the patient for A-fib with RVR. Patient has had multiple issues recently with dyspnea. He states he will wake up in the middle of the night gasping for air and feels short of breath. Symptoms have been going on for last few days. He admits to trace lower extremity edema. He did have prior hospitalization approximately 2 months ago with failed electrical cardioversion despite amiodarone. -EKG: Atrial fibrillation RVR -Lexiscan Cardiolite stress test performed in the office on 06/22/2023 revealed nondiagnostic electrocardiographic stress testing. Normal myocardial perfusion imaging with normal gated SPECT images. No evidence of stress-induced ischemia. -Event monitor 06/14 - 06/15/2023 revealed A-fib with controlled ventricular rate. -Echocardiogram performed in the office on 10/06 EF 45 to 50% Review Of Systems: At the time of my exam: CONSTITUTIONAL: Denies fever or chills. HEENT: Denies blurred vision, vision changes, or eye pain. Denies hemoptysis CARDIOVASCULAR: Denies chest pain. Denies orthopnea. Denies PND. Denies palpitations RESPIRATORY: Denies shortness of breath. GASTROINTESTINAL: Denies abdominal pain. Denies nausea or vomiting. HEMATOLOGIC: Denies bleeding disorders. GENITOURINARY: Denies any blood in urine. SKIN: Denies puritis. Denies rash. Physical examination: Gen: This is 64-year-old male in no acute distress VS: reviewed HEENT: Head is atraumatic, normocephalic. Pupils equal, round. Sclerae is anicteric. NECK: Supple. No JVD. LUNGS: Clear to auscultation. No wheezes or rhonchi. No intercostal retractions. HEART: Irregular rate and rhythm. No murmur. ABDOMEN: Soft No tenderness. EXTREMITIES: No pedal edema. No calf tenderness. NEUROLOGICAL: Patient is awake, alert and oriented x3. Assessment: Persistent atrial fibrillation with RVR, currently rate controlled Acute on chronic diastolic heart failure Chronic dyspnea on exertion Hyperlipidemia Diabetes mellitus type 2 Remote history of tobacco use and dependence Chronic kidney disease History of renal cell cancer 3 years ago status post chemotherapy and surgery follows with Dr. Davies Plan: Resume patient's home cardiac medications with the following changes: Increase metoprolol tartrate to 150 mg twice daily. Has not had success with rhythm control in the past. May need to evaluate for other options as an outpatient such as AV julia ablation if continues to be severely symptomatic. Most of his symptoms appear related to A-fib with RVR exacerbating heart failure. Agree with addition of home Lasix. Past Medical History Past Medical History: Atrial Fibrillation, Cancer, Chest Pain / Angina, Heart Failure, COPD, Hypertension, Rheumatoid Arthritis (RA) Additional Past Medical History / Comment(s): migraines, renal tumor bone mets History of Any Multi-Drug Resistant Organisms: None Reported Past Surgical History: Cardiac Ablation, Orthopedic Surgery Additional Past Surgical History / Comment(s): rotator cuff left shoulder, Past Anesthesia/Blood Transfusion Reactions: No Reported Reaction Past Psychological History: No Psychological Hx Reported Smoking Status: Never smoker Past Alcohol Use History: Occasional Additional Past Alcohol Use History / Comment(s): quit smoking May 2019, smoked for 30 yrs, 1 PPD Past Drug Use History: None Reported - Past Family History Mother Family Medical History: Cancer Medications and Allergies Home Medications Medication Instructions Recorded Confirmed Type Apixaban [Eliquis] 5 mg PO BID #60 tab 06/24/19 12/01/24 Rx Atorvastatin [Lipitor] 10 mg PO DAILY 10/03/24 12/01/24 History Fluticasone Propion/Salmeterol 1 puff INHALATION RT-BID 10/03/24 12/01/24 History [Wixela 500-50 Inhub] Gabapentin [Neurontin] 300 mg PO HS 10/03/24 12/01/24 History Ipratropium-Albuterol Nebulize 3 ml INHALATION RT-Q6H PRN 10/03/24 12/01/24 History [Duoneb 0.5 mg-3 mg/3 ml Soln] Metoprolol Tartrate [Lopressor] 100 mg PO BID 10/03/24 12/01/24 History OLANZapine [ZyPREXA] 2.5 mg PO HS 10/03/24 12/01/24 History Omeprazole [PriLOSEC] 40 mg PO BID 10/03/24 12/01/24 History Tamsulosin HCl [Flomax] 0.4 mg PO BID 10/03/24 12/01/24 History Tivozanib HCl [Fotivda] 1.34 mg PO DIRECTED 10/03/24 12/01/24 History metFORMIN HCL 500 mg PO BID 10/03/24 12/01/24 History Ciprofloxacin HCl [Cipro] 500 mg PO BID 12/01/24 12/01/24 History Ondansetron Odt [Zofran Odt] 4 - 8 mg PO Q8H PRN 12/01/24 12/01/24 History SILVER sulfADIAZINE Cream 1 applic TOPICAL DIRECTED PRN 12/01/24 12/01/24 History [Silvadene 1% Cream] oxyCODONE HCL [oxyCODONE HCL (IR)] 10 - 20 mg PO Q4H PRN 12/01/24 12/01/24 History Allergies Allergy/AdvReac Type Severity Reaction Status Date / Time No Known Allergies Allergy Verified 12/01/24 09:33 Physical Exam Vitals: Vital Signs Temp Pulse Pulse Resp BP BP Pulse Ox 12/02/24 08:25 97.5 F L 120 H 20 133/84 97 12/02/24 04:00 97.5 F L 102 H 20 128/100 95 12/02/24 02:00 98.6 F 106 H 20 130/84 95 12/01/24 20:00 97.5 F L 95 24 122/82 95 12/01/24 18:59 122 H 12/01/24 18:04 16 12/01/24 17:40 125 H 18 140/102 96 12/01/24 17:09 135 H 18 108/96 96 12/01/24 15:45 146 H 19 142/76 97 12/01/24 15:02 126 H 16 95 12/01/24 12:04 112 H 19 122/92 97 12/01/24 10:39 21 12/01/24 10:34 117 H 138/85 12/01/24 10:27 131 H 19 150/129 95 12/01/24 09:59 125 H 20 146/121 97 12/01/24 09:33 97.5 F L 65 20 158/124 97 Intake and Output 12/01/24 12/02/24 12/02/24 22:59 06:59 14:59 Output Total 250 150 Balance -250 -150 Output: Urine 250 150 Other: Voiding Method Urinal Urinal # Voids 2 1 Weight 103.555 kg Results 12/02/24 05:57 12/02/24 05:57 Cardiac Enzymes 12/01/24 12/01/24 12/01/24 Range/Units 10:18 10:18 15:34 AST 30 (17-59) U/L Troponin I <0.012 <0.012 (0.000-0.034) ng/mL 12/01/24 12/02/24 Range/Units 19:26 05:57 AST 24 (17-59) U/L Troponin I <0.012 (0.000-0.034) ng/mL Coagulation 12/01/24 Range/Units 10:18 PT 11.3 (10.0-12.5) sec APTT 28.1 (22.0-30.0) sec CBC 12/01/24 12/02/24 Range/Units 10:18 05:57 WBC 8.50 6.22 (4.50-10.00) 10*3/uL RBC 5.39 5.07 (4.40-5.60) 10*6/uL Hgb 15.6 15.2 (13.0-17.0) g/dL Hct 47.1 45.3 (39.6-50.0) % Plt Count 402 402 (140-440) 10*3/uL Comprehensive Metabolic Panel 12/01/24 12/02/24 Range/Units 10:18 05:57 Sodium 136 L 136 L (137-145) mmol/L Potassium 5.4 H 4.6 (3.5-5.1) mmol/L Chloride 103 101 (98-107) mmol/L Carbon Dioxide 21 L 26 (22-30) mmol/L BUN 21 H 21 H (9-20) mg/dL Creatinine 0.95 1.02 (0.66-1.25) mg/dL Glucose 110 H 95 (74-99) mg/dL Calcium 9.7 9.8 (8.4-10.2) mg/dL AST 30 24 (17-59) U/L ALT 16 15 (4-49) U/L Alkaline Phosphatase 152 H 165 H (38-126) U/L Total Protein 7.6 6.9 (6.3-8.2) g/dL Albumin 3.9 3.6 (3.5-5.0) g/dL Current Medications Generic Name Dose Route Start Last Admin Trade Name Freq PRN Reason Stop Dose Admin Albuterol/Ipratropium 3 ml 12/01/24 13:58 12/01/24 15:00 Ipratropium-Albuterol 3 Ml Neb INHALATION 3 ml RT-Q6H PRN Administration Shortness Of Breath Apixaban 5 mg 12/01/24 21:00 12/02/24 08:22 Apixaban 5 Mg Tab PO 5 mg BID INDRA Administration Protocol Atorvastatin Calcium 10 mg 12/02/24 09:00 12/02/24 08:22 Atorvastatin 10 Mg Tab PO 10 mg DAILY INDRA Administration Budesonide/Formoterol Fumarate 2 puff 12/01/24 20:00 12/02/24 09:11 Symbicort 160-4.5 Mcg Inhaler INHALATION 2 puff RT-BID INDRA Administration Furosemide 40 mg 12/02/24 09:00 12/02/24 08:22 Furosemide 40 Mg Tab PO 40 mg DAILY INDRA Administration Gabapentin 300 mg 12/01/24 21:00 12/01/24 21:40 Gabapentin 300 Mg Cap PO 300 mg HS INDRA Administration Metformin HCl 500 mg 12/01/24 21:00 12/02/24 08:22 Metformin 500 Mg Tab PO 500 mg BID INDRA Administration Metoprolol Tartrate 100 mg 12/01/24 21:00 12/02/24 08:22 Metoprolol Tartrate 50 Mg Tab PO 100 mg BID INDRA Administration Morphine Sulfate 4 mg 12/01/24 12:55 12/01/24 17:44 Morphine Sulfate 4 Mg/Ml Syringe IV 4 mg Q4HR PRN Administration Severe Pain (Scale 7 to 10) Naloxone HCl 0.2 mg 12/01/24 12:55 Naloxone 0.4 Mg/Ml 1 Ml Vial IV Q2M PRN Opioid Reversal Fotivda (Tivozanib 1 each 12/01/24 15:00 12/01/24 15:45 Hcl) 1.34 Mg Capsule PO Not Given DAILY IDNRA Olanzapine 2.5 mg 12/01/24 21:00 12/01/24 21:41 Olanzapine 2.5 Mg Tab PO 2.5 mg HS INDRA Administration Oxycodone HCl 10 mg 12/01/24 14:56 12/02/24 08:22 Oxycodone Hcl 5 Mg Tab PO 10 mg Q4H PRN Administration Pain Pantoprazole Sodium 40 mg 12/01/24 21:00 12/02/24 08:22 Pantoprazole 40 Mg Tablet PO 40 mg BID INDRA Administration Tamsulosin HCl 0.4 mg 12/01/24 21:00 12/02/24 08:22 Tamsulosin 0.4 Mg Cap.Er.24h PO 0.4 mg BID INDRA Administration Intake and Output 12/01/24 12/02/24 12/02/24 22:59 06:59 14:59 Output Total 250 150 Balance -250 -150 Output: Urine 250 150 Other: Voiding Method Urinal Urinal # Voids 2 1 Weight 103.555 kg 12/02/24 05:57 12/02/24 05:57
[2024-12-02 12:12] LABS: Glucose,Whole Blood 110 mg/dL (70-110)
[2024-12-02] MEDS: METOPROLOL TARTRATE 50 MG TAB PO SCH (12:34)
[2024-12-02] MEDS: METOPROLOL TARTRATE 50 MG TAB PO STA (12:49)
--- NOTE | 2024-12-02 14:20 | US ---
EXAMINATION TYPE: US venous doppler duplex LE BI DATE OF EXAM: 12/02/2024 12:13 PM COMPARISON: NONE CLINICAL INDICATION: Male, 64 years old with history of leg swelling; Leg swelling and pain. No histo ry of DVT, patient on blood thinners. TECHNIQUE: The lower extremity deep venous system is examined utilizing real time linear array sonog sae with graded compression, doppler sonography and color-flow sonography. Grayscale, color doppler , spectral doppler imaging performed of the deep veins of the lower extremities FINDINGS: SIDE PERFORMED: Bilateral VESSELS IMAGED: Common Femoral Vein Deep Femoral Vein Greater Saphenous Vein * Femoral Vein Popliteal Vein Small Saphenous Vein * Proximal Calf Veins Posterior tibial veins (* superficial vessels) Right Leg: Negative for DVT; There is normal flow, compressibility, vascular waveforms. Left Leg: Negative for DVT; There is normal flow, compressibility, vascular waveforms. Rouleaux flow seen in the left popliteal vein. IMPRESSION: Some slow flow noted within the left popliteal vein but with no evidence for DVT within either lower extremity. [facility], , 12/02/2024 2:18 PM
--- NOTE | 2024-12-02 14:45 | XR ---
EXAMINATION TYPE: XR femur LT DATE OF EXAM: 12/02/2024 2:36 PM COMPARISON: 11/27/2024, 07/11/2023 CLINICAL INDICATION: Male, 64 years old with history of pain ,h/o bone ca getting chemo to left side; PHH, pain TECHNIQUE: 2 views FINDINGS: There is a revision longstem left hip hemiarthroplasty. Prominent irregularity and loss of bone along the proximal femur. There is a single cerclage wire. The stem component extends just beyond the mid shaft level. There is medial and patellofemoral compartmental degenerative change at the knee. No acute fractures seen. IMPRESSION: 1. Left hip hemiarthroplasty with oncologic prosthesis. Prominent bone loss and heterotopic ossificat ion along the proximal aspect of the femur appears similar. 2. Knee shows medial patellofemoral compartmental OA. [facility], Workstation: [facility], 12/02/2024 2:43 PM
[2024-12-02 16:55] LABS: Glucose,Whole Blood 121 mg/dL (70-110)
--- NOTE | 2024-12-02 18:56 | P.PN ---
Subjective This is a pleasant 64 years old male with past medical history of multiple medical problems including renal cell carcinoma with metastatic disease on chemotherapy pills and status post radiotherapy. Patient has received radiation treatment to his left arm and the leg. For pain. Follows with oncologist Dr. Davies. Last night patient started getting short of breath. No cough. Mild edema in the left leg. Also felt slight chest pressure. Has orthopnea. He decided to come in. Denies any fever and chills.Was found to be in A-fib with rapid ventricular rate in the ER. Was given IV metoprolol 2.5 mg x 1. 12/02 Patient presents with A-fib and RVR Muhammad also complaining from left leg pain. He has history of left renal cell cancer and bone cancer and is getting radiotherapy. Patient states he got the seventh on 8 radiotherapy session about 1 week ago. After 2 days he came to the hospital on Monday. Also he is getting chemotherapy pill On exam he has no evidence of cellulitis of the left leg. Will check ultrasound and x-ray of the left lower extremity Cardiology team are following closely for his A-fib and RVR but currently denies chest pain or dyspnea. Heart rate was slightly better controlled this morning at 95. He is also on Eliquis at home. Active Medications Generic Name Dose Route Start Last Admin Trade Name Freq PRN Reason Stop Dose Admin Albuterol/Ipratropium 3 ml 12/01/24 13:58 12/01/24 15:00 Ipratropium-Albuterol 3 Ml Neb INHALATION 3 ml RT-Q6H PRN Administration Shortness Of Breath Apixaban 5 mg 12/01/24 21:00 12/02/24 08:22 Apixaban 5 Mg Tab PO 5 mg BID INDRA Administration Protocol Atorvastatin Calcium 10 mg 12/02/24 09:00 12/02/24 08:22 Atorvastatin 10 Mg Tab PO 10 mg DAILY INDRA Administration Budesonide/Formoterol Fumarate 2 puff 12/01/24 20:00 12/02/24 09:11 Symbicort 160-4.5 Mcg Inhaler INHALATION 2 puff RT-BID INDRA Administration Furosemide 40 mg 12/02/24 09:00 12/02/24 08:22 Furosemide 40 Mg Tab PO 40 mg DAILY INDRA Administration Gabapentin 300 mg 12/01/24 21:00 12/01/24 21:40 Gabapentin 300 Mg Cap PO 300 mg HS INDRA Administration Metformin HCl 500 mg 12/01/24 21:00 12/02/24 08:22 Metformin 500 Mg Tab PO 500 mg BID INDRA Administration Metoprolol Tartrate 150 mg 12/02/24 09:45 12/02/24 12:34 Metoprolol Tartrate 50 Mg Tab PO Not Given BID INDRA Morphine Sulfate 4 mg 12/01/24 12:55 12/01/24 17:44 Morphine Sulfate 4 Mg/Ml Syringe IV 4 mg Q4HR PRN Administration Severe Pain (Scale 7 to 10) Naloxone HCl 0.2 mg 12/01/24 12:55 Naloxone 0.4 Mg/Ml 1 Ml Vial IV Q2M PRN Opioid Reversal Fotivda (Tivozanib 1 each 12/01/24 15:00 12/02/24 10:55 Hcl) 1.34 Mg Capsule PO Not Given DAILY INDRA Olanzapine 2.5 mg 12/01/24 21:00 12/01/24 21:41 Olanzapine 2.5 Mg Tab PO 2.5 mg HS INDRA Administration Oxycodone HCl 10 mg 12/01/24 14:56 12/02/24 16:52 Oxycodone Hcl 5 Mg Tab PO 10 mg Q4H PRN Administration Pain Pantoprazole Sodium 40 mg 12/01/24 21:00 12/02/24 08:22 Pantoprazole 40 Mg Tablet PO 40 mg BID INDRA Administration Tamsulosin HCl 0.4 mg 12/01/24 21:00 12/02/24 08:22 Tamsulosin 0.4 Mg Cap.Er.24h PO 0.4 mg BID INDRA Administration Objective - Vital Signs Vital signs: Vital Signs Temp 97.7 F 12/02/24 11:27 Pulse 114 H 12/02/24 11:27 Resp 19 12/02/24 11:27 BP 116/94 12/02/24 11:27 Pulse Ox 98 12/02/24 11:27 FiO2 Intake & Output 12/01/24 12/02/24 12/02/24 18:59 06:59 18:59 Output Total 400 Balance -400 Weight 103.555 kg Output: Urine 400 Other: Voiding Method Urinal Urinal # Voids 1 - Exam GENERAL: The patient is alert and oriented x3, not in any acute distress. Well developed, well nourished. HEENT: Pupils are round and equally reacting to light. EOMI. No scleral icterus. No conjunctival pallor. Normocephalic, atraumatic. No pharyngeal erythema. No thyromegaly. CARDIOVASCULAR: S1 and S2 present. No murmurs, rubs, or gallops. PULMONARY: Chest is clear to auscultation, no wheezing , no crackles. ABDOMEN: Soft, nontender, nondistended, normoactive bowel sounds. No palpable organomegaly. MUSCULOSKELETAL: No joint swelling or deformity. -EXTREMITIES: No cyanosis, clubbing, or pedal edema. Left thigh tenderness no cellulitis or rash NEUROLOGICAL: Gross neurological examination did not reveal any focal deficits. SKIN: No rashes. no petechiae. - Labs CBC & Chem 7: 12/02/24 05:57 12/02/24 05:57 Labs: Abnormal Lab Results - Last 24 Hours (Table) 12/01/24 12/01/24 12/01/24 Range/Units 12:59 15:34 17:46 MPV (9.5-12.2) fL Lymphocytes # (0.90-5.00) 10*3/uL Sodium (137-145) mmol/L BUN (9-20) mg/dL POC Glucose (mg/dL) (70-110) mg/dL Plasma Lactic Acid Kirk 2.4 H* 3.0 H* (0.7-2.0) mmol/L Alkaline Phosphatase (38-126) U/L Urine Protein Trace H (Negative) Urine Blood Small H (Negative) Ur Leukocyte Esterase Large H (Negative) Urine RBC 26 H (0-5) /hpf Urine WBC >182 H (0-5) /hpf Urine Bacteria Moderate H (None) /hpf Urine Mucus Rare H (None) /hpf 12/01/24 12/01/24 12/02/24 Range/Units 19:26 20:17 05:57 MPV 8.9 L (9.5-12.2) fL Lymphocytes # 0.76 L (0.90-5.00) 10*3/uL Sodium (137-145) mmol/L BUN (9-20) mg/dL POC Glucose (mg/dL) 154 H (70-110) mg/dL Plasma Lactic Acid Kirk 2.3 H* (0.7-2.0) mmol/L Alkaline Phosphatase (38-126) U/L Urine Protein (Negative) Urine Blood (Negative) Ur Leukocyte Esterase (Negative) Urine RBC (0-5) /hpf Urine WBC (0-5) /hpf Urine Bacteria (None) /hpf Urine Mucus (None) /hpf 12/02/24 Range/Units 05:57 MPV (9.5-12.2) fL Lymphocytes # (0.90-5.00) 10*3/uL Sodium 136 L (137-145) mmol/L BUN 21 H (9-20) mg/dL POC Glucose (mg/dL) (70-110) mg/dL Plasma Lactic Acid Kirk (0.7-2.0) mmol/L Alkaline Phosphatase 165 H (38-126) U/L Urine Protein (Negative) Urine Blood (Negative) Ur Leukocyte Esterase (Negative) Urine RBC (0-5) /hpf Urine WBC (0-5) /hpf Urine Bacteria (None) /hpf Urine Mucus (None) /hpf Assessment and Plan Assessment: -Persistent A-fib and RVR present on admission, causing short of breath Previous unsuccessful attempted cardioversion Lopressor 100 mg twice daily rMellissa Valdezis Telemetry. Cardiology consulted Increase metoprolol to 150 mg twice daily - Left leg pain in review of his renal cell carcinoma Ultrasound of the legs is negative for DVT bilaterally X-ray showing prosthesis in the same place similar to previous x-ray Continue with symptomatic treatment - Echogenic mass on the mitral annulus. Likely mitral annular calcification-Dr. Sascha Chaves - Chronic systolic dysfunction with a EF of 45%. Possibly secondary to atrial fibrillation -Renal cell carcinoma metastatic disease-radiotherapy and chemotherapy Being followed by Dr. Davies oncologist. Received radiation to the left arm and left leg -Essential hypertension Lopressor -Hyperlipidemia Lipitor -BPH Flomax 0.4 mg twice daily - GERD Prilosec - COPD in a previous smoker DuoNeb as needed. Symbicort - Full code
[2024-12-02 20:13] LABS: Glucose,Whole Blood 107 mg/dL (70-110)
[2024-12-03 06:04] LABS: Glucose,Whole Blood 96 mg/dL (70-110)
[2024-12-03 06:37] LABS: Basophils # (A) 0.04 10*3/uL (0.00-0.10); Basophils % (A) 0.7 %; Eosinophils # (A) 0.27 10*3/uL (0.04-0.35); Eosinophils % (A) 4.8 %; HCT 46.1 % (39.6-50.0); HGB 15.0 g/dL (13.0-17.0); Lymphocytes # (A) 0.54 10*3/uL (0.90-5.00); Lymphocytes % (A) 9.6 %; MCH 28.5 pg (27.0-32.0); MCHC 32.5 g/dL (32.0-37.0); MCV 87.5 fL (80.0-97.0); Monocytes # (A) 0.84 10*3/uL (0.20-1.00); Monocytes % (A) 14.9 %; Neutrophils # (A) 3.92 10*3/uL (1.80-7.70); Neutrophils % (A) 69.3 %; Platelet Count 396 10*3/uL (140-440); RBC 5.27 10*6/uL (4.40-5.60); RDW 16.6 % (11.5-14.5); WBC 5.65 10*3/uL (4.50-10.00)
[2024-12-03 06:57] LABS: African American GFR (CKD) >90 (>60 ml/min/1.73 sqM); Anion Gap 11 mmol/L; Blood Urea Nitrogen 20 mg/dL (9-20); Calcium 9.7 mg/dL (8.4-10.2); Carbon Dioxide 27 mmol/L (22-30); Chloride 97 mmol/L (98-107); Glucose 92 mg/dL (74-99); Magnesium 1.7 mg/dL (1.6-2.3); Non-African American GFR(CKD) 89 (>60 ml/min/1.73 sqM); Potassium 4.3 mmol/L (3.5-5.1); Sodium 135 mmol/L (137-145)
--- NOTE | 2024-12-03 08:55 | P.PN ---
Subjective This is a 64-year-old male patient of Dr. Araujo with past medical history of persistentt atrial fibrillation, dyspnea on exertion, hyperlipidemia, diabetes mellitus type 2, remote history of tobacco use and dependence, chronic kidney disease, history of renal cell cancer 3 years ago status postchemotherapy and follows with Dr. Davies, mild CMP EF 45-50%. We have been asked to evaluate the patient for A-fib with RVR. Patient has had multiple issues recently with dyspnea. He states he will wake up in the middle of the night gasping for air a nd feels short of breath. Symptoms have been going on for last few days. He admits to trace lower extremity edema. He did have prior hospitalization approximately 2 months ago with failed electrical cardioversion despite amiodarone. -EKG: Atrial fibrillation RVR -Lexiscan Cardiolite stress test performed in the office on 06/22/2023 revealed nondiagnostic electrocardiographic stress testing. Normal myocardial perfusion imaging with normal gated SPECT images. No evidence of stress-induced ischemia. -Event monitor 06/14 - 06/15/2023 revealed A-fib with controlled ventricular rate. -Echocardiogram performed in the office on 10/06 EF 45 to 50% 12/03 Patient seen and examined. Patient feels somewhat better however still having intermittent tachycardia with heart rates in the 120s. It does appear somewhat related to when his Lopressor is wearing off right around the time when he needs his next dose of medications. He did have some shortness of breath last night. Physical examination: Gen: This is 64-year-old male in no acute distress VS: reviewed HEENT: Head is atraumatic, normocephalic. Pupils equal, round. Sclerae is anicteric. NECK: Supple. No JVD. LUNGS: Clear to auscultation. No wheezes or rhonchi. No intercostal retractions. HEART: Irregular rate and rhythm. No murmur. ABDOMEN: Soft No tenderness. EXTREMITIES: No pedal edema. No calf tenderness. NEUROLOGICAL: Patient is awake, alert and oriented x3. Assessment: Persistent atrial fibrillation with RVR, currently rate controlled Acute on chronic diastolic heart failure Chronic dyspnea on exertion Hyperlipidemia Diabetes mellitus type 2 Remote history of tobacco use and dependence Chronic kidney disease History of renal cell cancer 3 years ago status post chemotherapy and surgery follows with Dr. Davies Plan: Resume patient's home cardiac medications with the following changes: Heart rate still not well-controlled and intermittent tachycardia with heart rates up in the 120s. May be related to Lopressor wearing off and we will switch to Toprol 150 mg twice a day and monitor response. Hopefully if blood pr essures more controlled possible discharge home in next 24 to 48 hours. Has not had success with rhythm control in the past. May need to evaluate for other options as an outpatient such as AV julia ablation if continues to be severely symptomatic. Most of his symptoms appear related to A-fib with RVR exacerbating heart failure. Agree with addition of home Lasix. Objective - Vital Signs Vital signs: Vital Signs Temp 97.9 F 12/03/24 05:00 Pulse 97 12/03/24 08:00 Resp 20 12/03/24 08:00 BP 130/88 12/03/24 05:00 Pulse Ox 97 12/03/24 05:00 FiO2 Intake & Output 12/02/24 12/03/24 12/03/24 18:59 06:59 18:59 Intake Total 540 Output Total 1000 800 Balance -1000 -260 Intake: Oral 540 Output: Urine 1000 800 Other: Voiding Method Urinal Urinal Urinal - Labs CBC & Chem 7: 12/03/24 06:03 12/03/24 06:03 Labs: Abnormal Lab Results - Last 24 Hours (Table) 12/02/24 12/03/24 12/03/24 Range/Units 16:53 06:03 06:03 MPV 8.9 L (9.5-12.2) fL Lymphocytes # 0.54 L (0.90-5.00) 10*3/uL Sodium 135 L (137-145) mmol/L Chloride 97 L (98-107) mmol/L POC Glucose (mg/dL) 121 H (70-110) mg/dL
[2024-12-03] MEDS: METOPROLOL SUCCINATE (ER) 100 MG TAB.ER.24H PO SCH (09:13)
[2024-12-03 11:28] LABS: Glucose,Whole Blood 183 mg/dL (70-110)
[2024-12-03 12:02] LABS: Bacteria,Urine Rare /hpf; Bilirubin,Urine Negative (Negative); Blood,Urine Negative (Negative); Budding Yeast,Urine Few /hpf; Color,Urine Colorless; Glucose,Urine (UA) Negative (Negative); Ketones,Urine Negative (Negative); Leukocyte Esterase,Urine Large (Negative); Nitrite,Urine Negative (Negative); PH, Urine 6.0 (5.0-8.0); Protein,Urine Negative (Negative); RBC,Urine 3 /hpf (0-5); Specific Gravity,Urine 1.006 (1.001-1.035); Squamous Epithelial Cell,Urine <1 /hpf (0-4); Urobilinogen,Urine <2.0 mg/dL (<2.0); WBC,Urine 89 /hpf (0-5)
[2024-12-03] MEDS ORDERED: ZINC OXIDE PASTE (Z-GUARD) 1 APPLIC TOPICAL PRN (14:45)
[2024-12-03 16:39] LABS: Glucose,Whole Blood 115 mg/dL (70-110)
--- NOTE | 2024-12-03 19:28 | P.PN ---
Subjective This is a pleasant 64 years old male with past medical history of multiple medical problems including renal cell carcinoma with metastatic disease on chemotherapy pills and status post radiotherapy. Patient has received radiation treatment to his left arm and the leg. For pain. Follows with oncologist Dr. Davies. Last night patient started getting short of breath. No cough. Mild edema in the left leg. Also felt slight chest pressure. Has orthopnea. He decided to come in. Denies any fever and chills.Was found to be in A-fib with rapid ventricular rate in the ER. Was given IV metoprolol 2.5 mg x 1. 12/02 Patient presents with A-fib and RVR Muhammad also complaining from left leg pain. He has history of left renal cell cancer and bone cancer and is getting radiotherapy. Patient states he got the seventh on 8 radiotherapy session about 1 week ago. After 2 days he came to the hospital on Monday. Also he is getting chemotherapy pill On exam he has no evidence of cellulitis of the left leg. Will check ultrasound and x-ray of the left lower extremity Cardiology team are following closely for his A-fib and RVR but currently denies chest pain or dyspnea. Heart rate was slightly better controlled this morning at 95. He is also on Eliquis at home. 12/03 Patient still with leg pain for 2 months Patient reports no improvement Ultrasound and x-ray were negative to show a cause for the pain. Patient states he cannot walk on it. Will ask for orthopedic evaluation Patient however denies chest pain or dyspnea or palpitation today. pt has many question were answered to his satisfaction Cardiology is following the patient for his A-fib and RVR, heart rate better controlled around 100-105 after increasing metoprolol to 150 mg twice daily. If patient remains improved cardiac medication for discharge in next 24 to 48 hours. Hematology/oncology team consult evaluation today Active Medications Generic Name Dose Route Start Last Admin Trade Name Freq PRN Reason Stop Dose Admin Albuterol/Ipratropium 3 ml 12/01/24 13:58 12/01/24 15:00 Ipratropium-Albuterol 3 Ml Neb INHALATION 3 ml RT-Q6H PRN Administration Shortness Of Breath Apixaban 5 mg 12/01/24 21:00 12/03/24 09:10 Apixaban 5 Mg Tab PO 5 mg BID INDRA Administration Protocol Atorvastatin Calcium 10 mg 12/02/24 09:00 12/03/24 09:10 Atorvastatin 10 Mg Tab PO 10 mg DAILY INDRA Administration Budesonide/Formoterol Fumarate 2 puff 12/01/24 20:00 12/03/24 09:05 Symbicort 160-4.5 Mcg Inhaler INHALATION 2 puff RT-BID INDRA Administration Furosemide 40 mg 12/02/24 09:00 12/03/24 09:10 Furosemide 40 Mg Tab PO 40 mg DAILY INDRA Administration Gabapentin 300 mg 12/01/24 21:00 12/02/24 20:54 Gabapentin 300 Mg Cap PO 300 mg HS INDRA Administration Metformin HCl 500 mg 12/01/24 21:00 12/03/24 09:10 Metformin 500 Mg Tab PO 500 mg BID INDRA Administration Metoprolol Succinate 150 mg 12/03/24 09:00 12/03/24 09:13 Metoprolol Succinate (Er) 100 Mg Tab.Er.24h PO 150 mg BID INDRA Administration Morphine Sulfate 4 mg 12/01/24 12:55 12/01/24 17:44 Morphine Sulfate 4 Mg/Ml Syringe IV 4 mg Q4HR PRN Administration Severe Pain (Scale 7 to 10) Naloxone HCl 0.2 mg 12/01/24 12:55 Naloxone 0.4 Mg/Ml 1 Ml Vial IV Q2M PRN Opioid Reversal Olanzapine 2.5 mg 12/01/24 21:00 12/02/24 20:54 Olanzapine 2.5 Mg Tab PO 2.5 mg HS INDRA Administration Oxycodone HCl 10 mg 12/01/24 14:56 12/03/24 18:04 Oxycodone Hcl 5 Mg Tab PO 10 mg Q4H PRN Administration Pain Pantoprazole Sodium 40 mg 12/01/24 21:00 12/03/24 09:10 Pantoprazole 40 Mg Tablet PO 40 mg BID INDRA Administration Petrolatum 1 applic 12/03/24 14:45 Zinc Oxide Paste (Z-Guard) 1 Applic TOPICAL DAILY PRN Wound Healing Protocol Tamsulosin HCl 0.4 mg 12/01/24 21:00 12/03/24 09:10 Tamsulosin 0.4 Mg Cap.Er.24h PO 0.4 mg BID INDRA Administration Objective - Vital Signs Vital signs: Vital Signs Temp 98.2 F 12/03/24 08:30 Pulse 108 H 12/03/24 08:30 Resp 19 12/03/24 08:30 BP 105/71 07/22/25 08:30 Pulse Ox 94 L 12/03/24 08:30 FiO2 Intake & Output 12/02/24 12/03/24 12/03/24 18:59 06:59 18:59 Intake Total 540 Output Total 1000 800 Balance -1000 -260 Intake: Oral 540 Output: Urine 1000 800 Other: Voiding Method Urinal Urinal Urinal - Exam GENERAL: The patient is alert and oriented x3, not in any acute distress. Well developed, well nourished. HEENT: Pupils are round and equally reacting to light. EOMI. No scleral icterus. No conjunctival pallor. Normocephalic, atraumatic. No pharyngeal erythema. No thyromegaly. CARDIOVASCULAR: S1 and S2 present. No murmurs, rubs, or gallops. PULMONARY: Chest is clear to auscultation, no wheezing , no crackles. ABDOMEN: Soft, nontender, nondistended, normoactive bowel sounds. No palpable organomegaly. MUSCULOSKELETAL: No joint swelling or deformity. -EXTREMITIES: No cyanosis, clubbing, or pedal edema. Left thigh tenderness no cellulitis or rash NEUROLOGICAL: Gross neurological examination did not reveal any focal deficits. SKIN: No rashes. no petechiae. - Labs CBC & Chem 7: 12/03/24 06:03 12/03/24 06:03 Labs: Abnormal Lab Results - Last 24 Hours (Table) 12/02/24 12/03/24 12/03/24 Range/Units 16:53 06:03 06:03 MPV 8.9 L (9.5-12.2) fL Lymphocytes # 0.54 L (0.90-5.00) 10*3/uL Sodium 135 L (137-145) mmol/L Chloride 97 L (98-107) mmol/L POC Glucose (mg/dL) 121 H (70-110) mg/dL Assessment and Plan Assessment: -Persistent A-fib and RVR present on admission, causing short of breath Previous unsuccessful attempted cardioversion Lopressor 100 mg twice daily r. Eliquis Telemetry. Cardiology consulted Increase metoprolol to 150 mg twice daily - Left leg pain in review of his renal cell carcinoma Ultrasound of the legs is negative for DVT bilaterally X-ray showing prosthesis in the same place similar to previous x-ray Continue with symptomatic treatment -Consult orthopedic team - Echogenic mass on the mitral annulus. Likely mitral annular calcification-Dr. Sascha Chaves - Chronic systolic dysfunction with a EF of 45%. Possibly secondary to atrial fibrillation -Renal cell carcinoma metastatic disease-radiotherapy and chemotherapy Being followed by Dr. Davies oncologist. Received radiation to the left arm and left leg -Essential hypertension Lopressor -Hyperlipidemia Lipitor -BPH Flomax 0.4 mg twice daily - GERD Prilosec - COPD in a previous smoker DuoNeb as needed. Symbicort - Full code
[2024-12-03 19:54] LABS: Glucose,Whole Blood 143 mg/dL (70-110)
[2024-12-03] MEDS: ONDANSETRON 4 MG/2 ML VIAL IVP PRN (20:59)
[2024-12-03] MEDS: MELATONIN 5 MG TABLET PO PRN (22:00)
[2024-12-04 05:58] LABS: Glucose,Whole Blood 103 mg/dL (70-110)
--- NOTE | 2024-12-04 06:25 | P.CONS ---
History of Present Illness - Reason for Consult Consult date: 12/03/24 [facility] Requesting physician: Dragan Bautista - Chief Complaint SOB, LLE pain - History of Present Illness Mr. Santoro is a 64-year-old male patient of Dr. Davies with a history of renal cell carcinoma, diagnosed September 2019. He presented with gross hematuria, imaging revealed a 9 cm left kidney mass, no metastatic disease at that time. 10/14/2019 he had a left radical nephrectomy, pathology for clear-cell carcinoma, grade 4, invading renal sinus fat, tumor size 10 cm, 1 perinephric node was positive, positive for lymphovascular invasion, negative margins. He did well until July 2021, presented with a left pathological femur fracture. He had proximal femur repair at [facility], path positive for metastatic clear-cell carcinoma of the kidney. CT CAP revealed 10th rib soft tissue mass, left femur lytic lesion, ill-defined lung nodules. He recovered from his orthopedic surgery, palliative radiation to the rib, started dual immunotherapy with rank ligand in hibitor, completed his 4 cycles then continued on single agent immunotherapy. Patient did well, he did have some stereo tactic radiation to a bone lesion. In July 2023 he developed disease progression, new pathological fracture of the left arm, status post surgical repair. CT CAP showing new lytic lesions in the spine, destructive lesion in the left acetabulum. He had some palliative radiation. He was started on cabometyx at the end of July. He had intolerable nausea and diarrhea, did have multiple dose reductions, ultimately needed to be discontinued. CT CAP showed new lung nodules. He was started on Welireg in January 2024, required dose reduction for side effects. In March he had a stable CT. He did well until August 2024, treatment follow-up imaging showed progression of bone lesions. He was then started on Fotivda 09/11. He had admission in September for SOB, aifb, medication was held for admission. Patient restarted treatment with Fotivda 2 weeks ago. Patient presented to the emergency room with complaints of shortness of breath and ongoing left lower extremity pain. Patient was admitted for A-fib with RVR. Patient reports he has been having progression of left lower extremity pain over the last 3 to 4 weeks, stating pain radiates from his left hip to his left ankle. Denies lower back pain. Denies numbness and tingling. Of note patient is following with radiation oncology for palliative RT to left hip/femur. Bilateral lower extremity dopplers were negative for DVT. Left femur x-ray showing left hip hemiarthroplasty with oncologic prosthesis. Prominent bone loss and heterotopic ossification along the proximal aspect of the femur appearing stable. Review of Systems 10 point ROS is negative except as stated in the HPI Past Medical History Past Medical History: Atrial Fibrillation, Cancer, Chest Pain / Angina, Heart Failure, COPD, Hypertension, Rheumatoid Arthritis (RA) Additional Past Medical History / Comment(s): migraines, renal tumor bone mets History of Any Multi-Drug Resistant Organisms: None Reported Past Surgical History: Cardiac Ablation, Orthopedic Surgery Additional Past Surgical History / Comment(s): rotator cuff left shoulder, Past Anesthesia/Blood Transfusion Reactions: No Reported Reaction Past Psychological History: No Psychological Hx Reported Smoking Status: Never smoker Past Alcohol Use History: Occasional Additional Past Alcohol Use History / Comment(s): quit smoking May 2019, smoked for 30 yrs, 1 PPD Past Drug Use History: None Reported - Past Family History Mother Family Medical History: Cancer Medications and Allergies Home Medications Medication Instructions Recorded Confirmed Type Apixaban [Eliquis] 5 mg PO BID #60 tab 06/24/19 12/01/24 Rx Atorvastatin [Lipitor] 10 mg PO DAILY 10/03/24 12/01/24 History Fluticasone Propion/Salmeterol 1 puff INHALATION RT-BID 10/03/24 12/01/24 History [Wixela 500-50 Inhub] Gabapentin [Neurontin] 300 mg PO HS 10/03/24 12/01/24 History Ipratropium-Albuterol Nebulize 3 ml INHALATION RT-Q6H PRN 10/03/24 12/01/24 History [Duoneb 0.5 mg-3 mg/3 ml Soln] Metoprolol Tartrate [Lopressor] 100 mg PO BID 10/03/24 12/01/24 History OLANZapine [ZyPREXA] 2.5 mg PO HS 10/03/24 12/01/24 History Omeprazole [PriLOSEC] 40 mg PO BID 10/03/24 12/01/24 History Tamsulosin HCl [Flomax] 0.4 mg PO BID 10/03/24 12/01/24 History Tivozanib HCl [Fotivda] 1.34 mg PO DIRECTED 10/03/24 12/01/24 History metFORMIN HCL 500 mg PO BID 10/03/24 12/01/24 History Ciprofloxacin HCl [Cipro] 500 mg PO BID 12/01/24 12/01/24 History Ondansetron Odt [Zofran Odt] 4 - 8 mg PO Q8H PRN 12/01/24 12/01/24 History SILVER sulfADIAZINE Cream 1 applic TOPICAL DIRECTED PRN 12/01/24 12/01/24 History [Silvadene 1% Cream] oxyCODONE HCL [oxyCODONE HCL (IR)] 10 - 20 mg PO Q4H PRN 12/01/24 12/01/24 History Allergies Allergy/AdvReac Type Severity Reaction Status Date / Time No Known Allergies Allergy Verified 12/01/24 09:33 Physical Exam Vitals: Vital Signs Temp Pulse Resp BP Pulse Ox 12/03/24 08:30 98.2 F 108 H 19 105/71 94 L 12/03/24 08:00 97 20 12/03/24 05:00 97.9 F 97 20 130/88 97 12/02/24 23:23 78 18 155/91 95 12/02/24 19:45 98.0 F 83 14 120/86 100 12/02/24 16:57 97.9 F 109 H 19 134/92 98 12/02/24 13:32 114 H 19 12/02/24 11:27 97.7 F 114 H 19 116/94 98 Intake and Output 12/02/24 12/03/24 12/03/24 22:59 06:59 14:59 Intake Total 540 Output Total 800 Balance 540 -800 Intake: Oral 540 Output: Urine 800 Other: Voiding Method Urinal Urinal - Constitutional General appearance: average body habitus, no acute distress - EENT Eyes: anicteric sclerae, EOMI ENT: hearing grossly normal - Respiratory breathing is even and unlabored - Cardiovascular skin warm and dry - Integumentary Integumentary: no cyanotic - Musculoskeletal decreased ROM of left hip, mild edema LLE Musculoskeletal: generalized weakness - Psychiatric Psychiatric: A&O x's 3 Results CBC & Chem 7: 12/03/24 06:03 12/03/24 06:03 Labs: Abnormal Lab Results - Last 24 Hours (Table) 12/02/24 12/03/24 12/03/24 Range/Units 16:53 06:03 06:03 MPV 8.9 L (9.5-12.2) fL Lymphocytes # 0.54 L (0.90-5.00) 10*3/uL Sodium 135 L (137-145) mmol/L Chloride 97 L (98-107) mmol/L POC Glucose (mg/dL) 121 H (70-110) mg/dL Venous US: report reviewed Assessment and Plan (1) Atrial fibrillation with rapid ventricular response Current Visit: Yes Status: Acute Priority: High Code(s): I48.91 - UNSP ECIFIED ATRIAL FIBRILLATION SNOMED Code(s): 306969957422309 (2) Dyspnea Current Visit: Yes Status: Acute Priority: High Code(s): R06.00 - DYSPNEA, UNSPECIFIED SNOMED Code(s): 532394201 (3) Renal cell carcinoma Current Visit: Yes Status: Chronic Priority: High Code(s): C64.9 - MALIGNANT NEOPLASM OF UNSP KIDNEY, EXCEPT RENAL PELVIS SNOMED Code(s): 523506659 Plan: A-fib with RVR acute on chronic -Patient has been seen by cardiology, medications have been adjusted LLE pain r/t malignancy -Pain meds adjusted, reporting pain controlled with current regimen -Currently receiving palliative RT to left hip/femur -Rad onc consulted Metastatic RCC on oral Fotivda - Diagnosis and treatment as described in HPI - Patient most recently had evidence of disease progression in August, he was started on fotivda 09/11/2024. This was held in September during previous admit. Pt restarted Fotivda 2 weeks ago - VEGF inhibitors do have cardiac side effects including heart failure, cardiac ischemia and thromboembolism. - Will hold Fotivda for now. Clinic f/u upon discharge
--- NOTE | 2024-12-04 11:27 | P.CNOR ---
History of Present Illness - HPI Consult date: 12/04/24 History of present illness: This is a 64-year-old male with past medical history significant for renal cell carcinoma with metastatic disease currently undergoing chemotherapy and radiation. Patient also has a past medical history significant for atrial fibrillation, heart failure, COPD, hypertension and rheumatoid arthritis. Orthopedics is consulted due to increasing pain in the left leg. Patient routinely follows with an orthopedic surgeon at [place] and is currently receiving treatment for the left femur. Patient denies any numbness, weakness, tingling or fever/chills. Review of Systems See HPI. Past Medical History Past Medical History: Atrial Fibrillation, Cancer, Chest Pain / Angina, Heart Failure, COPD, Hypertension, Rheumatoid Arthritis (RA) Additional Past Medical History / Comment(s): migraines, renal tumor bone mets History of Any Multi-Drug Resistant Organisms: None Reported Past Surgical History: Cardiac Ablation, Orthopedic Surgery Additional Past Surgical History / Comment(s): rotator cuff left shoulder, Past Anesthesia/Blood Transfusion Reactions: No Reported Reaction Past Psychological History: No Psychological Hx Reported Smoking Status: Never smoker Past Alcohol Use History: Occasional Additional Past Alcohol Use History / Comment(s): quit smoking May 2019, smoked for 30 yrs, 1 PPD Past Drug Use History: None Reported - Past Family History Mother Family Medical History: Cancer Medications and Allergies Home Medications Medication Instructions Recorded Confirmed Type Apixaban [Eliquis] 5 mg PO BID #60 tab 06/24/19 12/01/24 Rx Atorvastatin [Lipitor] 10 mg PO DAILY 10/03/24 12/01/24 History Fluticasone Propion/Salmeterol 1 puff INHALATION RT-BID 10/03/24 12/01/24 History [Wixela 500-50 Inhub] Gabapentin [Neurontin] 300 mg PO HS 10/03/24 12/01/24 History Ipratropium-Albuterol Nebulize 3 ml INHALATION RT-Q6H PRN 10/03/24 12/01/24 History [Duoneb 0.5 mg-3 mg/3 ml Soln] Metoprolol Tartrate [Lopressor] 100 mg PO BID 10/03/24 12/01/24 History OLANZapine [ZyPREXA] 2.5 mg PO HS 10/03/24 12/01/24 History Omeprazole [PriLOSEC] 40 mg PO BID 10/03/24 12/01/24 History Tamsulosin HCl [Flomax] 0.4 mg PO BID 10/03/24 12/01/24 History Tivozanib HCl [Fotivda] 1.34 mg PO DIRECTED 10/03/24 12/01/24 History metFORMIN HCL 500 mg PO BID 10/03/24 12/01/24 History Ciprofloxacin HCl [Cipro] 500 mg PO BID 12/01/24 12/01/24 History Ondansetron Odt [Zofran Odt] 4 - 8 mg PO Q8H PRN 12/01/24 12/01/24 History SILVER sulfADIAZINE Cream 1 applic TOPICAL DIRECTED PRN 12/01/24 12/01/24 History [Silvadene 1% Cream] oxyCODONE HCL [oxyCODONE HCL (IR)] 10 - 20 mg PO Q4H PRN 12/01/24 12/01/24 History Allergies Allergy/AdvReac Type Severity Reaction Status Date / Time No Known Allergies Allergy Verified 12/01/24 09:33 Physical Examination On exam patient is resting comfortably in bed in no acute distress. Patient is alert and oriented 3. Left lower extremity: Minimal soft tissue swelling. Left lower extremity is warm and well-perfused. Calf is soft and nontender to palpation. Sensation intact. Neurovascular status and circulatory status are intact. Results An x-ray of the left femur dated 12/02/2024 shows: 1. Left hip hemiarthroplasty with oncologic prosthesis. Prominent bone loss and heterotopic ossification along the proximal aspect of the femur appears similar. 2. Knee shows medial patellofemoral compartmental OA. - Labs Labs: Abnormal Lab Results - Last 24 Hours (Table) 12/03/24 12/03/24 12/03/24 Range/Units 11:24 11:46 16:37 POC Glucose (mg/dL) 183 H 115 H (70-110) mg/dL Ur Leukocyte Esterase Large H (Negative) Urine WBC 89 H (0-5) /hpf Urine Bacteria Rare H (None) /hpf Urine Yeast (Budding) Few H (None) /hpf 12/03/24 Range/Units 19:49 POC Glucose (mg/dL) 143 H (70-110) mg/dL Ur Leukocyte Esterase (Negative) Urine WBC (0-5) /hpf Urine Bacteria (None) /hpf Urine Yeast (Budding) (None) /hpf H & H 12/01/24 12/02/24 12/03/24 Range/Units 10:18 05:57 06:03 Hgb 15.6 15.2 15.0 (13.0-17.0) g/dL Hct 47.1 45.3 46.1 (39.6-50.0) % Coagulation 12/01/24 Range/Units 10:18 INR 1.0 (<1.2) Result Diagrams: 12/03/24 06:03 12/03/24 06:03 Assessment and Plan (1) Left leg pain Current Visit: Yes Status: Acute Code(s): M79.605 - PAIN IN LEFT LEG SNOMED Code(s): 892095685 (2) Renal cell carcinoma Current Visit: Yes Status: Chronic Priority: High Code(s): C64.9 - MALIGNANT NEOPLASM OF UNSP KIDNEY, EXCEPT RENAL PELVIS SNOMED Code(s): 375999862 Plan: 1. 1. Patient is established with a surgeon at [place] and plans to continue followup with him.
--- NOTE | 2024-12-04 11:34 | P.PN ---
Subjective HISTORY OF PRESENT ILLNESS: This is a 64-year-old male patient of Dr. Araujo with past medical history of persistentt atrial fibrillation, dyspnea on exertion, hyperlipidemia, diabetes mellitus type 2, remote history of tobacco use and dependence, chronic kidney disease, history of renal cell cancer 3 years ago status postchemotherapy and follows with Dr. Davies, mild CMP EF 45-50%. We have been asked to evaluate the patient for A-fib with RVR. Patient has had multiple issues recently with dyspnea. He states he will wake up in the middle of the night gasping for air and feels short of breath. Symptoms have been going on for last few days. He admits to trace lower extremity edema. He did have prior hospitalization approximately 2 months ago with failed electrical cardioversion despite amiodarone. -EKG: Atrial fibrillation RVR -Lexiscan Cardiolite stress test performed in the office on 06/22/2023 revealed nondiagnostic electrocardiographic stress testing. Normal myocardial perfusion imaging with normal gated SPECT images. No evidence of stress-induced ischemia. -Event monitor 06/14 - 06/15/2023 revealed A-fib with controlled ventricular rate. -Echocardiogram performed in the office on 10/06 EF 45 to 50% 12/03 Patient seen and examined. Patient feels somewhat better however still having intermittent tachycardia with heart rates in the 120s. It does appear somewhat related to when his Lopressor is wearing off right around the time when he needs his next dose of medications. He did have some shortness of breath last night. 12/04/2024 Patient examined this morning at the bedside. Patient currently denies any chest pain or pressure. He denies any coughing. He reports significant shortness of breath that is worsened overnight and this morning. Telemetry reveals atrial fibrillation with a heart rate between [id number]. Patient states he is having radiation today as well. PHYSICAL EXAM: VITAL SIGNS: Reviewed. GENERAL: Well-developed in no acute distress. NECK: Supple. No JVD or thyromegaly LUNGS: Respirations even and unlabored. Lungs essentially clear to auscultation bilaterally. HEART: Tachycardic. Irregular rate and rhythm. S1 and S2 heard. EXTREMITIES: Normal range of motion. No clubbing or cyanosis. Peripheral pulses intact. No lower extremity edema ASSESSMENT: Persistent atrial fibrillation with RVR History of unsuccessful cardioversion Acute on chronic diastolic heart failure Chronic dyspnea on exertion Hyperlipidemia Diabetes mellitus type 2 Remote history of tobacco use and dependence Chronic kidney disease Metastatic renal cell carcinoma Left leg pain PLAN: Patient symptoms and shortness of breath appear to be related to uncontrolled atrial fibrillation Increase metoprolol succinate to 150 mg 3 times a day. Given additional dose of 50 mg now. If the patient's heart rates remain uncontrolled, will add Cardizem CD Continue telemetry monitoring Further recommendations pending patient course Nurse practitioner note has been reviewed by physician. Signing provider agrees with the documented findings, assessment, and plan of care documented by [employer] as a scribe. Objective - Vital Signs Vital signs: Vital Signs Temp 98.0 F 12/04/24 08:00 Pulse 93 12/04/24 08:00 Resp 16 12/04/24 08:00 BP 96/73 12/04/24 08:00 Pulse Ox 95 12/04/24 08:00 FiO2 Intake & Output 12/03/24 12/04/24 12/04/24 18:59 06:59 18:59 Intake Total 236 Output Total 600 750 Balance -364 -750 Intake: Oral 236 Output: Urine 600 750 Other: Voiding Method Urinal Urinal - Labs CBC & Chem 7: 12/03/24 06:03 12/03/24 06:03 Labs: Abnormal Lab Results - Last 24 Hours (Table) 12/03/24 12/03/24 12/03/24 Range/Units 11:24 11:46 16:37 POC Glucose (mg/dL) 183 H 115 H (70-110) mg/dL Ur Leukocyte Esterase Large H (Negative) Urine WBC 89 H (0-5) /hpf Urine Bacteria Rare H (None) /hpf Urine Yeast (Budding) Few H (None) /hpf 12/03/24 Range/Units 19:49 POC Glucose (mg/dL) 143 H (70-110) mg/dL Ur Leukocyte Esterase (Negative) Urine WBC (0-5) /hpf Urine Bacteria (None) /hpf Urine Yeast (Budding) (None) /hpf
[2024-12-04] MEDS: METOPROLOL SUCCINATE (ER) 50 MG TAB.ER.24H PO STA (12:16)
[2024-12-04 12:26] LABS: Glucose,Whole Blood 115 mg/dL (70-110)
--- NOTE | 2024-12-04 13:09 | CDI ---
Documentation Clarification Form Date: 12/04/2024 12:29:02 PM From: Ale Lott RN, CCDS Phone: [phone] Admit Date: 12/01/2024 12:56:00 PM Patient Name: Gabriel Santoro Visit Number: [id number] Discharge Date: ATTENTION: The Clinical Documentation Specialists (CDI) and [facility] Coding Staff appreciate your assistance in clarifying documentation. Please respond to the clarification below the line at the bottom and electronically sign. The CDI & [facility] Coding staff will review the response and follow-up if needed. Please note: Queries are made part of the Legal Health Record. If you have any questions, please contact the author of this message via ITS. Doctor. Dragan E Sheet Conflicting documentation has been found in the medical record. As attending physician, please provide clarification. 12/01 Internal Medicine H/P and subsequent progress notes: Chronic systolic dysfunction with an EF of 45%.Possibly secondary to atrial fibrillation 12/02 Cardiology Consult and subsequent progress notes: Acute on chronic diastolic heart failure. Echocardiogram performed in the off on 10/06/24 EF 45- 50% Most of his symptoms appear related to A-fib with RVR exacerbating heart failure. History/Risk Factors: Atrial Fibrillation, Cancer, Chest Pain / Angina, Heart Failure, COPD, Hypertension, Clinical Indicators: 64-year -old male with shortness of breath, chronic left leg pain .EKG shows A-fib with RVR 149 BPM 12/01 (09:33) VS: 158/124 65 20 97.5 97% RA 12/01 Labs: WBC 8.50, NA 136, CO2 21, BUN 21 CR 0.95, Lactic 3.0, BNP 411 12/01 CXR: No acute cardiopulmonary disease/process. Destructive expansile posterior left 10th rib and sternal lesions 10/04/24 ECHO: Reduced systolic function ejection fraction about 45-50% RV enlargement Echogenic mass in the mitral annulus, likely mitral annular calcification Treatment: [employer] / Telemetry Metoprolol Tartrate 2.5 MG IVP once 12/01> 100MG PO BID 12/01-12/02 Lasix 40 MG PO Daily 12/02-12/04 Toprol XL 150MG PO TID Lipitor 10 MG PO Daily 12/02-12/04 Please clarify which diagnosis is most appropriate: [ ] Acute on Chronic Diastolic Heart Failure [ x Chronic Systolic Heart Failure [ ] Other (please specify) [ ] Unable to determine (Template Last Revised: July 2020) MTDD
[2024-12-04 16:39] LABS: Glucose,Whole Blood 158 mg/dL (70-110)
[2024-12-04] MEDS: METOPROLOL SUCCINATE (ER) 50 MG TAB.ER.24H PO SCH (16:56)
[2024-12-04] MEDS ORDERED: METOPROLOL SUCCINATE (ER) 100 MG TAB.ER.24H PO SCH (21:00)
--- NOTE | 2024-12-04 21:50 | P.PN ---
Subjective This is a pleasant 64 years old male with past medical history of multiple medical problems including renal cell carcinoma with metastatic disease on chemotherapy pills and status post radiotherapy. Patient has received radiation treatment to his left arm and the leg. For pain. Follows with oncologist Dr. Davies. Last night patient started getting short of breath. No cough. Mild edema in the left leg. Also felt slight chest pressure. Has orthopnea. He decided to come in. Denies any fever and chills.Was found to be in A-fib with rapid ventricular rate in the ER. Was given IV metoprolol 2.5 mg x 1. 12/02 Patient presents with A-fib and RVR Muhammad also complaining from left leg pain. He has history of left renal cell cancer and bone cancer and is getting radiotherapy. Patient states he got the seventh on radiotherapy session about 1 week ago. After 2 days he came to the hospital on Monday. Also he is getting chemotherapy pill On exam he has no evidence of cellulitis of the left leg. Will check ultrasound and x-ray of the left lower extremity Cardiology team are following closely for his A-fib and RVR but currently denies chest pain or dyspnea. Heart rate was slightly better controlled this morning at 95. He is also on Eliquis at home. 12/03 Patient still with leg pain for 2 months Patient reports no improvement Ultrasound and x-ray were negative to show a cause for the pain. Patient states he cannot walk on it. Will ask for orthopedic evaluation Patient however denies chest pain or dyspnea or palpitation today. pt has many question were answered to his satisfaction Cardiology is following the patient for his A-fib and RVR, heart rate better controlled around 100-105 after increasing metoprolol to 150 mg twice daily. If patient remains improved cardiac medication for discharge in next 24 to 48 hours. Hematology/oncology team consult evaluation today 12/04 Patient awake alert Still with pain in his left leg Had radiotherapy today earlier in the morning her chest pain and troponin were obtained all workup was negative Feels comfortable now with no chest pain Daughter at bedside and all questions answered Patient could not walk on his left leg and request to be seen by orthopedic team were consulted Patient however feels he can be discharged soon. If remains stable may consider for discharge in the next 24 hours Objective - Vital Signs Vital signs: Vital Signs Temp 97.8 F 12/04/24 12:00 Pulse 57 L 12/04/24 12:41 Resp 16 12/04/24 12:00 BP 117/75 12/04/24 12:00 Pulse Ox 96 12/04/24 12:00 FiO2 Intake & Output 12/03/24 12/04/24 12/04/24 18:59 06:59 18:59 Intake Total 236 250 Output Total 600 750 100 Balance -364 -750 150 Intake: IV 10 Invasive Line 1 10 Oral 236 240 Output: Urine 600 750 100 Other: Voiding Method Urinal Urinal Urinal # Voids 1 - Exam GENERAL: The patient is alert and oriented x3, not in any acute distress. Well developed, well nourished. HEENT: Pupils are round and equally reacting to light. EOMI. No scleral icterus. No conjunctival pallor. Normocephalic, atraumatic. No pharyngeal erythema. No thyromegaly. CARDIOVASCULAR: S1 and S2 present. No murmurs, rubs, or gallops. PULMONARY: Chest is clear to auscultation, no wheezing , no crackles. ABDOMEN: Soft, nontender, nondistended, normoactive bowel sounds. No palpable organomegaly. MUSCULOSKELETAL: No joint swelling or deformity. -EXTREMITIES: No cyanosis, clubbing, or pedal edema. Left thigh tenderness no cellulitis or rash NEUROLOGICAL: Gross neurological examination did not reveal any focal deficits. SKIN: No rashes. no petechiae. - Labs CBC & Chem 7: 12/03/24 06:03 12/03/24 06:03 Labs: Abnormal Lab Results - Last 24 Hours (Table) 12/03/24 12/03/24 12/04/24 Range/Units 16:37 19:49 12:24 POC Glucose (mg/dL) 115 H 143 H 115 H (70-110) mg/dL Assessment and Plan Assessment: -Persistent A-fib and RVR present on admission, causing short of breath Previous unsuccessful attempted cardioversion Lopressor 100 mg twice daily r. Eliquis Telemetry. Cardiology consulted Increase metoprolol to 150 mg twice daily - Left leg pain in review of his renal cell carcinoma Ultrasound of the legs is negative for DVT bilaterally X-ray showing prosthesis in the same place similar to previous x-ray Continue with symptomatic treatment -Consult orthopedic team: recommend f/u wiht his orthopedic as ouitpt - Echogenic mass on the mitral annulus. Likely mitral annular calcification-Dr. Sascha Chaves - Chronic systolic dysfunction with a EF of 45%. Possibly secondary to atrial f ibrillation -Renal cell carcinoma metastatic disease-radiotherapy and chemotherapy Being followed by Dr. Davies oncologist. Received radiation to the left arm and left leg -Essential hypertension Lopressor -Hyperlipidemia Lipitor -BPH Flomax 0.4 mg twice daily - GERD Prilosec - COPD in a previous smoker DuoNeb as needed. Symbicort - Full code
[2024-12-05] MEDS: DILTIAZEM CD 120 MG CAP.ER.24H PO SCH (09:49)
--- NOTE | 2024-12-05 11:05 | P.PN ---
Subjective HISTORY OF PRESENT ILLNESS: This is a 64-year-old male patient of Dr. Araujo with past medical history of persistentt atrial fibrillation, dyspnea on exertion, hyperlipidemia, diabetes mellitus type 2, remote history of tobacco use and dependence, chronic kidney disease, history of renal cell cancer 3 years ago status postchemotherapy and follows with Dr. Davies, mild CMP EF 45-50%. We have been asked to evaluate the patient for A-fib with RVR. Patient has had multiple issues recently with dyspnea. He states he will wake up in the middle of the night gasping for air and feels short of breath. Symptoms have been going on for last few days. He admits to trace lower extremity edema. He did have prior hospitalization approximately 2 months ago with failed electrical cardioversion despite amiodarone. -EKG: Atrial fibrillation RVR -Lexiscan Cardiolite stress test performed in the office on 06/22/2023 revealed nondiagnostic electrocardiographic stress testing. Normal myocardial perfusion imaging with normal gated SPECT images. No evidence of stress-induced ischemia. -Event monitor 06/14 - 06/15/2023 revealed A-fib with controlled ventricular rate. -Echocardiogram performed in the office on 10/06 EF 45 to 50% 12/03 Patient seen and examined. Patient feels somewhat better however still having intermittent tachycardia with heart rates in the 120s. It does appear somewhat related to when his Lopressor is wearing off right around the time when he needs his next dose of medications. He did have some shortness of breath last night. 12/04/2024 Patient examined this morning at the bedside. Patient currently denies any chest pain or pressure. He denies any coughing. He reports significant shortness of breath that is worsened overnight and this morning. Telemetry reveals atrial fibrillation with a heart rate between [id number]. Patient states he is having radiation today as well. 12/05/2024 Patient examined this morning at the bedside. Patient currently denies chest pain or pressure. He denies shortness of breath. He states he was unable to complete radiation yesterday due to too much pain in his leg. He states the pain is better controlled this morning. Telemetry reveals atrial fibrillation with heart rate between [id number]. PHYSICAL EXAM: VITAL SIGNS: Reviewed. GENERAL: Well-developed in no acute distress. NECK: Supple. No JVD or thyromegaly LUNGS: Respirations even and unlabored. Lungs essentially clear to auscultation bilaterally. HEART: Tachycardic. Irregular rate and rhythm. S1 and S2 heard. EXTREMITIES: Normal range of motion. No clubbing or cyanosis. Peripheral pulses intact. No lower extremity edema ASSESSMENT: Persistent atrial fibrillation with RVR History of unsuccessful cardioversion Acute on chronic diastolic heart failure Chronic dyspnea on exertion Hyperlipidemia Diabetes mellitus type 2 Remote history of tobacco use and dependence Chronic kidney disease Metastatic renal cell carcinoma Left leg pain PLAN: Patient symptoms and shortness of breath appear to be related to uncontrolled atrial fibrillation Continue metoprolol succinate 150 mg 3 times a day Add Cardizem CD 120 mg daily Continue telemetry monitoring Further recommendations pending patient course Nurse practitioner note has been reviewed by physician. Signing provider agrees with the documented findings, assessment, and plan of care documented by OFFICIAL COURT REPORTER as a scribe. Objective - Vital Signs Vital signs: Vital Signs Temp 97.8 F 12/05/24 07:58 Pulse 103 H 12/05/24 09:47 Resp 20 12/05/24 07:58 BP 113/78 12/05/24 09:47 Pulse Ox 95 12/05/24 07:58 FiO2 Intake & Output 12/04/24 12/05/24 12/05/24 18:59 06:59 18:59 Intake Total 500 550 118 Output Total 600 300 Balance -100 250 118 Intake: IV 20 10 Invasive Line 1 20 10 Oral 480 540 118 Output: Urine 600 300 Other: Voiding Method Urinal Urinal Urinal # Voids 1 1 # Bowel Movements 1 - Labs CBC & Chem 7: 12/03/24 06:03 12/03/24 06:03 Labs: Abnormal Lab Results - Last 24 Hours (Table) 12/04/24 12/04/24 Range/Units 12:24 16:38 POC Glucose (mg/dL) 115 H 158 H (70-110) mg/dL
[2024-12-05 15:20] LABS: Bacteria,Urine Rare /hpf; Bilirubin,Urine Negative (Negative); Blood,Urine Negative (Negative); Color,Urine Light Yellow; Glucose,Urine (UA) Negative (Negative); Hyaline Casts,Urine 5 /lpf (0-2); Ketones,Urine Negative (Negative); Leukocyte Esterase,Urine Large (Negative); Mucus,Urine Rare /hpf; Nitrite,Urine Negative (Negative); PH, Urine 5.5 (5.0-8.0); Protein,Urine Negative (Negative); RBC,Urine 2 /hpf (0-5); Specific Gravity,Urine 1.012 (1.001-1.035); Squamous Epithelial Cell,Urine <1 /hpf (0-4); Urobilinogen,Urine <2.0 mg/dL (<2.0); WBC,Urine >182 /hpf (0-5)
[2024-12-05] MEDS: PHENAZOPYRIDINE 100 MG TAB PO PRN (16:37)
[2024-12-05 21:41] LABS: Glucose,Whole Blood 107 mg/dL (70-110)
--- NOTE | 2024-12-05 22:01 | P.PN ---
Subjective Progress Note Date: 12/05/24 This is a pleasant 64 years old male with past medical history of multiple medical problems including renal cell carcinoma with metastatic disease on chemotherapy pills and status post radiotherapy. Patient has received radiation treatment to his left arm and the leg. For pain. Follows with oncologist Dr. Davies. Last night patient started getting short of breath. No cough. Mild edema in the left leg. Also felt slight chest pressure. Has orthopnea. He decided to come in. Denies any fever and chills.Was found to be in A-fib with rapid ventricular rate in the ER. Was given IV metoprolol 2.5 mg x 1. 12/02 Patient presents with A-fib and RVR Muhammad also complaining from left leg pain. He has history of left renal cell cancer and bone cancer and is getting radiotherapy. Patient states he got the seventh on 8 radiotherapy session about 1 week ago. After 2 days he came to the hospital on Monday. Also he is getting chemotherapy pill On exam he has no evidence of cellulitis of the left leg. Will check ultrasound and x-ray of the left lower extremity Cardiology team are following closely for his A-fib and RVR but currently denies chest pain or dyspnea. Heart rate was slightly better controlled this morning at 95. He is also on Eliquis at home. 12/03 Patient still with leg pain for 2 months Patient reports no improvement Ultrasound and x-ray were negative to show a cause for the pain. Patient states he cannot walk on it. Will ask for orthopedic evaluation Patient however denies chest pain or dyspnea or palpitation today. pt has many question were answered to his satisfaction Cardiology is following the patient for his A-fib and RVR, heart rate better controlled around 100-105 after increasing metoprolol to 150 mg twice daily. If patient remains improved cardiac medication for discharge in next 24 to 48 hours. Hematology/oncology team consult evaluation today 12/04 Patient awake alert Still with pain in his left leg Had radiotherapy today earlier in the morning her chest pain and troponin were obtained all workup was negative Feels comfortable now with no chest pain Daughter at bedside and all questions answered Patient could not walk on his left leg and request to be seen by orthopedic team were consulted Patient however feels he can be discharged soon. If remains stable may consider for discharge in the next 24 hours 12/05/2024 Patient is seen in follow-up today status post radiation therapy on his left leg and has another session tomorrow at 1015. Patient has next week as well although will likely discharge after radiation therapy tomorrow. Patient was evaluated by cardiology for atrial fibrillation making adjustments to medications. Heart rates have been variable and patient is being started on Cardizem and cardiology recommending monitoring on telemetry monitoring and may discharge once cleared by other consultations with outpatient follow-up with his primary avionics integration engineer Dr. Araujo. Recommend continued telemetry monitoring overnight, will undergo radiation therapy in the morning and plan for possible discharge. Patient reports he follows with Dr. Davies outpatient with oncology who provides his pain medication. Review of systems: Constitutional: No reports of fatigue, fever, or chills Cardiovascular: No reports of chest pain or palpitations Respiratory: No reports of shortness of breath or cough GI: No reports of nausea, vomiting, or diarrhea : reports of significant dysuria when starting the stream and during urinating but resolves after Neurovascular: reports of generalized weakness, continued left lower extremity pain, reports to being wheelchair-bound All medications have been reviewed Physical exam: GENERAL: The patient is alert and oriented x3, not in any acute distress. Well developed, well nourished. Elderly appearing, obese HEENT: Pupils are round and equally reacting to light. EOMI. No scleral icterus. No conjunctival pallor. Normocephalic, atraumatic. No pharyngeal erythema. No thyromegaly. CARDIOVASCULAR: S1 and S2 muffled, A-fib, irregular PULMONARY: Diminished breath sounds bilaterally otherwise chest is clear to auscultation, no wheezing , no crackles. ABDOMEN: Soft, obese nontender, nondistended, normoactive bowel sounds. No palpable organomegaly. MUSCULOSKELETAL: No joint swelling or deformity. -EXTREMITIES: No cyanosis, clubbing, or pedal edema. Left thigh tenderness no cellulitis or rash NEUROLOGICAL: Gross neurological examination did not reveal any focal deficits. Diffusely weak and reports to being wheelchair-bound SKIN: No rashes. no petechiae. Assessment: -Persistent A-fib and RVR present on admission, causing short of breath, previous unsuccessful attempted cardioversion - Left leg pain in review of his renal cell carcinoma, DVT ruled out - Echogenic mass on the mitral annulus. Likely mitral annular calcification-Dr. Sascha Chaves - Chronic systolic dysfunction with a EF of 45%. Possibly secondary to atrial fibrillation -Renal cell carcinoma metastatic disease-radiotherapy and chemotherapy -Essential hypertension Lopressor -Hyperlipidemia Lipitor -BPH Flomax 0.4 mg twice daily - GERD Prilosec -COPD in a previous smoker, not in exacerbation - Obesity with a BMI 31.8 DuoNeb as needed. Symbicort GI prophylaxis DVT prophylaxis Full code Plan: Patient has been evaluated by cardiology making adjustments to medications and has added Cardizem and will monitor overnight on telemetry monitoring Radiation oncology following and patient is status post radiation treatment today. Patient will receive radiation treatment tomorrow and will need to follow-up with his primary oncologist Dr. Davies in the outpatient setting Will follow-up on repeat labs and replace electrolytes per protocol Patient is reporting some pain with burning, will obtain urinalysis and urine culture for further evaluation, add supportive care of Pyridium 3 times daily as needed. Due to multiple complex medical issues, this is guarded The impression and plan of care has been dictated by Mariama Garcia, Nurse Practitioner as directed. Dr. Agustin MD I have performed a history and examination and MDM of this patient, discussed the same with the dictator, and agree with the dictator's assessment and plan as written ,documented as a scribe. Based on total visit time, I have performed more than 50% of the visit. Objective - Vital Signs Vital signs: Vital Signs Temp 97.8 F 12/05/24 07:58 Pulse 114 H 12/05/24 13:21 Resp 20 12/05/24 11:00 BP 122/88 12/05/24 11:00 Pulse Ox 97 12/05/24 11:00 FiO2 Intake & Output 12/04/24 12/05/24 12/05/24 18:59 06:59 18:59 Intake Total 500 550 236 Output Total 600 300 500 Balance -100 250 -264 Intake: IV 20 10 Invasive Line 1 20 10 Oral 480 540 236 Output: Urine 600 300 500 Other: Voiding Method Urinal Urinal Urinal # Voids 1 1 # Bowel Movements 1 - Labs CBC & Chem 7: 12/03/24 06:03 12/03/24 06:03 Labs: Abnormal Lab Results - Last 24 Hours (Table) 12/04/24 Range/Units 16:38 POC Glucose (mg/dL) 158 H (70-110) mg/dL
[2024-12-06 07:15] LABS: Basophils # (A) 0.05 10*3/uL (0.00-0.10); Basophils % (A) 0.8 %; Eosinophils # (A) 0.24 10*3/uL (0.04-0.35); Eosinophils % (A) 3.7 %; HCT 45.5 % (39.6-50.0); HGB 14.8 g/dL (13.0-17.0); Lymphocytes # (A) 0.61 10*3/uL (0.90-5.00); Lymphocytes % (A) 9.4 %; MCH 28.7 pg (27.0-32.0); MCHC 32.5 g/dL (32.0-37.0); MCV 88.2 fL (80.0-97.0); Monocytes # (A) 0.69 10*3/uL (0.20-1.00); Monocytes % (A) 10.7 %; Neutrophils # (A) 4.83 10*3/uL (1.80-7.70); Neutrophils % (A) 74.8 %; Platelet Count 463 10*3/uL (140-440); RBC 5.16 10*6/uL (4.40-5.60); RDW 16.8 % (11.5-14.5); WBC 6.46 10*3/uL (4.50-10.00)
[2024-12-06 07:40] LABS: ALT 13 U/L (4-49); AST 21 U/L (17-59); African American GFR (CKD) 81 (>60 ml/min/1.73 sqM); Albumin 3.4 g/dL (3.5-5.0); Alkaline Phosphatase 163 U/L (38-126); Anion Gap 11 mmol/L; Blood Urea Nitrogen 26 mg/dL (9-20); Calcium 9.3 mg/dL (8.4-10.2); Carbon Dioxide 24 mmol/L (22-30); Chloride 99 mmol/L (98-107); Glucose 125 mg/dL (74-99); Magnesium 1.7 mg/dL (1.6-2.3); Non-African American GFR(CKD) 70 (>60 ml/min/1.73 sqM); Potassium 4.0 mmol/L (3.5-5.1); Sodium 134 mmol/L (137-145); Total Protein 6.6 g/dL (6.3-8.2)
[2024-12-06 12:13] VITALS: RESP 17
--- NOTE | 2024-12-06 13:21 | P.PN ---
Subjective HISTORY OF PRESENT ILLNESS: This is a 64-year-old male patient of Dr. Araujo with past medical history of persistentt atrial fibrillation, dyspnea on exertion, hyperlipidemia, diabetes mellitus type 2, remote history of tobacco use and dependence, chronic kidney disease, history of renal cell cancer 3 years ago status postchemotherapy and follows with Dr. Davies, mild CMP EF 45-50%. We have been asked to evaluate the patient for A-fib with RVR. Patient has had multiple issues recently with dyspnea. He states he will wake up in the middle of the night gasping for air and feels short of breath. Symptoms have been going on for last few days. He admits to trace lower extremity edema. He did have prior hospitalization approximately 2 months ago with failed electrical cardioversion despite amiodarone. -EKG: Atrial fibrillation RVR -Lexiscan Cardiolite stress test performed in the office on 06/22/2023 revealed nondiagnostic electrocardiographic stress testing. Normal myocardial perfusion imaging with normal gated SPECT images. No evidence of stress-induced ischemia. -Event monitor 06/14 - 06/15/2023 revealed A-fib with controlled ventricular rate. -Echocardiogram performed in the office on 10/06 EF 45 to 50% 12/03 Patient seen and examined. Patient feels somewhat better however still having intermittent tachycardia with heart rates in the 120s. It does appear somewhat related to when his Lopressor is wearing off right around the time when he needs his next dose of medications. He did have some shortness of breath last night. 12/04/2024 Patient examined this morning at the bedside. Patient currently denies any chest pain or pressure. He denies any coughing. He reports significant shortness of breath that is worsened overnight and this morning. Telemetry reveals atrial fibrillation with a heart rate between [id number]. Patient states he is having radiation today as well. 12/05/2024 Patient examined this morning at the bedside. Patient currently denies chest pain or pressure. He denies shortness of breath. He states he was unable to complete radiation yesterday due to too much pain in his leg. He states the pain is better controlled this morning. Telemetry reveals atrial fibrillation with heart rate between 91861. 12/06/2024 Patient examined at the bedside. He denies chest pain or pressure. He reports an episode of SOB this morning that resolved on its own. Heart rates overall are improved with HR 80-90s. PHYSICAL EXAM: VITAL SIGNS: Reviewed. GENERAL: Well-developed in no acute distress. NECK: Supple. No JVD or thyromegaly LUNGS: Respirations even and unlabored. Lungs essentially clear to auscultation bilaterally. HEART: Irregular rate and rhythm. S1 and S2 heard. EXTREMITIES: Normal range of motion. No clubbing or cyanosis. Peripheral pulses intact. No lower extremity edema ASSESSMENT: Persistent atrial fibrillation with RVR History of unsuccessful cardioversion Acute on chronic diastolic heart failure Chronic dyspnea on exertion Hyperlipidemia Diabetes mellitus type 2 Remote history of tobacco use and dependence Chronic kidney disease Metastatic renal cell carcinoma Left leg pain PLAN: Patient symptoms and shortness of breath appear to be related to uncontrolled atrial fibrillation, can not rule out a component of lung issues as well as he reports improvemnt in his symptoms when he uses his inhaler Continue metoprolol succinate 150 mg 3 times a day Increase Cardizem CD to 180mg daily Continue telemetry monitoring Further recommendations pending patient course Nurse practitioner note has been reviewed by physician. Signing provider agrees with the documented findings, assessment, and plan of care documented by MUSIC AUTOGRAPHER as a scribe. Objective - Vital Signs Vital signs: Vital Signs Temp 97.6 F 12/06/24 12:15 Pulse 88 12/06/24 12:15 Resp 17 12/06/24 12:15 BP 118/69 12/06/24 12:15 Pulse Ox 95 12/06/24 12:15 FiO2 Intake & Output 12/05/24 12/06/24 12/06/24 18:59 06:59 18:59 Intake Total 472 60 Output Total 500 500 Balance -28 -500 60 Weight 107.5 kg Intake: Oral 472 60 Output: Urine 500 500 Other: Voiding Method Urinal Urinal Urinal # Voids 1 # Bowel Movements 1 - Labs CBC & Chem 7: 12/06/24 06:55 12/06/24 06:55 Labs: Abnormal Lab Results - Last 24 Hours (Table) 12/05/24 12/06/24 12/06/24 Range/Units 13:20 06:55 06:55 Plt Count 463 H (140-440) 10*3/uL MPV 8.6 L (9.5-12.2) fL Lymphocytes # 0.61 L (0.90-5.00) 10*3/uL Sodium 134 L (137-145) mmol/L BUN 26 H (9-20) mg/dL Glucose 125 H (74-99) mg/dL Alkaline Phosphatase 163 H (38-126) U/L Albumin 3.4 L (3.5-5.0) g/dL Ur Leukocyte Esterase Large H (Negative) Urine WBC >182 H (0-5) /hpf Urine WBC Clumps Few H (None) /hpf Urine Bacteria Rare H (None) /hpf Hyaline Casts 5 H (0-2) /lpf Urine Mucus Rare H (None) /hpf
[2024-12-06 16:48] VITALS: BP 107/64; PULSE 101; TEMP 97.8
[2024-12-07] MEDS ORDERED: DILTIAZEM CD 180 MG CAP.ER.24H PO SCH (09:00)
--- NOTE | 2024-12-09 05:25 | P.DS ---
Providers Date of admission: 12/01/24 12:56 Expected date of discharge: 12/06/24 Attending physician: Freddie Rojo Consults: 12/01/24 12:55 Consult Physician Routine Consulting Provider: [facility] Consult Reason/Comments: afib with rvr, dyspnea Do you want consulting provider notified?: Yes 12/02/24 12:42 Consult Physician Routine Consulting Provider: Everton Sullivan Consult Reason/Comments: RCC ,leg bone cancer Do you want consulting provider notified?: Yes 12/03/24 10:40 Consult Physician Routine Consulting Provider: Selvin Fernandez Consult Reason/Comments: left leg pain Do you want consulting provider notified?: Yes 12/03/24 11:24 Consult Physician Routine Consulting Provider: Alverto Molina Consult Reason/Comments: known to service, RCC, osseous mets, LLE/hip pain Do you want consulting provider notified?: Yes Primary care physician: Soy Baez Hospital Course: Final diagnosis -Persistent A-fib and RVR present on admission, causing short of breath, previous unsuccessful attempted cardioversion - Left leg pain secondary to metastasis of renal cell carcinoma, DVT ruled out, undergoing palliative radiation treatment - Echogenic mass on the mitral annulus. Likely mitral annular calcification-Dr. Sascha Chaves - Chronic systolic dysfunction with a EF of 45%. Possibly secondary to atrial fibrillation -Renal cell carcinoma metastatic disease-radiotherapy and chemotherapy -Essential hypertension -Hyperlipidemia -BPH -GERD -COPD in a previous smoker, not in exacerbation - Obesity with a BMI 31.8 GI prophylaxis DVT prophylaxis Full code Discharge disposition Patient is being discharged in a stable condition with guarded prognosis to home. Patient will follow-up with Dr. Baez in the outpatient setting upon discharge. Patient is to continue with current medications and outpatient follow-up with cardiology as well as oncology and radiation oncology as scheduled. Total time taken is greater than 35 minutes. Hospital course This is a 64-year-old male who was recently admitted with atrial fibrillation with RVR with previous attempted cardioversion and some shortness of breath associated. Patient evaluated by cardiology aching adjustments to medications including increasing Cardizem metoprolol. Patient follows with Dr. Davies in the outpatient setting for renal cell carcinoma with metastasis and is currently undergoing radiation treatment with significant left lower extremity pain. Patient has completed radiation treatment today and will follow-up on 12/09/2024 and reports he feels he has 2 more doses left. Patient also to follow-up with cardiology outpatient and has been cleared for discharge. Please refer to other consultation notes for further HPI. Currently no reports of chest pain or palp itations, denies further shortness of breath. Patient is afebrile. No reports of nausea or vomiting and patient is tolerating diet. Patient will be discharged home today. Guarded prognosis and high risk for readmissions given significant comorbidities. Physical exam: Gen: This is a 64-year-old male who is awake, alert and oriented x 3, well- developed, elderly appearing, obese HEENT: Head is atraumatic, normocephalic. Pupils equal, round. Sclerae is anicteric. NECK: Supple. No JVD. No lymphadenopathy. No thyromegaly. LUNGS: Diminished breath sounds bilaterally otherwise clear to auscultation. No wheezes or rhonchi. No intercostal retractions. HEART: S1, S2 are muffled, currently rate controlled ABDOMEN: Soft. Obese. Bowel sounds are present. No masses. No tenderness. EXTREMITIES: No pedal edema. No calf tenderness. Reports continued ongoing left lower extremity pain NEUROLOGICAL: Patient is awake, alert and oriented x3. Cranial nerves 2 through 12 are grossly intact. Please refer to medication reconciliation sheet for a list of medications. The impression and plan of care has been dictated by Mariama Garcia, Nurse Practitioner as directed. Dr. Agustin MD I have performed a history and examination and MDM of this patient, discussed the same with the dictator, and agree with the dictator's assessment and plan as written ,documented as a scribe. Based on total visit time, I have performed more than 50% of the visit. Patient Condition at Discharge: Stable Plan - Discharge Summary Discharge Rx Participant: No New Discharge Prescriptions: New Metoprolol Succinate (ER) [Toprol XL] 150 mg PO TID 30 Days #270 tab Diltiazem Cd [Cardizem CD] 180 mg PO DAILY #30 cap Furosemide [Lasix] 40 mg PO DAILY #30 tab Continue Apixaban [Eliquis] 5 mg PO BID #60 tab OLANZapine [ZyPREXA] 2.5 mg PO HS Tamsulosin HCl [Flomax] 0.4 mg PO BID Ipratropium-Albuterol Nebulize [Duoneb 0.5 mg-3 mg/3 ml Soln] 3 ml INHALATION RT-Q6H PRN PRN Reason: Shortness Of Breath Atorvastatin [Lipitor] 10 mg PO DAILY metFORMIN HCL 500 mg PO BID Tivozanib HCl [Fotivda] 1.34 mg PO DIRECTED Fluticasone Propion/Salmeterol [Wixela 500-50 Inhub] 1 puff INHALATION RT-BID SILVER sulfADIAZINE Cream [Silvadene 1% Cream] 1 applic TOPICAL DIRECTED PRN PRN Reason: wound care Ciprofloxacin HCl [Cipro] 500 mg PO BID Omeprazole [PriLOSEC] 40 mg PO BID Gabapentin [Neurontin] 300 mg PO HS Ondansetron Odt [Zofran ODT] 4 - 8 mg PO Q8H PRN PRN Reason: Nausea And Vomiting oxyCODONE HCL [oxyCODONE HCL (IR)] 10 - 20 mg PO Q4H PRN PRN Reason: Pain Discontinued Metoprolol Tartrate [Lopressor] 100 mg PO BID Discharge Medication List Apixaban [Eliquis] 5 mg PO BID #60 tab 06/24/19 [Rx] Atorvastatin [Lipitor] 10 mg PO DAILY 10/03/24 [History] Fluticasone Propion/Salmeterol [Wixela 500-50 Inhub] 1 puff INHALATION RT-BID 10/03/24 [History] Gabapentin [Neurontin] 300 mg PO HS 10/03/24 [History] Ipratropium-Albuterol Nebulize [Duoneb 0.5 mg-3 mg/3 ml Soln] 3 ml INHALATION RT-Q6H PRN 10/03/24 [History] OLANZapine [ZyPREXA] 2.5 mg PO HS 10/03/24 [History] Omeprazole [PriLOSEC] 40 mg PO BID 10/03/24 [History] Tamsulosin HCl [Flomax] 0.4 mg PO BID 10/03/24 [History] Tivozanib HCl [Fotivda] 1.34 mg PO DIRECTED 10/03/24 [History] metFORMIN HCL 500 mg PO BID 10/03/24 [History] Ciprofloxacin HCl [Cipro] 500 mg PO BID 12/01/24 [History] Ondansetron Odt [Zofran ODT] 4 - 8 mg PO Q8H PRN 12/01/24 [History] SILVER sulfADIAZINE Cream [Silvadene 1% Cream] 1 applic TOPICAL DIRECTED PRN 12/01/24 [History] oxyCODONE HCL [oxyCODONE HCL (IR)] 10 - 20 mg PO Q4H PRN 12/01/24 [History] Diltiazem Cd [Cardizem CD] 180 mg PO DAILY #30 cap 12/06/24 [Rx] Furosemide [Lasix] 40 mg PO DAILY #30 tab 12/06/24 [Rx] Metoprolol Succinate (ER) [Toprol XL] 150 mg PO TID 30 Days #270 tab 12/06/24 [Rx] Follow up Appointment(s)/Referral(s): Gerald Araujo MD [STAFF PHYSICIAN] - 1 Week (, December 12 10:45) Gabriel Carr NPC [Nurse Practitioner] - 12/11/24 3:15 pm (Hospital f/u appt. Appt at [facility] office. [address]) [facility], [NON-STAFF] - Soy Baez MD [Primary Care Provider] - 1-2 days (Monday, December 12, 10:30) Patient Instructions/Handouts: A-fib (Atrial Fibrillation) (DC), Renal Cancer (DC) Activity/Diet/Wound Care/Special Instructions: activity limited follow-up Follow-up with primary care provider on discharge Follow-up with radiation oncology on 12/09 at 1015 for your radiation appointment Follow-up with oncology outpatient Continue taking medications as prescribed Discharge/Stand Alone Forms: Who Do I Call?, Help In The Home Discharge Disposition: HOME WITH HOME HEALTH SERVICES
== END 2024-12-06 16:45 | disposition home health service (06) | DRG 309 ==
LOC: EC 09:31 → 6NMEDSUR 12:55 → OBSVTOIN 12:56 → 6NMEDSUR 14:04 → 3SCARD 16:58
PROVIDERS: ADMIT Hospitalist; ATTEND Hospitalist
PROC: 4A10X4Z Monitoring of Central Nervous Electrical Activity, External Approach (ICD-10-PCS; principal; 2024-12-02)
DX: I48.19 Other persistent atrial fibrillation (principal); C64.9 Malignant neoplasm of unspecified kidney, except renal pelvis; C79.51 Secondary malignant neoplasm of bone; Z51.5 Encounter for palliative care; C13.0 Malignant neoplasm of postcricoid region; Z11.52 Encounter for screening for COVID-19; I13.0 Hypertensive heart and chronic kidney disease with heart failure and stage 1 through stage 4 chronic kidney disease, or unspecified chronic kidney disease; M06.9 Rheumatoid arthritis, unspecified; E11.22 Type 2 diabetes mellitus with diabetic chronic kidney disease; J44.9 Chronic obstructive pulmonary disease, unspecified; E66.9 Obesity, unspecified; I34.81 Nonrheumatic mitral (valve) annulus calcification; N18.9 Chronic kidney disease, unspecified; I50.22 Chronic systolic (congestive) heart failure; M84.40XA Pathological fracture, unspecified site, initial encounter for fracture; R00.0 Tachycardia, unspecified; G43.909 Migraine, unspecified, not intractable, without status migrainosus; E78.5 Hyperlipidemia, unspecified; G89.29 Other chronic pain; N40.0 Benign prostatic hyperplasia without lower urinary tract symptoms; K21.9 Gastro-esophageal reflux disease without esophagitis; Z68.31 Body mass index [BMI] 31.0-31.9, adult; Z79.01 Long term (current) use of anticoagulants; Z79.51 Long term (current) use of inhaled steroids; Z79.84 Long term (current) use of oral hypoglycemic drugs; Z79.899 Other long term (current) drug therapy; Z90.5 Acquired absence of kidney; Z87.891 Personal history of nicotine dependence; Z92.21 Personal history of antineoplastic chemotherapy; Z92.3 Personal history of irradiation; Z88.0 Allergy status to penicillin
CPT/HCPCS: 36415; 71046; 77280; 77387; 77412; 80048; 80053; 81001; 83605; 83735; 83880; 84484; 85025; 85610; 85730; 87077; 87086; 87186; 87636; 93005; 93970; 94640; 96361; 96374; 96375; 96376; 99285